=== PATIENT | female | born 1975 | race Caucasian/White ===

== ENCOUNTER 2016-08-28 10:18 | Inpatient (IN) | payer OTHER ==
[~2016-08-28] VITALS: Ht 160 cm; Wt 118.5 kg
[2016-08-28] MEDS ORDERED: PANTOPRAZOLE IV PUSH 40 MG VIAL. IVP ONE (10:45)
[2016-08-28] MEDS ORDERED: ONDANSETRON PF 4 MG/2 ML VIAL. IV ONE (10:45)
[2016-08-28] MEDS ORDERED: IV NORMAL SALINE 1000ML BAG 1,000 ML IV SCH (10:45)
--- NOTE | 2016-08-28 10:47 | PHYS DOC ---
Adult General Chief Complaint Chief Complaint: NAUSEA/VOMITING/DIARRHA HPI HPI Patient is a 41 year old female who presents with complaint of vomiting. Patient said worsening symptoms over the past 2-3 days. Patient states that she started having episodes of coffee-ground emesis within the last day. Patient states her last episode was at 0300 this morning. Patient states she has history of hepatitis C. Patient has not had history of GI bleeding. Patient denies any associated pain and has not had any bloody stools but has had a few episodes of loose stools. Patient denies any fevers. The patient originally went to urgent care and was instructed to come to the emergency department the concern for GI bleeding. Review of Systems Review of Systems Constitutional: Generalized weakness, denies fever or chills [] Eyes: Denies change in visual acuity, redness, or eye pain [] HENT: Denies nasal congestion or sore throat [] Respiratory: Denies cough or shortness of breath [] Cardiovascular: Denies chest pain or edema [] GI: Nausea, coffee-ground emesis, denies abdominal pain [] : Denies dysuria or hematuria [] Musculoskeletal: Denies back pain or joint pain [] Integument: Denies rash or skin lesions [] Neurologic: Denies headache, focal weakness or sensory changes [] Current Medications Current Medications Current Medications Medications (Trade) Dose Ordered Sig/Terrell Start Time Stop Time Status Last Admin Dose Admin Ondansetron HCl (Zofran) 4 mg 1X ONCE 08/28/16 10:45 08/28/16 10:49 DC 08/28/16 11:21 4 MG Pantoprazole Sodium (Protonix Vial) 40 mg 1X ONCE 08/28/16 10:45 08/28/16 10:49 DC 08/28/16 11:23 40 MG Sodium Chloride 1,000 ml @ 1,000 mls/hr Q1H 08/28/16 10:45 08/28/16 11:44 DC 08/28/16 11:21 1,000 MLS/HR Allergies Allergies Allergies Coded Allergies Type Severity Reaction Last Updated Verified No Known Drug Allergies 08/28/16 No Physical Exam Physical Exam Constitutional: Alert, afebrile, appears ill. [] HENT: Normocephalic, atraumatic, bilateral external ears normal, oropharynx dry , no oral exudates, nose normal. [] Eyes: PERRLA, EOMI, conjunctiva normal, no discharge. [] Neck: Normal range of motion, no tenderness, supple, no stridor. [] Cardiovascular: Bradycardia, regular rhythm, no murmur [] Lungs & Thorax: Bilateral breath sounds clear to auscultation [] Abdomen: Bowel sounds normal, soft, no tenderness, no masses, no pulsatile masses. [] Skin: Warm, dry, no erythema, no rash. [] Back: No tenderness, no CVA tenderness. [] Extremities: No tenderness, no cyanosis, no clubbing, ROM intact, no edema. [] Neurologic: Alert and oriented X 3, normal motor function, normal sensory function, no focal deficits noted. [] Current Patient Data Vital Signs Vital Signs Date Time Temp Pulse Resp B/P (MAP) Pulse Ox O2 Delivery O2 Flow Rate FiO2 08/28/16 12:00 48 147/70 (95) 95 Room Air 08/28/16 10:30 98.3 21 98.3 Lab Values Laboratory Tests Test 08/28/16 10:48 08/28/16 11:25 08/28/16 11:55 Glucose (Fingerstick) 80 mg/dL (70-99) White Blood Count 9.9 x10^3/uL (4.0-11.0) Red Blood Count 4.65 x10^6/uL (3.50-5.40) Hemoglobin 16.0 g/dL (12.0-15.5) H Hematocrit 48.0 % (36.0-47.0) H Mean Corpuscular Volume 103 fL (79-100) H Mean Corpuscular Hemoglobin 35 pg (25-35) Mean Corpuscular Hemoglobin Concent 33 g/dL (31-37) Red Cell Distribution Width 14.4 % (11.5-14.5) Platelet Count 172 x10^3/uL (140-400) Neutrophils (%) (Auto) 55 % (31-73) Lymphocytes (%) (Auto) 31 % (24-48) Monocytes (%) (Auto) 13 % (0-9) H Eosinophils (%) (Auto) 1 % (0-3) Basophils (%) (Auto) 1 % (0-3) Neutrophils # (Auto) 5.4 x10^3uL (1.8-7.7) Lymphocytes # (Auto) 3.1 x10^3/uL (1.0-4.8) Monocytes # (Auto) 1.2 x10^3/uL (0.0-1.1) H Eosinophils # (Auto) 0.1 x10^3/uL (0.0-0.7) Basophils # (Auto) 0.1 x10^3/uL (0.0-0.2) Prothrombin Time 14.7 SEC (11.7-14.0) H Prothrombin Time INR 1.2 (0.8-1.1) H PTT 28 SEC (24-38) Sodium Level 135 mmol/L (136-145) L Potassium Level 4.2 mmol/L (3.5-5.1) Chloride Level 97 mmol/L (98-107) L Carbon Dioxide Level 29 mmol/L (21-32) Anion Gap 9 (6-14) Blood Urea Nitrogen 13 mg/dL (7-20) Creatinine 0.9 mg/dL (0.6-1.0) Estimated GFR (Cockcroft-Gault) 69.0 Glucose Level 89 mg/dL (70-99) Calcium Level 9.0 mg/dL (8.5-10.1) Total Bilirubin 1.0 mg/dL (0.2-1.0) Direct Bilirubin 0.4 mg/dL (0.0-0.2) H Aspartate Amino Transferase (AST) 51 U/L (15-37) H Alanine Aminotransferase (ALT) 82 U/L (14-59) H Alkaline Phosphatase 65 U/L (46-116) Total Protein 8.3 g/dL (6.4-8.2) H Albumin 3.6 g/dL (3.4-5.0) Lipase 93 U/L (73-393) Stool Occult Blood Negative (NEG) Laboratory Tests 08/28/16 11:25 Laboratory Tests 08/28/16 11:25 EKG EKG Interpreted by me: Heart rate 42, sinus bradycardia, normal axis, normal intervals, no acute ST/T-wave abnormalities present [] Radiology/Procedures Radiology/Procedures [facility] [address] [place] [address] IMAGING REPORT Signed PATIENT: PACO TREJO ACCOUNT: [id number] : 1975 LOCATION: ER AGE: 41 SEX: F EXAM STATUS: REG ER ORD. PHYSICIAN: MIRIAN HA MD REASON: vomiting with coffee-ground emesis PROCEDURE: ACUTE ABDOMEN SERIES Acute abdomen series with chest, 3 views, 08/28/2012: History: Vomiting Gas is present in large and small bowel without significant bowel distention. There are a few small scattered air-fluid levels in the colon. No free air is seen in the abdomen. There is no evidence of organomegaly. A rim-like radiopacity in the pelvis on the right may be postsurgical or a small partially calcified mass. Several pelvic phleboliths are noted. Scattered degenerative changes are present in the spine. The heart size is normal. The lungs are clear. There is no evidence of pleural fluid. IMPRESSION: 1. Fluid in the colon. 2. Otherwise no acute abdominal abnormality is detected. DICTATED and SIGNED BY: BRIDGET ARMENDARIZ MD DATE: 08/28/16 1115 CC: BETHANY CHEN; MIRIAN HA MD ~ [] Course & Med Decision Making Course & Med Decision Making Pertinent Labs and Imaging studies reviewed. (See chart for details) Patient started on IV fluids, Protonix, and Zofran. Patient is displaying evidence of hemoconcentration on her lab work suggesting dehydration. Patient is currently not tolerating oral intake. Due to coffee-ground emesis, patient may have GI bleeding though fecal occult suggests against severe bleeding at this time. Due to dehydration and continued lack of oral intake, the patient will be admitted for further symptomatic control, rule out GI bleeding, and continue on IV fluids for hydration. I spoke with Dr. Odonnell who accepted care patient in hospital. Dragon Disclaimer Dragon Disclaimer This electronic medical record was generated, in whole or in part, using a voice recognition dictation system. Departure Departure Impression: Primary Impression: Vomiting Additional Impressions: Dehydration Hepatitis C Disposition: ADMITTED INPATIENT Admitting Physician: Roderick Odonnell Condition: STABLE Referrals: BETHANY CHEN (PCP) Problem Qualifiers Primary Impression: Vomiting Vomiting type: hematemesis Nausea presence: with nausea Qualified Codes: K92.0 - Hematemesis; R11.0 - Nausea Additional Impressions: Hepatitis C Viral hepatitis chronicity: chronic Hepatic coma status: without hepatic coma Qualified Codes: B18.2 - Chronic viral hepatitis C MIRIAN HA MD August 28, 2016 10:47
--- NOTE | 2016-08-28 11:16 | EKG ---
[facility] [address] [place] [address] Test Date: 2016-08-28 Test Time: 10:48:48 Pat Name: PACO TREJO Department: Room: Gender: F [employer]: : 1975 Requested By: MIRIAN HA Order Number: [id number] Reading MD: Brooke Monet Measurements Intervals [place] Rate: 42 P: 48 PA: 158 QRS: 59 QRSD: 86 T: 47 QT: 454 QTc: 382 Interpretive Statements SINUS BRADYCARDIA OTHERWISE NORMAL EKG RI6.01 Unconfirmed report No previous ECG available for comparison Electronically Signed On 08-31-2016 20:37:06 CDT by Brooke Monet
--- NOTE | 2016-08-28 11:24 | RAD ---
Acute abdomen series with chest, 3 views, 08/28/2012: History: Vomiting Gas is present in large and small bowel without significant bowel distention. There are a few small scattered air-fluid levels in the colon. No free air is seen in the abdomen. There is no evidence of organomegaly. A rim-like radiopacity in the pelvis on the right may be postsurgical or a small partially calcified mass. Several pelvic phleboliths are noted. Scattered degenerative changes are present in the spine. The heart size is normal. The lungs are clear. There is no evidence of pleural fluid. IMPRESSION: 1. Fluid in the colon. 2. Otherwise no acute abdominal abnormality is detected.
[2016-08-28 11:39] LABS: BASO # 0.1 x10^3/uL (0.0-0.2); BASO % 1 % (0-3); EOS % 1 % (0-3); LYMPH # 3.1 x10^3/uL (1.0-4.8); LYMPH % 31 % (24-48); MEAN CORPUSCULAR HEMOGLOBIN 35 pg (25-35); MEAN CORPUSCULAR HGB CONC 33 g/dL (31-37); MEAN CORPUSCULAR VOLUME 103 fL (79-100); MONO % 13 % (0-9); NEUT % 55 % (31-73); PLATELET COUNT 172 x10^3/uL (140-400); RED BLOOD COUNT 4.65 x10^6/uL (3.50-5.40); RED CELL DISTRIBUTION WIDTH 14.4 % (11.5-14.5); WHITE BLOOD COUNT 9.9 x10^3/uL (4.0-11.0)
[2016-08-28 11:49] LABS: INR 1.2 (0.8-1.1); PROTHROMBIN TIME PATIENT 14.7 SEC (11.7-14.0)
[2016-08-28 11:55] LABS: CREATININE 0.9 mg/dL (0.6-1.0); POTASSIUM 4.2 mmol/L (3.5-5.1)
[2016-08-28 12:02] LABS: ALBUMIN 3.6 g/dL (3.4-5.0); DIRECT BILIRUBIN 0.4 mg/dL (0.0-0.2); TOTAL PROTEIN 8.3 g/dL (6.4-8.2)
[2016-08-28 12:10] LABS: NEG OBC FOB NEG; POS OBC FOB POS
--- NOTE | 2016-08-28 12:59 | ACF ---
Admit Criteria Forms Admit Criteria Forms Admit Criteria Forms VOMITING Clinical Indications for Admission to Inpatient Care ( Place 'X' for any and all applicable criteria): Admission is indicated for 1 or more of the following(1)(2)(3): [ ]I. Complete or partial gastrointestinal obstruction [ ]II. Vomiting due to significant metabolic derangement (eg, severe hypercalcemia, diabetic ketoacidosis) [ ]III. Other cause of vomiting requiring hospitalization (eg, poisoning, increased intracranial pressure) [X]IV. Inpatient admission required rather than observation care because of 1 or more of the following [ ]i) Hemodynamic instability [X]ii) Vomiting that is severe or persistent indicated by 1 or more of the following 1) Numerous episodes of vomiting in past 24hours (eg, every 1 to 2 hours) 2) Suggests severe underlying cause or complication (eg , projectile, feculent, bilious, coffee ground, bloody) 3) Appropriate antiemetic treatment (eg, repeated oral or parenteral dosing) does not sufficiently reduce vomiting within 12 to 24 hours of treatment 4) Treatment regimen necessary to adequately control vomiting requires inpatient level of care (eg, not immediately available in outpatient setting) [X]iii) Severe electrolyte abnormalities requiring inpatient care [ ]iv) Severe pain requiring acute inpatient management( Continuous or frequent (eg, every 2 to 4 hours) parental analgesics or analgesic regimen that can only be performed or initiated in inpatient setting) [ ]v) High fever or infection requiring inpatient admission as indicated by 1 or more of the following(7)(8): [ ]1) Appropriate outpatient or observation care antimicrobial treatment unavailable, not effective, or not feasible [ ]2) Documented bacteremia [ ]3) Temp >104.9 degrees F (40.5 degrees C) (oral) [ ]4) Temp >103.1 degrees F (39.5 C) (oral) or <96.8 degrees F (36 C) (rectal) that does not respond to all emergency treatment measures [ ]vi) Acute renal failure [ ]vii) IV fluid required rather than oral rehydration to replace significant on going losses (greater than 3 L/m2 per day) [ ]viii) Parenteral nutrition regimen that must be implemented on inpatient basis [ ]ix) Other condition, treatment or monitoring requiring inpatient admission Extended stay beyond goal length of stay may be needed for(1)(4): [ ]a) Severe vomiting [ ]b) Persistent vomiting, vital sign changes, severe electrolyte imbalance , or diagnosed cause of vomiting that requires continued hospitalization (eg, gastrointestinal obstruction , increased intracranial pressure) [ ]c) Surgery to treat identified causes of vomiting (eg, bowel obstruction , intracranial process) [ ]d) Comorbid illness that requires inpatient care (eg, acute heart failure , renal failure) [ ]e) Need for inpatient endoscopy The original [employer] content created by [employer] has been revised. The portions of the content which have been revised are identified through the use of italic text or in bold, and [employer] has neither reviewed nor approved the modified material. All other unmodified content is copyright [employer]. Please see references footnoted in the original [employer] edition 2016 KEVIN HASSAN August 28, 2016 12:59
[2016-08-28] MEDS ORDERED: ONDANSETRON PF 4 MG/2 ML VIAL. IV PRN ×2 (13:00→13:45)
[2016-08-28 13:04] LABS: BILIRUBIN,URINE SMALL (NEG); GLUCOSE,URINE NEGATIVE (NEG); NITRITE,URINE POSITIVE (NEG); PROTEIN,URINE NEGATIVE (NEG-TRACE)
[2016-08-28 13:21] LABS: BACTERIA,URINE MANY /HPF (0-FEW); SQUAMOUS EPITHELIAL CELL,UR FEW /LPF; WBC,URINE OCC /HPF (0-4)
--- NOTE | 2016-08-28 13:42 | PDOC1 ---
History and Physical Current Problem List Problem List Problems Medical Problems: (1) Dehydration Status: Acute (2) Hepatitis C Status: Acute Current Medications Current Medications Current Medications Medications (Trade) Dose Ordered Sig/Terrell Start Time Stop Time Status Last Admin Dose Admin Ondansetron HCl (Zofran) 4 mg PRN Q8HRS PRN 08/28/16 13:00 08/29/16 12:59 Pantoprazole Sodium (Protonix Vial) 40 mg DAILYAC 08/29/16 07:30 Sodium Chloride 1,000 ml @ 150 mls/hr Q6H40M 08/28/16 12:59 08/29/16 12:58 Allergies Allergies Allergies Coded Allergies Type Severity Reaction Last Updated Verified No Known Drug Allergies 08/28/16 No ROS Review of System CONSTITUTIONAL: No fever or chills EYES: No recent changes SKIN: No rash or itching CARDIOVASCULAR: No chest pain, syncope, palpitations, or edema RESPIRATORY: No SOB or cough GASTROINTESTINAL: No nausea, coffee ground emesis, NEUROLOGICAL: No headaches or weakness ENDOCRINE: No cold or heat intolerance GENITOURINARY: No urgency or frequency of urination MUSCULOSKELETAL: No back pain or joint pain LYMPHATICS: No enlarged lymph nodes PSYCHIATRIC: No anxiety or depression Physical Exam Physical Exam GEN.: No apparent distress. Alert and oriented. HEENT: Head is normocephalic, atraumatic NECK: Supple. LUNGS: Clear to auscultation. HEART: RRR, S1, S2 present. Peripheral pulses intact ABDOMEN: Soft, nontender. Positive bowel sounds. rash interregional area EXTREMITIES: Without any cyanosis. NEUROLOGIC: Normal speech, normal tone PSYCHIATRIC: Normal affect, normal mood. SKIN: dry Vitals Vitals Vital Signs Date Time Temp Pulse Resp B/P (MAP) Pulse Ox O2 Delivery O2 Flow Rate FiO2 08/28/16 12:00 48 147/70 (95) 95 Room Air 08/28/16 10:30 98.3 21 98.3 Labs Labs Laboratory Tests Test 08/28/16 10:48 08/28/16 11:25 08/28/16 11:55 08/28/16 12:26 Glucose (Fingerstick) 80 mg/dL (70-99) White Blood Count 9.9 x10^3/uL (4.0-11.0) Red Blood Count 4.65 x10^6/uL (3.50-5.40) Hemoglobin 16.0 g/dL (12.0-15.5) Hematocrit 48.0 % (36.0-47.0) Mean Corpuscular Volume 103 fL (79-100) Mean Corpuscular Hemoglobin 35 pg (25-35) Mean Corpuscular Hemoglobin Concent 33 g/dL (31-37) Red Cell Distribution Width 14.4 % (11.5-14.5) Platelet Count 172 x10^3/uL (140-400) Neutrophils (%) (Auto) 55 % (31-73) Lymphocytes (%) (Auto) 31 % (24-48) Monocytes (%) (Auto) 13 % (0-9) Eosinophils (%) (Auto) 1 % (0-3) Basophils (%) (Auto) 1 % (0-3) Neutrophils # (Auto) 5.4 x10^3uL (1.8-7.7) Lymphocytes # (Auto) 3.1 x10^3/uL (1.0-4.8) Monocytes # (Auto) 1.2 x10^3/uL (0.0-1.1) Eosinophils # (Auto) 0.1 x10^3/uL (0.0-0.7) Basophils # (Auto) 0.1 x10^3/uL (0.0-0.2) Prothrombin Time 14.7 SEC (11.7-14.0) Prothromb Time International Ratio 1.2 (0.8-1.1) Activated Partial Thromboplast Time 28 SEC (24-38) Sodium Level 135 mmol/L (136-145) Potassium Level 4.2 mmol/L (3.5-5.1) Chloride Level 97 mmol/L (98-107) Carbon Dioxide Level 29 mmol/L (21-32) Anion Gap 9 (6-14) Blood Urea Nitrogen 13 mg/dL (7-20) Creatinine 0.9 mg/dL (0.6-1.0) Estimated GFR (Cockcroft-Gault) 69.0 Glucose Level 89 mg/dL (70-99) Calcium Level 9.0 mg/dL (8.5-10.1) Total Bilirubin 1.0 mg/dL (0.2-1.0) Direct Bilirubin 0.4 mg/dL (0.0-0.2) Aspartate Amino Transf (AST/SGOT) 51 U/L (15-37) Alanine Aminotransferase (ALT/SGPT) 82 U/L (14-59) Alkaline Phosphatase 65 U/L (46-116) Total Protein 8.3 g/dL (6.4-8.2) Albumin 3.6 g/dL (3.4-5.0) Lipase 93 U/L (73-393) Stool Occult Blood Negative (NEG) Urine Collection Type Unknown Urine Color Sally Urine Clarity Clear Urine pH 6.0 Urine Specific [place] 1.015 Urine Protein Negative mg/dL (NEG-TRACE) Urine Glucose (UA) Negative mg/dL (NEG) Urine Ketones (Stick) Negative mg/dL (NEG) Urine Blood Negative (NEG) Urine Nitrite Positive (NEG) Urine Bilirubin Small (NEG) Urine Urobilinogen Dipstick 1.0 mg/dL (0.2 mg/dL) Urine Leukocyte Esterase Trace (NEG) Urine RBC 1-2 /HPF (0-2) Urine WBC Occ /HPF (0-4) Urine Squamous Epithelial Cells Few /LPF Urine Bacteria Many /HPF (0-FEW) Urine Mucus Marked /LPF Laboratory Tests Test 08/28/16 10:48 08/28/16 11:25 08/28/16 11:55 08/28/16 12:26 Glucose (Fingerstick) 80 mg/dL (70-99) White Blood Count 9.9 x10^3/uL (4.0-11.0) Red Blood Count 4.65 x10^6/uL (3.50-5.40) Hemoglobin 16.0 g/dL (12.0-15.5) Hematocrit 48.0 % (36.0-47.0) Mean Corpuscular Volume 103 fL (79-100) Mean Corpuscular Hemoglobin 35 pg (25-35) Mean Corpuscular Hemoglobin Concent 33 g/dL (31-37) Red Cell Distribution Width 14.4 % (11.5-14.5) Platelet Count 172 x10^3/uL (140-400) Neutrophils (%) (Auto) 55 % (31-73) Lymphocytes (%) (Auto) 31 % (24-48) Monocytes (%) (Auto) 13 % (0-9) Eosinophils (%) (Auto) 1 % (0-3) Basophils (%) (Auto) 1 % (0-3) Neutrophils # (Auto) 5.4 x10^3uL (1.8-7.7) Lymphocytes # (Auto) 3.1 x10^3/uL (1.0-4.8) Monocytes # (Auto) 1.2 x10^3/uL (0.0-1.1) Eosinophils # (Auto) 0.1 x10^3/uL (0.0-0.7) Basophils # (Auto) 0.1 x10^3/uL (0.0-0.2) Prothrombin Time 14.7 SEC (11.7-14.0) Prothromb Time International Ratio 1.2 (0.8-1.1) Activated Partial Thromboplast Time 28 SEC (24-38) Sodium Level 135 mmol/L (136-145) Potassium Level 4.2 mmol/L (3.5-5.1) Chloride Level 97 mmol/L (98-107) Carbon Dioxide Level 29 mmol/L (21-32) Anion Gap 9 (6-14) Blood Urea Nitrogen 13 mg/dL (7-20) Creatinine 0.9 mg/dL (0.6-1.0) Estimated GFR (Cockcroft-Gault) 69.0 Glucose Level 89 mg/dL (70-99) Calcium Level 9.0 mg/dL (8.5-10.1) Total Bilirubin 1.0 mg/dL (0.2-1.0) Direct Bilirubin 0.4 mg/dL (0.0-0.2) Aspartate Amino Transf (AST/SGOT) 51 U/L (15-37) Alanine Aminotransferase (ALT/SGPT) 82 U/L (14-59) Alkaline Phosphatase 65 U/L (46-116) Total Protein 8.3 g/dL (6.4-8.2) Albumin 3.6 g/dL (3.4-5.0) Lipase 93 U/L (73-393) Stool Occult Blood Negative (NEG) Urine Collection Type Unknown Urine Color Sally Urine Clarity Clear Urine pH 6.0 Urine Specific [place] 1.015 Urine Protein Negative mg/dL (NEG-TRACE) Urine Glucose (UA) Negative mg/dL (NEG) Urine Ketones (Stick) Negative mg/dL (NEG) Urine Blood Negative (NEG) Urine Nitrite Positive (NEG) Urine Bilirubin Small (NEG) Urine Urobilinogen Dipstick 1.0 mg/dL (0.2 mg/dL) Urine Leukocyte Esterase Trace (NEG) Urine RBC 1-2 /HPF (0-2) Urine WBC Occ /HPF (0-4) Urine Squamous Epithelial Cells Few /LPF Urine Bacteria Many /HPF (0-FEW) Urine Mucus Marked /LPF VTE Prophylaxis Ordered VTE Prophylaxis Devices: No VTE Pharmacological Prophylaxi: No WILFRED RODARTE MD August 28, 2016 13:42
[2016-08-28] MEDS ORDERED: ALBUTEROL SULFATE 2.5 MG/3 ML NEBU. NEB PRN (13:45)
[2016-08-28] MEDS ORDERED: HYDROcodone/APAP 5/325MG 1 TAB TABLET PO PRN (13:45)
[2016-08-28] MEDS ORDERED: ACETAMINOPHEN 325 MG TABLET. PO PRN (13:45)
[2016-08-28] MEDS ORDERED: hydrALAZINE 20 MG/ML VIAL. IVP PRN (13:45)
[2016-08-28 14:10] VITALS: BP 119/71
[2016-08-28 14:50] VITALS: BP 119/71
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
[2016-08-28] MEDS: IV NORMAL SALINE 1000ML BAG 1,000 ML IV SCH ×3 (15:23→21:57)
[2016-08-28] MEDS: NICOTINE 21MG PATCH. TD PRN (17:12)
[2016-08-28 18:17] LABS: HEMATOCRIT 41.8 % (36.0-47.0); HEMOGLOBIN 14.3 g/dL (12.0-15.5); RED BLOOD COUNT 4.08 x10^6/uL (3.50-5.40); RED CELL DISTRIBUTION WIDTH 14.1 % (11.5-14.5)
[2016-08-28 19:00] VITALS: BP 112/54
[2016-08-28] MEDS: NYSTATIN TOPICAL POWDER 15GM BOTTLE. TP SCH (20:13)
[2016-08-28 23:47] VITALS: BP 113/56
--- NOTE | 2016-08-29 00:03 | HP ---
ADMIT DATE: 08/28/2016 CHIEF COMPLAINT: Coffee-ground emesis. HISTORY OF PRESENT ILLNESS: A 41-year-old female patient presented to the ER with complaints of coffee-ground emesis. She had nearly 11 episodes from Sunday. She denies any hematochezia or abdominal pain or prior history of gastric ulcers. The only history positive in the past was hepatitis C. However, the patient says she went for a meeting and ate some out side food and denies any diarrhea or travel history. She had a history of schizophrenia and not taking any medications and her hepatitis C was never treated. It was diagnosed for nearly 10 years. PAST MEDICAL HISTORY: Hepatitis C, schizophrenia, FAMILY HISTORY: Unknown to the patient. SOCIAL HISTORY: Smokes 1 pack a day. Alcohol occasionally. SUBSTANCE ABUSE: ____ positive. REVIEW OF SYSTEMS: Please see my electronic H and P. PHYSICAL EXAMINATION: Please see my electronic H and P. LABORATORY FINDINGS: Sodium is 135, potassium 4.2, chloride is 97. Bilirubin 0.4, AST 51, ALT 82. Hematology: Hemoglobin is 16.0, MCV is 103, hematocrit 43. INR is 1.2. Urine, nitrites positive, leukocyte esterase trace and fecal occult negative. IMAGING STUDIES: Small bowel series negative. ASSESSMENT: 1. Coffee-ground emesis, unclear etiology. 2. Urinary tract infection, present on admission. 3. History of hepatitis C. 4. Chronic diarrhea. PLAN: 1. She has been admitted to the med-surg floor and currently on IV hydration and n.p.o. The patient denies any vomiting in the hospital. 2. We will check hemoglobin q.6 hours, hematocrit. 3. Gastroenterology has been consulted. 4. Start on ciprofloxacin IV for urinary tract infections. 5. Nystatin powder for possible fungal infection in the intertriginous area. 6. N.p.o. 7. Monitor. If the patient develops any acute bleeding, we will transfuse 2 units of PRBC. WILFRED RODARTE MD DR: ZHAO/mary alice JOB#: [id number] / [id number] CESAR
[2016-08-29 00:10] LABS: HEP A IGM ABDY Negative (Negative)
[2016-08-29] MEDS: IV NORMAL SALINE 1000ML BAG 1,000 ML IV SCH ×2 (02:19→03:05)
[2016-08-29 03:00] VITALS: BP 123/61
[2016-08-29 03:51] LABS: BASO # 0.1 x10^3/uL (0.0-0.2); BASO % 1 % (0-3); EOS % 1 % (0-3); HEMATOCRIT 41.8 % (36.0-47.0); HEMOGLOBIN 14.2 g/dL (12.0-15.5); LYMPH # 2.7 x10^3/uL (1.0-4.8); LYMPH % 37 % (24-48); MEAN CORPUSCULAR HEMOGLOBIN 35 pg (25-35); MEAN CORPUSCULAR HGB CONC 34 g/dL (31-37); MEAN CORPUSCULAR VOLUME 102 fL (79-100); MONO % 13 % (0-9); NEUT % 49 % (31-73); PLATELET COUNT 119 x10^3/uL (140-400); RED BLOOD COUNT 4.08 x10^6/uL (3.50-5.40); RED CELL DISTRIBUTION WIDTH 14.4 % (11.5-14.5); WHITE BLOOD COUNT 7.5 x10^3/uL (4.0-11.0)
[2016-08-29 04:18] LABS: CALCIUM 8.3 mg/dL (8.5-10.1); CREATININE 0.8 mg/dL (0.6-1.0)
[2016-08-29 07:03] VITALS: BP 131/65
[2016-08-29] MEDS ORDERED: PANTOPRAZOLE IV PUSH 40 MG VIAL. IVP SCH (07:30)
[2016-08-29] MEDS: NYSTATIN TOPICAL POWDER 15GM BOTTLE. TP SCH ×2 (08:12→21:00)
[2016-08-29 10:45] VITALS: BP 139/75
--- NOTE | 2016-08-29 11:01 | PDOC ---
Subjective: Subjective: Feeling better. No n/v, abd pain, diarrhea. No bleeding. Tolerating clears, would like to try eating more. Objective: Objective: Per RN - no vomiting or bleeding. Vital Signs: Vital Signs Date Time Temp Pulse Resp B/P (MAP) Pulse Ox O2 Delivery O2 Flow Rate FiO2 08/29/16 10:45 98.4 79 16 139/75 (96) 92 Room Air 98.4 08/28/16 23:47 2.0 Labs: Laboratory Tests Test 08/28/16 11:25 08/28/16 11:55 08/28/16 12:26 08/28/16 18:08 White Blood Count 9.9 x10^3/uL 8.0 x10^3/uL Red Blood Count 4.65 x10^6/uL 4.08 x10^6/uL Hemoglobin 16.0 g/dL 14.3 g/dL Hematocrit 48.0 % 41.8 % Mean Corpuscular Volume 103 fL 102 fL Mean Corpuscular Hemoglobin 35 pg 35 pg Mean Corpuscular Hemoglobin Concent 33 g/dL 34 g/dL Red Cell Distribution Width 14.4 % 14.1 % Platelet Count 172 x10^3/uL 129 x10^3/uL Neutrophils (%) (Auto) 55 % Lymphocytes (%) (Auto) 31 % Monocytes (%) (Auto) 13 % Eosinophils (%) (Auto) 1 % Basophils (%) (Auto) 1 % Neutrophils # (Auto) 5.4 x10^3uL Lymphocytes # (Auto) 3.1 x10^3/uL Monocytes # (Auto) 1.2 x10^3/uL Eosinophils # (Auto) 0.1 x10^3/uL Basophils # (Auto) 0.1 x10^3/uL Prothrombin Time 14.7 SEC Prothromb Time International Ratio 1.2 Activated Partial Thromboplast Time 28 SEC Sodium Level 135 mmol/L Potassium Level 4.2 mmol/L Chloride Level 97 mmol/L Carbon Dioxide Level 29 mmol/L Anion Gap 9 Blood Urea Nitrogen 13 mg/dL Creatinine 0.9 mg/dL Estimated GFR (Cockcroft-Gault) 69.0 Glucose Level 89 mg/dL Calcium Level 9.0 mg/dL Total Bilirubin 1.0 mg/dL Direct Bilirubin 0.4 mg/dL Aspartate Amino Transf (AST/SGOT) 51 U/L Alanine Aminotransferase (ALT/SGPT) 82 U/L Alkaline Phosphatase 65 U/L Total Protein 8.3 g/dL Albumin 3.6 g/dL Lipase 93 U/L Hepatitis A IgM Antibody Negative Hepatitis B Surface Antigen Negative Hepatitis B Core IgM Antibody Negative Hepatitis C Antibody >11.0 s/co ratio Stool Occult Blood Negative Urine Collection Type Unknown Urine Color Sally Urine Clarity Clear Urine pH 6.0 Urine Specific [place] 1.015 Urine Protein Negative mg/dL Urine Glucose (UA) Negative mg/dL Urine Ketones (Stick) Negative mg/dL Urine Blood Negative Urine Nitrite Positive Urine Bilirubin Small Urine Urobilinogen Dipstick 1.0 mg/dL Urine Leukocyte Esterase Trace Urine RBC 1-2 /HPF Urine WBC Occ /HPF Urine Squamous Epithelial Cells Few /LPF Urine Bacteria Many /HPF Urine Mucus Marked /LPF Test 08/29/16 03:30 White Blood Count 7.5 x10^3/uL Red Blood Count 4.08 x10^6/uL Hemoglobin 14.2 g/dL Hematocrit 41.8 % Mean Corpuscular Volume 102 fL Mean Corpuscular Hemoglobin 35 pg Mean Corpuscular Hemoglobin Concent 34 g/dL Red Cell Distribution Width 14.4 % Platelet Count 119 x10^3/uL Neutrophils (%) (Auto) 49 % Lymphocytes (%) (Auto) 37 % Monocytes (%) (Auto) 13 % Eosinophils (%) (Auto) 1 % Basophils (%) (Auto) 1 % Neutrophils # (Auto) 3.6 x10^3uL Lymphocytes # (Auto) 2.7 x10^3/uL Monocytes # (Auto) 1.0 x10^3/uL Eosinophils # (Auto) 0.1 x10^3/uL Basophils # (Auto) 0.1 x10^3/uL Sodium Level 141 mmol/L Potassium Level 4.0 mmol/L Chloride Level 105 mmol/L Carbon Dioxide Level 28 mmol/L Anion Gap 8 Blood Urea Nitrogen 8 mg/dL Creatinine 0.8 mg/dL Estimated GFR (Cockcroft-Gault) 79.0 Glucose Level 85 mg/dL Calcium Level 8.3 mg/dL PE: GEN: NAD LUNGS: CTAB HEART: RRR ABD: NABS, S/ND/NT NEURO/PSYCH: A & O 3 A/P: ?coffee-ground emesis, abd pain, diarrhea - no recurrence -normal Hgb, hemoccult neg stool -no previous EGD or colonoscopy -h/o dyspepsia, post-prandial bloating - started PPI yesterday Hep C -diagnosed 10 years ago in [place], confirmed w/ + antibody here -has seen hepatology @ [facility], apparently no treatment since continues w/ alcohol and marijuana -note low plt 119 -- Improved. Recommended follow-up w/ [facility] for Hep C treatment. Advance diet. Continue PPI. SAMEERA GRACIA August 29, 2016 11:01
[2016-08-29 12:18] LABS: HEMATOCRIT 44.3 % (36.0-47.0); RED BLOOD COUNT 4.31 x10^6/uL (3.50-5.40); RED CELL DISTRIBUTION WIDTH 14.2 % (11.5-14.5); WHITE BLOOD COUNT 10.9 x10^3/uL (4.0-11.0)
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
[2016-08-29 14:50] VITALS: BP 131/71
[2016-08-29] MEDS ORDERED: ABILIFY MAINTENA IM ONE (16:00)
[2016-08-29] MEDS: NICOTINE 21MG PATCH. TD PRN (18:02)
[2016-08-29 19:00] VITALS: BP 146/86
[2016-08-29 22:37] VITALS: BP 136/88
[2016-08-30] MEDS: IV NORMAL SALINE 1000ML BAG 1,000 ML IV SCH (00:41)
[2016-08-30 06:48] LABS: BASO # 0.1 x10^3/uL (0.0-0.2); BASO % 1 % (0-3); EOS % 1 % (0-3); HEMATOCRIT 41.6 % (36.0-47.0); HEMOGLOBIN 14.1 g/dL (12.0-15.5); LYMPH # 2.9 x10^3/uL (1.0-4.8); LYMPH % 32 % (24-48); MEAN CORPUSCULAR HEMOGLOBIN 35 pg (25-35); MEAN CORPUSCULAR HGB CONC 34 g/dL (31-37); MEAN CORPUSCULAR VOLUME 102 fL (79-100); MONO % 14 % (0-9); NEUT % 53 % (31-73); PLATELET COUNT 124 x10^3/uL (140-400); RED BLOOD COUNT 4.07 x10^6/uL (3.50-5.40); RED CELL DISTRIBUTION WIDTH 14.1 % (11.5-14.5); WHITE BLOOD COUNT 9.2 x10^3/uL (4.0-11.0)
[2016-08-30 07:00] VITALS: BP 163/92
[2016-08-30 07:09] LABS: CALCIUM 8.7 mg/dL (8.5-10.1); CREATININE 0.7 mg/dL (0.6-1.0); GFR 92.2; POTASSIUM 3.6 mmol/L (3.5-5.1)
[2016-08-30] MEDS ORDERED: PANTOPRAZOLE 40 MG TABLET.DR. PO SCH (07:30)
[2016-08-30] MEDS: NYSTATIN TOPICAL POWDER 15GM BOTTLE. TP SCH (08:03)
[2016-08-30] MEDS ORDERED: PANT40TA5 PO (09:40)
--- NOTE | 2016-08-30 09:42 | PDOC ---
G I PROGRESS NOTE Subjective No GI complaints. Stools firming up. No N, V; eating ravenously. Physical Exam Lungs clear. RRR Abdomen soft, not tender nor distended. Review of Relevant I have reviewed the following items karl (where applicable) has been applied. Labs Laboratory Tests Test 08/28/16 10:48 08/28/16 11:25 08/28/16 11:55 08/28/16 12:26 Glucose (Fingerstick) 80 mg/dL (70-99) White Blood Count 9.9 x10^3/uL (4.0-11.0) Red Blood Count 4.65 x10^6/uL (3.50-5.40) Hemoglobin 16.0 g/dL (12.0-15.5) Hematocrit 48.0 % (36.0-47.0) Mean Corpuscular Volume 103 fL (79-100) Mean Corpuscular Hemoglobin 35 pg (25-35) Mean Corpuscular Hemoglobin Concent 33 g/dL (31-37) Red Cell Distribution Width 14.4 % (11.5-14.5) Platelet Count 172 x10^3/uL (140-400) Neutrophils (%) (Auto) 55 % (31-73) Lymphocytes (%) (Auto) 31 % (24-48) Monocytes (%) (Auto) 13 % (0-9) Eosinophils (%) (Auto) 1 % (0-3) Basophils (%) (Auto) 1 % (0-3) Neutrophils # (Auto) 5.4 x10^3uL (1.8-7.7) Lymphocytes # (Auto) 3.1 x10^3/uL (1.0-4.8) Monocytes # (Auto) 1.2 x10^3/uL (0.0-1.1) Eosinophils # (Auto) 0.1 x10^3/uL (0.0-0.7) Basophils # (Auto) 0.1 x10^3/uL (0.0-0.2) Prothrombin Time 14.7 SEC (11.7-14.0) Prothromb Time International Ratio 1.2 (0.8-1.1) Activated Partial Thromboplast Time 28 SEC (24-38) Sodium Level 135 mmol/L (136-145) Potassium Level 4.2 mmol/L (3.5-5.1) Chloride Level 97 mmol/L (98-107) Carbon Dioxide Level 29 mmol/L (21-32) Anion Gap 9 (6-14) Blood Urea Nitrogen 13 mg/dL (7-20) Creatinine 0.9 mg/dL (0.6-1.0) Estimated GFR (Cockcroft-Gault) 69.0 Glucose Level 89 mg/dL (70-99) Calcium Level 9.0 mg/dL (8.5-10.1) Total Bilirubin 1.0 mg/dL (0.2-1.0) Direct Bilirubin 0.4 mg/dL (0.0-0.2) Aspartate Amino Transf (AST/SGOT) 51 U/L (15-37) Alanine Aminotransferase (ALT/SGPT) 82 U/L (14-59) Alkaline Phosphatase 65 U/L (46-116) Total Protein 8.3 g/dL (6.4-8.2) Albumin 3.6 g/dL (3.4-5.0) Lipase 93 U/L (73-393) Hepatitis A IgM Antibody Negative (Negative) Hepatitis B Surface Antigen Negative (Negative) Hepatitis B Core IgM Antibody Negative (Negative) Hepatitis C Antibody >11.0 s/co ratio Stool Occult Blood Negative (NEG) Urine Collection Type Unknown Urine Color Sally Urine Clarity Clear Urine pH 6.0 Urine Specific [place] 1.015 Urine Protein Negative mg/dL (NEG-TRACE) Urine Glucose (UA) Negative mg/dL (NEG) Urine Ketones (Stick) Negative mg/dL (NEG) Urine Blood Negative (NEG) Urine Nitrite Positive (NEG) Urine Bilirubin Small (NEG) Urine Urobilinogen Dipstick 1.0 mg/dL (0.2 mg/dL) Urine Leukocyte Esterase Trace (NEG) Urine RBC 1-2 /HPF (0-2) Urine WBC Occ /HPF (0-4) Urine Squamous Epithelial Cells Few /LPF Urine Bacteria Many /HPF (0-FEW) Urine Mucus Marked /LPF Test 08/28/16 18:08 08/29/16 03:30 08/29/16 11:25 08/30/16 06:45 White Blood Count 8.0 x10^3/uL (4.0-11.0) 7.5 x10^3/uL (4.0-11.0) 10.9 x10^3/uL (4.0-11.0) 9.2 x10^3/uL (4.0-11.0) Red Blood Count 4.08 x10^6/uL (3.50-5.40) 4.08 x10^6/uL (3.50-5.40) 4.31 x10^6/uL (3.50-5.40) 4.07 x10^6/uL (3.50-5.40) Hemoglobin 14.3 g/dL (12.0-15.5) 14.2 g/dL (12.0-15.5) 15.0 g/dL (12.0-15.5) 14.1 g/dL (12.0-15.5) Hematocrit 41.8 % (36.0-47.0) 41.8 % (36.0-47.0) 44.3 % (36.0-47.0) 41.6 % (36.0-47.0) Mean Corpuscular Volume 102 fL (79-100) 102 fL (79-100) 103 fL (79-100) 102 fL (79-100) Mean Corpuscular Hemoglobin 35 pg (25-35) 35 pg (25-35) 35 pg (25-35) 35 pg ( 25-35) Mean Corpuscular Hemoglobin Concent 34 g/dL (31-37) 34 g/dL (31-37) 34 g/dL (31-37) 34 g/dL (31-37) Red Cell Distribution Width 14.1 % (11.5-14.5) 14.4 % (11.5-14.5) 14.2 % (11.5-14.5) 14.1 % (11.5-14.5) Platelet Count 129 x10^3/uL (140-400) 119 x10^3/uL (140-400) 148 x10^3/uL (140-400) 124 x10^3/uL (140-400) Neutrophils (%) (Auto) 49 % (31-73) 53 % (31-73) Lymphocytes (%) (Auto) 37 % (24-48) 32 % (24-48) Monocytes (%) (Auto) 13 % (0-9) 14 % (0-9) Eosinophils (%) (Auto) 1 % (0-3) 1 % (0-3) Basophils (%) (Auto) 1 % (0-3) 1 % (0-3) Neutrophils # (Auto) 3.6 x10^3uL (1.8-7.7) 4.8 x10^3uL (1.8-7.7) Lymphocytes # (Auto) 2.7 x10^3/uL (1.0-4.8) 2.9 x10^3/uL (1.0-4.8) Monocytes # (Auto) 1.0 x10^3/uL (0.0-1.1) 1.2 x10^3/uL (0.0-1.1) Eosinophils # (Auto) 0.1 x10^3/uL (0.0-0.7) 0.1 x10^3/uL (0.0-0.7) Basophils # (Auto) 0.1 x10^3/uL (0.0-0.2) 0.1 x10^3/uL (0.0-0.2) Sodium Level 141 mmol/L (136-145) 138 mmol/L (136-145) Potassium Level 4.0 mmol/L (3.5-5.1) 3.6 mmol/L (3.5-5.1) Chloride Level 105 mmol/L (98-107) 103 mmol/L (98-107) Carbon Dioxide Level 28 mmol/L (21-32) 23 mmol/L (21-32) Anion Gap 8 (6-14) 12 (6-14) Blood Urea Nitrogen 8 mg/dL (7-20) 6 mg/dL (7-20) Creatinine 0.8 mg/dL (0.6-1.0) 0.7 mg/dL (0.6-1.0) Estimated GFR (Cockcroft-Gault) 79.0 92.2 Glucose Level 85 mg/dL (70-99) 94 mg/dL (70-99) Calcium Level 8.3 mg/dL (8.5-10.1) 8.7 mg/dL (8.5-10.1) Laboratory Tests Test 08/29/16 11:25 08/30/16 06:45 White Blood Count 10.9 x10^3/uL (4.0-11.0) 9.2 x10^3/uL (4.0-11.0) Red Blood Count 4.31 x10^6/uL (3.50-5.40) 4.07 x10^6/uL (3.50-5.40) Hemoglobin 15.0 g/dL (12.0-15.5) 14.1 g/dL (12.0-15.5) Hematocrit 44.3 % (36.0-47.0) 41.6 % (36.0-47.0) Mean Corpuscular Volume 103 fL (79-100) 102 fL (79-100) Mean Corpuscular Hemoglobin 35 pg (25-35) 35 pg (25-35) Mean Corpuscular Hemoglobin Concent 34 g/dL (31-37) 34 g/dL (31-37) Red Cell Distribution Width 14.2 % (11.5-14.5) 14.1 % (11.5-14.5) Platelet Count 148 x10^3/uL (140-400) 124 x10^3/uL (140-400) Neutrophils (%) (Auto) 53 % (31-73) Lymphocytes (%) (Auto) 32 % (24-48) Monocytes (%) (Auto) 14 % (0-9) Eosinophils (%) (Auto) 1 % (0-3) Basophils (%) (Auto) 1 % (0-3) Neutrophils # (Auto) 4.8 x10^3uL (1.8-7.7) Lymphocytes # (Auto) 2.9 x10^3/uL (1.0-4.8) Monocytes # (Auto) 1.2 x10^3/uL (0.0-1.1) Eosinophils # (Auto) 0.1 x10^3/uL (0.0-0.7) Basophils # (Auto) 0.1 x10^3/uL (0.0-0.2) Sodium Level 138 mmol/L (136-145) Potassium Level 3.6 mmol/L (3.5-5.1) Chloride Level 103 mmol/L (98-107) Carbon Dioxide Level 23 mmol/L (21-32) Anion Gap 12 (6-14) Blood Urea Nitrogen 6 mg/dL (7-20) Creatinine 0.7 mg/dL (0.6-1.0) Estimated GFR (Cockcroft-Gault) 92.2 Glucose Level 94 mg/dL (70-99) Calcium Level 8.7 mg/dL (8.5-10.1) Microbiology 08/28/16 Urine Culture - Preliminary, Resulted 08/28/16 Urine Culture Result 1 ([facility]) - Preliminary, Resulted Medications Current Medications Sodium Chloride 1,000 ml @ 1,000 mls/hr Q1H IV Last administered on 08/28/16 11:21; Start 08/28/16 at 10:45; Stop 08/28/16 at 11:44; Status DC Ondansetron HCl (Zofran) 4 mg 1X ONCE IV Last administered on 08/28/16 11:21 ; Start 08/28/16 at 10:45; Stop 08/28/16 at 10:49; Status DC Pantoprazole Sodium (Protonix Vial) 40 mg 1X ONCE IVP Last administered on 11:23; Start 08/28/16 at 10:45; Stop 08/28/16 at 10:49; Status DC Ondansetron HCl (Zofran) 4 mg PRN Q8HRS PRN IV NAUSEA/VOMITING; Start 08/28/16 at 13:00; Stop 08/29/16 at 12:59; Status DC Sodium Chloride 1,000 ml @ 150 mls/hr Q6H40M IV Last administered on 15:23; Start 08/28/16 at 12:59; Stop 08/29/16 at 12:58; Status DC Pantoprazole Sodium (Protonix Vial) 40 mg DAILYAC IVP Last administered on 08/29 08:12; Start 08/29/16 at 07:30; Stop 08/29/16 at 11:01; Status DC Acetaminophen (Tylenol) 325 mg PRN Q6HRS PRN PO MILD PAIN / TEMP; Start at 13:45 Acetaminophen/ Hydrocodone Bitart (Lortab 5/325) 1 tab PRN Q6HRS PRN PO MODERATE TO SEVERE PAIN; Start 08/28/16 at 13:45 Hydralazine HCl (Apresoline) 10 mg PRN Q4HRS PRN IVP ELEVATED BP, SEE COMMENTS ; Start 08/28/16 at 13:45 Ondansetron HCl (Zofran) 4 mg PRN Q8HRS PRN IV NAUSEA/VOMITING; Start 08/28/16 at 13:45 Albuterol Sulfate (Ventolin Neb Soln) 2.5 mg PRN Q4HRS PRN NEB SHORTNESS OF BREATH Last administered on 08/28/16 16:20; Start 08/28/16 at 13:45 Sodium Chloride 1,000 ml @ 75 mls/hr [id number] IV Last administered on 00:41; Start 08/28/16 at 13:45; Stop 08/30/16 at 09:39; Status DC Nicotine (Nicoderm Cq 21mg) 1 patch PRN DAILY PRN TD SMOKING CESSATION Last administered on 08/29/16 18:02; Start 08/28/16 at 17:00 Nystatin (Nystop) 1 lian BID TP Last administered on 08/30/16 08:03; Start at 19:00 Pantoprazole Sodium (Protonix) 40 mg DAILYAC PO Last administered on 08/30/16 08:03; Start 08/30/16 at 07:30 Non-Formulary Medication 1 ea ONCE ONCE IM Last administered on 08/29/16 15: 35; Start 08/29/16 at 16:00; Stop 08/29/16 at 16:01; Status DC Vitals/I & O Vital Sign - Last 24 Hours 08/29/16 08/29/16 08/29/16 08/29/16 10:45 14:50 19:00 20:00 Temp 98.4 97.6 98.4 98.4 97.6 98.4 Pulse 79 86 57 Resp 16 18 18 B/P (MAP) 139/75 (96) 131/71 (91) 146/86 (106) Pulse Ox 92 93 93 O2 Delivery Room Air Room Air Room Air Room Air 08/29/16 08/30/16 22:37 07:00 Temp 98.6 98.5 98.6 98.5 Pulse 72 45 Resp 18 16 B/P (MAP) 136/88 (104) 163/92 (115) Pulse Ox 93 97 O2 Delivery Room Air Room Air Intake and Output 08/29/16 08/29/16 08/30/16 14:59 22:59 06:59 Intake Total 360 ml 360 ml 800 ml Output Total 800 ml Balance 360 ml -440 ml 800 ml Problem List Problems Medical Problems: (1) Dehydration Status: Acute (2) Hepatitis C Status: Acute Assessment Gastroenteritis, improving. Chronic HCV; established at ; needs to return there. Plan of Care: Continue current Tx, Mgmt Plan of Care Note Home? Have no objections. MAURICE ALCOCER MD August 30, 2016 09:42
[2016-08-30 11:04] VITALS: BP 134/75
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
== END 2016-08-30 15:15 | disposition home or self-care (01) | DRG 918 ==
LOC: ER 10:18 → 5 SOUTH 12:22
PROVIDERS: ADMIT Internal Medicine; ATTEND Internal Medicine
DX: T62.91XA Toxic effect of unspecified noxious substance eaten as food, accidental (unintentional), initial encounter (principal); N39.0 Urinary tract infection, site not specified; K52.9 Noninfective gastroenteritis and colitis, unspecified; F17.210 Nicotine dependence, cigarettes, uncomplicated; M19.90 Unspecified osteoarthritis, unspecified site; B19.20 Unspecified viral hepatitis C without hepatic coma; F20.9 Schizophrenia, unspecified; K29.70 Gastritis, unspecified, without bleeding; F12.90 Cannabis use, unspecified, uncomplicated; R32 Unspecified urinary incontinence; K30 Functional dyspepsia; R00.1 Bradycardia, unspecified; F31.9 Bipolar disorder, unspecified; E86.0 Dehydration; Z79.899 Other long term (current) drug therapy; Z79.1 Long term (current) use of non-steroidal anti-inflammatories (NSAID); Z79.82 Long term (current) use of aspirin; Z79.2 Long term (current) use of antibiotics
CPT/HCPCS: 36415; 74022; 80048; 80074; 80076; 81001; 82274; 82947; 83690; 85027; 85610; 85730; 86850; 86900; 86901; 87086; 93005; 94250; 94640; 94760; 96361; 96374; 96375; C9113; J2405; J7030; 99285-25

== ENCOUNTER → 2016-11-09 | Outpatient (CLI) | payer OTHER ==
[~2016-11-09] MED LIST: PANT40TA5 PO
--- NOTE | 2016-11-09 16:31 | CARD ---
APPROVED REPORT EXAM: Two-dimensional and M-mode echocardiogram with Doppler and color Doppler. Other Information Quality : GoodHR: 49bpm Rhythm : NSR INDICATION Bradycardia RISK FACTORS Obesity Smoking 2D DIMENSIONS RVDd3.2 (2.9-3.5cm)Left Atrium(2D)4.2 (1.6-4.0cm) IVSd1.2 (0.7-1.1cm)Aortic Root(2D)2.5 (2.0-3.7cm) LVDd4.1 (3.9-5.9cm)LVOT Diameter2.3 (1.8-2.4cm) PWd1.2 (0.7-1.1cm)LVDs2.6 (2.5-4.0cm) FS (%) 36.6 %SV49.4 ml LVEF(%)67.0 (>50%) Aortic Valve AoV Peak Norbert.131.2cm/sAoV VTI37.5cm AO Peak GR.6.9mmHgLVOT Peak Norbert.114.8cm/s AO Mean GR.4mmHgAVA (VMAX)3.65cm2 Mitral Valve MV E Krvudsoc799.8cm/sMV E Peak Gr.6mmHg MV DECEL [id number] A Vqlvxmim35.6cm/s MV E Mean Gr.1mmHgE/A Ratio1.7 MV A [id number] Pulmonary Valve PV Peak Gnkitlzs494.6cm/s Tricuspid Valve TR P. Dporsdsu981md/sTR Peak Gr.16mmHg Pulmonary Vein S1 Zldtgide09.8cm/sD2 Abuxflkt23.0cm/s PVa [id number] LEFT VENTRICLE The left ventricle is normal size. There is mild concentric left ventricular hypertrophy. The left ve ntricular systolic function is normal and the ejection fraction is within normal range. The Ejection Fraction is 67 %. There is normal LV segmental wall motion. The left ventricular diastolic function a nd filling is normal for age. RIGHT VENTRICLE The right ventricle is normal size. There is normal right ventricular wall thickness. The right ventr icular systolic function is normal. ATRIA The left atrium size is normal. The right atrium size is normal. The interatrial septum is intact wit h no evidence for an atrial septal defect or patent foramen ovale as noted on 2-D or Doppler imaging. AORTIC VALVE The aortic valve is not well visualized but appears to opens well. Doppler and Color Flow revealed no significant aortic regurgitation. There is no significant aortic valvular stenosis. MITRAL VALVE The mitral valve leaflets are thickened. There is no evidence of mitral valve prolapse. There is no m itral valve stenosis. Doppler and Color Flow revealed trace mitral regurgitation. TRICUSPID VALVE Doppler and Color Flow revealed trace tricuspid regurgitation. The pulmonary artery systolic pressure is estimated at 19 mmHg. There is no pulmonary hypertension. PULMONIC VALVE The pulmonary valve is not well visualized but appears to opens well. Doppler and Color Flow revealed no pulmonic valvular regurgitation. There is no pulmonic valvular stenosis by spectral Doppler. GREAT VESSELS The aortic root is normal in size. The ascending aorta is normal in size. The pulmonary artery is nor mal. The IVC is normal in size and collapses >50% with inspiration. PERICARDIAL EFFUSION There is no evidence of significant pericardial effusion. Critical Notification Critical Value: No <Conclusion> The left ventricular systolic function is normal and the ejection fraction is within normal range. The Ejection Fraction is 67 %. There is mild concentric left ventricular hypertrophy. The left atrium size is normal. The right atrium size is normal. The aortic valve is not well visualized but appears to opens well. Doppler and Color Flow revealed trace mitral regurgitation. The mitral valve leaflets are thickened. Doppler and Color Flow revealed trace tricuspid regurgitation. The pulmonary artery systolic pressure is estimated at 19 mmHg. There is no pulmonary hypertension. The pulmonary valve is not well visualized but appears to opens well. Doppler and Color Flow revealed no pulmonic valvular regurgitation. There is no pulmonic valvular stenosis by spectral Doppler. There is no evidence of significant pericardial effusion.
== END | disposition home or self-care (01) ==
LOC: ECHO 10:56
PROVIDERS: ATTEND Internal Medicine Cardiovascular Disease
DX: I34.0 Nonrheumatic mitral (valve) insufficiency (principal); I51.7 Cardiomegaly; E66.01 Morbid (severe) obesity due to excess calories; F20.9 Schizophrenia, unspecified; J45.909 Unspecified asthma, uncomplicated; F12.10 Cannabis abuse, uncomplicated; F17.200 Nicotine dependence, unspecified, uncomplicated; Z82.49 Family history of ischemic heart disease and other diseases of the circulatory system
CPT/HCPCS: 93225; 93306

== ENCOUNTER 2016-11-16 13:59 | Emergency (ER) | payer OTHER ==
[~2016-11-16] VITALS: Ht 160 cm; Wt 119.3 kg
[2016-11-16 14:45] VITALS: BP 110/60
[2016-11-16 15:28] LABS: BASO # 0.1 x10^3/uL (0.0-0.2); BASO % 1 % (0-3); EOS % 2 % (0-3); HEMATOCRIT 43.4 % (36.0-47.0); HEMOGLOBIN 14.8 g/dL (12.0-15.5); LYMPH # 3.3 x10^3/uL (1.0-4.8); LYMPH % 37 % (24-48); MEAN CORPUSCULAR HEMOGLOBIN 35 pg (25-35); MEAN CORPUSCULAR HGB CONC 34 g/dL (31-37); MEAN CORPUSCULAR VOLUME 103 fL (79-100); MONO % 13 % (0-9); NEUT % 47 % (31-73); PLATELET COUNT 159 x10^3/uL (140-400); RED BLOOD COUNT 4.21 x10^6/uL (3.50-5.40); RED CELL DISTRIBUTION WIDTH 13.8 % (11.5-14.5); WHITE BLOOD COUNT 8.9 x10^3/uL (4.0-11.0)
[2016-11-16 15:39] LABS: CALCIUM 8.3 mg/dL (8.5-10.1); CREATININE 0.8 mg/dL (0.6-1.0); POTASSIUM 4.1 mmol/L (3.5-5.1)
[2016-11-16 15:45] LABS: ALBUMIN 3.2 g/dL (3.4-5.0); ALBUMIN/GLOBULIN RATIO 0.7 (1.0-1.7); TOTAL BILIRUBIN 0.4 mg/dL (0.2-1.0); TOTAL PROTEIN 7.7 g/dL (6.4-8.2)
[2016-11-16] MEDS ORDERED: traMADol 50 MG TABLET PO ONE (17:00)
[2016-11-16] MEDS ORDERED: TRAM50TA PO (17:24)
--- NOTE | 2016-11-16 23:44 | ED.ADGEN ---
Past Medical History Past Medical History: Arthritis, Asthma, Schizophrenia, Other Additional Past Medical Histor: hep c Past Surgical History: , Other Additional Past Surgical Histo: left surgery Alcohol Use: Occasionally Drug Use: Marijuana Adult General Chief Complaint Chief Complaint: LOWER EXTREMITY SWELLING HPI HPI Patient is a 41 year old woman, history of hepatitis C, not currently receiving treatment, asthma, schizophrenia, who presents to the emergency department with a complaint of swelling of the bilateral lower extremities. Patient states this is occurred previously, states that it begins in her ankles, will move up her legs, and will improve with elevation. She denies any shortness of breath, any chest pain, nausea or vomiting, any injuries, history of DVT or PE. She follows with Dr. Stringer, states she has been evaluated by hepatology previously. She states she has been compliant all medications, but is a rather limited historian. Denies any other complaints or issues currently. States the swelling has been more persistent over the past several days. Review of Systems Review of Systems Constitutional: Denies fever or chills. [] Eyes: Denies change in visual acuity. [] HENT: Denies nasal congestion or sore throat. [] Respiratory: Denies cough or shortness of breath. [] Cardiovascular: Denies chest pain or edema. [] GI: Denies abdominal pain, nausea, vomiting, bloody stools or diarrhea. [] : Denies dysuria. [] Musculoskeletal: Denies back pain, bilateral extremity swelling. Integument: Denies rash. [] Neurologic: Denies headache, focal weakness or sensory changes. [] Endocrine: Denies polyuria or polydipsia. [] Lymphatic: Denies swollen glands. [] Psychiatric: Denies depression or anxiety. [] Current Medications Current Medications Current Medications Medications (Trade) Dose Ordered Sig/Terrell Start Time Stop Time Status Last Admin Dose Admin Tramadol HCl (Ultram) 50 mg 1X ONCE 11/16/16 17:00 11/16/16 17:01 DC 11/16/16 16:59 50 MG Allergies Allergies Allergies Coded Allergies Type Severity Reaction Last Updated Verified No Known Drug Allergies 08/28/16 No Physical Exam Physical Exam Constitutional: Well developed, well nourished, no acute distress, non-toxic appearance. [] HENT: Normocephalic, atraumatic, bilateral external ears normal, oropharynx moist, no oral exudates, nose normal. [] Eyes: PERRLA, EOMI, conjunctiva normal, no discharge. [] Neck: Normal range of motion, no tenderness, supple, no stridor. [] Cardiovascular:Heart rate regular rhythm, no murmur, S1, S2, rubs or gallops. [] Lungs & Thorax: Bilateral breath sounds clear to auscultation, no no rhonchi or rales, no chest wall crepitus or tenderness. Mild scattered wheezing noted. Abdomen: Bowel sounds normal, soft, no tenderness, no masses, no pulsatile masses. No rebound, rigidity, no guarding. [] Skin: Warm, dry, no erythema, no rash. [] Back: No tenderness, no CVA tenderness. [] Extremities: No tenderness, no cyanosis, no clubbing, ROM intact, patient with 1 + pitting edema in the lower shortness bilaterally, negative Homans sign, pulses are equal bilaterally. Neurologic: Alert and oriented X 3, normal motor function, normal sensory function, no focal deficits noted. [] Psychologic: Affect normal, judgement normal, mood normal. [] Current Patient Data Vital Signs Vital Signs Date Time Temp Pulse Resp B/P (MAP) Pulse Ox O2 Delivery O2 Flow Rate FiO2 11/16/16 16:59 16 11/16/16 14:45 98.4 60 110/60 (77) 96 Room Air 98.4 Lab Values Laboratory Tests Test 11/16/16 15:19 White Blood Count 8.9 x10^3/uL (4.0-11.0) Red Blood Count 4.21 x10^6/uL (3.50-5.40) Hemoglobin 14.8 g/dL (12.0-15.5) Hematocrit 43.4 % (36.0-47.0) Mean Corpuscular Volume 103 fL (79-100) H Mean Corpuscular Hemoglobin 35 pg (25-35) Mean Corpuscular Hemoglobin Concent 34 g/dL (31-37) Red Cell Distribution Width 13.8 % (11.5-14.5) Platelet Count 159 x10^3/uL (140-400) Neutrophils (%) (Auto) 47 % (31-73) Lymphocytes (%) (Auto) 37 % (24-48) Monocytes (%) (Auto) 13 % (0-9) H Eosinophils (%) (Auto) 2 % (0-3) Basophils (%) (Auto) 1 % (0-3) Neutrophils # (Auto) 4.1 x10^3uL (1.8-7.7) Lymphocytes # (Auto) 3.3 x10^3/uL (1.0-4.8) Monocytes # (Auto) 1.2 x10^3/uL (0.0-1.1) H Eosinophils # (Auto) 0.2 x10^3/uL (0.0-0.7) Basophils # (Auto) 0.1 x10^3/uL (0.0-0.2) Sodium Level 139 mmol/L (136-145) Potassium Level 4.1 mmol/L (3.5-5.1) Chloride Level 104 mmol/L (98-107) Carbon Dioxide Level 30 mmol/L (21-32) Anion Gap 5 (6-14) L Blood Urea Nitrogen 12 mg/dL (7-20) Creatinine 0.8 mg/dL (0.6-1.0) Estimated GFR (Cockcroft-Gault) 79.0 BUN/Creatinine Ratio 15 (6-20) Glucose Level 92 mg/dL (70-99) Calcium Level 8.3 mg/dL (8.5-10.1) L Total Bilirubin 0.4 mg/dL (0.2-1.0) Aspartate Amino Transferase (AST) 316 U/L (15-37) H Alanine Aminotransferase (ALT) 382 U/L (14-59) H Alkaline Phosphatase 128 U/L (46-116) H Troponin I Quantitative < 0.017 ng/mL (0.000-0.055) XB-Uss-W-Type Natriuretic Peptide 271 pg/mL (0-124) H Total Protein 7.7 g/dL (6.4-8.2) Albumin 3.2 g/dL (3.4-5.0) L Albumin/Globulin Ratio 0.7 (1.0-1.7) L Laboratory Tests 11/16/16 15:19 Laboratory Tests 11/16/16 15:19 EKG EKG Not indicated. Radiology/Procedures Radiology/Procedures Not indicated. [] Course & Med Decision Making Course & Med Decision Making Pertinent Labs and Imaging studies reviewed. (See chart for details) Patient's history and examination consistent with dependent edema, noted to have only mild swelling bilaterally, no evidence of infection or other concerning findings identified. Laboratory studies reviewed, patient noted to have an albumin of 3.2, with LFTs that are elevated. When compared to prior, abnormalities noted to be in the 300s at this time, previously worked in the 50s and 60s. I did speak to Dr. Stringer the patient's primary care provider, who states the patient has been evaluated by hepatology as stated, we discussed the fact the patient is a limited historian, but it does appear the patient is taking Lasix, and potassium which are recently initiated by the greens picker. During the patient's previous visit, the LFTs were mildly elevated, she states that she will pass on the increase in LFTs to the hepatology clinic for additional evaluation and follow-up. As stated, no evidence of an acute fulminant hepatic issue at this time, patient is well-appearing, no indications for additional imaging, patient's lower extremity edema is consistent with her underlying illness. I did discuss this with patient, she is agreeable this plan , will try tramadol for pain as recommended by Dr. mireya fuentes, first dose given in the ED, prescription for 50 mg of tramadol to be used up to once every 6 hours as needed prescribed. Patient given clear and detailed return instructions with which she voiced understanding and agreement, to follow-up with her primary care provider hepatology clinic for additional evaluation, to continue Lasix and potassium, and to return to the ED for concerning symptoms as discussed. Dragon Disclaimer Dragon Disclaimer This electronic medical record was generated, in whole or in part, using a voice recognition dictation system. Departure Impression: Primary Impression: Swelling of lower extremity Disposition: HOME, SELF-CARE Condition: IMPROVED Scripts Tramadol Hcl (TRAMADOL HCL) 50 Mg Tablet 1 TAB PO PRN Q6HRS Y for PAIN, #20 TAB Prov: SHARRI EARL DO 11/16/16 SHARRI EARL DO Nov 16, 2016 23:43
== END 2016-11-16 18:00 | disposition home or self-care (01) ==
LOC: ER 13:59
DX: R22.43 Localized swelling, mass and lump, lower limb, bilateral (principal); R79.89 Other specified abnormal findings of blood chemistry; M19.90 Unspecified osteoarthritis, unspecified site; J45.909 Unspecified asthma, uncomplicated; F20.9 Schizophrenia, unspecified; F12.10 Cannabis abuse, uncomplicated; Z86.19 Personal history of other infectious and parasitic diseases
CPT/HCPCS: 36415; 80053; 83880; 84484; 85027; 99284

== ENCOUNTER 2016-11-21 12:57 | Emergency (ER) | payer OTHER ==
[~2016-11-21] VITALS: Ht 160 cm; Wt 119.3 kg
[~2016-11-21 12:57] MED LIST changes: +TRAM50TA PO
--- NOTE | 2016-11-21 13:35 | PHYS DOC ---
Past Medical History Past Medical History: Arthritis, Asthma, Schizophrenia, Other Additional Past Medical Histor: hep c Past Surgical History: , Other Additional Past Surgical Histo: left surgery Alcohol Use: Occasionally Drug Use: Marijuana Adult General Chief Complaint Chief Complaint: LOWER EXTREMITY SWELLING HPI HPI Patient is a 41 year old female presenting to the emergency department for evaluation of bilateral lower extremity redness and swelling. Swelling started 2 weeks ago and that she shaved her legs yesterday and other both bright red. Patient says that she has a history of hepatitis C she denies any chest pain shortness of breath diaphoresis fevers chills nausea vomiting. She has tried putting hydrocortisone on her skin with no relief in symptoms. Review of Systems Review of Systems Constitutional: Denies fever or chills [] Respiratory: Denies cough or shortness of breath [] Cardiovascular: No additional information not addressed in HPI [] GI: Denies abdominal pain, nausea, vomiting, bloody stools or diarrhea [] : Denies dysuria or hematuria [] Musculoskeletal: Denies back pain or joint pain [] Integument: + rash, skin lesions [] Neurologic: Denies headache, focal weakness or sensory changes [] Allergies Allergies Allergies Coded Allergies Type Severity Reaction Last Updated Verified No Known Drug Allergies 08/28/16 No Physical Exam Physical Exam Constitutional: Well developed, well nourished, no acute distress, non-toxic appearance. [] Neck: Normal range of motion, no tenderness, supple, no stridor. [] Cardiovascular:Heart rate regular rhythm, no murmur [] Lungs & Thorax: Bilateral breath sounds clear to auscultation [] Abdomen: Bowel sounds normal, soft, no tenderness, no masses, no pulsatile masses. [] Skin: Warm, dry, redness with folliculitis to lower extremity however no particular warmth Extremities: No tenderness, no cyanosis, no clubbing, ROM intact. 2-3+ edema bilaterally with 2+ dorsalis pedis pulse bilaterally. Neurologic: Alert and oriented X 3, normal motor function, normal sensory function, no focal deficits noted. [] Current Patient Data Vital Signs Vital Signs Date Time Temp Pulse Resp B/P (MAP) Pulse Ox O2 Delivery O2 Flow Rate FiO2 11/21/16 13:23 97.6 75 20 116/66 (83) 95 Room Air 97.6 Lab Values Laboratory Tests Test 11/21/16 14:10 White Blood Count 8.2 x10^3/uL (4.0-11.0) Red Blood Count 4.04 x10^6/uL (3.50-5.40) Hemoglobin 14.2 g/dL (12.0-15.5) Hematocrit 41.3 % (36.0-47.0) Mean Corpuscular Volume 102 fL (79-100) H Mean Corpuscular Hemoglobin 35 pg (25-35) Mean Corpuscular Hemoglobin Concent 34 g/dL (31-37) Red Cell Distribution Width 13.8 % (11.5-14.5) Platelet Count 163 x10^3/uL (140-400) Neutrophils (%) (Auto) 44 % (31-73) Lymphocytes (%) (Auto) 38 % (24-48) Monocytes (%) (Auto) 15 % (0-9) H Eosinophils (%) (Auto) 2 % (0-3) Basophils (%) (Auto) 1 % (0-3) Neutrophils # (Auto) 3.6 x10^3uL (1.8-7.7) Lymphocytes # (Auto) 3.1 x10^3/uL (1.0-4.8) Monocytes # (Auto) 1.2 x10^3/uL (0.0-1.1) H Eosinophils # (Auto) 0.2 x10^3/uL (0.0-0.7) Basophils # (Auto) 0.1 x10^3/uL (0.0-0.2) D-Dimer (Asya) 0.45 ug/mlFEU (0.00-0.50) Sodium Level 139 mmol/L (136-145) Potassium Level 4.3 mmol/L (3.5-5.1) Chloride Level 103 mmol/L (98-107) Carbon Dioxide Level 28 mmol/L (21-32) Anion Gap 8 (6-14) Blood Urea Nitrogen 14 mg/dL (7-20) Creatinine 1.2 mg/dL (0.6-1.0) H Estimated GFR (Cockcroft-Gault) 49.5 BUN/Creatinine Ratio 12 (6-20) Glucose Level 103 mg/dL (70-99) H Calcium Level 8.3 mg/dL (8.5-10.1) L Total Bilirubin 0.5 mg/dL (0.2-1.0) Aspartate Amino Transferase (AST) 316 U/L (15-37) H Alanine Aminotransferase (ALT) 391 U/L (14-59) H Alkaline Phosphatase 112 U/L (46-116) YM-Ohk-T-Type Natriuretic Peptide 27 pg/mL (0-124) Total Protein 7.8 g/dL (6.4-8.2) Albumin 3.3 g/dL (3.4-5.0) L Albumin/Globulin Ratio 0.7 (1.0-1.7) L Laboratory Tests 11/21/16 14:10 Laboratory Tests 11/21/16 14:10 EKG EKG [] Radiology/Procedures Radiology/Procedures [] Course & Med Decision Making Course & Med Decision Making Patient's workup rather unremarkable and I do not see any signs of arterial insufficiency infection or other immediate concern. As have transaminitis likely from her hepatitis C. She says that she is taking 20 mg of Lasix daily so recommended doubling this to 40 and her in compression stocking elevating her legs and following with her GI and PCP later this week to ensure improvement get further recommendations. And aware and agreeable with plan for discharge and verbalized understanding of the need for short-term follow-up and strict ER return precautions discussed and clear worsening pain fevers charts of breath or other general concerns. Dragon Disclaimer Dragon Disclaimer This electronic medical record was generated, in whole or in part, using a voice recognition dictation system. Departure Departure Impression: Primary Impression: Swelling of lower extremity Additional Impression: Transaminitis Disposition: 01 HOME, SELF-CARE Condition: GOOD Referrals: BETHANY CHEN (PCP) SUN JOSE MD Patient Instructions: Peripheral Edema Additional Instructions: ELEVATE YOUR LEGS, PUT COMPRESSION STOCKINGS ON. FOLLOW WITH YOUR GI DOCTOR AND PCP LATER THIS WEEK. COME BACK TO THE ED WITH WORSENING PAIN, SOA, OR OTHER GENERAL CONCERNS. THANK YOU! Scripts Furosemide (LASIX) 40 Mg Tablet 1 TAB PO DAILY, #30 TAB 0 Refills Prov: MARION MCDONALD DO 11/21/16 Problem Qualifiers MARION MCDONALD DO Nov 21, 2016 13:35
[2016-11-21 14:22] LABS: BASO # 0.1 x10^3/uL (0.0-0.2); BASO % 1 % (0-3); EOS % 2 % (0-3); HEMATOCRIT 41.3 % (36.0-47.0); HEMOGLOBIN 14.2 g/dL (12.0-15.5); LYMPH # 3.1 x10^3/uL (1.0-4.8); LYMPH % 38 % (24-48); MEAN CORPUSCULAR HEMOGLOBIN 35 pg (25-35); MEAN CORPUSCULAR HGB CONC 34 g/dL (31-37); MEAN CORPUSCULAR VOLUME 102 fL (79-100); MONO % 15 % (0-9); NEUT % 44 % (31-73); PLATELET COUNT 163 x10^3/uL (140-400); RED BLOOD COUNT 4.04 x10^6/uL (3.50-5.40); RED CELL DISTRIBUTION WIDTH 13.8 % (11.5-14.5); WHITE BLOOD COUNT 8.2 x10^3/uL (4.0-11.0)
[2016-11-21 14:53] LABS: CALCIUM 8.3 mg/dL (8.5-10.1); CREATININE 1.2 mg/dL (0.6-1.0); GFR 49.5; POTASSIUM 4.3 mmol/L (3.5-5.1)
[2016-11-21 15:01] LABS: ALBUMIN 3.3 g/dL (3.4-5.0); ALBUMIN/GLOBULIN RATIO 0.7 (1.0-1.7); TOTAL BILIRUBIN 0.5 mg/dL (0.2-1.0); TOTAL PROTEIN 7.8 g/dL (6.4-8.2)
[2016-11-21 15:15] VITALS: BP 118/88
[2016-11-21] MEDS ORDERED: FURO-68 PO (15:18)
== END 2016-11-21 15:35 | disposition home or self-care (01) ==
LOC: ER 12:57
DX: R22.43 Localized swelling, mass and lump, lower limb, bilateral (principal); R74.0 Nonspecific elevation of levels of transaminase and lactic acid dehydrogenase [LDH]; R21 Rash and other nonspecific skin eruption; F20.9 Schizophrenia, unspecified; J45.909 Unspecified asthma, uncomplicated; M19.90 Unspecified osteoarthritis, unspecified site; Z86.19 Personal history of other infectious and parasitic diseases
CPT/HCPCS: 36415; 80053; 83880; 85025; 85379; 99284

== ENCOUNTER 2017-03-03 14:02 | Emergency (ER) | payer OTHER ==
[~2017-03-03] VITALS: Ht 167.6 cm; Wt 121.6 kg
[~2017-03-03 14:02] MED LIST changes: +FURO-68 PO
[2017-03-03 14:34] VITALS: BP 124/65
[2017-03-03] MEDS ORDERED: POTASSIUM CHLO10 MEQ PO (14:58)
[2017-03-03] MEDS ORDERED: muscle relaxer (14:58)
[2017-03-03] MEDS ORDERED: ARIP2TAB3 PO (14:58)
[2017-03-03] MEDS ORDERED: LOPE2CAP PO (14:58)
[2017-03-03] MEDS ORDERED: CLOT15CR3 TP (15:16)
[2017-03-03] MEDS ORDERED: FLUC100T7 PO (15:16)
[2017-03-03] MEDS ORDERED: AZIT250T6 PO (15:16)
--- NOTE | 2017-03-03 15:17 | PHYS DOC ---
Past Medical History Past Medical History: Arthritis, Asthma, GERD, Liver Disease, Schizophrenia, Other Additional Past Medical Histor: hep c Past Surgical History: , Other Additional Past Surgical Histo: left surgery Alcohol Use: Occasionally Drug Use: Marijuana Adult General Chief Complaint Chief Complaint: Congestion HPI HPI Patient is a 41 year old female who presents ambulatory to the ED with 2 complaints. #1, she has had sinus and chest congestion for about a week. She's had a cough which is not getting better and is productive of green, brown, or yellow sputum. She does not really have shortness of air or wheezing. She has felt a little feverish. She has pressure in her sinuses and also drainage in the back of her throat and when she blows her nose. She has felt hoarse and almost lost her voice. Patient is a smoker and continues to smoke. She said they told her she has asthma and gave her an inhaler that she does not use very often. #2, complains of a rash in the fold of her pannus. It is weepy at times. Her doctor gave her Lotrimin powder which is not helping. Patient denies diabetes. PCP Dr. Hoyt Patient denies diabetes. She states that she was told she has a slow heartbeat after wearing a 24-hour Holter monitor, but it was nothing to worry about. No allergies to antibiotics. Review of Systems Review of Systems Constitutional: She has felt feverish but denies chills Eyes: Denies change in visual acuity, redness, or eye pain [] HENT: As in history of present illness Respiratory: As in history of present illness Cardiovascular: Denies chest pain GI: Denies abdominal pain, nausea, vomiting, bloody stools or diarrhea [] : Denies dysuria or hematuria [] Musculoskeletal: Denies back pain or joint pain [] Integument: As in history of present illness Neurologic: Denies headache, focal weakness or sensory changes [] Endocrine: Denies diabetes All other systems were reviewed and found to be within normal limits, except as documented in this note. Allergies Allergies Allergies Coded Allergies Type Severity Reaction Last Updated Verified No Known Drug Allergies 08/28/16 No Physical Exam Physical Exam Constitutional: Obese, ambulatory, no acute distress, pulse ox on room air 95-96 % HENT: Normocephalic, atraumatic, bilateral external ears normal, nose normal. [ ] Eyes: conjunctiva normal, no discharge. [] Neck: Normal range of motion, no stridor. [] Cardiovascular:Heart rate regular rhythm, no murmur [] Lungs & Thorax: Bilateral breath sounds clear to auscultation good air movement throughout, no wheezes, rales, or rhonchi Skin: Warm, dry, no erythema. The skin fold beneath the patient's pannus, there is a erythemic rash that is somewhat weepy and locations, appears consistent with candidiasis, covered with Lotrimin powder Extremities: No tenderness, no cyanosis, no clubbing, ROM intact, no edema. [] Neurologic: Alert and oriented X 3, normal motor function, normal sensory function, no focal deficits noted. [] Current Patient Data Vital Signs Vital Signs Date Time Temp Pulse Resp B/P (MAP) Pulse Ox O2 Delivery O2 Flow Rate FiO2 03/03/17 14:34 97.6 81 18 96 Room Air 97.6 EKG EKG [] Radiology/Procedures Radiology/Procedures [] Course & Med Decision Making Course & Med Decision Making Pertinent Labs and Imaging studies reviewed. (See chart for details) 41-year-old female presents with sinus congestion, chest congestion, cough, for one week, worsening instead of improving. We will treat her with a Z-Ezekiel. I urged her to quit smoking. Also has a yeast infection of the skin, we'll treat her with Diflucan and topical cream as well as the powder already prescribed by her doctor. See instructions for plan. [] Dragon Disclaimer Dragon Disclaimer This electronic medical record was generated, in whole or in part, using a voice recognition dictation system. Departure Departure Impression: Primary Impression: Sinusitis Additional Impressions: Acute bronchitis Skin candidiasis Disposition: HOME, SELF-CARE Condition: STABLE Referrals: BETHANY CHEN (PCP) Patient Instructions: Acute Bronchitis, [id number] Additional Instructions: As we discussed, it will help prevent bronchitis and sinus infections if you quit smoking. It will also help prevent yeast infection in the folds of your skin if you could lose weight. For yeast infection, take Diflucan 1 today, the second one in 1 week. Wash the area well with soap and water in the bath or shower. Dry it very well, you may need to use a blow dryer. Apply antifungal cream and rubbed in well to the entire area. Then apply powder that your doctor gave you to help absorb moisture. Do this once or twice a day until better. Scripts Clotrimazole/Betamethasone Dip (LOTRISONE CREAM) 15 Gm Cream..g. 15 GM TP BID for Yeast infection skin for 14 Days, #28 EA Prov: ABBY JORGE MD 03/03/17 Fluconazole (DIFLUCAN) 100 Mg Tablet 100 MG PO DAILY for yeast infection, #2 TAB Take 1 now, take the second one in 1 week. Prov: ABBY JORGE MD 03/03/17 Azithromycin (AZITHROMYCIN TABLET) 250 Mg Tablet 1 PKG PO UD for bronchitis, #6 TAB Prov: ABBY JORGE MD 03/03/17 Problem Qualifiers ABBY JORGE MD Mar 03, 2017 15:17
== END 2017-03-03 15:32 | disposition home or self-care (01) ==
LOC: ER 14:02
DX: J32.9 Chronic sinusitis, unspecified (principal); J20.9 Acute bronchitis, unspecified; B37.2 Candidiasis of skin and nail; F20.9 Schizophrenia, unspecified; K21.9 Gastro-esophageal reflux disease without esophagitis; J45.909 Unspecified asthma, uncomplicated; M19.90 Unspecified osteoarthritis, unspecified site; F12.10 Cannabis abuse, uncomplicated
CPT/HCPCS: 99283

== ENCOUNTER 2017-07-24 12:22 | Emergency (ER) | payer OTHER ==
[2017-07-24 13:57] LABS: URINE HCG POC HCG NEGATIVE (Negative)
[2017-07-24 14:14] LABS: BILIRUBIN,URINE NEGATIVE (NEG); CLARITY,URINE CLEAR; COLOR,URINE YELLOW; GLUCOSE,URINE NEGATIVE (NEG); NITRITE,URINE NEGATIVE (NEG); PROTEIN,URINE NEGATIVE (NEG-TRACE); UROBILINOGEN,URINE 0.2 mg/dL (0.2 mg/dL)
[2017-07-24] MEDS ORDERED: MORPHINE SULFATE 4 MG/ML DISP.SYRIN. IV/SQ (14:15)
[2017-07-24] MEDS: IOHEXOL 300 MG/ML 100ML VIAL. IV (14:15)
[2017-07-24 14:20] LABS: BACTERIA,URINE FEW /HPF (0-FEW); RBC,URINE 0 /HPF (0-2); SQUAMOUS EPITHELIAL CELL,UR MOD /LPF; WBC,URINE OCC /HPF (0-4)
[2017-07-24 14:25] LABS: AMPHETAMINE/METHAMPHETAMINE NEG (NEG); BARBITURATES NEG (NEG); BENZODIAZEPINES NEG (NEG); CANNABINOIDS POS (NEG); COCAINE NEG (NEG); ETHANOL, URINE NEG (NEG); METHADONE NEG (NEG); OPIATES NEG (NEG); PHENCYCLIDINE NEG (NEG)
[2017-07-24] MEDS ORDERED: CONTRAST GIVEN MC (14:30)
[2017-07-24] MEDS: ALBUTEROL SULFATE 2.5 MG/3 ML NEBU. CONT NEB (14:34)
[2017-07-24] MEDS: IPRATRPIUM/ALBUTEROL 0.5/2.5MG 3 ML NEBU. NEB (14:35)
[2017-07-24] MEDS: methylPREDNISolone SOD SUCC PF 125 MG/2 ML VIAL. IV (14:35)
[2017-07-24] MEDS: MORPHINE SULFATE 4 MG/ML DISP.SYRIN. IV/SQ (14:35)
[2017-07-24] MEDS: ONDANSETRON PF 4 MG/2 ML VIAL. IV (14:35)
[2017-07-24] MEDS: FAMOTIDINE 20 MG/2 ML VIAL IVP (14:35)
[2017-07-24] MEDS: IV NORMAL SALINE 1000ML BAG 1,000 ML IV (14:36)
[2017-07-24 14:39] LABS: ADD MAN DIFF? NO
[2017-07-24 14:41] LABS: BASO % 1 % (0-3); EOS % 0 % (0-3); HEMATOCRIT 44.6 % (36.0-47.0); HEMOGLOBIN 15.3 g/dL (12.0-15.5); LYMPH # 1.6 x10^3/uL (1.0-4.8); LYMPH % 21 % (24-48); MEAN CORPUSCULAR HEMOGLOBIN 35 pg (25-35); MEAN CORPUSCULAR HGB CONC 34 g/dL (31-37); MEAN CORPUSCULAR VOLUME 103 fL (79-100); MONO # 0.6 x10^3/uL (0.0-1.1); MONO % 8 % (0-9); NEUT # 5.2 x10^3uL (1.8-7.7); NEUT % 70 % (31-73); PLATELET COUNT 157 x10^3/uL (140-400); RED BLOOD COUNT 4.33 x10^6/uL (3.50-5.40); RED CELL DISTRIBUTION WIDTH 14.5 % (11.5-14.5); WHITE BLOOD COUNT 7.5 x10^3/uL (4.0-11.0)
[2017-07-24] MEDS: 0.9 % SODIUM CHLORIDE 10 ML DISP.SYRIN. IV (14:52)
[2017-07-24 14:58] LABS: TROPONINI < 0.017 ng/mL (0.000-0.055)
[2017-07-24 15:10] LABS: ALBUMIN 3.5 g/dL (3.4-5.0); ALK PHOS 98 U/L (46-116); ALT (SGPT) 235 U/L (14-59); ANION GAP 9 (6-14); AST (SGOT) 203 U/L (15-37); BLOOD UREA NITROGEN 11 mg/dL (7-20); CALCIUM 8.8 mg/dL (8.5-10.1); CARBON DIOXIDE 28 mmol/L (21-32); CHLORIDE 103 mmol/L (98-107); CREATININE 0.7 mg/dL (0.6-1.0); DIRECT BILIRUBIN 0.2 mg/dL (0.0-0.2); GFR 91.8; GLUCOSE 101 mg/dL (70-99); LIPASE 168 U/L (73-393); POTASSIUM 4.6 mmol/L (3.5-5.1); SODIUM 140 mmol/L (136-145); TOTAL BILIRUBIN 0.6 mg/dL (0.2-1.0); TOTAL PROTEIN 8.1 g/dL (6.4-8.2)
[2017-07-24 15:20] LABS: CKMB INDEX 3.2 % (0-4); CREATINE KINASE 126 U/L (26-192); INFLUENZA A PATIENT NEGATIVE (NEGATIVE); INFLUENZA B PATIENT NEGATIVE (NEGATIVE); OBC FLU VALID
[2017-07-24 15:20] LABS: NT-PRO BNP 157 pg/mL (0-124)
== END 2017-07-24 17:32 | disposition home or self-care (01) ==
LOC: ER 12:22
DX: J20.9 Acute bronchitis, unspecified (principal); N28.1 Cyst of kidney, acquired; K21.9 Gastro-esophageal reflux disease without esophagitis; F17.210 Nicotine dependence, cigarettes, uncomplicated; F20.9 Schizophrenia, unspecified; J45.909 Unspecified asthma, uncomplicated; F12.10 Cannabis abuse, uncomplicated; I10 Essential (primary) hypertension; E66.9 Obesity, unspecified; M19.90 Unspecified osteoarthritis, unspecified site; Z68.42 Body mass index [BMI] 45.0-49.9, adult
CPT/HCPCS: 36415; 71046; 74177; 80048; 80076; 80307; 81001; 81025; 82553; 83690; 83880; 84484; 85025; 87804; 87804-59; 93005; 94640; 94644; 96361; 96374; 96375; 99285-25; J2270; J2405; J2930; J7030; J7613; J7620; Q9967; S0028

== ENCOUNTER 2017-11-26 18:30 | Inpatient (IN) | payer OTHER ==
[~2017-11-26] VITALS: Ht 160 cm; Wt 118.9 kg
[~2017-11-26 18:30] MED LIST changes: +ARIP2TAB3 PO; +ARIP400S IM; +AZIT250T6 PO; +CLOT15CR3 TP; +CYCL10TA2 PO; +FLUC100T7 PO; +LOPE2CAP PO; +NYST100054 PO; +POTA10TA12 PO; +PRED-220 PO; +VENTOLIN HFA18 GM INH; +muscle relaxer
[2017-11-26] MEDS ORDERED: ONDANSETRON PF 4 MG/2 ML VIAL. IV ONE (19:30)
[2017-11-26] MEDS ORDERED: fentaNYL PF VIAL 100 MCG/2 ML VIAL IV ONE (19:30)
[2017-11-26] MEDS ORDERED: PIPERACILLIN/TAZOBACTAM 3.375 GM in IV NORMAL SALINE 50ML 50 ML IV ONE ×2 (19:45→20:45)
[2017-11-26] MEDS ORDERED: PIP/TAZO PER PHARMACY MC PRN (19:45)
[2017-11-26] MEDS ORDERED: VANCOMYCIN PER PHARMACY MC PRN (19:45)
[2017-11-26] MEDS ORDERED: VANCOMYCIN 2 GM in IV NORMAL SALINE 500ML BAG 500 ML IV ONE (20:00)
[2017-11-26] MEDS ORDERED: ONDANSETRON PF 4 MG/2 ML VIAL. IV PRN (20:45)
[2017-11-26] MEDS ORDERED: MORPHINE SULFATE 4 MG/ML VIAL. IV PRN (20:45)
[2017-11-26] MEDS ORDERED: FLUCONAZOLE 200MG/100ML PREMIX 100 ML IV SCH (21:00)
--- NOTE | 2017-11-26 21:02 | PHYS DOC ---
Past Medical History Past Medical History: Arthritis, Asthma, GERD, Liver Disease, Schizophrenia, Other Additional Past Medical Histor: hep c, BRADYCARDIA Past Surgical History: , Tonsillectomy, Other Additional Past Surgical Histo: left toe Alcohol Use: Rarely Drug Use: Marijuana Adult General Chief Complaint Chief Complaint: SKIN RASH/ABSCESS HPI HPI Patient is a 42 year old F who presents with redness, warmth and pain to her right lower abdomen and groin. Patient reports she was here recently for cellulitis of her abdominal wall. She denies being diabetic. She reports she noticed this about 3 days ago. Review of Systems Review of Systems Constitutional: Denies fever or chills [] Respiratory: Denies cough or shortness of breath [] Cardiovascular: No additional information not addressed in HPI [] GI: Reports lower abdominal pain, nausea. Denies vomiting or diarrhea [] : Denies dysuria or hematuria [] Integument: Redness, warmth, drainage to right lower abdominal wall, extending to left and bilateral groin areas Neurologic: Denies headache, focal weakness or sensory changes [] All other systems were reviewed and found to be within normal limits, except as documented in this note. Current Medications Current Medications Current Medications Medications (Trade) Dose Ordered Sig/Terrell Start Time Stop Time Status Last Admin Dose Admin Fentanyl Citrate (Fentanyl 2ml Vial) 50 mcg 1X ONCE 11/26/17 19:30 11/26/17 19:31 DC Fluconazole/ Sodium Chloride 100 ml @ 100 mls/hr Q24H 11/26/17 21:00 Linezolid/Dextrose 300 ml @ 300 mls/hr Q12HR 11/26/17 20:30 Morphine Sulfate (Morphine Sulfate) 4 mg PRN Q2HR PRN 11/26/17 20:45 11/27/17 20:44 Ondansetron HCl (Zofran) 4 mg PRN Q8HRS PRN 11/26/17 20:45 11/27/17 20:44 Piperacillin Sod/ Tazobactam Sod (Zosyn Per Pharmacy) 1 each PRN DAILY PRN 11/26/17 19:45 UNV Piperacillin Sod/ Tazobactam Sod 3.375 gm/Sodium Chloride 50 ml @ 100 mls/hr 1X ONCE 11/26/17 20:45 11/26/17 21:14 Vancomycin HCl (Vanco Per Pharmacy) 1 each PRN DAILY PRN 11/26/17 19:45 UNV Vancomycin HCl 2 gm/Sodium Chloride 500 ml @ 250 mls/hr 1X ONCE 11/26/17 20:00 11/26/17 21:59 Cancel Allergies Allergies Allergies Coded Allergies Type Severity Reaction Last Updated Verified No Known Drug Allergies 08/28/16 No Physical Exam Physical Exam Constitutional: Well developed, well nourished, no acute distress, non-toxic appearance. [] HENT: Normocephalic, atraumatic Eyes: PERRLA, EOMI, conjunctiva normal, no discharge. [] Neck: Normal range of motion, no tenderness, supple, no stridor. [] Cardiovascular:Heart rate regular rhythm, no murmur [] Lungs & Thorax: Bilateral breath sounds clear to auscultation [] Abdomen: soft, tenderness to palpation Skin: Warm, dry, large area of erythema and warmth to the lower abdomen and bilateral groin with white discharge present Neurologic: Alert and oriented X 3, normal motor function, normal sensory function, no focal deficits noted. [] Psychologic: Affect normal, judgement normal, mood normal. [] Current Patient Data Vital Signs Vital Signs Date Time Temp Pulse Resp B/P (MAP) Pulse Ox O2 Delivery O2 Flow Rate FiO2 11/26/17 19:39 98.4 78 18 103/52 (69) 95 Room Air 98.4 EKG EKG [] Radiology/Procedures Radiology/Procedures [] Course & Med Decision Making Course & Med Decision Making Pertinent Labs and Imaging studies reviewed. (See chart for details) Discussed with Dr. Sanchez, accepts admission Plan: Admit Dragon Disclaimer Dragon Disclaimer This electronic medical record was generated, in whole or in part, using a voice recognition dictation system. Departure Departure Referrals: BETHANY CHEN (PCP) ALANA HOLM WEIGHT TRAINER Nov 26, 2017 21:02
[2017-11-26 21:18] LABS: BILIRUBIN,URINE NEGATIVE (NEG); CLARITY,URINE CLEAR; COLOR,URINE YELLOW; NITRITE,URINE NEGATIVE (NEG); PROTEIN,URINE NEGATIVE (NEG-TRACE)
[2017-11-26 21:23] LABS: BASO # 0.1 x10^3/uL (0.0-0.2); BASO % 1 % (0-3); EOS # 0.1 x10^3/uL (0.0-0.7); EOS % 1 % (0-3); HEMATOCRIT 40.2 % (36.0-47.0); HEMOGLOBIN 14.2 g/dL (12.0-15.5); LYMPH # 2.9 x10^3/uL (1.0-4.8); LYMPH % 30 % (24-48); MEAN CORPUSCULAR HEMOGLOBIN 36 pg (25-35); MEAN CORPUSCULAR HGB CONC 35 g/dL (31-37); MEAN CORPUSCULAR VOLUME 103 fL (79-100); MONO # 1.2 x10^3/uL (0.0-1.1); MONO % 12 % (0-9); NEUT # 5.3 x10^3uL (1.8-7.7); NEUT % 56 % (31-73); PLATELET COUNT 132 x10^3/uL (140-400); RED BLOOD COUNT 3.89 x10^6/uL (3.50-5.40); RED CELL DISTRIBUTION WIDTH 14.2 % (11.5-14.5); WHITE BLOOD COUNT 9.6 x10^3/uL (4.0-11.0)
[2017-11-26 21:24] LABS: BACTERIA,URINE MODERATE /HPF (0-FEW); RBC,URINE OCC /HPF (0-2); SQUAMOUS EPITHELIAL CELL,UR MOD /LPF
--- NOTE | 2017-11-26 21:26 | PDOC1 ---
History and Physical Date of Admission Date of Admission DATE: 11/26/17 TIME: 21:21 Source Source: Chart review, Patient History of Present Illness History of Present Illness Марина is a 42 year old F who presents with marked redness, pain to her right lower abdomen and groin with weeping and serous fluid production She was admitted a month ago for similar on other side of abdomen. Her pannus is large and area likely stays wet. She reports when she went home, she was given fluconazole for #10 daily, and she took it QID for 2.5 days. pain to abd wall, worse over 3 days Past Medical History Cardiovascular: HTN Psych: Anxiety, Bipolar, Depression, Other Musculoskeletal: low back pain Rheumatologic: No pertinent hx Infectious disease: No pertinent hx Family History Family History: No Significant Social History Smoke: 2 packs per day ALCOHOL: occassional Drugs: Marijuana Current Medications Current Medications Current Medications Fentanyl Citrate (Fentanyl 2ml Vial) 50 mcg 1X ONCE IV Last administered on at 19:30; Start 11/26/17 at 19:30; Stop 11/26/17 at 19:31; Status DC Ondansetron HCl (Zofran) 4 mg 1X ONCE IV Last administered on 11/26/17at 19:30 ; Start 11/26/17 at 19:30; Stop 11/26/17 at 19:31; Status DC Vancomycin HCl (Vanco Per Pharmacy) 1 each PRN DAILY PRN [facility] SEE COMMENTS; Start 11/26/17 at 19:45; Status UNV Piperacillin Sod/ Tazobactam Sod (Zosyn Per Pharmacy) 1 each PRN DAILY PRN [facility] SEE COMMENTS; Start 11/26/17 at 19:45; Status UNV Piperacillin Sod/ Tazobactam Sod 3.375 gm/Sodium Chloride 50 ml @ 100 mls/hr 1X ONCE IV ; Start 11/26/17 at 19:45; Stop 11/26/17 at 20:14; Status Cancel Vancomycin HCl 2 gm/Sodium Chloride 500 ml @ 250 mls/hr 1X ONCE IV ; Start at 20:00; Stop 11/26/17 at 21:59; Status Cancel Linezolid/Dextrose 300 ml @ 300 mls/hr Q12HR IV ; Start 11/26/17 at 20:30 Fluconazole/ Sodium Chloride 100 ml @ 100 mls/hr Q24H IV ; Start 11/26/17 at 21 :00 Piperacillin Sod/ Tazobactam Sod 3.375 gm/Sodium Chloride 50 ml @ 100 mls/hr 1X ONCE IV Last administered on 11/26/17at 20:45; Start 11/26/17 at 20:45; Stop 11/26/17 at 21:14; Status DC Ondansetron HCl (Zofran) 4 mg PRN Q8HRS PRN IV NAUSEA/VOMITING; Start 11/26/17 at 20:45; Stop 11/27/17 at 20:44 Morphine Sulfate (Morphine Sulfate) 4 mg PRN Q2HR PRN IV PAIN; Start 11/26/17 at 20:45; Stop 11/27/17 at 20:44 Active Scripts Active Lotrisone Cream (Clotrimazole/Betamethasone Dip) 15 Gm Cream..g. 15 Gm TP BID 14 Days Lasix (Furosemide) 40 Mg Tablet 1 Tab PO DAILY Reported Cyclobenzaprine Hcl 10 Mg Tablet 1 Tab PO TID Nystatin 100,000 Unit/1 Ml Oral.susp 100,000 Unit PO BID Abilify Maintena (Aripiprazole) 400 Mg Suser.vial 400 Mg IM MONTHLY Loperamide (Loperamide Hcl) 2 Mg Capsule Unknown Dose PO Potassium Chloride 10 Meq Capsule.er Unknown Dose PO DAILY Allergies Allergies: Coded Allergies: No Known Drug Allergies (Unverified , 08/28/16) ROS General: YES: Fatigue, Malaise; No: Chills, Night Sweats, Appetite, Other PSYCHOLOGICAL ROS: YES: Anxiety, Sleep disturbances; No: Behavioral Disorder, Concentration difficultie, Decreased libido, Depression, Disorientation, Hallucinations, Hostility, Irritablity, Memory difficulties, Mood Swings, Obsessive thoughts, Other Eyes: No Blurry vision, No Decreased vision, No Double vision, No Dry eyes, No Excessive tearing, No Eye Pain, No Itchy Eyes, No Loss of vision, No Photophobia , No Scotomata, No Uses contacts, No Uses glasses, No Other HEENT: No: Heacaches, Hearing change, Nasal congestion, Nasal discharge, Oral lesions, Sinus pain, Sore Throat, Epistaxis, Sneezing, Snoring, Tinnitus, Vertigo, Vocal changes, Other Respiratory: No: Cough, Hemoptysis, Orthopnea, Pleuritic Pain, Shortness of breath, SOB with excertion, Sputum Changes, Stridor, Tachypnea, Wheezing, Other Cardiovascular: No Chest Pain, No Palpitations, No Orthopnea, No Paroxysmal Noc. Dyspnea, No Edema, No Lt Headedness, No Other Gastrointestinal: Yes Nausea Genitourinary: No Dysuria, No Frequency, No Incontinence, No Hematuria, No Retention, No Discharge, No Urgency, No Pain, No Flank Pain, No Other, No , No , No , No , No , No , No Musculoskeletal: No Gait Disturbance, No Joint Pain, No Joint Stiffness, No Joint Swelling, No Muscle Pain, No Muscular Weakness, No Pain In:, No Swelling In:, No Other Neurological: No Behavorial Changes, No Bowel/Bladder ControlChng, No Confusion , No Dizziness, No Gait Disturbance, No Headaches, No Impaired Coord/balance, No Memory Loss, No Numbness/Tingling, No Seizures, No Speech Problems, No Tremors, No Visual Changes, No Weakness, No Other Skin: Yes Dry Skin, Yes Rash, Yes Skin Lesion Changes, Yes Other Physical Exam General: Alert, Cooperative, mild distress HEENT: EOMI Lungs: Clear to auscultation Heart: S1S2, no gallops, no murmurs Extremities: No edema, Normal pulses Skin: No rashes Neuro: Normal speech, Normal tone, Cranial nerves 3-12 NL Psych/Mental Status: Mental status NL, Mood NL Vitals Vitals Vital Signs Date Time Temp Pulse Resp B/P (MAP) Pulse Ox O2 Delivery O2 Flow Rate FiO2 11/26/17 19:39 98.4 78 18 103/52 (69) 95 Room Air 98.4 VTE Prophylaxis Ordered VTE Prophylaxis Devices: Yes VTE Pharmacological Prophylaxi: Yes Assessment/Plan Assessment/Plan cellulitis, pannus hx of fungus, sepsis morbid obesity tobacco use disorder, anxiety d/o admit, ANITHA LIMON MD Nov 26, 2017 21:26
[2017-11-26 21:33] LABS: CALCIUM 8.8 mg/dL (8.5-10.1); CREATININE 0.7 mg/dL (0.6-1.0); GFR 91.8; POTASSIUM 3.7 mmol/L (3.5-5.1)
[2017-11-26 21:39] LABS: ALBUMIN/GLOBULIN RATIO 0.6 (1.0-1.7); TOTAL BILIRUBIN 0.5 mg/dL (0.2-1.0); TOTAL PROTEIN 7.7 g/dL (6.4-8.2)
[2017-11-26 23:00] VITALS: BP 140/84
[2017-11-26] MEDS: NICOTINE 21MG PATCH. TD PRN (23:39)
[2017-11-27] MEDS: PIPERACILLIN/TAZOBACTAM 3.375 GM in IV NORMAL SALINE 50ML 50 ML IV SCH ×5 (02:30→23:22)
[2017-11-27 03:00] VITALS: BP 98/68
[2017-11-27 07:00] VITALS: BP 74/45
--- NOTE | 2017-11-27 08:33 | PDOC ---
Infectious Disease Note Vital Sign Vital Signs Vital Signs Date Time Temp Pulse Resp B/P (MAP) Pulse Ox O2 Delivery O2 Flow Rate FiO2 11/27/17 03:00 98.6 66 16 98/68 (78) 91 Room Air 98.6 Labs Lab Laboratory Tests Test 11/26/17 20:45 11/26/17 21:10 Urine Collection Type Unknown Urine Color Yellow Urine Clarity Clear Urine pH 6.0 Urine Specific [place] <=1.005 Urine Protein Negative mg/dL (NEG-TRACE) Urine Glucose (UA) Negative mg/dL (NEG) Urine Ketones (Stick) Negative mg/dL (NEG) Urine Blood Negative (NEG) Urine Nitrite Negative (NEG) Urine Bilirubin Negative (NEG) Urine Urobilinogen Dipstick 2.0 mg/dL (0.2 mg/dL) Urine Leukocyte Esterase Trace (NEG) Urine RBC Occ /HPF (0-2) Urine WBC 11-20 /HPF (0-4) Urine Squamous Epithelial Cells Mod /LPF Urine Bacteria Moderate /HPF (0-FEW) White Blood Count 9.6 x10^3/uL (4.0-11.0) Red Blood Count 3.89 x10^6/uL (3.50-5.40) Hemoglobin 14.2 g/dL (12.0-15.5) Hematocrit 40.2 % (36.0-47.0) Mean Corpuscular Volume 103 fL (79-100) Mean Corpuscular Hemoglobin 36 pg (25-35) Mean Corpuscular Hemoglobin Concent 35 g/dL (31-37) Red Cell Distribution Width 14.2 % (11.5-14.5) Platelet Count 132 x10^3/uL (140-400) Neutrophils (%) (Auto) 56 % (31-73) Lymphocytes (%) (Auto) 30 % (24-48) Monocytes (%) (Auto) 12 % (0-9) Eosinophils (%) (Auto) 1 % (0-3) Basophils (%) (Auto) 1 % (0-3) Neutrophils # (Auto) 5.3 x10^3uL (1.8-7.7) Lymphocytes # (Auto) 2.9 x10^3/uL (1.0-4.8) Monocytes # (Auto) 1.2 x10^3/uL (0.0-1.1) Eosinophils # (Auto) 0.1 x10^3/uL (0.0-0.7) Basophils # (Auto) 0.1 x10^3/uL (0.0-0.2) Sodium Level 143 mmol/L (136-145) Potassium Level 3.7 mmol/L (3.5-5.1) Chloride Level 105 mmol/L (98-107) Carbon Dioxide Level 29 mmol/L (21-32) Anion Gap 9 (6-14) Blood Urea Nitrogen 4 mg/dL (7-20) Creatinine 0.7 mg/dL (0.6-1.0) Estimated GFR (Cockcroft-Gault) 91.8 BUN/Creatinine Ratio 6 (6-20) Glucose Level 100 mg/dL (70-99) Lactic Acid Level 1.6 mmol/L (0.4-2.0) Calcium Level 8.8 mg/dL (8.5-10.1) Total Bilirubin 0.5 mg/dL (0.2-1.0) Aspartate Amino Transf (AST/SGOT) 184 U/L (15-37) Alanine Aminotransferase (ALT/SGPT) 221 U/L (14-59) Alkaline Phosphatase 94 U/L (46-116) Total Protein 7.7 g/dL (6.4-8.2) Albumin 3.0 g/dL (3.4-5.0) Albumin/Globulin Ratio 0.6 (1.0-1.7) Objective Assessment Panniculitis HTN Bipolar Obesity Plan Plan of Care agree with zyvox, zosyn and diflucan supportive care wt loss JEANCARLOS MERA MD Nov 27, 2017 08:33
--- NOTE | 2017-11-27 09:29 | CONS ---
DATE OF CONSULTATION: 11/27/2017 REQUESTING PHYSICIAN: Dr. Sanchez. REASON FOR CONSULTATION: Panniculitis. HISTORY OF PRESENT ILLNESS: This is a 42-year-old female with history of bipolar disorder, obesity and hypertension, who has had panniculitis earlier this year on the left side. She says now that it started having on the right side in last 4 days. Hence, she decided to come in. The patient says she has really redness, painful, foul smell to it, and some bloody discharge. The patient denies any fever. Denies any nausea, vomiting, diarrhea, chest pain, shortness of breath, abdominal pain, urinary symptoms or bowel symptoms. PAST MEDICAL HISTORY: Positive for gastroesophageal reflux disease, schizophrenia, bipolar disorder, history of bradycardia, hepatitis C, hypertension. SOCIAL HISTORY: Positive for smoking. Occasional alcohol use and occasional use of marijuana. ALLERGIES: No known drug allergies. CURRENT MEDICATIONS: The patient is started on Zyvox, Zosyn and fluconazole. REVIEW OF SYSTEMS: As per HPI. All other systems reviewed are negative. PHYSICAL EXAMINATION: GENERAL: Alert, oriented female, not in any distress. VITAL SIGNS: Stable, afebrile. HEENT: NAD. NECK: Supple, no JVP, no lymphadenopathy. LUNGS: Clear. HEART: S1, S2 regular. ABDOMEN: Benign. SKIN: The patient does have extensive erythema at the pannus into the groin with foul smelling yeasty smell. There is even ulceration with bleeding. The patient's rest of the skin examination is unremarkable. NEUROLOGIC: The patient is neurologically intact. LABORATORY DATA: White count is normal. BUN and creatinine is normal. Lactic acid is normal. Liver function tests showed AST of 184, ALT of 221. IMPRESSION: 1. Panniculitis. 2. Obesity. 3. Hepatitis C. 4. Hypertension. 5. Bipolar disorder. PLAN: Agree with broad coverage of Zyvox, Zosyn, and Diflucan. We will discontinue Diflucan because of liver problem and changed to micafungin. Supportive care and we will continue to follow. Thank you very much Dr. Sanchez for giving me the opportunity to participate in this patient's care. JEANCARLOS MERA MD DR: APURVA/mary alice JOB#: [id number] / [id number]
[2017-11-27] MEDS ORDERED: NYSTATIN TOPICAL POWDER 15GM BOTTLE. TP PRN (10:00)
[2017-11-27] MEDS: NICOTINE POLACRILEX 2MG GUM PACKAGE of 12. BC PRN ×3 (10:00→18:16)
[2017-11-27] MEDS: MICAFUNGIN 100 MG in IV DEXTROSE 5% 100ML 100 ML IV SCH (10:38)
[2017-11-27] MEDS ORDERED: LOPE2TAB56 PO (10:50)
[2017-11-27] MEDS ORDERED: LOPE2CAP PO (10:51)
[2017-11-27 11:00] VITALS: BP 130/82
--- NOTE | 2017-11-27 13:36 | PDOC ---
PROGRESS NOTES Chief Complaint Chief Complaint cellulitis, pannus hx of fungus, sepsis, cellulitis morbid obesity tobacco use disorder, anxiety d/o History of Present Illness History of Present Illness more calm, still complains of pain will do nystatin powder Vitals Vitals Vital Signs Date Time Temp Pulse Resp B/P (MAP) Pulse Ox O2 Delivery O2 Flow Rate FiO2 11/27/17 11:00 98.2 61 18 130/82 (98) 91 Room Air 98.2 Physical Exam General: Alert, Cooperative, mild distress Lungs: Clear Extremities: No edema, Normal pulses Skin: No rashes Labs LABS Laboratory Tests Test 11/26/17 20:45 11/26/17 21:10 Urine Collection Type Unknown Urine Color Yellow Urine Clarity Clear Urine pH 6.0 Urine Specific [place] <=1.005 Urine Protein Negative mg/dL (NEG-TRACE) Urine Glucose (UA) Negative mg/dL (NEG) Urine Ketones (Stick) Negative mg/dL (NEG) Urine Blood Negative (NEG) Urine Nitrite Negative (NEG) Urine Bilirubin Negative (NEG) Urine Urobilinogen Dipstick 2.0 mg/dL (0.2 mg/dL) Urine Leukocyte Esterase Trace (NEG) Urine RBC Occ /HPF (0-2) Urine WBC 11-20 /HPF (0-4) Urine Squamous Epithelial Cells Mod /LPF Urine Bacteria Moderate /HPF (0-FEW) White Blood Count 9.6 x10^3/uL (4.0-11.0) Red Blood Count 3.89 x10^6/uL (3.50-5.40) Hemoglobin 14.2 g/dL (12.0-15.5) Hematocrit 40.2 % (36.0-47.0) Mean Corpuscular Volume 103 fL (79-100) Mean Corpuscular Hemoglobin 36 pg (25-35) Mean Corpuscular Hemoglobin Concent 35 g/dL (31-37) Red Cell Distribution Width 14.2 % (11.5-14.5) Platelet Count 132 x10^3/uL (140-400) Neutrophils (%) (Auto) 56 % (31-73) Lymphocytes (%) (Auto) 30 % (24-48) Monocytes (%) (Auto) 12 % (0-9) Eosinophils (%) (Auto) 1 % (0-3) Basophils (%) (Auto) 1 % (0-3) Neutrophils # (Auto) 5.3 x10^3uL (1.8-7.7) Lymphocytes # (Auto) 2.9 x10^3/uL (1.0-4.8) Monocytes # (Auto) 1.2 x10^3/uL (0.0-1.1) Eosinophils # (Auto) 0.1 x10^3/uL (0.0-0.7) Basophils # (Auto) 0.1 x10^3/uL (0.0-0.2) Sodium Level 143 mmol/L (136-145) Potassium Level 3.7 mmol/L (3.5-5.1) Chloride Level 105 mmol/L (98-107) Carbon Dioxide Level 29 mmol/L (21-32) Anion Gap 9 (6-14) Blood Urea Nitrogen 4 mg/dL (7-20) Creatinine 0.7 mg/dL (0.6-1.0) Estimated GFR (Cockcroft-Gault) 91.8 BUN/Creatinine Ratio 6 (6-20) Glucose Level 100 mg/dL (70-99) Lactic Acid Level 1.6 mmol/L (0.4-2.0) Calcium Level 8.8 mg/dL (8.5-10.1) Total Bilirubin 0.5 mg/dL (0.2-1.0) Aspartate Amino Transf (AST/SGOT) 184 U/L (15-37) Alanine Aminotransferase (ALT/SGPT) 221 U/L (14-59) Alkaline Phosphatase 94 U/L (46-116) Total Protein 7.7 g/dL (6.4-8.2) Albumin 3.0 g/dL (3.4-5.0) Albumin/Globulin Ratio 0.6 (1.0-1.7) Comment Review of Relevant I have reviewed the following items karl (where applicable) has been applied. Labs Laboratory Tests Test 11/26/17 20:45 11/26/17 21:10 Urine Collection Type Unknown Urine Color Yellow Urine Clarity Clear Urine pH 6.0 Urine Specific [place] <=1.005 Urine Protein Negative mg/dL (NEG-TRACE) Urine Glucose (UA) Negative mg/dL (NEG) Urine Ketones (Stick) Negative mg/dL (NEG) Urine Blood Negative (NEG) Urine Nitrite Negative (NEG) Urine Bilirubin Negative (NEG) Urine Urobilinogen Dipstick 2.0 mg/dL (0.2 mg/dL) Urine Leukocyte Esterase Trace (NEG) Urine RBC Occ /HPF (0-2) Urine WBC 11-20 /HPF (0-4) Urine Squamous Epithelial Cells Mod /LPF Urine Bacteria Moderate /HPF (0-FEW) White Blood Count 9.6 x10^3/uL (4.0-11.0) Red Blood Count 3.89 x10^6/uL (3.50-5.40) Hemoglobin 14.2 g/dL (12.0-15.5) Hematocrit 40.2 % (36.0-47.0) Mean Corpuscular Volume 103 fL (79-100) Mean Corpuscular Hemoglobin 36 pg (25-35) Mean Corpuscular Hemoglobin Concent 35 g/dL (31-37) Red Cell Distribution Width 14.2 % (11.5-14.5) Platelet Count 132 x10^3/uL (140-400) Neutrophils (%) (Auto) 56 % (31-73) Lymphocytes (%) (Auto) 30 % (24-48) Monocytes (%) (Auto) 12 % (0-9) Eosinophils (%) (Auto) 1 % (0-3) Basophils (%) (Auto) 1 % (0-3) Neutrophils # (Auto) 5.3 x10^3uL (1.8-7.7) Lymphocytes # (Auto) 2.9 x10^3/uL (1.0-4.8) Monocytes # (Auto) 1.2 x10^3/uL (0.0-1.1) Eosinophils # (Auto) 0.1 x10^3/uL (0.0-0.7) Basophils # (Auto) 0.1 x10^3/uL (0.0-0.2) Sodium Level 143 mmol/L (136-145) Potassium Level 3.7 mmol/L (3.5-5.1) Chloride Level 105 mmol/L (98-107) Carbon Dioxide Level 29 mmol/L (21-32) Anion Gap 9 (6-14) Blood Urea Nitrogen 4 mg/dL (7-20) Creatinine 0.7 mg/dL (0.6-1.0) Estimated GFR (Cockcroft-Gault) 91.8 BUN/Creatinine Ratio 6 (6-20) Glucose Level 100 mg/dL (70-99) Lactic Acid Level 1.6 mmol/L (0.4-2.0) Calcium Level 8.8 mg/dL (8.5-10.1) Total Bilirubin 0.5 mg/dL (0.2-1.0) Aspartate Amino Transf (AST/SGOT) 184 U/L (15-37) Alanine Aminotransferase (ALT/SGPT) 221 U/L (14-59) Alkaline Phosphatase 94 U/L (46-116) Total Protein 7.7 g/dL (6.4-8.2) Albumin 3.0 g/dL (3.4-5.0) Albumin/Globulin Ratio 0.6 (1.0-1.7) Laboratory Tests Test 11/26/17 20:45 11/26/17 21:10 Urine Collection Type Unknown Urine Color Yellow Urine Clarity Clear Urine pH 6.0 Urine Specific [place] <=1.005 Urine Protein Negative mg/dL (NEG-TRACE) Urine Glucose (UA) Negative mg/dL (NEG) Urine Ketones (Stick) Negative mg/dL (NEG) Urine Blood Negative (NEG) Urine Nitrite Negative (NEG) Urine Bilirubin Negative (NEG) Urine Urobilinogen Dipstick 2.0 mg/dL (0.2 mg/dL) Urine Leukocyte Esterase Trace (NEG) Urine RBC Occ /HPF (0-2) Urine WBC 11-20 /HPF (0-4) Urine Squamous Epithelial Cells Mod /LPF Urine Bacteria Moderate /HPF (0-FEW) White Blood Count 9.6 x10^3/uL (4.0-11.0) Red Blood Count 3.89 x10^6/uL (3.50-5.40) Hemoglobin 14.2 g/dL (12.0-15.5) Hematocrit 40.2 % (36.0-47.0) Mean Corpuscular Volume 103 fL (79-100) Mean Corpuscular Hemoglobin 36 pg (25-35) Mean Corpuscular Hemoglobin Concent 35 g/dL (31-37) Red Cell Distribution Width 14.2 % (11.5-14.5) Platelet Count 132 x10^3/uL (140-400) Neutrophils (%) (Auto) 56 % (31-73) Lymphocytes (%) (Auto) 30 % (24-48) Monocytes (%) (Auto) 12 % (0-9) Eosinophils (%) (Auto) 1 % (0-3) Basophils (%) (Auto) 1 % (0-3) Neutrophils # (Auto) 5.3 x10^3uL (1.8-7.7) Lymphocytes # (Auto) 2.9 x10^3/uL (1.0-4.8) Monocytes # (Auto) 1.2 x10^3/uL (0.0-1.1) Eosinophils # (Auto) 0.1 x10^3/uL (0.0-0.7) Basophils # (Auto) 0.1 x10^3/uL (0.0-0.2) Sodium Level 143 mmol/L (136-145) Potassium Level 3.7 mmol/L (3.5-5.1) Chloride Level 105 mmol/L (98-107) Carbon Dioxide Level 29 mmol/L (21-32) Anion Gap 9 (6-14) Blood Urea Nitrogen 4 mg/dL (7-20) Creatinine 0.7 mg/dL (0.6-1.0) Estimated GFR (Cockcroft-Gault) 91.8 BUN/Creatinine Ratio 6 (6-20) Glucose Level 100 mg/dL (70-99) Lactic Acid Level 1.6 mmol/L (0.4-2.0) Calcium Level 8.8 mg/dL (8.5-10.1) Total Bilirubin 0.5 mg/dL (0.2-1.0) Aspartate Amino Transf (AST/SGOT) 184 U/L (15-37) Alanine Aminotransferase (ALT/SGPT) 221 U/L (14-59) Alkaline Phosphatase 94 U/L (46-116) Total Protein 7.7 g/dL (6.4-8.2) Albumin 3.0 g/dL (3.4-5.0) Albumin/Globulin Ratio 0.6 (1.0-1.7) Medications Current Medications Fentanyl Citrate (Fentanyl 2ml Vial) 50 mcg 1X ONCE IV Last administered on at 19:30; Start 11/26/17 at 19:30; Stop 11/26/17 at 19:31; Status DC Ondansetron HCl (Zofran) 4 mg 1X ONCE IV Last administered on 11/26/17at 19:30 ; Start 11/26/17 at 19:30; Stop 11/26/17 at 19:31; Status DC Vancomycin HCl (Vanco Per Pharmacy) 1 each PRN DAILY PRN MC SEE COMMENTS; Start 11/26/17 at 19:45; Status UNV Piperacillin Sod/ Tazobactam Sod (Zosyn Per Pharmacy) 1 each PRN DAILY PRN [facility] SEE COMMENTS; Start 11/26/17 at 19:45 Piperacillin Sod/ Tazobactam Sod 3.375 gm/Sodium Chloride 50 ml @ 100 mls/hr 1X ONCE IV ; Start 11/26/17 at 19:45; Stop 11/26/17 at 20:14; Status Cancel Vancomycin HCl 2 gm/Sodium Chloride 500 ml @ 250 mls/hr 1X ONCE IV ; Start at 20:00; Stop 11/26/17 at 21:59; Status Cancel Linezolid/Dextrose 300 ml @ 300 mls/hr Q12HR IV Last administered on at 09:25; Start 11/26/17 at 20:30 Fluconazole/ Sodium Chloride 100 ml @ 100 mls/hr Q24H IV Last administered on 11/26/17at 21:52; Start 11/26/17 at 21:00; Stop 11/27/17 at 08:40; Status DC Piperacillin Sod/ Tazobactam Sod 3.375 gm/Sodium Chloride 50 ml @ 100 mls/hr 1X ONCE IV Last administered on 11/26/17at 20:45; Start 11/26/17 at 20:45; Stop 11/26/17 at 21:14; Status DC Ondansetron HCl (Zofran) 4 mg PRN Q8HRS PRN IV NAUSEA/VOMITING; Start 11/26/17 at 20:45; Stop 11/27/17 at 20:44 Morphine Sulfate (Morphine Sulfate) 4 mg PRN Q2HR PRN IV PAIN; Start 11/26/17 at 20:45; Stop 11/27/17 at 20:44 Nicotine (Nicoderm Cq 21mg) 1 patch PRN DAILY PRN TD SMOKING CESSATION Last administered on 11/26/17at 23:39; Start 11/26/17 at 21:30 Nicotine Polacrilex (Nicorette Gum) 1 each PRN Q1HR PRN BC SMOKING CESSATION Last administered on 11/27/17at 10:00; Start 11/26/17 at 21:30 Piperacillin Sod/ Tazobactam Sod 3.375 gm/Sodium Chloride 50 ml @ 100 mls/hr Q6HRS IV Last administered on 11/27/17at 12:10; Start 11/27/17 at 01:00 Micafungin Sodium 100 mg/Dextrose 100 ml @ 100 mls/hr Q24H IV Last administered on 11/27/17at 10:38; Start 11/27/17 at 10:00 Nystatin (Nystop) 1 lian PRN TID PRN TP YEAST Last administered on 11/27/17at 10: 00; Start 11/27/17 at 10:00 Active Scripts Active Reported Loperamide (Loperamide Hcl) 2 Mg Capsule 2 Mg PO BID Anti-Diarrhea (Loperamide Hcl) 2 Mg Tablet 2 Mg PO Vitals/I & O Vital Sign - Last 24 Hours 11/26/17 11/26/17 11/26/17 11/26/17 19:30 19:39 20:20 21:30 Temp 98.4 98.4 Pulse 78 78 72 Resp 18 18 16 B/P (MAP) 103/52 (69) 118/66 (83) 122/68 (86) Pulse Ox 99 95 95 92 O2 Delivery Room Air Room Air 11/26/17 11/26/17 11/26/17 11/27/17 22:40 23:00 23:19 03:00 Temp 98.4 98.1 98.6 98.4 98.1 98.6 Pulse 63 64 66 Resp 18 16 16 B/P (MAP) 127/63 (84) 140/84 (102) 98/68 (78) Pulse Ox 94 94 91 O2 Delivery Room Air Room Air Room Air 11/27/17 11/27/17 07:00 11:00 Temp 98.4 98.2 98.4 98.2 Pulse 55 61 Resp 18 18 B/P (MAP) 74/45 (55) 130/82 (98) Pulse Ox 90 91 O2 Delivery Room Air Room Air Intake and Output 11/26/17 11/26/17 11/27/17 15:00 23:00 07:00 Output Total 0 ml Balance 0 ml ANITHA LIMON MD Nov 27, 2017 13:36
[2017-11-27] MEDS ORDERED: SALIVA STIMULANT AGENT 44ML SPRAY BOTTLE. PO PRN (13:45)
[2017-11-27 15:00] VITALS: BP 132/86
[2017-11-27] MEDS: NICOTINE 21MG PATCH. TD PRN (16:38)
[2017-11-27 19:00] VITALS: BP 135/78
--- NOTE | 2017-11-27 19:30 | CARD ---
MR#: [id number] Date of Study: 11/27/2017 Ordering Physician: ANITHA LIMON, Referring Physician: ANITHA LIMON Tech: Dee Forde RDCS APPROVED REPORT EXAM: Two-dimensional and M-mode echocardiogram with Doppler and color Doppler. Other Information Quality : Good INDICATION Peripheral Edema 2D DIMENSIONS RVDd1.7 (2.9-3.5cm)Left Atrium(2D)3.6 (1.6-4.0cm) IVSd1.0 (0.7-1.1cm)Aortic Root(2D)2.6 (2.0-3.7cm) LVDd5.2 (3.9-5.9cm)LVOT Diameter2.0 (1.8-2.4cm) PWd1.0 (0.7-1.1cm)LVDs3.6 (2.5-4.0cm) FS (%) 30.4 %SV74.0 ml LVEF(%)55.0 (>50%) Aortic Valve AoV Peak Norbert.149.9cm/sAoV VTI34.9cm AO Peak GR.9.0mmHgLVOT Peak Norbert.121.7cm/s LVOT VTI 26.92cmAO Mean GR.5mmHg SONI (VMAX)2.61wx4LUR (VTI)2.50cm2 Mitral Valve MV E Wvjkdrob418.1cm/sMV DECEL [id number] MV A Yonibzul38.5cm/sMV BYW03il E/A Ratio1.8MVA (PHT)5.15cm2 TDI E/Lateral E'12.5E/Medial E'13.8 Tricuspid Valve TR P. Qzasjtuq876yz/sRAP SMCJADIE0avUo TR Peak Gr.74hvMqUGHK00zjMo Pulmonary Vein S1 Jcxdyqol06.8cm/sD2 Bvzkcylc97.2cm/s LEFT VENTRICLE The left ventricle is normal size. There is normal left ventricular wall thickness. The left ventricu lar systolic function is normal and the ejection fraction is 55%. There is normal LV segmental wall m otion. Transmitral Doppler flow pattern is Grade II-pseudonormal filling dynamics. ATRIA The left atrium size is normal. The right atrium size is normal. The interatrial septum is intact wit h no evidence for an atrial septal defect or patent foramen ovale as noted on 2-D or Doppler imaging. AORTIC VALVE The aortic valve is calcified but opens well. Doppler and Color Flow revealed no significant aortic r egurgitation. There is no significant aortic valvular stenosis. MITRAL VALVE The mitral valve is calcified but opens well. There is no evidence of mitral valve prolapse. There is no mitral valve stenosis. Doppler and Color-flow revealed trace mitral regurgitation. TRICUSPID VALVE The tricuspid valve is normal in structure and function. Doppler and Color Flow revealed trace tricus pid regurgitation. The PA pressure was estimated at 29 mmHg. There is no tricuspid valve stenosis. PULMONIC VALVE The pulmonic valve is not well visualized. Doppler and Color Flow revealed no pulmonic valvular regur gitation. There is no pulmonic valvular stenosis. GREAT VESSELS The aortic root is normal in size. The ascending aorta is normal in size. The IVC is normal in size a nd collapses <50% with inspiration. PERICARDIAL EFFUSION There is no evidence of significant pericardial effusion. Critical Notification Critical Value: No <Conclusion> The left ventricular systolic function is normal and the ejection fraction is 55%. Transmitral Doppler flow pattern is Grade II-pseudonormal filling dynamics. The left atrium size is normal. The right atrium size is normal. The aortic valve is calcified but opens well. Doppler and Color-flow revealed trace mitral regurgitation. Doppler and Color Flow revealed trace tricuspid regurgitation. The PA pressure was estimated at 29 mmHg. The pulmonic valve is not well visualized. There is no evidence of significant pericardial effusion. Signed by : Ford Scott MD Electronically Approved : 11/27/2017 19:30:11
[2017-11-27] MEDS: LACTOBACILLUS RHAMNOSUS GG 1 CAPSULE. PO SCH (20:49)
[2017-11-27] MEDS: NYSTATIN TOPICAL POWDER 15GM BOTTLE. TP SCH (20:50)
[2017-11-27 23:00] VITALS: BP 133/61
[2017-11-28] MEDS: NICOTINE POLACRILEX 2MG GUM PACKAGE of 12. BC PRN ×3 (00:25→20:39)
[2017-11-28] MEDS: LOPERAMIDE 2 MG CAPSULE PO PRN ×3 (01:20→20:38)
[2017-11-28 03:00] VITALS: BP 119/61
[2017-11-28] MEDS: PIPERACILLIN/TAZOBACTAM 3.375 GM in IV NORMAL SALINE 50ML 50 ML IV SCH ×3 (05:54→17:13)
[2017-11-28 07:00] VITALS: BP 121/70
--- NOTE | 2017-11-28 08:46 | PDOC ---
Infectious Disease Note Subjective Subjective says feeling better ROS ROS no n/v/d/sob Vital Sign Vital Signs Vital Signs Date Time Temp Pulse Resp B/P (MAP) Pulse Ox O2 Delivery O2 Flow Rate FiO2 11/28/17 03:00 97.9 52 18 119/61 (80) 92 Room Air 97.9 Physical Exam PHYSICAL EXAM GENERAL: Alert, oriented female, not in any distress. VITAL SIGNS: Stable, afebrile. HEENT: NAD. NECK: Supple, no JVP, no lymphadenopathy. LUNGS: Clear. HEART: S1, S2 regular. ABDOMEN: Benign. SKIN: The patient does have extensive erythema at the pannus into the groin with foul smelling yeasty smell. There is even ulceration with bleeding. Redness has gone in to rt upper thigh The patient's rest of the skin examination is unremarkable. NEUROLOGIC: The patient is neurologically intact. Labs Micro Microbiology 11/26/17 Blood Culture - Preliminary, Resulted NO GROWTH AFTER 1 DAY Objective Assessment Panniculitis Cellulitis HTN Bipolar Obesity Hep C Plan Plan of Care agree with zyvox, zosyn and micafungin supportive care wt loss JEANCARLOS MERA MD Nov 28, 2017 08:46
[2017-11-28] MEDS ORDERED: LOPERAMIDE 2 MG CAPSULE PO SCH (09:00)
[2017-11-28] MEDS: LACTOBACILLUS RHAMNOSUS GG 1 CAPSULE. PO SCH ×2 (09:14→20:38)
[2017-11-28] MEDS: NYSTATIN TOPICAL POWDER 15GM BOTTLE. TP SCH ×2 (09:15→20:38)
[2017-11-28] MEDS: MICAFUNGIN 100 MG in IV DEXTROSE 5% 100ML 100 ML IV SCH (10:42)
[2017-11-28 11:00] VITALS: BP 135/89
--- NOTE | 2017-11-28 13:11 | PDOC ---
PROGRESS NOTES Chief Complaint Chief Complaint cellulitis, pannus hx of fungus, sepsis, cellulitis morbid obesity tobacco use disorder, anxiety d/o History of Present Illness History of Present Illness more calm, still complains of pain will do nystatin powder Vitals Vitals Vital Signs Date Time Temp Pulse Resp B/P (MAP) Pulse Ox O2 Delivery O2 Flow Rate FiO2 11/28/17 11:00 98.1 58 18 135/89 (104) 95 Room Air 98.1 Physical Exam Physical Exam GENERAL: Alert, oriented female, not in any distress. VITAL SIGNS: Stable, afebrile. HEENT: NAD. NECK: Supple, no JVP, no lymphadenopathy. LUNGS: Clear. HEART: S1, S2 regular. ABDOMEN: Benign. SKIN: The patient does have extensive erythema at the pannus into the groin with foul smelling yeasty smell. There is even ulceration with bleeding. Redness has gone in to rt upper thigh The patient's rest of the skin examination is unremarkable. NEUROLOGIC: The patient is neurologically intact. General: Alert, Cooperative, mild distress Lungs: Clear Extremities: No edema, Normal pulses Skin: No rashes Review of Systems Review of Systems pain better no n.v.d Comment Review of Relevant I have reviewed the following items karl (where applicable) has been applied. Labs Laboratory Tests Test 11/26/17 20:45 11/26/17 21:10 Urine Collection Type Unknown Urine Color Yellow Urine Clarity Clear Urine pH 6.0 Urine Specific [place] <=1.005 Urine Protein Negative mg/dL (NEG-TRACE) Urine Glucose (UA) Negative mg/dL (NEG) Urine Ketones (Stick) Negative mg/dL (NEG) Urine Blood Negative (NEG) Urine Nitrite Negative (NEG) Urine Bilirubin Negative (NEG) Urine Urobilinogen Dipstick 2.0 mg/dL (0.2 mg/dL) Urine Leukocyte Esterase Trace (NEG) Urine RBC Occ /HPF (0-2) Urine WBC 11-20 /HPF (0-4) Urine Squamous Epithelial Cells Mod /LPF Urine Bacteria Moderate /HPF (0-FEW) White Blood Count 9.6 x10^3/uL (4.0-11.0) Red Blood Count 3.89 x10^6/uL (3.50-5.40) Hemoglobin 14.2 g/dL (12.0-15.5) Hematocrit 40.2 % (36.0-47.0) Mean Corpuscular Volume 103 fL (79-100) Mean Corpuscular Hemoglobin 36 pg (25-35) Mean Corpuscular Hemoglobin Concent 35 g/dL (31-37) Red Cell Distribution Width 14.2 % (11.5-14.5) Platelet Count 132 x10^3/uL (140-400) Neutrophils (%) (Auto) 56 % (31-73) Lymphocytes (%) (Auto) 30 % (24-48) Monocytes (%) (Auto) 12 % (0-9) Eosinophils (%) (Auto) 1 % (0-3) Basophils (%) (Auto) 1 % (0-3) Neutrophils # (Auto) 5.3 x10^3uL (1.8-7.7) Lymphocytes # (Auto) 2.9 x10^3/uL (1.0-4.8) Monocytes # (Auto) 1.2 x10^3/uL (0.0-1.1) Eosinophils # (Auto) 0.1 x10^3/uL (0.0-0.7) Basophils # (Auto) 0.1 x10^3/uL (0.0-0.2) Sodium Level 143 mmol/L (136-145) Potassium Level 3.7 mmol/L (3.5-5.1) Chloride Level 105 mmol/L (98-107) Carbon Dioxide Level 29 mmol/L (21-32) Anion Gap 9 (6-14) Blood Urea Nitrogen 4 mg/dL (7-20) Creatinine 0.7 mg/dL (0.6-1.0) Estimated GFR (Cockcroft-Gault) 91.8 BUN/Creatinine Ratio 6 (6-20) Glucose Level 100 mg/dL (70-99) Lactic Acid Level 1.6 mmol/L (0.4-2.0) Calcium Level 8.8 mg/dL (8.5-10.1) Total Bilirubin 0.5 mg/dL (0.2-1.0) Aspartate Amino Transf (AST/SGOT) 184 U/L (15-37) Alanine Aminotransferase (ALT/SGPT) 221 U/L (14-59) Alkaline Phosphatase 94 U/L (46-116) Total Protein 7.7 g/dL (6.4-8.2) Albumin 3.0 g/dL (3.4-5.0) Albumin/Globulin Ratio 0.6 (1.0-1.7) Microbiology 11/26/17 Blood Culture - Preliminary, Resulted NO GROWTH AFTER 1 DAY Medications Current Medications Fentanyl Citrate (Fentanyl 2ml Vial) 50 mcg 1X ONCE IV Last administered on at 19:30; Start 11/26/17 at 19:30; Stop 11/26/17 at 19:31; Status DC Ondansetron HCl (Zofran) 4 mg 1X ONCE IV Last administered on 11/26/17at 19:30 ; Start 11/26/17 at 19:30; Stop 11/26/17 at 19:31; Status DC Vancomycin HCl (Vanco Per Pharmacy) 1 each PRN DAILY PRN [facility] SEE COMMENTS; Start 11/26/17 at 19:45; Status UNV Piperacillin Sod/ Tazobactam Sod (Zosyn Per Pharmacy) 1 each PRN DAILY PRN [facility] SEE COMMENTS; Start 11/26/17 at 19:45 Piperacillin Sod/ Tazobactam Sod 3.375 gm/Sodium Chloride 50 ml @ 100 mls/hr 1X ONCE IV ; Start 11/26/17 at 19:45; Stop 11/26/17 at 20:14; Status Cancel Vancomycin HCl 2 gm/Sodium Chloride 500 ml @ 250 mls/hr 1X ONCE IV ; Start at 20:00; Stop 11/26/17 at 21:59; Status Cancel Linezolid/Dextrose 300 ml @ 300 mls/hr Q12HR IV Last administered on at 09:14; Start 11/26/17 at 20:30 Fluconazole/ Sodium Chloride 100 ml @ 100 mls/hr Q24H IV Last administered on 11/26/17at 21:52; Start 11/26/17 at 21:00; Stop 11/27/17 at 08:40; Status DC Piperacillin Sod/ Tazobactam Sod 3.375 gm/Sodium Chloride 50 ml @ 100 mls/hr 1X ONCE IV Last administered on 11/26/17at 20:45; Start 11/26/17 at 20:45; Stop 11/26/17 at 21:14; Status DC Ondansetron HCl (Zofran) 4 mg PRN Q8HRS PRN IV NAUSEA/VOMITING; Start 11/26/17 at 20:45; Stop 11/27/17 at 20:44; Status DC Morphine Sulfate (Morphine Sulfate) 4 mg PRN Q2HR PRN IV PAIN; Start 11/26/17 at 20:45; Stop 11/27/17 at 20:44; Status DC Nicotine (Nicoderm Cq 21mg) 1 patch PRN DAILY PRN TD SMOKING CESSATION Last administered on 11/27/17at 16:38; Start 11/26/17 at 21:30 Nicotine Polacrilex (Nicorette Gum) 1 each PRN Q1HR PRN BC SMOKING CESSATION Last administered on 11/28/17at 11:26; Start 11/26/17 at 21:30 Piperacillin Sod/ Tazobactam Sod 3.375 gm/Sodium Chloride 50 ml @ 100 mls/hr Q6HRS IV Last administered on 11/28/17at 12:19; Start 11/27/17 at 01:00 Micafungin Sodium 100 mg/Dextrose 100 ml @ 100 mls/hr Q24H IV Last administered on 11/28/17at 10:42; Start 11/27/17 at 10:00 Nystatin (Nystop) 1 lian PRN TID PRN TP YEAST Last administered on 11/27/17at 10: 00; Start 11/27/17 at 10:00 Saliva Substitute (Biotene Moisturizing Mouth) 2 spray PRN Q15MIN PRN PO DRY MOUTH; Start 11/27/17 at 13:45 Nystatin (Nystop) 1 lian BID TP Last administered on 11/28/17at 09:15; Start at 21:00 Lactobacillus Rhamnosus (Culturelle) 1 cap BID PO Last administered on at 09:14; Start 11/27/17 at 21:00 Loperamide HCl (Imodium) 2 mg BID PO ; Start 11/28/17 at 09:00; Stop 11/28/17 at 09:00; Status DC Loperamide HCl (Imodium) 2 mg PRN Q6HRS PRN PO DIARRHEA Last administered on at 09:14; Start 11/28/17 at 01:30 Active Scripts Active Reported Loperamide (Loperamide Hcl) 2 Mg Capsule 2 Mg PO BID Anti-Diarrhea (Loperamide Hcl) 2 Mg Tablet 2 Mg PO Vitals/I & O Vital Sign - Last 24 Hours 11/27/17 11/27/17 11/27/17 11/27/17 15:00 19:00 20:00 23:00 Temp 98.3 98.6 97.7 98.3 98.6 97.7 Pulse 49 50 47 Resp 18 18 B/P (MAP) 132/86 (101) 135/78 (97) 133/61 (85) Pulse Ox 90 94 93 O2 Delivery Room Air Room Air Room Air Room Air 11/28/17 11/28/17 11/28/17 11/28/17 03:00 07:00 08:00 11:00 Temp 97.9 99.9 98.1 97.9 99.9 98.1 Pulse 52 67 58 Resp 18 B/P (MAP) 119/61 (80) 121/70 (87) 135/89 (104) Pulse Ox 92 91 95 O2 Delivery Room Air Room Air Room Air Room Air ANITHA LIMON MD Nov 28, 2017 13:11
[2017-11-28 15:00] VITALS: BP 149/75
[2017-11-28] MEDS ORDERED: PHENYLEPH/MINERAL OIL/PETROLAT RECTAL OINTMENT 28GM TUBE. RC PRN (16:00)
[2017-11-28] MEDS: NICOTINE 21MG PATCH. TD PRN (18:29)
[2017-11-28 19:00] VITALS: BP 138/96
[2017-11-28 23:00] VITALS: BP 151/89
[2017-11-29] MEDS: PIPERACILLIN/TAZOBACTAM 3.375 GM in IV NORMAL SALINE 50ML 50 ML IV SCH ×4 (00:10→18:20)
[2017-11-29 03:00] VITALS: BP 137/88
[2017-11-29 07:00] VITALS: BP 139/83
[2017-11-29] MEDS: LACTOBACILLUS RHAMNOSUS GG 1 CAPSULE. PO SCH ×2 (08:41→21:26)
[2017-11-29] MEDS: LOPERAMIDE 2 MG CAPSULE PO PRN (08:41)
[2017-11-29] MEDS: NYSTATIN TOPICAL POWDER 15GM BOTTLE. TP SCH ×2 (08:42→21:40)
[2017-11-29] MEDS: MICAFUNGIN 100 MG in IV DEXTROSE 5% 100ML 100 ML IV SCH (10:05)
[2017-11-29 11:00] VITALS: BP 124/80
--- NOTE | 2017-11-29 13:20 | PDOC ---
PROGRESS NOTES Chief Complaint Chief Complaint cellulitis, pannus hx of fungus, sepsis, cellulitis morbid obesity tobacco use disorder, anxiety d/o History of Present Illness History of Present Illness more calm, still complains of pain will do nystatin powder Vitals Vitals Vital Signs Date Time Temp Pulse Resp B/P (MAP) Pulse Ox O2 Delivery O2 Flow Rate FiO2 11/29/17 11:00 97.9 60 18 124/80 (95) 95 Room Air 97.9 Physical Exam Physical Exam GENERAL: Alert, oriented female, not in any distress. VITAL SIGNS: Stable, afebrile. HEENT: NAD. NECK: Supple, no JVP, no lymphadenopathy. LUNGS: Clear. HEART: S1, S2 regular. ABDOMEN: Benign. SKIN: The patient does have extensive erythema at the pannus into the groin with foul smelling yeasty smell. There is even ulceration with bleeding. Redness has gone in to rt upper thigh The patient's rest of the skin examination is unremarkable. NEUROLOGIC: The patient is neurologically intact. General: Alert, Cooperative, mild distress Lungs: Clear Extremities: No edema, Normal pulses Skin: No rashes Comment Review of Relevant I have reviewed the following items karl (where applicable) has been applied. Labs Microbiology 11/26/17 Blood Culture - Preliminary, Resulted NO GROWTH AFTER 2 DAYS 11/26/17 Urine Culture - Preliminary, Resulted 11/26/17 Urine Culture Result 1 (CAMILLE) - Preliminary, Resulted Medications Current Medications Fentanyl Citrate (Fentanyl 2ml Vial) 50 mcg 1X ONCE IV Last administered on at 19:30; Start 11/26/17 at 19:30; Stop 11/26/17 at 19:31; Status DC Ondansetron HCl (Zofran) 4 mg 1X ONCE IV Last administered on 11/26/17at 19:30 ; Start 11/26/17 at 19:30; Stop 11/26/17 at 19:31; Status DC Vancomycin HCl (Vanco Per Pharmacy) 1 each PRN DAILY PRN MC SEE COMMENTS; Start 11/26/17 at 19:45; Status UNV Piperacillin Sod/ Tazobactam Sod (Zosyn Per Pharmacy) 1 each PRN DAILY PRN MC SEE COMMENTS; Start 11/26/17 at 19:45 Piperacillin Sod/ Tazobactam Sod 3.375 gm/Sodium Chloride 50 ml @ 100 mls/hr 1X ONCE IV ; Start 11/26/17 at 19:45; Stop 11/26/17 at 20:14; Status Cancel Vancomycin HCl 2 gm/Sodium Chloride 500 ml @ 250 mls/hr 1X ONCE IV ; Start at 20:00; Stop 11/26/17 at 21:59; Status Cancel Linezolid/Dextrose 300 ml @ 300 mls/hr Q12HR IV Last administered on at 08:41; Start 11/26/17 at 20:30 Fluconazole/ Sodium Chloride 100 ml @ 100 mls/hr Q24H IV Last administered on 11/26/17at 21:52; Start 11/26/17 at 21:00; Stop 11/27/17 at 08:40; Status DC Piperacillin Sod/ Tazobactam Sod 3.375 gm/Sodium Chloride 50 ml @ 100 mls/hr 1X ONCE IV Last administered on 11/26/17at 20:45; Start 11/26/17 at 20:45; Stop 11/26/17 at 21:14; Status DC Ondansetron HCl (Zofran) 4 mg PRN Q8HRS PRN IV NAUSEA/VOMITING; Start 11/26/17 at 20:45; Stop 11/27/17 at 20:44; Status DC Morphine Sulfate (Morphine Sulfate) 4 mg PRN Q2HR PRN IV PAIN; Start 11/26/17 at 20:45; Stop 11/27/17 at 20:44; Status DC Nicotine (Nicoderm Cq 21mg) 1 patch PRN DAILY PRN TD SMOKING CESSATION 1ST CHOICE Last administered on 11/28/17at 18:29; Start 11/26/17 at 21:30 Nicotine Polacrilex (Nicorette Gum) 1 each PRN Q1HR PRN BC SMOKING CESSATION 2ND CHOICE Last administered on 11/28/17at 20:39; Start 11/26/17 at 21:30 Piperacillin Sod/ Tazobactam Sod 3.375 gm/Sodium Chloride 50 ml @ 100 mls/hr Q6HRS IV Last administered on 11/29/17at 11:26; Start 11/27/17 at 01:00 Micafungin Sodium 100 mg/Dextrose 100 ml @ 100 mls/hr Q24H IV Last administered on 11/29/17at 10:05; Start 11/27/17 at 10:00 Nystatin (Nystop) 1 lian PRN TID PRN TP YEAST Last administered on 11/27/17at 10: 00; Start 11/27/17 at 10:00 Saliva Substitute (Biotene Moisturizing Mouth) 2 spray PRN Q15MIN PRN PO DRY MOUTH; Start 11/27/17 at 13:45 Nystatin (Nystop) 1 lian BID TP Last administered on 11/29/17at 08:42; Start at 21:00 Lactobacillus Rhamnosus (Culturelle) 1 cap BID PO Last administered on at 08:41; Start 11/27/17 at 21:00 Loperamide HCl (Imodium) 2 mg BID PO ; Start 11/28/17 at 09:00; Stop 11/28/17 at 09:00; Status DC Loperamide HCl (Imodium) 2 mg PRN Q6HRS PRN PO DIARRHEA Last administered on at 09:14; Start 11/28/17 at 01:30; Stop 11/28/17 at 15:56; Status DC Loperamide HCl (Imodium) 4 mg PRN Q6HRS PRN PO DIARRHEA Last administered on at 08:41; Start 11/28/17 at 16:00 Phenyleph/Shark Oil/Min Oil/Petrol (Preparation H) 1 lian PRN Q6HRS PRN RC RECTAL PAIN; Start 11/28/17 at 16:00 Active Scripts Active Reported Loperamide (Loperamide Hcl) 2 Mg Capsule 2 Mg PO BID Anti-Diarrhea (Loperamide Hcl) 2 Mg Tablet 2 Mg PO Vitals/I & O Vital Sign - Last 24 Hours 11/28/17 11/28/17 11/28/17 11/28/17 15:00 19:00 20:00 23:00 Temp 98.5 98.5 98.5 98.5 Pulse 54 50 52 Resp 20 18 18 B/P (MAP) 149/75 (99) 138/96 (110) 151/89 (109) Pulse Ox 97 92 91 O2 Delivery Room Air Room Air Room Air Room Air 11/29/17 11/29/17 11/29/17 11/29/17 03:00 07:00 07:25 11:00 Temp 98.2 97.7 97.9 98.2 97.7 97.9 Pulse 49 53 60 Resp 18 18 18 B/P (MAP) 137/88 (104) 139/83 (101) 124/80 (95) Pulse Ox 97 97 95 O2 Delivery Room Air Room Air Room Air Room Air Intake and Output 11/28/17 11/28/17 11/29/17 15:00 23:00 07:00 Intake Total 480 ml Output Total 2 ml Balance 480 ml -2 ml ANITHA LIMON MD Nov 29, 2017 13:20
--- NOTE | 2017-11-29 14:36 | PDOC ---
Infectious Disease Note Subjective Subjective says feeling better ROS ROS no n/v/d/sob Vital Sign Vital Signs Vital Signs Date Time Temp Pulse Resp B/P (MAP) Pulse Ox O2 Delivery O2 Flow Rate FiO2 11/29/17 11:00 97.9 60 18 124/80 (95) 95 Room Air 97.9 Physical Exam PHYSICAL EXAM GENERAL: Alert, oriented female, not in any distress. VITAL SIGNS: Stable, afebrile. HEENT: NAD. NECK: Supple, no JVP, no lymphadenopathy. LUNGS: Clear. HEART: S1, S2 regular. ABDOMEN: Benign. SKIN: The patient does have extensive erythema at the pannus into the groin with foul smelling yeasty smell. There is even ulceration with bleeding. Redness has gone in to rt upper thigh The patient's rest of the skin examination is unremarkable. NEUROLOGIC: The patient is neurologically intact. Labs Micro URINE CULTURE Preliminary Preliminary report URINE CULTURE RES 1 Preliminary Gram negative rods Greater than 100,000 colony forming units per mL Performed at: DA - [facility] [address], [place], [place] [id number] Director Of Oncology: LUIS Mariscal MD, Phone: [phone] Objective Assessment Panniculitis Cellulitis HTN Bipolar Obesity Hep C Plan Plan of Care agree with zyvox, zosyn and micafungin supportive care wt loss JEANCARLOS MERA MD Nov 29, 2017 14:36
[2017-11-29 15:00] VITALS: BP 126/85
[2017-11-29 19:00] VITALS: BP 128/79
[2017-11-29] MEDS: NICOTINE 21MG PATCH. TD PRN (21:54)
[2017-11-29 23:00] VITALS: BP 137/74
[2017-11-29] MEDS ORDERED: CALCIUM CARBONATE 500 MG TAB.CHEW PO PRN (23:30)
[2017-11-29] MEDS ORDERED: SIMETHICONE 80 MG TAB.CHEW PO PRN (23:30)
[2017-11-30] MEDS: PIPERACILLIN/TAZOBACTAM 3.375 GM in IV NORMAL SALINE 50ML 50 ML IV SCH ×2 (00:53→06:00)
[2017-11-30] MEDS: LOPERAMIDE 2 MG CAPSULE PO PRN (02:03)
[2017-11-30 03:00] VITALS: BP 121/75
[2017-11-30 07:00] VITALS: BP 121/81
--- NOTE | 2017-11-30 09:07 | PDOC ---
PROGRESS NOTES Chief Complaint Chief Complaint pain abdomen, dont want to go home too soon Vitals Vitals Vital Signs Date Time Temp Pulse Resp B/P (MAP) Pulse Ox O2 Delivery O2 Flow Rate FiO2 11/30/17 07:00 98.2 49 18 121/81 (94) 93 Room Air 98.2 Physical Exam Physical Exam GENERAL: Alert, oriented female, not in any distress. HEENT: NAD. NECK: Supple, no JVP, no lymphadenopathy. LUNGS: Clear. HEART: S1, S2 regular. ABDOMEN: soft, bs active ext edema trace SKIN: cellulitis abdominal crease NEUROLOGIC: alert and conversational General: Alert, Cooperative, mild distress Lungs: Clear Extremities: No edema, Normal pulses Skin: No rashes Assessment and Plan Assessmemt and Plan 1.cellulitis, pannus 2.sepsis, cellulitis 3.morbid obesity 4.tobacco use disorder, anxiety d/o 5.htn 6.bipolar plan: continue antibiotics per ID follow cultures topical fungal see orders, patient educated Comment Review of Relevant I have reviewed the following items karl (where applicable) has been applied. Labs Microbiology 11/26/17 Blood Culture - Preliminary, Resulted NO GROWTH AFTER 3 DAYS 11/26/17 Urine Culture - Final, Complete 11/26/17 Urine Culture Result 1 (CAMILLE) - Final, Complete 11/26/17 Antimicrobic Susceptibility - Final, Complete Medications Current Medications Fentanyl Citrate (Fentanyl 2ml Vial) 50 mcg 1X ONCE IV Last administered on at 19:30; Start 11/26/17 at 19:30; Stop 11/26/17 at 19:31; Status DC Ondansetron HCl (Zofran) 4 mg 1X ONCE IV Last administered on 11/26/17at 19:30 ; Start 11/26/17 at 19:30; Stop 11/26/17 at 19:31; Status DC Vancomycin HCl (Vanco Per Pharmacy) 1 each PRN DAILY PRN MC SEE COMMENTS; Start 11/26/17 at 19:45; Status UNV Piperacillin Sod/ Tazobactam Sod (Zosyn Per Pharmacy) 1 each PRN DAILY PRN MC SEE COMMENTS; Start 11/26/17 at 19:45 Piperacillin Sod/ Tazobactam Sod 3.375 gm/Sodium Chloride 50 ml @ 100 mls/hr 1X ONCE IV ; Start 11/26/17 at 19:45; Stop 11/26/17 at 20:14; Status Cancel Vancomycin HCl 2 gm/Sodium Chloride 500 ml @ 250 mls/hr 1X ONCE IV ; Start at 20:00; Stop 11/26/17 at 21:59; Status Cancel Linezolid/Dextrose 300 ml @ 300 mls/hr Q12HR IV Last administered on at 21:26; Start 11/26/17 at 20:30 Fluconazole/ Sodium Chloride 100 ml @ 100 mls/hr Q24H IV Last administered on 11/26/17at 21:52; Start 11/26/17 at 21:00; Stop 11/27/17 at 08:40; Status DC Piperacillin Sod/ Tazobactam Sod 3.375 gm/Sodium Chloride 50 ml @ 100 mls/hr 1X ONCE IV Last administered on 11/26/17at 20:45; Start 11/26/17 at 20:45; Stop 11/26/17 at 21:14; Status DC Ondansetron HCl (Zofran) 4 mg PRN Q8HRS PRN IV NAUSEA/VOMITING; Start 11/26/17 at 20:45; Stop 11/27/17 at 20:44; Status DC Morphine Sulfate (Morphine Sulfate) 4 mg PRN Q2HR PRN IV PAIN; Start 11/26/17 at 20:45; Stop 11/27/17 at 20:44; Status DC Nicotine (Nicoderm Cq 21mg) 1 patch PRN DAILY PRN TD SMOKING CESSATION 1ST CHOICE Last administered on 11/29/17at 21:54; Start 11/26/17 at 21:30 Nicotine Polacrilex (Nicorette Gum) 1 each PRN Q1HR PRN BC SMOKING CESSATION 2ND CHOICE Last administered on 11/28/17at 20:39; Start 11/26/17 at 21:30 Piperacillin Sod/ Tazobactam Sod 3.375 gm/Sodium Chloride 50 ml @ 100 mls/hr Q6HRS IV Last administered on 11/30/17at 06:00; Start 11/27/17 at 01:00 Micafungin Sodium 100 mg/Dextrose 100 ml @ 100 mls/hr Q24H IV Last administered on 11/29/17at 10:05; Start 11/27/17 at 10:00 Nystatin (Nystop) 1 lian PRN TID PRN TP YEAST Last administered on 11/27/17at 10: 00; Start 11/27/17 at 10:00 Saliva Substitute (Biotene Moisturizing Mouth) 2 spray PRN Q15MIN PRN PO DRY MOUTH; Start 11/27/17 at 13:45 Nystatin (Nystop) 1 lian BID TP Last administered on 11/29/17at 21:40; Start at 21:00 Lactobacillus Rhamnosus (Culturelle) 1 cap BID PO Last administered on at 21:26; Start 11/27/17 at 21:00 Loperamide HCl (Imodium) 2 mg BID PO ; Start 11/28/17 at 09:00; Stop 11/28/17 at 09:00; Status DC Loperamide HCl (Imodium) 2 mg PRN Q6HRS PRN PO DIARRHEA Last administered on at 09:14; Start 11/28/17 at 01:30; Stop 11/28/17 at 15:56; Status DC Loperamide HCl (Imodium) 4 mg PRN Q6HRS PRN PO DIARRHEA Last administered on at 02:03; Start 11/28/17 at 16:00 Phenyleph/Shark Oil/Min Oil/Petrol (Preparation H) 1 lian PRN Q6HRS PRN RC RECTAL PAIN; Start 11/28/17 at 16:00 Calcium Carbonate/ Glycine (Tums) 500 mg PRN AFTMEALHC PRN PO INDIGESTION; Start 11/29/17 at 23:30 Simethicone (Gas-X) 80 mg PRN Q6HRS PRN PO GAS / BLOATING Last administered on 11/29/17at 23:51; Start 11/29/17 at 23:30 Active Scripts Active Reported Loperamide (Loperamide Hcl) 2 Mg Capsule 2 Mg PO BID Anti-Diarrhea (Loperamide Hcl) 2 Mg Tablet 2 Mg PO Vitals/I & O Vital Sign - Last 24 Hours 11/29/17 11/29/17 11/29/17 11/29/17 11:00 15:00 19:00 20:00 Temp 97.9 98.0 98.2 97.9 98.0 98.2 Pulse 60 50 58 Resp 18 18 18 B/P (MAP) 124/80 (95) 126/85 (99) 128/79 (95) Pulse Ox 95 94 95 O2 Delivery Room Air Room Air Room Air Room Air 11/29/17 11/30/17 11/30/17 23:00 03:00 07:00 Temp 98.2 98.1 98.2 98.2 98.1 98.2 Pulse 49 56 49 Resp 18 B/P (MAP) 137/74 (95) 121/75 (90) 121/81 (94) Pulse Ox 95 95 93 O2 Delivery Room Air Room Air Room Air Intake and Output 11/29/17 11/29/17 11/30/17 15:00 23:00 07:00 Intake Total 380 ml 120 ml Output Total 1 ml Balance 380 ml -1 ml 120 ml RIMA ADEN MD Nov 30, 2017 09:07
[2017-11-30] MEDS: LACTOBACILLUS RHAMNOSUS GG 1 CAPSULE. PO SCH ×2 (09:33→21:34)
[2017-11-30] MEDS: NYSTATIN TOPICAL POWDER 15GM BOTTLE. TP SCH ×2 (09:48→21:34)
--- NOTE | 2017-11-30 09:59 | PDOC ---
Infectious Disease Note Subjective Subjective says feeling better ROS ROS no n/v/d/sob Vital Sign Vital Signs Vital Signs Date Time Temp Pulse Resp B/P (MAP) Pulse Ox O2 Delivery O2 Flow Rate FiO2 11/30/17 07:00 98.2 49 18 121/81 (94) 93 Room Air 98.2 Physical Exam PHYSICAL EXAM GENERAL: Alert, oriented female, not in any distress. HEENT: NAD. NECK: Supple, no JVP, no lymphadenopathy. LUNGS: Clear. HEART: S1, S2 regular. ABDOMEN: soft, bs active ext edema trace SKIN: cellulitis abdominal crease,,, much better NEUROLOGIC: alert and conversational Labs Micro URINE CULTURE Final Final report URINE CULTURE RES 1 Final Klebsiella pneumoniae Greater than 100,000 colony forming units per mL Cefazolin <=4 ug/mL Cefazolin with an CAMILLE <=16 predicts susceptibility to the oral agents cefaclor, cefdinir, cefpodoxime, cefprozil, cefuroxime, cephalexin, and loracarbef when used for therapy of uncomplicated urinary tract infections due to E. coli, Klebsiella pneumoniae, and Proteus mirabilis. ANTIMICROBIAL SUSCEPTIBILITY Final Comment S = Susceptible; I = Intermediate; R = Resistant P = Positive; N = Negative MICS are expressed in micrograms per mL Antibiotic RSLT#1 RSLT#2 RSLT#3 RSLT#4 Amoxicillin/Clavulanic Acid S =8 Ampicillin R>=32 Cefepime S<=0.12 Ceftriaxone S<=0.25 Cefuroxime S =2 Ciprofloxacin S<=0.25 Ertapenem S<=0.12 Gentamicin S<=1 Imipenem S<=0.25 Levofloxacin S<=0.12 Meropenem S<=0.25 Nitrofurantoin I =64 Piperacillin/Tazobactam S =8 Tetracycline R>=16 Tobramycin S<=1 Trimethoprim/Sulfa S<=20 Performed at: DA - [facility] Objective Assessment Panniculitis Cellulitis HTN Bipolar Obesity Hep C Plan Plan of Care d/c zyvox, zosyn ,, change to po vantin, and cont micafungin supportive care wt loss JEANCARLOS MERA MD Nov 30, 2017 09:59
[2017-11-30 10:36] LABS: ALBUMIN 2.9 g/dL (3.4-5.0); ALBUMIN/GLOBULIN RATIO 0.6 (1.0-1.7); CALCIUM 8.6 mg/dL (8.5-10.1); CREATININE 0.9 mg/dL (0.6-1.0); GFR 68.7; POTASSIUM 3.5 mmol/L (3.5-5.1); TOTAL BILIRUBIN 0.4 mg/dL (0.2-1.0); TOTAL PROTEIN 7.6 g/dL (6.4-8.2)
[2017-11-30] MEDS: MICAFUNGIN 100 MG in IV DEXTROSE 5% 100ML 100 ML IV SCH (10:37)
[2017-11-30] MEDS: ENOXAPARIN 40 MG/0.4 ML SYRINGE. SQ SCH ×2 (10:38→21:34)
[2017-11-30 10:45] LABS: BASO % 1 % (0-3); EOS # 0.1 x10^3/uL (0.0-0.7); EOS % 2 % (0-3); HEMATOCRIT 40.2 % (36.0-47.0); HEMOGLOBIN 14.1 g/dL (12.0-15.5); LYMPH # 2.3 x10^3/uL (1.0-4.8); LYMPH % 36 % (24-48); MEAN CORPUSCULAR HEMOGLOBIN 36 pg (25-35); MEAN CORPUSCULAR HGB CONC 35 g/dL (31-37); MEAN CORPUSCULAR VOLUME 104 fL (79-100); MONO # 0.8 x10^3/uL (0.0-1.1); MONO % 12 % (0-9); NEUT # 3.2 x10^3uL (1.8-7.7); NEUT % 50 % (31-73); PLATELET COUNT 155 x10^3/uL (140-400); RED BLOOD COUNT 3.88 x10^6/uL (3.50-5.40); RED CELL DISTRIBUTION WIDTH 14.5 % (11.5-14.5); WHITE BLOOD COUNT 6.5 x10^3/uL (4.0-11.0)
[2017-11-30 11:00] VITALS: BP 136/87
[2017-11-30] MEDS: CEFPODOXIME PROXETIL 100 MG TABLET. PO SCH ×2 (11:29→21:34)
[2017-11-30 15:00] VITALS: BP 100/69
[2017-11-30 19:00] VITALS: BP 129/69
[2017-11-30] MEDS: NICOTINE 21MG PATCH. TD PRN (21:34)
[2017-11-30 23:00] VITALS: BP 93/60
[2017-12-01] MEDS: LOPERAMIDE 2 MG CAPSULE PO PRN ×2 (02:26→08:11)
[2017-12-01 03:00] VITALS: BP 143/85
[2017-12-01 07:00] VITALS: BP 126/79
[2017-12-01] MEDS: ENOXAPARIN 40 MG/0.4 ML SYRINGE. SQ SCH (08:10)
[2017-12-01] MEDS: NYSTATIN TOPICAL POWDER 15GM BOTTLE. TP SCH (08:10)
[2017-12-01] MEDS: CEFPODOXIME PROXETIL 100 MG TABLET. PO SCH (08:10)
[2017-12-01] MEDS: LACTOBACILLUS RHAMNOSUS GG 1 CAPSULE. PO SCH (08:11)
[2017-12-01] MEDS: NICOTINE 21MG PATCH. TD PRN (08:15)
--- NOTE | 2017-12-01 09:26 | PDOC ---
Infectious Disease Note Subjective Subjective Feeling alright Appetite is good + chronic diarrhea, about 5 stools a day Denies N/V/cramps/bloating No fevers ROS ROS per HPI otherwise negative Vital Sign Vital Signs Vital Signs Date Time Temp Pulse Resp B/P (MAP) Pulse Ox O2 Delivery O2 Flow Rate FiO2 12/01/17 07:00 97.8 64 18 126/79 (95) 94 Room Air 97.8 Physical Exam PHYSICAL EXAM GENERAL: Alert, walking back to bed, steady gait HEENT: Oral cavity clear NECK: Supple LUNGS: Clear. HEART: S1, S2 regular. ABDOMEN: Obese, soft, NT Ext: edema trace. No cyanosis SKIN: cellulitis abdominal crease, ,,, much better NEUROLOGIC: Alert and conversational PIV ok Labs Lab Laboratory Tests Test 11/30/17 09:45 White Blood Count 6.5 x10^3/uL (4.0-11.0) Red Blood Count 3.88 x10^6/uL (3.50-5.40) Hemoglobin 14.1 g/dL (12.0-15.5) Hematocrit 40.2 % (36.0-47.0) Mean Corpuscular Volume 104 fL (79-100) Mean Corpuscular Hemoglobin 36 pg (25-35) Mean Corpuscular Hemoglobin Concent 35 g/dL (31-37) Red Cell Distribution Width 14.5 % (11.5-14.5) Platelet Count 155 x10^3/uL (140-400) Neutrophils (%) (Auto) 50 % (31-73) Lymphocytes (%) (Auto) 36 % (24-48) Monocytes (%) (Auto) 12 % (0-9) Eosinophils (%) (Auto) 2 % (0-3) Basophils (%) (Auto) 1 % (0-3) Neutrophils # (Auto) 3.2 x10^3uL (1.8-7.7) Lymphocytes # (Auto) 2.3 x10^3/uL (1.0-4.8) Monocytes # (Auto) 0.8 x10^3/uL (0.0-1.1) Eosinophils # (Auto) 0.1 x10^3/uL (0.0-0.7) Basophils # (Auto) 0.0 x10^3/uL (0.0-0.2) Sodium Level 138 mmol/L (136-145) Potassium Level 3.5 mmol/L (3.5-5.1) Chloride Level 103 mmol/L (98-107) Carbon Dioxide Level 24 mmol/L (21-32) Anion Gap 11 (6-14) Blood Urea Nitrogen 8 mg/dL (7-20) Creatinine 0.9 mg/dL (0.6-1.0) Estimated GFR (Cockcroft-Gault) 68.7 BUN/Creatinine Ratio 9 (6-20) Glucose Level 134 mg/dL (70-99) Calcium Level 8.6 mg/dL (8.5-10.1) Total Bilirubin 0.4 mg/dL (0.2-1.0) Aspartate Amino Transf (AST/SGOT) 182 U/L (15-37) Alanine Aminotransferase (ALT/SGPT) 202 U/L (14-59) Alkaline Phosphatase 97 U/L (46-116) Total Protein 7.6 g/dL (6.4-8.2) Albumin 2.9 g/dL (3.4-5.0) Albumin/Globulin Ratio 0.6 (1.0-1.7) Micro Microbiology 11/26/17 Blood Culture - Preliminary, Resulted NO GROWTH AFTER 4 DAYS Objective Assessment Panniculitis - improving UTI - klebsiella from 11/26. HTN Bipolar Obesity Hep C Plan Plan of Care po vantin, and cont micafungin -Previously on Zyvox and Zosyn supportive care wt loss Attending Co-Sign The patient was seen and interviewed as well as examined at the bedside. The chart was reviewed. The case was discussed. Agree with the plan of care. RONAL HICKS APRN Dec 01, 2017 09:26 JEANCARLOS MERA MD Dec 01, 2017 15:57
[2017-12-01] MEDS: MICAFUNGIN 100 MG in IV DEXTROSE 5% 100ML 100 ML IV SCH (10:44)
[2017-12-01 11:00] VITALS: BP 126/74
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
[2017-12-01 16:00] VITALS: BP 137/89
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
== END 2017-12-01 18:16 | disposition home or self-care (01) | DRG 872 ==
LOC: ER 18:30 → 4 NORTH 19:30
PROVIDERS: ADMIT Internal Medicine; ATTEND Internal Medicine
DX: A41.9 Sepsis, unspecified organism (principal); L03.90 Cellulitis, unspecified; Z68.42 Body mass index [BMI] 45.0-49.9, adult; E44.1 Mild protein-calorie malnutrition; N39.0 Urinary tract infection, site not specified; M19.90 Unspecified osteoarthritis, unspecified site; J45.909 Unspecified asthma, uncomplicated; F20.9 Schizophrenia, unspecified; F12.90 Cannabis use, unspecified, uncomplicated; K21.9 Gastro-esophageal reflux disease without esophagitis; I10 Essential (primary) hypertension; F41.9 Anxiety disorder, unspecified; F31.9 Bipolar disorder, unspecified; F17.210 Nicotine dependence, cigarettes, uncomplicated; E66.01 Morbid (severe) obesity due to excess calories; M79.3 Panniculitis, unspecified; B19.20 Unspecified viral hepatitis C without hepatic coma; K52.9 Noninfective gastroenteritis and colitis, unspecified; B96.1 Klebsiella pneumoniae [K. pneumoniae] as the cause of diseases classified elsewhere; Z98.891 History of uterine scar from previous surgery; Z82.49 Family history of ischemic heart disease and other diseases of the circulatory system; Z80.0 Family history of malignant neoplasm of digestive organs; Z82.5 Family history of asthma and other chronic lower respiratory diseases
CPT/HCPCS: 36415; 80053; 81001; 83605; 85025; 87040; 87086; 87186; 93306; 96365; 96375; J1450; J1650; J2020; J2248; J2405; J2543; J3010; 99285-25

== ENCOUNTER → 2018-07-11 | Outpatient (CLI) | payer OTHER ==
[~2018-07-11] MED LIST changes: +ALBUTEROL PO; +ARIP400S3 PO; +CEPH500C PO; +CETI10TA16 PO; +FURO20TA3 PO; +IBUP-985 PO; +LOPE2TAB56 PO; +MULT1TAB52 PO; +NYST15PO9 TP
--- NOTE | 2018-07-12 09:47 | RAD ---
DATE: 07/11/2018 EXAM: DIGITAL SCREEN BILAT W/CAD HISTORY: Routine screening COMPARISON: 07/25/2016 This study was interpreted with the benefit of Computerized Aided Detection (CAD). Breast Density: SCATTERED The breast parenchyma shows scattered fibroglandular densities. Breast parenchyma level B. FINDINGS: No new or enlarging breast densities are seen. Minimal benign type calcification is present. No suspicious microcalcifications are evident. IMPRESSION: There is no mammographic evidence of malignancy in either breast. BI-RADS CATEGORY: 2 BENIGN FINDING(S) RECOMMENDED FOLLOW-UP: 12M 12 MONTH FOLLOW-UP PQRS compliance statement: Patient information was entered into a reminder system with a target due date for the next mammogram. Mammography is a sensitive method for finding small breast cancers, but it does not detect them all and is not a substitute for careful clinical examination. A negative mammogram does not negate a clinically suspicious finding and should not result in delay in biopsying a clinically suspicious abnormality. "Our facility is accredited by the [employer] Mammography Program."
== END | disposition home or self-care (01) ==
LOC: MAMMO 15:38
PROVIDERS: ATTEND Family Medicine
DX: Z12.31 Encounter for screening mammogram for malignant neoplasm of breast (principal); R92.8 Other abnormal and inconclusive findings on diagnostic imaging of breast
CPT/HCPCS: 77067

== ENCOUNTER 2018-08-03 17:09 | Inpatient (IN) | payer MEDICAID, OTHER ==
[~2018-08-03] VITALS: Ht 160 cm; Wt 141.6 kg
[~2018-08-03 17:09] MED LIST changes: -ALBUTEROL PO; -ARIP400S3 PO; -CEPH500C PO; -CETI10TA16 PO; -FURO20TA3 PO; -IBUP-985 PO; -MULT1TAB52 PO; -NYST15PO9 TP
[2018-08-03] MEDS ORDERED: VANCOMYCIN PER PHARMACY MC ONE (18:00)
[2018-08-03] MEDS ORDERED: MORPHINE SULFATE 4 MG/ML VIAL. IV/SQ PRN (18:00)
--- NOTE | 2018-08-03 18:18 | PHYS DOC ---
Past Medical History Past Medical History: Arthritis, Asthma, GERD, Liver Disease, Schizophrenia, Other Additional Past Medical Histor: hep c, BRADYCARDIA Past Surgical History: , Tonsillectomy, Other Additional Past Surgical Histo: left toe Alcohol Use: Rarely Drug Use: Marijuana Adult General Chief Complaint Chief Complaint: LOWER EXTREMITY SWELLING HPI HPI Patient is a 43 year old female with history of schizophrenia, hepatitis C, who presents to the ED today with bilateral lower extremity cellulitis that began 5 days ago. Patient states she was seen by the PCP a couple days ago, was started on cephalexin, she states she was informed if symptoms don't improve to come to the Ed. Patient states symptoms are worse. The redness has increased to BLE and swelling has also worsened. Denies any fever, nausea or vomiting. Review of Systems Review of Systems Constitutional: Denies fever or chills [] Eyes: Denies change in visual acuity, redness, or eye pain [] HENT: Denies nasal congestion or sore throat [] Respiratory: Denies cough or shortness of breath [] Cardiovascular: No additional information not addressed in HPI [] GI: Denies abdominal pain, nausea, vomiting, bloody stools or diarrhea [] : Denies dysuria or hematuria [] Musculoskeletal: Denies back pain or joint pain [] Integument: Denies rash or skin lesions [] Neurologic: Denies headache, focal weakness or sensory changes [] Endocrine: Denies polyuria or polydipsia [] All other systems were reviewed and found to be within normal limits, except as documented in this note. Current Medications Current Medications Current Medications Medications (Trade) Dose Ordered Sig/Terrell Start Time Stop Time Status Last Admin Dose Admin Morphine Sulfate (Morphine Sulfate) 4 mg PRN Q15MIN PRN 08/03/18 18:00 08/03/18 21:00 Piperacillin Sod/ Tazobactam Sod 4.5 gm/Sodium Chloride 100 ml @ 200 mls/hr 1X ONCE 08/03/18 18:30 08/03/18 18:59 DC 08/03/18 18:43 200 MLS/HR Sodium Chloride 1,000 ml @ 3,960 mls/hr Q16M 08/03/18 18:00 08/03/18 19:00 DC 08/03/18 18:43 3,960 MLS/HR Vancomycin HCl (Vanco Per Pharmacy) 1 each 1X ONCE 4/27/19 18:00 08/03/18 18:03 DC Vancomycin HCl 2 gm/Sodium Chloride 500 ml @ 250 mls/hr 1X ONCE 08/03/18 18:30 08/03/18 20:29 Allergies Allergies Allergies Coded Allergies Type Severity Reaction Last Updated Verified No Known Drug Allergies 08/28/16 No Physical Exam Physical Exam Constitutional: Well developed, well nourished, no acute distress, non-toxic appearance. [] HENT: Normocephalic, atraumatic, bilateral external ears normal, oropharynx moist, no oral exudates, nose normal. [] Eyes: PERRLA, EOMI, conjunctiva normal, no discharge. [] Neck: Normal range of motion, no tenderness, supple, no stridor. [] Cardiovascular:Heart rate regular rhythm, no murmur [] Lungs & Thorax: Bilateral breath sounds clear to auscultation [] Abdomen: Bowel sounds normal, soft, no tenderness, no masses, no pulsatile masses. [] Skin: Warm, dry, Back: No tenderness, no CVA tenderness. [] Extremities: Bilateral lower extremities with mild edema and cellulitis. Full range of motion to bilateral lower extremities. +2 bilateral pedal pulses. Negative Homans sign bilaterally. Neurologic: Alert and oriented X 3, normal motor function, normal sensory function, no focal deficits noted. [] Psychologic: Affect normal, judgement normal, mood normal. [] Current Patient Data Vital Signs Vital Signs Date Time Temp Pulse Resp B/P (MAP) Pulse Ox O2 Delivery O2 Flow Rate FiO2 08/03/18 17:35 97.7 90 20 128/72 (90) 98 Room Air 97.7 Lab Values Laboratory Tests Test 08/03/18 18:10 White Blood Count 6.5 x10^3/uL (4.0-11.0) Red Blood Count 3.68 x10^6/uL (3.50-5.40) Hemoglobin 12.9 g/dL (12.0-15.5) Hematocrit 38.6 % (36.0-47.0) Mean Corpuscular Volume 105 fL (79-100) H Mean Corpuscular Hemoglobin 35 pg (25-35) Mean Corpuscular Hemoglobin Concent 34 g/dL (31-37) Red Cell Distribution Width 14.2 % (11.5-14.5) Platelet Count 160 x10^3/uL (140-400) Neutrophils (%) (Auto) 42 % (31-73) Lymphocytes (%) (Auto) 38 % (24-48) Monocytes (%) (Auto) 16 % (0-9) H Eosinophils (%) (Auto) 3 % (0-3) Basophils (%) (Auto) 1 % (0-3) Neutrophils # (Auto) 2.8 x10^3uL (1.8-7.7) Lymphocytes # (Auto) 2.5 x10^3/uL (1.0-4.8) Monocytes # (Auto) 1.1 x10^3/uL (0.0-1.1) Eosinophils # (Auto) 0.2 x10^3/uL (0.0-0.7) Basophils # (Auto) 0.1 x10^3/uL (0.0-0.2) Sodium Level 138 mmol/L (136-145) Potassium Level 4.0 mmol/L (3.5-5.1) Chloride Level 101 mmol/L (98-107) Carbon Dioxide Level 28 mmol/L (21-32) Anion Gap 9 (6-14) Blood Urea Nitrogen 14 mg/dL (7-20) Creatinine 0.8 mg/dL (0.6-1.0) Estimated GFR (Cockcroft-Gault) 78.3 BUN/Creatinine Ratio 18 (6-20) Glucose Level 89 mg/dL (70-99) Lactic Acid Level 1.4 mmol/L (0.4-2.0) Calcium Level 9.0 mg/dL (8.5-10.1) Total Bilirubin 0.4 mg/dL (0.2-1.0) Aspartate Amino Transferase (AST) 147 U/L (15-37) H Alanine Aminotransferase (ALT) 186 U/L (14-59) H Alkaline Phosphatase 113 U/L (46-116) Total Protein 7.4 g/dL (6.4-8.2) Albumin 3.0 g/dL (3.4-5.0) L Albumin/Globulin Ratio 0.7 (1.0-1.7) L Procalcitonin < 0.10 ng/mL (0.00-0.10) Laboratory Tests 08/03/18 18:10 Laboratory Tests 08/03/18 18:10 EKG EKG [] Radiology/Procedures Radiology/Procedures [] Course & Med Decision Making Course & Med Decision Making Pertinent Labs and Imaging studies reviewed. (See chart for details) This is a 43-year-old female patient presenting to the ED with cellulitis to bilateral lower extremity for 5 days. Patient was already seen by the PCP, started on cephalexin, no improvement. On arrival to the ED patient is afebrile. CBC with normal WBC, lactic is normal. CMP with AST of 147 ALT 186. Venous Doppler of bilateral lower extremities is negative. Patient was started on Zosyn and vancomycin on arrival to the ED. Tetanus is up-to-date Consulted Dr. Carbajal who accepted patient for admission Dragon Disclaimer Dragon Disclaimer This electronic medical record was generated, in whole or in part, using a voice recognition dictation system. Departure Departure Impression: Primary Impression: Cellulitis of lower extremity Disposition: ADMITTED INPATIENT Condition: STABLE Referrals: BETHANY CHEN (PCP) Problem Qualifiers Primary Impression: Cellulitis of lower extremity Laterality: left Qualified Codes: L03.116 - Cellulitis of left lower limb RON CENTENO [employer]CH[employer]ICAL [employer]UFACTURING TECHNICIAN Aug 03, 2018 18:18
[2018-08-03 18:26] LABS: BASO # 0.1 x10^3/uL (0.0-0.2); BASO % 1 % (0-3); EOS # 0.2 x10^3/uL (0.0-0.7); EOS % 3 % (0-3); HEMATOCRIT 38.6 % (36.0-47.0); HEMOGLOBIN 12.9 g/dL (12.0-15.5); LYMPH # 2.5 x10^3/uL (1.0-4.8); LYMPH % 38 % (24-48); MEAN CORPUSCULAR HEMOGLOBIN 35 pg (25-35); MEAN CORPUSCULAR HGB CONC 34 g/dL (31-37); MEAN CORPUSCULAR VOLUME 105 fL (79-100); MONO # 1.1 x10^3/uL (0.0-1.1); MONO % 16 % (0-9); NEUT # 2.8 x10^3uL (1.8-7.7); NEUT % 42 % (31-73); PLATELET COUNT 160 x10^3/uL (140-400); RED BLOOD COUNT 3.68 x10^6/uL (3.50-5.40); RED CELL DISTRIBUTION WIDTH 14.2 % (11.5-14.5); WHITE BLOOD COUNT 6.5 x10^3/uL (4.0-11.0)
[2018-08-03] MEDS ORDERED: PIPERACILLIN/TAZOBACTAM 4.5 GM in IV NORMAL SALINE 100ML 100 ML IV ONE (18:30)
[2018-08-03] MEDS ORDERED: VANCOMYCIN 2 GM in IV NORMAL SALINE 500ML BAG 500 ML IV ONE (18:30)
[2018-08-03 18:33] LABS: CREATININE 0.8 mg/dL (0.6-1.0); GFR 78.3
[2018-08-03 18:38] LABS: ALBUMIN/GLOBULIN RATIO 0.7 (1.0-1.7); TOTAL BILIRUBIN 0.4 mg/dL (0.2-1.0); TOTAL PROTEIN 7.4 g/dL (6.4-8.2)
[2018-08-03] MEDS: IV NORMAL SALINE 1000ML BAG 1,000 ML IV SCH ×2 (18:43→20:00)
[2018-08-03 19:02] LABS: BILIRUBIN,URINE NEGATIVE (NEG); CLARITY,URINE CLEAR; COLOR,URINE YELLOW; NITRITE,URINE NEGATIVE (NEG); PH,URINE 5.5; PROTEIN,URINE NEGATIVE (NEG-TRACE); UROBILINOGEN,URINE 0.2 mg/dL (0.2 mg/dL)
--- NOTE | 2018-08-03 19:07 | RAD ---
Bilateral lower extremity venous doppler ultrasound History: Cellulitis Comparison: None Findings: Multiple grayscale, color, and duplex spectral analysis sonographic images were acquired of the bilateral lower extremity veins to evaluate for the presence of DVT. There is normal phasicity. Normal compression, color-flow, and augmentation is demonstrated from the bilateral common femoral to the popliteal veins. There is normal color flow of the proximal greater saphenous and profunda femoris veins. There is normal color flow of segments of the calf veins. Impression: 1. There is no evidence of deep venous thrombosis from the bilateral common femoral to the popliteal veins. Electronically signed by: Gurvinder Quinn MD (08/03/2018 7:04 PM) [facility]
[2018-08-03 19:14] LABS: BACTERIA,URINE 0 /HPF (0-FEW); RBC,URINE 0 /HPF (0-2); SQUAMOUS EPITHELIAL CELL,UR FEW /LPF; WBC,URINE 0 /HPF (0-4)
[2018-08-03] MEDS ORDERED: ONDANSETRON PF 4 MG/2 ML VIAL. IV PRN (19:15)
[2018-08-03] MEDS ORDERED: MORPHINE SULFATE 4 MG/ML VIAL. IV PRN (19:15)
--- NOTE | 2018-08-03 20:00 | NUR ---
The patient, PACO TREJO, 43 y/o, F admitted by CARLOS VELARDE III, DO, was given written information regarding hospital policies, unit procedures and contact persons. Valuables were checked and medications were sent to pharmacy. Pt oriented to room, call light, and bathroom.
--- NOTE | 2018-08-03 20:54 | PDOC1 ---
History and Physical Date of Admission: Date of Admission DATE: 08/03/18 TIME: 20:50 Chief Complaint: Problems: (1) Vomiting (2) Swelling of lower extremity (3) Cellulitis of lower extremity Chief Complain: Lower extremity pain and swelling and erythema History of Present Illness: HPI: Patient is a pleasant middle-aged white female who presented with lower extremity swelling pain and erythema she rates her symptoms at 10 out 10 C has associated nausea spell occurring for several days she tried take some home meds with us not working describes as agonizing I discussed the case with the ER physician recommended patient give her IV antibiotics and do some wound care Past Medical/Surgical History: PMH/PSH: Arthritis, Asthma, GERD, Liver Disease, Schizophrenia, Other Additional Past Medical Histor: hep c, BRADYCARDIA Past Surgical History: , Tonsillectomy, Other Additional Past Surgical Histo: left toe Alcohol Use: Rarely Drug Use: Marijuana Allergies: Allergies: Coded Allergies: No Known Drug Allergies (Unverified , 08/28/16) Family History: Family History: CAD Social History: Social Hisoty: She does not drink smoke or take drugs Current Medications: Current Medications Current Medications Piperacillin Sod/ Tazobactam Sod 4.5 gm/Sodium Chloride 100 ml @ 200 mls/hr 1X ONCE IV Last administered on 08/03/18at 18:43; Start 08/03/18 at 18:30; Stop 08/03/18 at 18:59; Status DC Vancomycin HCl (Vanco Per Pharmacy) 1 each 1X ONCE MC ; Start 08/03/18 at 1 8:00; Stop 08/03/18 at 18:03; Status DC Sodium Chloride 1,000 ml @ 3,960 mls/hr Q16M IV Last administered on 08/03/18at 18:43; Start 08/03/18 at 18:00; Stop 08/03/18 at 19:00; Status DC Morphine Sulfate (Morphine Sulfate) 4 mg PRN Q15MIN PRN IV/SQ PAIN GREATER THAN 3/10; Start 08/03/18 at 18:00; Stop 08/03/18 at 21:00 Vancomycin HCl 2 gm/Sodium Chloride 500 ml @ 250 mls/hr 1X ONCE IV Last administered on 08/03/18at 19:26; Start 08/03/18 at 18:30; Stop 08/03/18 at 20:29; Status DC Ondansetron HCl (Zofran) 4 mg PRN Q8HRS PRN IV NAUSEA/VOMITING; Start 08/03/18 at 19:15; Stop 08/04/18 at 19:14 Morphine Sulfate (Morphine Sulfate) 4 mg PRN Q2HR PRN IV PAIN; Start 08/03/18 at 19:15; Stop 08/04/18 at 19:14 Acetaminophen (Tylenol) 650 mg PRN Q4HRS PRN PO FEVER; Start 08/03/18 at 19:15; Stop 08/04/18 at 19:14 Nicotine (Nicoderm Cq 21mg) 1 patch DAILY TD ; Start 08/03/18 at 20:00 Piperacillin Sod/ Tazobactam Sod (Zosyn Per Pharmacy) 1 each Q6HRS MC ; Start 08/04/18 at 00:00 Piperacillin Sod/ Tazobactam Sod 3.375 gm/Sodium Chloride 50 ml @ 100 mls/hr Q6HRS IV ; Start 08/04/18 at 00:00 Active Scripts Active Reported Loperamide (Loperamide Hcl) 2 Mg Capsule 2 Mg PO BID ROS: Review of Systems Review of System REVIEW OF SYSTEMS: GENERAL: Denies weakness SKIN: No bruising, hair changes or rashes. EYES: No blurred, double or loss of vision. NOSE AND THROAT: No history of nosebleeds, hoarseness or sore throat. HEART: No history of palpitations, chest pain or shortness of breath on exertion. LUNGS: Denies cough, hemoptysis, wheezing or shortness of breath. GASTROINTESTINAL: Denies changes in appetite, nausea, vomiting, diarrhea or constipation. GENITOURINARY: No history of frequency, urgency, hesitancy or nocturia. NEUROLOGIC: Denies history of numbness, tingling, tremor or weakness. PSYCHIATRIC: No history of panic, anxiety or depression. ENDOCRINE: No history of heat or cold intolerance, polyuria or polydipsia. EXTREMITIES: She complains of Both lower extremities have diffuse cellulitis with erythema and swelling and they're painful to touch Physical Exam: Vital Signs: Vital Signs Date Time Temp Pulse Resp B/P (MAP) Pulse Ox O2 Delivery O2 Flow Rate FiO2 08/03/18 19:19 86 20 127/71 (89) 97 Room Air 08/03/18 17:35 97.7 97.7 Physcial Exam: GEN.: No apparent distress. Alert and oriented. HEENT: Head is normocephalic, atraumatic NECK: Supple, no JVD LUNGS: Clear to auscultation without rhonchi or wheezing HEART: RRR, S1, S2 present. Peripheral pulses intact ABDOMEN: Soft, nontender. Positive bowel sounds no organomegaly EXTREMITIES: Without any cyanosis, clubbing, or edema. Pedal pulses intact NEUROLOGIC: Normal speech, normal tone. A&O x 3 PSYCHIATRIC: Normal affect, normal mood. Stable SKIN: Both lower extremities are quite painful to touch they are erythematous swollen Homans sign is negative Labs: Labs: Laboratory Tests Test 08/03/18 18:10 08/03/18 18:50 White Blood Count 6.5 x10^3/uL (4.0-11.0) Red Blood Count 3.68 x10^6/uL (3.50-5.40) Hemoglobin 12.9 g/dL (12.0-15.5) Hematocrit 38.6 % (36.0-47.0) Mean Corpuscular Volume 105 fL (79-100) Mean Corpuscular Hemoglobin 35 pg (25-35) Mean Corpuscular Hemoglobin Concent 34 g/dL (31-37) Red Cell Distribution Width 14.2 % (11.5-14.5) Platelet Count 160 x10^3/uL (140-400) Neutrophils (%) (Auto) 42 % (31-73) Lymphocytes (%) (Auto) 38 % (24-48) Monocytes (%) (Auto) 16 % (0-9) Eosinophils (%) (Auto) 3 % (0-3) Basophils (%) (Auto) 1 % (0-3) Neutrophils # (Auto) 2.8 x10^3uL (1.8-7.7) Lymphocytes # (Auto) 2.5 x10^3/uL (1.0-4.8) Monocytes # (Auto) 1.1 x10^3/uL (0.0-1.1) Eosinophils # (Auto) 0.2 x10^3/uL (0.0-0.7) Basophils # (Auto) 0.1 x10^3/uL (0.0-0.2) Sodium Level 138 mmol/L (136-145) Potassium Level 4.0 mmol/L (3.5-5.1) Chloride Level 101 mmol/L (98-107) Carbon Dioxide Level 28 mmol/L (21-32) Anion Gap 9 (6-14) Blood Urea Nitrogen 14 mg/dL (7-20) Creatinine 0.8 mg/dL (0.6-1.0) Estimated GFR (Cockcroft-Gault) 78.3 BUN/Creatinine Ratio 18 (6-20) Glucose Level 89 mg/dL (70-99) Lactic Acid Level 1.4 mmol/L (0.4-2.0) Calcium Level 9.0 mg/dL (8.5-10.1) Total Bilirubin 0.4 mg/dL (0.2-1.0) Aspartate Amino Transf (AST/SGOT) 147 U/L (15-37) Alanine Aminotransferase (ALT/SGPT) 186 U/L (14-59) Alkaline Phosphatase 113 U/L (46-116) Total Protein 7.4 g/dL (6.4-8.2) Albumin 3.0 g/dL (3.4-5.0) Albumin/Globulin Ratio 0.7 (1.0-1.7) Procalcitonin < 0.10 ng/mL (0.00-0.10) Urine Collection Type Unknown Urine Color Yellow Urine Clarity Clear Urine pH 5.5 Urine Specific Naselle <=1.005 Urine Protein Negative mg/dL (NEG-TRACE) Urine Glucose (UA) Negative mg/dL (NEG) Urine Ketones (Stick) Negative mg/dL (NEG) Urine Blood Negative (NEG) Urine Nitrite Negative (NEG) Urine Bilirubin Negative (NEG) Urine Urobilinogen Dipstick 0.2 mg/dL (0.2 mg/dL) Urine Leukocyte Esterase Negative (NEG) Urine RBC 0 /HPF (0-2) Urine WBC 0 /HPF (0-4) Urine Squamous Epithelial Cells Few /LPF Urine Bacteria 0 /HPF (0-FEW) Laboratory Tests Test 08/03/18 18:10 08/03/18 18:50 White Blood Count 6.5 x10^3/uL (4.0-11.0) Red Blood Count 3.68 x10^6/uL (3.50-5.40) Hemoglobin 12.9 g/dL (12.0-15.5) Hematocrit 38.6 % (36.0-47.0) Mean Corpuscular Volume 105 fL (79-100) Mean Corpuscular Hemoglobin 35 pg (25-35) Mean Corpuscular Hemoglobin Concent 34 g/dL (31-37) Red Cell Distribution Width 14.2 % (11.5-14.5) Platelet Count 160 x10^3/uL (140-400) Neutrophils (%) (Auto) 42 % (31-73) Lymphocytes (%) (Auto) 38 % (24-48) Monocytes (%) (Auto) 16 % (0-9) Eosinophils (%) (Auto) 3 % (0-3) Basophils (%) (Auto) 1 % (0-3) Neutrophils # (Auto) 2.8 x10^3uL (1.8-7.7) Lymphocytes # (Auto) 2.5 x10^3/uL (1.0-4.8) Monocytes # (Auto) 1.1 x10^3/uL (0.0-1.1) Eosinophils # (Auto) 0.2 x10^3/uL (0.0-0.7) Basophils # (Auto) 0.1 x10^3/uL (0.0-0.2) Sodium Level 138 mmol/L (136-145) Potassium Level 4.0 mmol/L (3.5-5.1) Chloride Level 101 mmol/L (98-107) Carbon Dioxide Level 28 mmol/L (21-32) Anion Gap 9 (6-14) Blood Urea Nitrogen 14 mg/dL (7-20) Creatinine 0.8 mg/dL (0.6-1.0) Estimated GFR (Cockcroft-Gault) 78.3 BUN/Creatinine Ratio 18 (6-20) Glucose Level 89 mg/dL (70-99) Lactic Acid Level 1.4 mmol/L (0.4-2.0) Calcium Level 9.0 mg/dL (8.5-10.1) Total Bilirubin 0.4 mg/dL (0.2-1.0) Aspartate Amino Transf (AST/SGOT) 147 U/L (15-37) Alanine Aminotransferase (ALT/SGPT) 186 U/L (14-59) Alkaline Phosphatase 113 U/L (46-116) Total Protein 7.4 g/dL (6.4-8.2) Albumin 3.0 g/dL (3.4-5.0) Albumin/Globulin Ratio 0.7 (1.0-1.7) Procalcitonin < 0.10 ng/mL (0.00-0.10) Urine Collection Type Unknown Urine Color Yellow Urine Clarity Clear Urine pH 5.5 Urine Specific Naselle <=1.005 Urine Protein Negative mg/dL (NEG-TRACE) Urine Glucose (UA) Negative mg/dL (NEG) Urine Ketones (Stick) Negative mg/dL (NEG) Urine Blood Negative (NEG) Urine Nitrite Negative (NEG) Urine Bilirubin Negative (NEG) Urine Urobilinogen Dipstick 0.2 mg/dL (0.2 mg/dL) Urine Leukocyte Esterase Negative (NEG) Urine RBC 0 /HPF (0-2) Urine WBC 0 /HPF (0-4) Urine Squamous Epithelial Cells Few /LPF Urine Bacteria 0 /HPF (0-FEW) Images: Images Lower extremity Dopplers are negative for DVTs Assessment/Plan Assessment/Plan Bilateral lower extremity cellulitis Plan IV antibiotics and we have started Zosyn per pharmacy Home meds DVT prophylaxis IV fluids Full code Wound care nurse to evaluate and treat PT OT CARLOS VELARDE III DO Aug 03, 2018 20:54
[2018-08-03] MEDS: VANCOMYCIN PER PHARMACY MC PRN (21:06)
--- NOTE | 2018-08-03 21:08 | NUR ---
Pharmacy Vancomycin Dosing Note S: Consulted to monitor and dose vancomycin started 08/03/18. O: PACO TREJO is a 43 year old F with Cellulitis, . Other Antibiotics: ZOSYN LABS: Last BUN: 14 Last Creatinine: 0.8 Creatinine Clearance: 120 mL/min Last WBC: 6.5 Tmax (past 24 hours): AFEBRILE Vancomycin Dosing: Dosing Weight: Adjusted Target Trough: 10-20 A: Based on: VANCO dosing guidelines and previous admit regimen P: 1. Begin Vancomycin 1500 mg IV q8h 2. Follow up Trough level on 08/04/18 at 1930 3. Pharmacy will continue to monitor, follow and adjust therapy as needed. EARLENE RUIZ, [facility], 08/03/18 [id number]
[2018-08-03] MEDS: NICOTINE 21MG PATCH. TD SCH (21:13)
[2018-08-03] MEDS ORDERED: ARIP400S3 PO (22:02)
[2018-08-03] MEDS ORDERED: NYST15PO9 TP (22:02)
[2018-08-03] MEDS ORDERED: ALBUTEROL PO (22:02)
[2018-08-03] MEDS ORDERED: CETI10TA16 PO (22:02)
[2018-08-03] MEDS ORDERED: POTA10TA12 PO (22:02)
[2018-08-03] MEDS ORDERED: IBUP-985 PO (22:02)
[2018-08-03] MEDS ORDERED: MULT1TAB52 PO (22:02)
[2018-08-03] MEDS ORDERED: CEPH500C PO (22:02)
[2018-08-03] MEDS ORDERED: FURO20TA3 PO (22:02)
[2018-08-03 23:00] VITALS: BP 116/65
[2018-08-03] MEDS: PIPERACILLIN/TAZOBACTAM 3.375 GM in IV NORMAL SALINE 50ML 50 ML IV SCH (23:53)
[2018-08-04] MEDS: diphenhydrAMINE HCL 25 MG CAPSULE PO PRN ×4 (01:21→21:01)
[2018-08-04] MEDS: ACETAMINOPHEN 325 MG TABLET. PO PRN ×2 (01:22→18:11)
[2018-08-04 03:00] VITALS: BP 121/80
[2018-08-04] MEDS: ALBUTEROL SULFATE 2.5 MG/3 ML NEBU. NEB PRN (03:25)
[2018-08-04 03:37] LABS: BASO # 0.1 x10^3/uL (0.0-0.2); BASO % 1 % (0-3); EOS # 0.2 x10^3/uL (0.0-0.7); EOS % 3 % (0-3); HEMATOCRIT 39.1 % (36.0-47.0); LYMPH # 2.2 x10^3/uL (1.0-4.8); LYMPH % 42 % (24-48); MEAN CORPUSCULAR HEMOGLOBIN 35 pg (25-35); MEAN CORPUSCULAR HGB CONC 33 g/dL (31-37); MEAN CORPUSCULAR VOLUME 106 fL (79-100); MONO # 0.9 x10^3/uL (0.0-1.1); MONO % 18 % (0-9); NEUT # 1.9 x10^3uL (1.8-7.7); NEUT % 37 % (31-73); PLATELET COUNT 155 x10^3/uL (140-400); RED BLOOD COUNT 3.71 x10^6/uL (3.50-5.40); RED CELL DISTRIBUTION WIDTH 15.1 % (11.5-14.5); WHITE BLOOD COUNT 5.3 x10^3/uL (4.0-11.0)
[2018-08-04] MEDS: VANCOMYCIN 1.5 GM in IV NORMAL SALINE 500ML BAG 500 ML IV SCH ×3 (03:55→21:01)
[2018-08-04 04:00] LABS: ALBUMIN 2.9 g/dL (3.4-5.0); ALBUMIN/GLOBULIN RATIO 0.7 (1.0-1.7); CALCIUM 8.4 mg/dL (8.5-10.1); CREATININE 0.7 mg/dL (0.6-1.0); GFR 91.3; POTASSIUM 4.6 mmol/L (3.5-5.1); TOTAL BILIRUBIN 0.4 mg/dL (0.2-1.0); TOTAL PROTEIN 7.2 g/dL (6.4-8.2)
[2018-08-04] MEDS: PIPERACILLIN/TAZOBACTAM 3.375 GM in IV NORMAL SALINE 50ML 50 ML IV SCH ×4 (05:49→22:51)
[2018-08-04] MEDS: PIP/TAZO PER PHARMACY MC SCH ×5 (05:53→22:53)
[2018-08-04 07:00] VITALS: BP 126/81
[2018-08-04] MEDS: MULTIVITAMIN with MINERAL TABLET. PO SCH (08:11)
[2018-08-04] MEDS: CETIRIZINE HCL 10 MG TABLET. PO SCH (08:12)
[2018-08-04] MEDS: LOPERAMIDE 2 MG CAPSULE PO PRN (08:12)
[2018-08-04] MEDS: NICOTINE 21MG PATCH. TD SCH (08:12)
[2018-08-04] MEDS ORDERED: NON FORMULARY ITEM (Aripiprazole (Abilify Maintena) 400 MG) PO SCH (09:00)
[2018-08-04] MEDS: NYSTATIN TOPICAL POWDER 15GM BOTTLE. TP SCH ×2 (10:46→19:09)
[2018-08-04 11:00] VITALS: BP 125/76
--- NOTE | 2018-08-04 13:54 | PDOC ---
PROGRESS NOTES Chief Complaint Chief Complaint Bilateral lower extremity cellulitis morbid obesity, BMI 52, wi mod malnutriton schizophrenia hepatitis c , History of Present Illness History of Present Illness IV antibiotics and we have started Zosyn per pharmacy, redness is a littl ebetter Home meds DVT prophylaxis IV fluids Full code Wound care nurse to evaluate and treat PT OT Vitals Vitals Vital Signs Date Time Temp Pulse Resp B/P (MAP) Pulse Ox O2 Delivery O2 Flow Rate FiO2 08/04/18 11:00 98.0 80 18 125/76 (92) 97 Room Air 98.0 Physical Exam Lungs: Clear Labs LABS Laboratory Tests Test 08/03/18 18:10 08/03/18 18:50 08/04/18 03:25 White Blood Count 6.5 x10^3/uL (4.0-11.0) 5.3 x10^3/uL (4.0-11.0) Red Blood Count 3.68 x10^6/uL (3.50-5.40) 3.71 x10^6/uL (3.50-5.40) Hemoglobin 12.9 g/dL (12.0-15.5) 13.0 g/dL (12.0-15.5) Hematocrit 38.6 % (36.0-47.0) 39.1 % (36.0-47.0) Mean Corpuscular Volume 105 fL (79-100) 106 fL (79-100) Mean Corpuscular Hemoglobin 35 pg (25-35) 35 pg (25-35) Mean Corpuscular Hemoglobin Concent 34 g/dL (31-37) 33 g/dL (31-37) Red Cell Distribution Width 14.2 % (11.5-14.5) 15.1 % (11.5-14.5) Platelet Count 160 x10^3/uL (140-400) 155 x10^3/uL (140-400) Neutrophils (%) (Auto) 42 % (31-73) 37 % (31-73) Lymphocytes (%) (Auto) 38 % (24-48) 42 % (24-48) Monocytes (%) (Auto) 16 % (0-9) 18 % (0-9) Eosinophils (%) (Auto) 3 % (0-3) 3 % (0-3) Basophils (%) (Auto) 1 % (0-3) 1 % (0-3) Neutrophils # (Auto) 2.8 x10^3uL (1.8-7.7) 1.9 x10^3uL (1.8-7.7) Lymphocytes # (Auto) 2.5 x10^3/uL (1.0-4.8) 2.2 x10^3/uL (1.0-4.8) Monocytes # (Auto) 1.1 x10^3/uL (0.0-1.1) 0.9 x10^3/uL (0.0-1.1) Eosinophils # (Auto) 0.2 x10^3/uL (0.0-0.7) 0.2 x10^3/uL (0.0-0.7) Basophils # (Auto) 0.1 x10^3/uL (0.0-0.2) 0.1 x10^3/uL (0.0-0.2) Sodium Level 138 mmol/L (136-145) 139 mmol/L (136-145) Potassium Level 4.0 mmol/L (3.5-5.1) 4.6 mmol/L (3.5-5.1) Chloride Level 101 mmol/L (98-107) 106 mmol/L (98-107) Carbon Dioxide Level 28 mmol/L (21-32) 28 mmol/L (21-32) Anion Gap 9 (6-14) 5 (6-14) Blood Urea Nitrogen 14 mg/dL (7-20) 10 mg/dL (7-20) Creatinine 0.8 mg/dL (0.6-1.0) 0.7 mg/dL (0.6-1.0) Estimated GFR (Cockcroft-Gault) 78.3 91.3 BUN/Creatinine Ratio 18 (6-20) 14 (6-20) Glucose Level 89 mg/dL (70-99) 90 mg/dL (70-99) Lactic Acid Level 1.4 mmol/L (0.4-2.0) 0.4 mmol/L (0.4-2.0) Calcium Level 9.0 mg/dL (8.5-10.1) 8.4 mg/dL (8.5-10.1) Total Bilirubin 0.4 mg/dL (0.2-1.0) 0.4 mg/dL (0.2-1.0) Aspartate Amino Transf (AST/SGOT) 147 U/L (15-37) 148 U/L (15-37) Alanine Aminotransferase (ALT/SGPT) 186 U/L (14-59) 175 U/L (14-59) Alkaline Phosphatase 113 U/L (46-116) 130 U/L (46-116) Total Protein 7.4 g/dL (6.4-8.2) 7.2 g/dL (6.4-8.2) Albumin 3.0 g/dL (3.4-5.0) 2.9 g/dL (3.4-5.0) Albumin/Globulin Ratio 0.7 (1.0-1.7) 0.7 (1.0-1.7) Procalcitonin < 0.10 ng/mL (0.00-0.10) Urine Collection Type Unknown Urine Color Yellow Urine Clarity Clear Urine pH 5.5 Urine Specific [place] <=1.005 Urine Protein Negative mg/dL (NEG-TRACE) Urine Glucose (UA) Negative mg/dL (NEG) Urine Ketones (Stick) Negative mg/dL (NEG) Urine Blood Negative (NEG) Urine Nitrite Negative (NEG) Urine Bilirubin Negative (NEG) Urine Urobilinogen Dipstick 0.2 mg/dL (0.2 mg/dL) Urine Leukocyte Esterase Negative (NEG) Urine RBC 0 /HPF (0-2) Urine WBC 0 /HPF (0-4) Urine Squamous Epithelial Cells Few /LPF Urine Bacteria 0 /HPF (0-FEW) Assessment and Plan Assessmemt and Plan Problems Medical Problems: (1) Cellulitis of lower extremity Status: Acute Comment Review of Relevant I have reviewed the following items karl (where applicable) has been applied. Labs Laboratory Tests Test 08/03/18 18:10 08/03/18 18:50 08/04/18 03:25 White Blood Count 6.5 x10^3/uL (4.0-11.0) 5.3 x10^3/uL (4.0-11.0) Red Blood Count 3.68 x10^6/uL (3.50-5.40) 3.71 x10^6/uL (3.50-5.40) Hemoglobin 12.9 g/dL (12.0-15.5) 13.0 g/dL (12.0-15.5) Hematocrit 38.6 % (36.0-47.0) 39.1 % (36.0-47.0) Mean Corpuscular Volume 105 fL (79-100) 106 fL (79-100) Mean Corpuscular Hemoglobin 35 pg (25-35) 35 pg (25-35) Mean Corpuscular Hemoglobin Concent 34 g/dL (31-37) 33 g/dL (31-37) Red Cell Distribution Width 14.2 % (11.5-14.5) 15.1 % (11.5-14.5) Platelet Count 160 x10^3/uL (140-400) 155 x10^3/uL (140-400) Neutrophils (%) (Auto) 42 % (31-73) 37 % (31-73) Lymphocytes (%) (Auto) 38 % (24-48) 42 % (24-48) Monocytes (%) (Auto) 16 % (0-9) 18 % (0-9) Eosinophils (%) (Auto) 3 % (0-3) 3 % (0-3) Basophils (%) (Auto) 1 % (0-3) 1 % (0-3) Neutrophils # (Auto) 2.8 x10^3uL (1.8-7.7) 1.9 x10^3uL (1.8-7.7) Lymphocytes # (Auto) 2.5 x10^3/uL (1.0-4.8) 2.2 x10^3/uL (1.0-4.8) Monocytes # (Auto) 1.1 x10^3/uL (0.0-1.1) 0.9 x10^3/uL (0.0-1.1) Eosinophils # (Auto) 0.2 x10^3/uL (0.0-0.7) 0.2 x10^3/uL (0.0-0.7) Basophils # (Auto) 0.1 x10^3/uL (0.0-0.2) 0.1 x10^3/uL (0.0-0.2) Sodium Level 138 mmol/L (136-145) 139 mmol/L (136-145) Potassium Level 4.0 mmol/L (3.5-5.1) 4.6 mmol/L (3.5-5.1) Chloride Level 101 mmol/L (98-107) 106 mmol/L (98-107) Carbon Dioxide Level 28 mmol/L (21-32) 28 mmol/L (21-32) Anion Gap 9 (6-14) 5 (6-14) Blood Urea Nitrogen 14 mg/dL (7-20) 10 mg/dL (7-20) Creatinine 0.8 mg/dL (0.6-1.0) 0.7 mg/dL (0.6-1.0) Estimated GFR (Cockcroft-Gault) 78.3 91.3 BUN/Creatinine Ratio 18 (6-20) 14 (6-20) Glucose Level 89 mg/dL (70-99) 90 mg/dL (70-99) Lactic Acid Level 1.4 mmol/L (0.4-2.0) 0.4 mmol/L (0.4-2.0) Calcium Level 9.0 mg/dL (8.5-10.1) 8.4 mg/dL (8.5-10.1) Total Bilirubin 0.4 mg/dL (0.2-1.0) 0.4 mg/dL (0.2-1.0) Aspartate Amino Transf (AST/SGOT) 147 U/L (15-37) 148 U/L (15-37) Alanine Aminotransferase (ALT/SGPT) 186 U/L (14-59) 175 U/L (14-59) Alkaline Phosphatase 113 U/L (46-116) 130 U/L (46-116) Total Protein 7.4 g/dL (6.4-8.2) 7.2 g/dL (6.4-8.2) Albumin 3.0 g/dL (3.4-5.0) 2.9 g/dL (3.4-5.0) Albumin/Globulin Ratio 0.7 (1.0-1.7) 0.7 (1.0-1.7) Procalcitonin < 0.10 ng/mL (0.00-0.10) Urine Collection Type Unknown Urine Color Yellow Urine Clarity Clear Urine pH 5.5 Urine Specific [place] <=1.005 Urine Protein Negative mg/dL (NEG-TRACE) Urine Glucose (UA) Negative mg/dL (NEG) Urine Ketones (Stick) Negative mg/dL (NEG) Urine Blood Negative (NEG) Urine Nitrite Negative (NEG) Urine Bilirubin Negative (NEG) Urine Urobilinogen Dipstick 0.2 mg/dL (0.2 mg/dL) Urine Leukocyte Esterase Negative (NEG) Urine RBC 0 /HPF (0-2) Urine WBC 0 /HPF (0-4) Urine Squamous Epithelial Cells Few /LPF Urine Bacteria 0 /HPF (0-FEW) Laboratory Tests Test 08/03/18 18:10 08/03/18 18:50 08/04/18 03:25 White Blood Count 6.5 x10^3/uL (4.0-11.0) 5.3 x10^3/uL (4.0-11.0) Red Blood Count 3.68 x10^6/uL (3.50-5.40) 3.71 x10^6/uL (3.50-5.40) Hemoglobin 12.9 g/dL (12.0-15.5) 13.0 g/dL (12.0-15.5) Hematocrit 38.6 % (36.0-47.0) 39.1 % (36.0-47.0) Mean Corpuscular Volume 105 fL (79-100) 106 fL (79-100) Mean Corpuscular Hemoglobin 35 pg (25-35) 35 pg (25-35) Mean Corpuscular Hemoglobin Concent 34 g/dL (31-37) 33 g/dL (31-37) Red Cell Distribution Width 14.2 % (11.5-14.5) 15.1 % (11.5-14.5) Platelet Count 160 x10^3/uL (140-400) 155 x10^3/uL (140-400) Neutrophils (%) (Auto) 42 % (31-73) 37 % (31-73) Lymphocytes (%) (Auto) 38 % (24-48) 42 % (24-48) Monocytes (%) (Auto) 16 % (0-9) 18 % (0-9) Eosinophils (%) (Auto) 3 % (0-3) 3 % (0-3) Basophils (%) (Auto) 1 % (0-3) 1 % (0-3) Neutrophils # (Auto) 2.8 x10^3uL (1.8-7.7) 1.9 x10^3uL (1.8-7.7) Lymphocytes # (Auto) 2.5 x10^3/uL (1.0-4.8) 2.2 x10^3/uL (1.0-4.8) Monocytes # (Auto) 1.1 x10^3/uL (0.0-1.1) 0.9 x10^3/uL (0.0-1.1) Eosinophils # (Auto) 0.2 x10^3/uL (0.0-0.7) 0.2 x10^3/uL (0.0-0.7) Basophils # (Auto) 0.1 x10^3/uL (0.0-0.2) 0.1 x10^3/uL (0.0-0.2) Sodium Level 138 mmol/L (136-145) 139 mmol/L (136-145) Potassium Level 4.0 mmol/L (3.5-5.1) 4.6 mmol/L (3.5-5.1) Chloride Level 101 mmol/L (98-107) 106 mmol/L (98-107) Carbon Dioxide Level 28 mmol/L (21-32) 28 mmol/L (21-32) Anion Gap 9 (6-14) 5 (6-14) Blood Urea Nitrogen 14 mg/dL (7-20) 10 mg/dL (7-20) Creatinine 0.8 mg/dL (0.6-1.0) 0.7 mg/dL (0.6-1.0) Estimated GFR (Cockcroft-Gault) 78.3 91.3 BUN/Creatinine Ratio 18 (6-20) 14 (6-20) Glucose Level 89 mg/dL (70-99) 90 mg/dL (70-99) Lactic Acid Level 1.4 mmol/L (0.4-2.0) 0.4 mmol/L (0.4-2.0) Calcium Level 9.0 mg/dL (8.5-10.1) 8.4 mg/dL (8.5-10.1) Total Bilirubin 0.4 mg/dL (0.2-1.0) 0.4 mg/dL (0.2-1.0) Aspartate Amino Transf (AST/SGOT) 147 U/L (15-37) 148 U/L (15-37) Alanine Aminotransferase (ALT/SGPT) 186 U/L (14-59) 175 U/L (14-59) Alkaline Phosphatase 113 U/L (46-116) 130 U/L (46-116) Total Protein 7.4 g/dL (6.4-8.2) 7.2 g/dL (6.4-8.2) Albumin 3.0 g/dL (3.4-5.0) 2.9 g/dL (3.4-5.0) Albumin/Globulin Ratio 0.7 (1.0-1.7) 0.7 (1.0-1.7) Procalcitonin < 0.10 ng/mL (0.00-0.10) Urine Collection Type Unknown Urine Color Yellow Urine Clarity Clear Urine pH 5.5 Urine Specific [place] <=1.005 Urine Protein Negative mg/dL (NEG-TRACE) Urine Glucose (UA) Negative mg/dL (NEG) Urine Ketones (Stick) Negative mg/dL (NEG) Urine Blood Negative (NEG) Urine Nitrite Negative (NEG) Urine Bilirubin Negative (NEG) Urine Urobilinogen Dipstick 0.2 mg/dL (0.2 mg/dL) Urine Leukocyte Esterase Negative (NEG) Urine RBC 0 /HPF (0-2) Urine WBC 0 /HPF (0-4) Urine Squamous Epithelial Cells Few /LPF Urine Bacteria 0 /HPF (0-FEW) Medications Current Medications Piperacillin Sod/ Tazobactam Sod 4.5 gm/Sodium Chloride 100 ml @ 200 mls/hr 1X ONCE IV Last administered on 08/03/18at 18:43; Start 08/03/18 at 18:30; Stop 08/03/18 at 18:59; Status DC Vancomycin HCl (Vanco Per Pharmacy) 1 each 1X ONCE MC Last administered on 08/03/18at 18:00; Start 08/03/18 at 18:00; Stop 08/03/18 at 18:03; Status DC Sodium Chloride 1,000 ml @ 3,960 mls/hr Q16M IV Last administered on 08/03/18at 20:00; Start 08/03/18 at 18:00; Stop 08/03/18 at 19:00; Status DC Morphine Sulfate (Morphine Sulfate) 4 mg PRN Q15MIN PRN IV/SQ PAIN GREATER THAN 3/10; Start 08/03/18 at 18:00; Stop 08/03/18 at 21:00; Status DC Vancomycin HCl 2 gm/Sodium Chloride 500 ml @ 250 mls/hr 1X ONCE IV Last administered on 08/03/18at 19:26; Start 08/03/18 at 18:30; Stop 08/03/18 at 20:29; Status DC Ondansetron HCl (Zofran) 4 mg PRN Q8HRS PRN IV NAUSEA/VOMITING; Start 08/03/18 at 19:15; Stop 08/04/18 at 19:14 Morphine Sulfate (Morphine Sulfate) 4 mg PRN Q2HR PRN IV PAIN Last administered on 08/04/18at 03:55; Start 08/03/18 at 19:15; Stop 08/04/18 at 19:14 Acetaminophen (Tylenol) 650 mg PRN Q4HRS PRN PO FEVER Last administered on 08/04/18at 01:22; Start 08/03/18 at 19:15; Stop 08/04/18 at 19:14 Nicotine (Nicoderm Cq 21mg) 1 patch DAILY TD Last administered on 08/04/18at 08:12; Start 08/03/18 at 20:00 Piperacillin Sod/ Tazobactam Sod (Zosyn Per Pharmacy) 1 each Q6HRS MC Last administered on 08/04/18at 05:53; Start 08/04/18 at 00:00 Piperacillin Sod/ Tazobactam Sod 3.375 gm/Sodium Chloride 50 ml @ 100 mls/hr Q6HRS IV Last administered on 08/04/18at 11:29; Start 08/04/18 at 00:00 Vancomycin HCl (Vanco Per Pharmacy) 1 each PRN DAILY PRN MC SEE COMMENTS Last administered on 08/03/18at 21:06; Start 08/03/18 at 21:00 Vancomycin HCl 1.5 gm/Sodium Chloride 500 ml @ 250 mls/hr Q8H IV Last administered on 08/04/18at 12:21; Start 08/04/18 at 04:00 Vancomycin HCl (Vancomycin Trough Level) 1 each 1X ONCE MC ; Start 08/04/18 at 19:30; Stop 08/04/18 at 19:31 Diphenhydramine HCl (Benadryl) 25 mg PRN Q6HRS PRN PO ITCHING Last administered on 08/04/18at 08:12; Start 08/04/18 at 01:15 Albuterol Sulfate (Ventolin Neb Soln) 2.5 mg PRN Q6HRS PRN NEB SHORTNESS OF BREATH Last administered on 08/04/18at 03:25; Start 08/04/18 at 01:15 Multivitamins (Thera M Plus) 1 tab DAILY PO Last administered on 08/04/18at 08:11; Start 08/04/18 at 09:00 Cetirizine HCl (ZyrTEC) 10 mg DAILY PO Last administered on 08/04/18at 08:12; Start 08/04/18 at 09:00 Non-Formulary Medication (Aripiprazole (Abilify Maintena)) 400 mg DAILY PO ; Start 08/04/18 at 09:00; Status UNV Loperamide HCl (Imodium) 2 mg PRN Q6HRS PRN PO DIARRHEA Last administered on 08/04/18at 08:12; Start 08/04/18 at 07:30 Nystatin (Nystop) 1 lian BID TP Last administered on 08/04/18at 10:46; Start 08/04/18 at 11:00 Active Scripts Active Reported Abilify Maintena (Aripiprazole) 400 Mg Suser.syr 400 Mg PO DAILY Multivitamins (Multivitamin) 1 Each Tablet 1 Each PO DAILY Klor-Con M10 (Potassium Chloride) 10 Meq Tab.er.prt 10 Meq PO DAILY Nystatin 15 Gm Powder 100,000 Units TP BID [Albuterol] 90 mcg Aer 2 Puff PO Q6HRS Cetirizine Hcl 10 Mg Tablet 10 Mg PO DAILY 30 Days Ibuprofen 600 Mg Tablet 600 Mg PO PRN Q8HRS PRN Cephalexin 500 Mg Capsule 500 Mg PO [id number] 10 Days Furosemide 20 Mg Tablet 5 Mg PO DAILY 3 Days Loperamide (Loperamide Hcl) 2 Mg Capsule 2 Mg PO BID Vitals/I & O Vital Sign - Last 24 Hours 4/08/03/18 08/03/18 08/03/18 17:35 17:49 18:19 18:53 Temp 97.7 97.7 Pulse 90 90 90 84 Resp 20 18 20 20 B/P (MAP) 128/72 (90) 127/77 (94) 129/82 (98) 126/61 (82) Pulse Ox 98 98 97 97 O2 Delivery Room Air Room Air 08/03/18 08/03/18 08/03/18 08/04/18 19:19 20:00 23:00 03:00 Temp 97.7 97.9 97.7 97.9 Pulse 86 85 76 Resp 20 18 18 B/P (MAP) 127/71 (89) 116/65 (82) 121/80 (94) Pulse Ox 97 95 96 O2 Delivery Room Air Room Air Room Air Room Air 08/04/18 08/04/18 08/04/18 08/04/18 03:25 03:55 04:20 07:00 Temp 97.8 97.8 Pulse 75 Resp 18 B/P (MAP) 126/81 (96) Pulse Ox 96 97 O2 Delivery Room Air Room Air Room Air Room Air 08/04/18 08/04/18 08:00 11:00 Temp 98.0 98.0 Pulse 80 Resp 18 B/P (MAP) 125/76 (92) Pulse Ox 97 O2 Delivery Room Air Room Air Intake and Output 08/03/18 08/03/18 08/04/18 15:00 23:00 07:00 Intake Total 2200 ml 2950 ml Balance 2200 ml 2950 ml ANITHA LIMON MD Aug 04, 2018 13:54
[2018-08-04 15:00] VITALS: BP 120/84
[2018-08-04] MEDS: VANCOMYCIN PER PHARMACY MC PRN ×3 (15:24→20:45)
[2018-08-04 19:00] VITALS: BP 136/82
[2018-08-04] MEDS: IBUPROFEN 200 MG TABLET. PO PRN (19:09)
[2018-08-04 19:23] LABS: VANC TR 12.9 mcg/mL (10.0-20.0)
--- NOTE | 2018-08-04 20:45 | NUR ---
Pharmacy Vancomycin Dosing Note S: Consulted to monitor and dose vancomycin started 08/03/18. O: PACO TREJO is a 43 year old F with Cellulitis, . Other Antibiotics: ZOSYN LABS: Last BUN: 5 Last Creatinine: 0.7 Creatinine Clearance: 120 mL/min Last WBC: 5.3 Last Trough level: 12.9 on 08/04/18 at 1907 Last dose given 08/03/18 at 1930 Target Trough: 10-20 A: Based on: TROUGH level P: 1. Continue Vancomycin 1500 mg IV q8h 2. Follow up Trough level NEEDED 3. Pharmacy will continue to monitor, follow and adjust therapy as needed. EARLENE RUIZ [facility], 08/04/184
[2018-08-04] MEDS: LACTOBACILLUS RHAMNOSUS GG 1 CAPSULE. PO SCH (21:01)
[2018-08-04] MEDS: HYDROcodone/APAP 5/325MG 1 TAB TABLET PO PRN (22:51)
[2018-08-04 23:00] VITALS: BP 139/55
[2018-08-04] MEDS ORDERED: ONDANSETRON PF 4 MG/2 ML VIAL. IV PRN (23:15)
[2018-08-04] MEDS: CALCIUM CARBONATE 500 MG TAB.CHEW PO PRN (23:21)
[2018-08-05 03:00] VITALS: BP 130/69
[2018-08-05] MEDS: VANCOMYCIN 1.5 GM in IV NORMAL SALINE 500ML BAG 500 ML IV SCH ×3 (03:50→20:31)
[2018-08-05] MEDS: IBUPROFEN 200 MG TABLET. PO PRN ×2 (03:54→13:46)
[2018-08-05] MEDS: diphenhydrAMINE HCL 25 MG CAPSULE PO PRN ×2 (03:54→15:27)
[2018-08-05] MEDS: PIPERACILLIN/TAZOBACTAM 3.375 GM in IV NORMAL SALINE 50ML 50 ML IV SCH ×3 (05:58→11:23)
[2018-08-05] MEDS: PIP/TAZO PER PHARMACY MC SCH ×2 (05:58→11:25)
[2018-08-05 07:00] VITALS: BP 127/89
[2018-08-05] MEDS: NICOTINE 21MG PATCH. TD SCH (08:20)
[2018-08-05] MEDS: NYSTATIN TOPICAL POWDER 15GM BOTTLE. TP SCH ×2 (08:21→20:31)
[2018-08-05] MEDS: LACTOBACILLUS RHAMNOSUS GG 1 CAPSULE. PO SCH ×2 (08:22→20:30)
[2018-08-05] MEDS: CETIRIZINE HCL 10 MG TABLET. PO SCH (08:22)
[2018-08-05] MEDS: MULTIVITAMIN with MINERAL TABLET. PO SCH (08:22)
[2018-08-05] MEDS: HYDROcodone/APAP 5/325MG 1 TAB TABLET PO PRN ×2 (08:24→15:25)
--- NOTE | 2018-08-05 10:00 | NUR ---
Wound Care Wound care consult for BLE cellulitis. Spoke with Ignacia SORTO and she is going to cancel consult as pt has no open wounds or drainage at this time.
[2018-08-05 11:00] VITALS: BP 110/68
--- NOTE | 2018-08-05 11:26 | NUR ---
No administration with pharmacy dosing on Zosyn.
--- NOTE | 2018-08-05 12:46 | PDOC ---
PROGRESS NOTES Chief Complaint Chief Complaint Bilateral lower extremity cellulitis morbid obesity, BMI 52, wi mod malnutriton schizophrenia hepatitis c , History of Present Illness History of Present Illness IV antibiotics and we have started Zosyn per pharmacy, naida is a littl ebetter Home meds DVT prophylaxis IV fluids Full code Wound care nurse to evaluate and treat PT OT Vitals Vitals Vital Signs Date Time Temp Pulse Resp B/P (MAP) Pulse Ox O2 Delivery O2 Flow Rate FiO2 08/05/18 11:00 98.6 78 14 110/68 (82) 97 Room Air 98.6 Physical Exam Lungs: Clear Labs LABS Laboratory Tests Test 08/04/18 19:07 Vancomycin Level Trough 12.9 mcg/mL (10.0-20.0) Vancomycin Last Dose Date 08/04/18 Vancomycin Last Dose Time 1200 Assessment and Plan Assessmemt and Plan Problems Medical Problems: (1) Cellulitis of lower extremity Status: Acute Comment Review of Relevant I have reviewed the following items karl (where applicable) has been applied. Labs Laboratory Tests Test 08/03/18 18:10 08/03/18 18:50 08/04/18 03:25 08/04/18 19:07 White Blood Count 6.5 x10^3/uL (4.0-11.0) 5.3 x10^3/uL (4.0-11.0) Red Blood Count 3.68 x10^6/uL (3.50-5.40) 3.71 x10^6/uL (3.50-5.40) Hemoglobin 12.9 g/dL (12.0-15.5) 13.0 g/dL (12.0-15.5) Hematocrit 38.6 % (36.0-47.0) 39.1 % (36.0-47.0) Mean Corpuscular Volume 105 fL (79-100) 106 fL (79-100) Mean Corpuscular Hemoglobin 35 pg (25-35) 35 pg (25-35) Mean Corpuscular Hemoglobin Concent 34 g/dL (31-37) 33 g/dL (31-37) Red Cell Distribution Width 14.2 % (11.5-14.5) 15.1 % (11.5-14.5) Platelet Count 160 x10^3/uL (140-400) 155 x10^3/uL (140-400) Neutrophils (%) (Auto) 42 % (31-73) 37 % (31-73) Lymphocytes (%) (Auto) 38 % (24-48) 42 % (24-48) Monocytes (%) (Auto) 16 % (0-9) 18 % (0-9) Eosinophils (%) (Auto) 3 % (0-3) 3 % (0-3) Basophils (%) (Auto) 1 % (0-3) 1 % (0-3) Neutrophils # (Auto) 2.8 x10^3uL (1.8-7.7) 1.9 x10^3uL (1.8-7.7) Lymphocytes # (Auto) 2.5 x10^3/uL (1.0-4.8) 2.2 x10^3/uL (1.0-4.8) Monocytes # (Auto) 1.1 x10^3/uL (0.0-1.1) 0.9 x10^3/uL (0.0-1.1) Eosinophils # (Auto) 0.2 x10^3/uL (0.0-0.7) 0.2 x10^3/uL (0.0-0.7) Basophils # (Auto) 0.1 x10^3/uL (0.0-0.2) 0.1 x10^3/uL (0.0-0.2) Sodium Level 138 mmol/L (136-145) 139 mmol/L (136-145) Potassium Level 4.0 mmol/L (3.5-5.1) 4.6 mmol/L (3.5-5.1) Chloride Level 101 mmol/L (98-107) 106 mmol/L (98-107) Carbon Dioxide Level 28 mmol/L (21-32) 28 mmol/L (21-32) Anion Gap 9 (6-14) 5 (6-14) Blood Urea Nitrogen 14 mg/dL (7-20) 10 mg/dL (7-20) Creatinine 0.8 mg/dL (0.6-1.0) 0.7 mg/dL (0.6-1.0) Estimated GFR (Cockcroft-Gault) 78.3 91.3 BUN/Creatinine Ratio 18 (6-20) 14 (6-20) Glucose Level 89 mg/dL (70-99) 90 mg/dL (70-99) Lactic Acid Level 1.4 mmol/L (0.4-2.0) 0.4 mmol/L (0.4-2.0) Calcium Level 9.0 mg/dL (8.5-10.1) 8.4 mg/dL (8.5-10.1) Total Bilirubin 0.4 mg/dL (0.2-1.0) 0.4 mg/dL (0.2-1.0) Aspartate Amino Transf (AST/SGOT) 147 U/L (15-37) 148 U/L (15-37) Alanine Aminotransferase (ALT/SGPT) 186 U/L (14-59) 175 U/L (14-59) Alkaline Phosphatase 113 U/L (46-116) 130 U/L (46-116) Total Protein 7.4 g/dL (6.4-8.2) 7.2 g/dL (6.4-8.2) Albumin 3.0 g/dL (3.4-5.0) 2.9 g/dL (3.4-5.0) Albumin/Globulin Ratio 0.7 (1.0-1.7) 0.7 (1.0-1.7) Procalcitonin < 0.10 ng/mL (0.00-0.10) Urine Collection Type Unknown Urine Color Yellow Urine Clarity Clear Urine pH 5.5 Urine Specific [place] <=1.005 Urine Protein Negative mg/dL (NEG-TRACE) Urine Glucose (UA) Negative mg/dL (NEG) Urine Ketones (Stick) Negative mg/dL (NEG) Urine Blood Negative (NEG) Urine Nitrite Negative (NEG) Urine Bilirubin Negative (NEG) Urine Urobilinogen Dipstick 0.2 mg/dL (0.2 mg/dL) Urine Leukocyte Esterase Negative (NEG) Urine RBC 0 /HPF (0-2) Urine WBC 0 /HPF (0-4) Urine Squamous Epithelial Cells Few /LPF Urine Bacteria 0 /HPF (0-FEW) Vancomycin Level Trough 12.9 mcg/mL (10.0-20.0) Vancomycin Last Dose Date 08/04/18 Vancomycin Last Dose Time 1200 Laboratory Tests Test 08/04/18 19:07 Vancomycin Level Trough 12.9 mcg/mL (10.0-20.0) Vancomycin Last Dose Date 08/04/18 Vancomycin Last Dose Time 1200 Microbiology 08/03/18 Blood Culture - Preliminary, Resulted NO GROWTH AFTER 1 DAY Medications Current Medications Piperacillin Sod/ Tazobactam Sod 4.5 gm/Sodium Chloride 100 ml @ 200 mls/hr 1X ONCE IV Last administered on 08/03/18at 18:43; Start 08/03/18 at 18:30; Stop 08/03/18 at 18:59; Status DC Vancomycin HCl (Vanco Per Pharmacy) 1 each 1X ONCE MC Last administered on 08/03/18at 18:00; Start 08/03/18 at 18:00; Stop 08/03/18 at 18:03; Status DC Sodium Chloride 1,000 ml @ 3,960 mls/hr Q16M IV Last administered on 08/03/18at 20:00; Start 08/03/18 at 18:00; Stop 08/03/18 at 19:00; Status DC Morphine Sulfate (Morphine Sulfate) 4 mg PRN Q15MIN PRN IV/SQ PAIN GREATER THAN 3/10; Start 08/03/18 at 18:00; Stop 08/03/18 at 21:00; Status DC Vancomycin HCl 2 gm/Sodium Chloride 500 ml @ 250 mls/hr 1X ONCE IV Last administered on 08/03/18at 19:26; Start 08/03/18 at 18:30; Stop 08/03/18 at 20:29; Status DC Ondansetron HCl (Zofran) 4 mg PRN Q8HRS PRN IV NAUSEA/VOMITING; Start 08/03/18 at 19:15; Stop 08/04/18 at 19:14; Status DC Morphine Sulfate (Morphine Sulfate) 4 mg PRN Q2HR PRN IV PAIN Last administered on 08/04/18at 03:55; Start 08/03/18 at 19:15; Stop 08/04/18 at 19:14; Status DC Acetaminophen (Tylenol) 650 mg PRN Q4HRS PRN PO FEVER Last administered on 08/04/18at 18:11; Start 08/03/18 at 19:15; Stop 08/04/18 at 19:14; Status DC Nicotine (Nicoderm Cq 21mg) 1 patch DAILY TD Last administered on 08/05/18at 08:20; Start 08/03/18 at 20:00 Piperacillin Sod/ Tazobactam Sod (Zosyn Per Pharmacy) 1 each Q6HRS MC Last administered on 08/05/18 05:58; Start 08/04/18 at 00:00 Piperacillin Sod/ Tazobactam Sod 3.375 gm/Sodium Chloride 50 ml @ 100 mls/hr Q6HRS IV Last administered on 08/05/18 11:23; Start 08/04/18 at 00:00 Vancomycin HCl (Vanco Per Pharmacy) 1 each PRN DAILY PRN MC SEE COMMENTS Last administered on 08/04/18 20:45; Start 08/03/18 at 21:00 Vancomycin HCl 1.5 gm/Sodium Chloride 500 ml @ 250 mls/hr Q8H IV Last administered on 08/05/18 11:48; Start 08/04/18 at 04:00 Vancomycin HCl (Vancomycin Trough Level) 1 each 1X ONCE MC Last administered on 08/04/18 19:29; Start 08/04/18 at 19:30; Stop 08/04/18 at 19:31; Status DC Diphenhydramine HCl (Benadryl) 25 mg PRN Q6HRS PRN PO ITCHING Last administered on 08/05/18 03:54; Start 08/04/18 at 01:15 Albuterol Sulfate (Ventolin Neb Soln) 2.5 mg PRN Q6HRS PRN NEB SHORTNESS OF BREATH Last administered on 08/04/18 03:25; Start 08/04/18 at 01:15 Multivitamins (Thera M Plus) 1 tab DAILY PO Last administered on 08/05/18 08:22; Start 08/04/18 at 09:00 Cetirizine HCl (ZyrTEC) 10 mg DAILY PO Last administered on 08/05/18 08:22; Start 08/04/18 at 09:00 Non-Formulary Medication (Aripiprazole (Abilify Maintena)) 400 mg DAILY PO ; Start 08/04/18 at 09:00; Status UNV Loperamide HCl (Imodium) 2 mg PRN Q6HRS PRN PO DIARRHEA Last administered on 08/04/18 08:12; Start 08/04/18 at 07:30 Nystatin (Nystop) 1 lian BID TP Last administered on 08/05/18 08:21; Start 08/04/18 at 11:00 Lactobacillus Rhamnosus (Culturelle) 1 cap BID PO Last administered on 08/05/18 08:22; Start 08/04/18 at 21:00 Ibuprofen (Motrin) 600 mg PRN Q6HRS PRN PO INFLAMMATION Last administered on 08/05/18 03:54; Start 08/04/18 at 18:45 Acetaminophen/ Hydrocodone Bitart (Lortab 5/325) 1 tab PRN Q6HRS PRN PO PAIN Last administered on 08/05/18 08:24; Start 08/04/18 at 18:45 Calcium Carbonate/ Glycine (Tums) 500 mg PRN Q3HRS PRN PO INDIGESTION Last administered on 08/04/18at 23:21; Start 08/04/18 at 23:15 Ondansetron HCl (Zofran) 4 mg PRN Q6HRS PRN IV NAUSEA/VOMITING 1ST CHOICE; Start 08/04/18 at 23:15 Active Scripts Active Reported Abilify Maintena (Aripiprazole) 400 Mg Suser.syr 400 Mg PO DAILY Multivitamins (Multivitamin) 1 Each Tablet 1 Each PO DAILY Klor-Con M10 (Potassium Chloride) 10 Meq Tab.er.prt 10 Meq PO DAILY Nystatin 15 Gm Powder 100,000 Units TP BID [Albuterol] 90 mcg Aer 2 Puff PO Q6HRS Cetirizine Hcl 10 Mg Tablet 10 Mg PO DAILY 30 Days Ibuprofen 600 Mg Tablet 600 Mg PO PRN Q8HRS PRN Cephalexin 500 Mg Capsule 500 Mg PO [id number] 10 Days Furosemide 20 Mg Tablet 5 Mg PO DAILY 3 Days Loperamide (Loperamide Hcl) 2 Mg Capsule 2 Mg PO BID Vitals/I & O Vital Sign - Last 24 Hours 08/04/18 08/04/18 08/04/18 08/04/18 15:00 19:00 19:05 22:51 Temp 98.2 98.5 98.2 98.5 Pulse 79 82 Resp 20 20 16 B/P (MAP) 120/84 (96) 136/82 (100) Pulse Ox 98 97 97 O2 Delivery Room Air Room Air Room Air Room Air 4/28/08/04/18 08/05/18 08/05/18 23:00 23:50 03:00 07:00 Temp 97.3 98.0 98.1 97.3 98.0 98.1 Pulse 111 77 73 Resp 16 18 14 B/P (MAP) 139/55 (83) 130/69 (89) 127/89 (102) Pulse Ox 98 98 98 97 O2 Delivery Room Air Room Air Room Air Room Air 08/05/18 08/05/18 08/05/18 08/05/18 08:00 08:24 09:24 11:00 Temp 98.6 98.6 Pulse 78 Resp 18 18 14 B/P (MAP) 110/68 (82) Pulse Ox 97 O2 Delivery Room Air Room Air Intake and Output 08/04/18 08/04/18 08/05/18 15:00 23:00 07:00 Intake Total 550 ml 1260 ml Output Total 1 ml Balance -1 ml 550 ml 1260 ml ANITHA LIMON MD Aug 05, 2018 12:46
[2018-08-05] MEDS: VANCOMYCIN PER PHARMACY MC PRN (14:00)
[2018-08-05] MEDS ORDERED: PIP/TAZO PER PHARMACY MC PRN (14:00)
[2018-08-05 15:00] VITALS: BP 126/72
--- NOTE | 2018-08-05 15:19 | NUR ---
Accidently scanned Zosyn 6pm dose at 1123, unable to undo. This dose was not given at this time, one time dose entered for 1800. See emar.
[2018-08-05] MEDS: ALBUTEROL SULFATE 2.5 MG/3 ML NEBU. NEB PRN (16:25)
[2018-08-05] MEDS ORDERED: PIPERACILLIN/TAZOBACTAM 3.375 GM in IV NORMAL SALINE 50ML 50 ML IV ONE (18:00)
[2018-08-05 19:00] VITALS: BP 138/79
[2018-08-05] MEDS: CALCIUM CARBONATE 500 MG TAB.CHEW PO PRN (21:52)
[2018-08-05 22:53] VITALS: BP 142/80
[2018-08-06] MEDS: PIPERACILLIN/TAZOBACTAM 3.375 GM in IV NORMAL SALINE 50ML 50 ML IV SCH ×5 (00:09→23:18)
[2018-08-06] MEDS: HYDROcodone/APAP 5/325MG 1 TAB TABLET PO PRN ×2 (00:09→07:32)
[2018-08-06 03:00] VITALS: BP 108/68
[2018-08-06] MEDS: CALCIUM CARBONATE 500 MG TAB.CHEW PO PRN (03:09)
[2018-08-06] MEDS: VANCOMYCIN 1.5 GM in IV NORMAL SALINE 500ML BAG 500 ML IV SCH ×3 (03:10→20:54)
[2018-08-06] MEDS: diphenhydrAMINE HCL 25 MG CAPSULE PO PRN ×2 (03:15→09:07)
[2018-08-06 05:09] LABS: CREATININE 0.7 mg/dL (0.6-1.0); GFR 91.3
[2018-08-06 07:00] VITALS: BP 146/80
[2018-08-06] MEDS: LACTOBACILLUS RHAMNOSUS GG 1 CAPSULE. PO SCH ×2 (09:04→20:54)
[2018-08-06] MEDS: MULTIVITAMIN with MINERAL TABLET. PO SCH (09:04)
[2018-08-06] MEDS: CETIRIZINE HCL 10 MG TABLET. PO SCH (09:05)
[2018-08-06] MEDS: NICOTINE 21MG PATCH. TD SCH (09:06)
[2018-08-06] MEDS: NYSTATIN TOPICAL POWDER 15GM BOTTLE. TP SCH ×3 (09:07→20:54)
[2018-08-06 11:00] VITALS: BP 119/63
[2018-08-06] MEDS: VANCOMYCIN PER PHARMACY MC PRN (13:49)
--- NOTE | 2018-08-06 14:24 | PDOC ---
Infectious Disease Note Vital Sign Vital Signs Vital Signs Date Time Temp Pulse Resp B/P (MAP) Pulse Ox O2 Delivery O2 Flow Rate FiO2 08/06/18 11:00 97.8 72 16 119/63 (81) 99 Room Air 97.8 Labs Lab Laboratory Tests Test 08/06/18 03:20 Creatinine 0.7 mg/dL (0.6-1.0) Estimated GFR (Cockcroft-Gault) 91.3 Micro Microbiology 08/03/18 Blood Culture - Preliminary, Resulted NO GROWTH AFTER 2 DAYS Objective Assessment Wayne lower ext cellulitis Obesity Asthma COPD GERD Hep C Plan Plan of Care cont antibiotics leg elevation adv to quit smoking and etoh JEANCARLOS MERA MD Aug 06, 2018 14:24
[2018-08-06 19:00] VITALS: BP 104/61
--- NOTE | 2018-08-06 19:24 | PDOC ---
PROGRESS NOTES Chief Complaint Chief Complaint Bilateral lower extremity cellulitis morbid obesity, BMI 52, wi mod malnutriton schizophrenia hepatitis c , History of Present Illness History of Present Illness leg redness not improved today, will consult ID OT lymph consulted IV antibiotics IV fluids Full code PT OT Vitals Vitals Vital Signs Date Time Temp Pulse Resp B/P (MAP) Pulse Ox O2 Delivery O2 Flow Rate FiO2 08/06/18 11:00 97.8 72 16 119/63 (81) 99 Room Air 97.8 Physical Exam Lungs: Clear Labs LABS Laboratory Tests Test 08/06/18 03:20 Creatinine 0.7 mg/dL (0.6-1.0) Estimated GFR (Cockcroft-Gault) 91.3 Assessment and Plan Assessmemt and Plan Problems Medical Problems: (1) Cellulitis of lower extremity Status: Acute Comment Review of Relevant I have reviewed the following items karl (where applicable) has been applied. Labs Laboratory Tests Test 08/06/18 03:20 Creatinine 0.7 mg/dL (0.6-1.0) Estimated GFR (Cockcroft-Gault) 91.3 Laboratory Tests Test 08/06/18 03:20 Creatinine 0.7 mg/dL (0.6-1.0) Estimated GFR (Cockcroft-Gault) 91.3 Microbiology 08/03/18 Blood Culture - Preliminary, Resulted NO GROWTH AFTER 3 DAYS Medications Current Medications Piperacillin Sod/ Tazobactam Sod 4.5 gm/Sodium Chloride 100 ml @ 200 mls/hr 1X ONCE IV Last administered on 08/03/18at 18:43; Start 08/03/18 at 18:30; Stop 08/03/18 at 18:59; Status DC Vancomycin HCl (Vanco Per Pharmacy) 1 each 1X ONCE MC Last administered on 08/03/18at 18:00; Start 08/03/18 at 18:00; Stop 08/03/18 at 18:03; Status DC Sodium Chloride 1,000 ml @ 3,960 mls/hr Q16M IV Last administered on 08/03/18at 20:00; Start 08/03/18 at 18:00; Stop 08/03/18 at 19:00; Status DC Morphine Sulfate (Morphine Sulfate) 4 mg PRN Q15MIN PRN IV/SQ PAIN GREATER THAN 3/10; Start 08/03/18 at 18:00; Stop 08/03/18 at 21:00; Status DC Vancomycin HCl 2 gm/Sodium Chloride 500 ml @ 250 mls/hr 1X ONCE IV Last administered on 08/03/18at 19:26; Start 08/03/18 at 18:30; Stop 08/03/18 at 20:29; Status DC Ondansetron HCl (Zofran) 4 mg PRN Q8HRS PRN IV NAUSEA/VOMITING; Start 08/03/18 at 19:15; Stop 08/04/18 at 19:14; Status DC Morphine Sulfate (Morphine Sulfate) 4 mg PRN Q2HR PRN IV PAIN Last administered on 08/04/18at 03:55; Start 08/03/18 at 19:15; Stop 08/04/18 at 19:14; Status DC Acetaminophen (Tylenol) 650 mg PRN Q4HRS PRN PO FEVER Last administered on 08/04/18 18:11; Start 08/03/18 at 19:15; Stop 08/04/18 at 19:14; Status DC Nicotine (Nicoderm Cq 21mg) 1 patch DAILY TD Last administered on 08/06/18at 09:06; Start 08/03/18 at 20:00 Piperacillin Sod/ Tazobactam Sod (Zosyn Per Pharmacy) 1 each Q6HRS MC Last administered on 08/05/18at 05:58; Start 08/04/18 at 00:00; Stop 08/05/18 at 13:58; Status DC Piperacillin Sod/ Tazobactam Sod 3.375 gm/Sodium Chloride 50 ml @ 100 mls/hr Q6HRS IV Last administered on 08/06/18at 11:45; Start 08/04/18 at 00:00 Vancomycin HCl (Vanco Per Pharmacy) 1 each PRN DAILY PRN MC SEE COMMENTS Last administered on 08/06/18 13:49; Start 08/03/18 at 21:00 Vancomycin HCl 1.5 gm/Sodium Chloride 500 ml @ 250 mls/hr Q8H IV Last administered on 08/06/18at 14:06; Start 08/04/18 at 04:00 Vancomycin HCl (Vancomycin Trough Level) 1 each 1X ONCE MC Last administered on 08/04/18at 19:29; Start 08/04/18 at 19:30; Stop 08/04/18 at 19:31; Status DC Diphenhydramine HCl (Benadryl) 25 mg PRN Q6HRS PRN PO ITCHING Last administered on 08/06/18 09:07; Start 08/04/18 at 01:15 Albuterol Sulfate (Ventolin Neb Soln) 2.5 mg PRN Q6HRS PRN NEB SHORTNESS OF BREATH Last administered on 08/05/18 16:25; Start 08/04/18 at 01:15 Multivitamins (Thera M Plus) 1 tab DAILY PO Last administered on 08/06/18 09:04; Start 08/04/18 at 09:00 Cetirizine HCl (ZyrTEC) 10 mg DAILY PO Last administered on 08/06/18 09:05; Start 08/04/18 at 09:00 Non-Formulary Medication (Aripiprazole (Abilify Maintena)) 400 mg DAILY PO ; Start 08/04/18 at 09:00; Status UNV Loperamide HCl (Imodium) 2 mg PRN Q6HRS PRN PO DIARRHEA Last administered on 08/04/18 08:12; Start 08/04/18 at 07:30 Nystatin (Nystop) 1 lian BID TP Last administered on 08/06/18 09:07; Start 08/04/18 at 11:00; Stop 08/06/18 at 10:40; Status DC Lactobacillus Rhamnosus (Culturelle) 1 cap BID PO Last administered on 08/06/18 09:04; Start 08/04/18 at 21:00 Ibuprofen (Motrin) 600 mg PRN Q6HRS PRN PO INFLAMMATION Last administered on 08/05/18 13:46; Start 08/04/18 at 18:45 Acetaminophen/ Hydrocodone Bitart (Lortab 5/325) 1 tab PRN Q6HRS PRN PO PAIN Last administered on 08/06/18 07:32; Start 08/04/18 at 18:45 Calcium Carbonate/ Glycine (Tums) 500 mg PRN Q3HRS PRN PO INDIGESTION Last administered on 08/06/18 03:09; Start 08/04/18 at 23:15 Ondansetron HCl (Zofran) 4 mg PRN Q6HRS PRN IV NAUSEA/VOMITING 1ST CHOICE; Start 08/04/18 at 23:15 Piperacillin Sod/ Tazobactam Sod (Zosyn Per Pharmacy) 1 each PRN DAILY PRN MC SEE COMMENTS; Start 08/05/18 at 14:00 Piperacillin Sod/ Tazobactam Sod 3.375 gm/Sodium Chloride 50 ml @ 100 mls/hr 1X ONCE IV Last administered on 08/05/18at 17:17; Start 08/05/18 at 18:00; Stop 08/05/18 at 18:29; Status DC Nystatin (Nystop) 1 lian BID TP Last administered on 08/06/18at 11:44; Start 08/06/18 at 10:45 Active Scripts Active Reported Abilify Maintena (Aripiprazole) 400 Mg Suser.syr 400 Mg PO DAILY Multivitamins (Multivitamin) 1 Each Tablet 1 Each PO DAILY Klor-Con M10 (Potassium Chloride) 10 Meq Tab.er.prt 10 Meq PO DAILY Nystatin 15 Gm Powder 100,000 Units TP BID [Albuterol] 90 mcg Aer 2 Puff PO Q6HRS Cetirizine Hcl 10 Mg Tablet 10 Mg PO DAILY 30 Days Ibuprofen 600 Mg Tablet 600 Mg PO PRN Q8HRS PRN Cephalexin 500 Mg Capsule 500 Mg PO [id number] 10 Days Furosemide 20 Mg Tablet 5 Mg PO DAILY 3 Days Loperamide (Loperamide Hcl) 2 Mg Capsule 2 Mg PO BID Vitals/I & O Vital Sign - Last 24 Hours 08/05/18 08/05/18 08/06/18 08/06/18 20:00 22:53 00:09 03:00 Temp 97.6 97.9 97.6 97.9 Pulse 70 77 Resp 18 16 18 B/P (MAP) 142/80 (100) 108/68 (81) Pulse Ox 100 100 96 O2 Delivery Room Air Room Air Room Air Room Air 08/06/18 08/06/18 08/06/18 08/06/18 07:00 07:32 08:00 09:01 Temp 97.5 97.5 Pulse 69 Resp 16 20 16 B/P (MAP) 146/80 (102) Pulse Ox 99 99 99 O2 Delivery Room Air Room Air Room Air Room Air 08/06/18 11:00 Temp 97.8 97.8 Pulse 72 Resp 16 B/P (MAP) 119/63 (81) Pulse Ox 99 O2 Delivery Room Air Intake and Output 08/05/18 08/05/18 08/06/18 15:00 23:00 07:00 Intake Total 550 ml 290 ml Output Total 1 ml Balance 549 ml 290 ml ANITHA LIMON MD Aug 06, 2018 19:24
[2018-08-06] MEDS: IBUPROFEN 200 MG TABLET. PO PRN (20:54)
[2018-08-06 23:00] VITALS: BP 144/85
[2018-08-07 03:00] VITALS: BP 141/85
[2018-08-07] MEDS: VANCOMYCIN 1.5 GM in IV NORMAL SALINE 500ML BAG 500 ML IV SCH ×3 (04:01→20:30)
--- NOTE | 2018-08-07 05:31 | CONS ---
DATE OF CONSULTATION: 08/06/2018 REQUESTING PHYSICIAN: Dr. Sanchez. REASON FOR CONSULTATION: Bilateral lower extremity cellulitis. HISTORY OF PRESENT ILLNESS: This is a 43-year-old female with history of cirrhosis of liver, COPD, who came in with bilateral lower extremity swelling and redness. The patient denied any fever, denied any nausea, vomiting, diarrhea, chest pain, shortness of breath, abdominal pain, urinary symptoms or bowel symptoms. PAST MEDICAL HISTORY: Positive for asthma, gastroesophageal reflux disease, cirrhosis of liver, schizophrenia. SOCIAL HISTORY: Positive for smoking, positive for alcohol use, no drug use. ALLERGIES: No known drug allergies. CURRENT MEDICATIONS: Reviewed. The patient is on vancomycin and Zosyn. REVIEW OF SYSTEMS: As per HPI, all other systems reviewed are negative. PHYSICAL EXAMINATION: GENERAL: Alert and oriented female, not in any distress. VITAL SIGNS: Stable, afebrile. HEENT: NAD. NECK: Supple, no JVP, no lymphadenopathy. LUNGS: Clear. HEART: S1, S2 regular. ABDOMEN: Benign. EXTREMITIES: No edema, cyanosis. SKIN: Bilateral lower extremity skin examination, she does have erythema, induration, edema and warmth to it. There is no fungal infection between the toes or cracks. There is no open wound. NEUROLOGIC: The patient is neurologically intact. LABORATORY DATA: White count is normal. BUN and creatinine is normal. Her AST is 148, ALT is 175. Urinalysis unremarkable. Blood culture is negative. Ultrasound of the lower extremities is negative for DVT. IMPRESSION: 1. Bilateral lower extremity cellulitis. 2. Cirrhosis of liver. 3. Chronic obstructive pulmonary disease. 4. Asthma. 5. Gastroesophageal reflux disease. RECOMMENDATION: Continue antibiotics, soon to be able to scale down. Leg elevation. Supportive care. The patient was advised to quit smoking as well as to quit alcohol use. Thank you very much, Dr. Sanchez, for giving me the opportunity to participate in this patient's care. JEANCARLOS MERA MD DR: APURVA/mary alice JOB#: [id number] / [id number]
[2018-08-07] MEDS: PIPERACILLIN/TAZOBACTAM 3.375 GM in IV NORMAL SALINE 50ML 50 ML IV SCH ×3 (06:16→17:52)
[2018-08-07 07:00] VITALS: BP 123/85
[2018-08-07] MEDS: MULTIVITAMIN with MINERAL TABLET. PO SCH (07:49)
[2018-08-07] MEDS: NICOTINE 21MG PATCH. TD SCH (07:50)
[2018-08-07] MEDS: CETIRIZINE HCL 10 MG TABLET. PO SCH (07:50)
[2018-08-07] MEDS: LACTOBACILLUS RHAMNOSUS GG 1 CAPSULE. PO SCH ×2 (07:50→21:25)
[2018-08-07] MEDS: NYSTATIN TOPICAL POWDER 15GM BOTTLE. TP SCH ×2 (09:29→21:26)
[2018-08-07 11:00] VITALS: BP 143/87
--- NOTE | 2018-08-07 11:50 | PDOC ---
PROGRESS NOTES Chief Complaint Chief Complaint Bilateral lower extremity cellulitis morbid obesity, BMI 52, wi mod malnutriton schizophrenia hepatitis c , History of Present Illness History of Present Illness Patient seen and examined Her lower extremities are surprisingly not clearing Vital signs are stable Discussed with RN Vitals Vitals Vital Signs Date Time Temp Pulse Resp B/P (MAP) Pulse Ox O2 Delivery O2 Flow Rate FiO2 08/07/18 11:00 98.4 56 18 143/87 (105) 97 Room Air 98.4 Physical Exam General: Alert, Oriented X3 Heart: Regular rate, Normal S1 Lungs: Clear Abdomen: Normal bowel sounds, Soft Extremities: Other (she has bilateral lower extremity cellulitis) Review of Systems Review of Systems She complains of pain She complains of lower extremity swelling Assessment and Plan Assessmemt and Plan Problems Medical Problems: (1) Cellulitis of lower extremity Status: Acute Bilateral lower extremity cellulitis morbid obesity, BMI 52, wi mod malnutriton schizophrenia hepatitis c , Plan IV antibiotics and IV fluids DVT prophylaxis Home meds PT OT Weight loss Discharge disposition pending Comment Review of Relevant I have reviewed the following items karl (where applicable) has been applied. Labs Laboratory Tests Test 08/06/18 03:20 Creatinine 0.7 mg/dL (0.6-1.0) Estimated GFR (Cockcroft-Gault) 91.3 Microbiology 08/03/18 Blood Culture - Preliminary, Resulted NO GROWTH AFTER 3 DAYS Medications Current Medications Piperacillin Sod/ Tazobactam Sod 4.5 gm/Sodium Chloride 100 ml @ 200 mls/hr 1X ONCE IV Last administered on 08/03/18at 18:43; Start 08/03/18 at 18:30; Stop 08/03/18 at 18:59; Status DC Vancomycin HCl (Vanco Per Pharmacy) 1 each 1X ONCE MC Last administered on 08/03/18at 18:00; Start 08/03/18 at 18:00; Stop 08/03/18 at 18:03; Status DC Sodium Chloride 1,000 ml @ 3,960 mls/hr Q16M IV Last administered on 08/03/18at 20:00; Start 08/03/18 at 18:00; Stop 08/03/18 at 19:00; Status DC Morphine Sulfate (Morphine Sulfate) 4 mg PRN Q15MIN PRN IV/SQ PAIN GREATER THAN 3/10; Start 08/03/18 at 18:00; Stop 08/03/18 at 21:00; Status DC Vancomycin HCl 2 gm/Sodium Chloride 500 ml @ 250 mls/hr 1X ONCE IV Last administered on 08/03/18at 19:26; Start 08/03/18 at 18:30; Stop 08/03/18 at 20:29; Status DC Ondansetron HCl (Zofran) 4 mg PRN Q8HRS PRN IV NAUSEA/VOMITING; Start 08/03/18 at 19:15; Stop 08/04/18 at 19:14; Status DC Morphine Sulfate (Morphine Sulfate) 4 mg PRN Q2HR PRN IV PAIN Last administered on 08/04/18at 03:55; Start 08/03/18 at 19:15; Stop 08/04/18 at 19:14; Status DC Acetaminophen (Tylenol) 650 mg PRN Q4HRS PRN PO FEVER Last administered on 08/04/18at 18:11; Start 08/03/18 at 19:15; Stop 08/04/18 at 19:14; Status DC Nicotine (Nicoderm Cq 21mg) 1 patch DAILY TD Last administered on 08/07/18at 07:50; Start 08/03/18 at 20:00 Piperacillin Sod/ Tazobactam Sod (Zosyn Per Pharmacy) 1 each Q6HRS MC Last administered on 08/05/18at 05:58; Start 08/04/18 at 00:00; Stop 08/05/18 at 13:58; Status DC Piperacillin Sod/ Tazobactam Sod 3.375 gm/Sodium Chloride 50 ml @ 100 mls/hr Q6HRS IV Last administered on 08/07/18at 06:16; Start 08/04/18 at 00:00 Vancomycin HCl (Vanco Per Pharmacy) 1 each PRN DAILY PRN MC SEE COMMENTS Last a dministered on 08/06/18at 13:49; Start 08/03/18 at 21:00 Vancomycin HCl 1.5 gm/Sodium Chloride 500 ml @ 250 mls/hr Q8H IV Last administered on 08/07/18 04:01; Start 08/04/18 at 04:00 Vancomycin HCl (Vancomycin Trough Level) 1 each 1X ONCE MC Last administered on 08/04/18at 19:29; Start 08/04/18 at 19:30; Stop 08/04/18 at 19:31; Status DC Diphenhydramine HCl (Benadryl) 25 mg PRN Q6HRS PRN PO ITCHING Last administered on 08/06/18 09:07; Start 08/04/18 at 01:15 Albuterol Sulfate (Ventolin Neb Soln) 2.5 mg PRN Q6HRS PRN NEB SHORTNESS OF BREATH Last administered on 08/05/18 16:25; Start 08/04/18 at 01:15 Multivitamins (Thera M Plus) 1 tab DAILY PO Last administered on 08/07/18 07:49; Start 08/04/18 at 09:00 Cetirizine HCl (ZyrTEC) 10 mg DAILY PO Last administered on 08/07/18 07:50; Start 08/04/18 at 09:00 Non-Formulary Medication (Aripiprazole (Abilify Maintena)) 400 mg DAILY PO ; Start 08/04/18 at 09:00; Status UNV Loperamide HCl (Imodium) 2 mg PRN Q6HRS PRN PO DIARRHEA Last administered on 08/04/18 08:12; Start 08/04/18 at 07:30 Nystatin (Nystop) 1 lian BID TP Last administered on 08/06/18 09:07; Start 08/04/18 at 11:00; Stop 08/06/18 at 10:40; Status DC Lactobacillus Rhamnosus (Culturelle) 1 cap BID PO Last administered on 08/07/18 07:50; Start 08/04/18 at 21:00 Ibuprofen (Motrin) 600 mg PRN Q6HRS PRN PO INFLAMMATION Last administered on 08/06/18 20:54; Start 08/04/18 at 18:45 Acetaminophen/ Hydrocodone Bitart (Lortab 5/325) 1 tab PRN Q6HRS PRN PO PAIN Last administered on 08/06/18 07:32; Start 08/04/18 at 18:45 Calcium Carbonate/ Glycine (Tums) 500 mg PRN Q3HRS PRN PO INDIGESTION Last administered on 08/06/18 03:09; Start 08/04/18 at 23:15 Ondansetron HCl (Zofran) 4 mg PRN Q6HRS PRN IV NAUSEA/VOMITING 1ST CHOICE; Start 08/04/18 at 23:15 Piperacillin Sod/ Tazobactam Sod (Zosyn Per Pharmacy) 1 each PRN DAILY PRN MC SEE COMMENTS; Start 08/05/18 at 14:00 Piperacillin Sod/ Tazobactam Sod 3.375 gm/Sodium Chloride 50 ml @ 100 mls/hr 1X ONCE IV Last administered on 08/05/18at 17:17; Start 08/05/18 at 18:00; Stop 08/05/18 at 18:29; Status DC Nystatin (Nystop) 1 lian BID TP Last administered on 08/07/18at 09:29; Start 08/06/18 at 10:45 Active Scripts Active Reported Abilify Maintena (Aripiprazole) 400 Mg Suser.syr 400 Mg PO DAILY Multivitamins (Multivitamin) 1 Each Tablet 1 Each PO DAILY Klor-Con M10 (Potassium Chloride) 10 Meq Tab.er.prt 10 Meq PO DAILY Nystatin 15 Gm Powder 100,000 Units TP BID [Albuterol] 90 mcg Aer 2 Puff PO Q6HRS Cetirizine Hcl 10 Mg Tablet 10 Mg PO DAILY 30 Days Ibuprofen 600 Mg Tablet 600 Mg PO PRN Q8HRS PRN Cephalexin 500 Mg Capsule 500 Mg PO [id number] 10 Days Furosemide 20 Mg Tablet 5 Mg PO DAILY 3 Days Loperamide (Loperamide Hcl) 2 Mg Capsule 2 Mg PO BID Vitals/I & O Vital Sign - Last 24 Hours 08/06/18 08/06/18 08/06/18 08/07/18 19:00 20:00 23:00 03:00 Temp 97.7 97.9 97.9 97.7 97.9 97.9 Pulse 80 80 79 Resp 18 18 18 B/P (MAP) 104/61 (75) 144/85 (104) 141/85 (103) Pulse Ox 96 92 98 O2 Delivery Room Air Room Air Room Air Room Air 08/07/18 08/07/18 08/07/18 07:00 08:00 11:00 Temp 97.7 98.4 97.7 98.4 Pulse 75 56 Resp 18 18 B/P (MAP) 123/85 (98) 143/87 (105) Pulse Ox 100 97 O2 Delivery Room Air Room Air Room Air Intake and Output 08/06/18 08/06/18 08/07/18 15:00 23:00 07:00 Intake Total 550 ml 650 ml Balance 550 ml 650 ml CARLOS VELARDE III DO August 07, 2018 11:50
--- NOTE | 2018-08-07 12:25 | PDOC ---
Infectious Disease Note Subjective Subjective pt is feeling good, legs still the same or little better ROS ROS no n/v/d/sob Vital Sign Vital Signs Vital Signs Date Time Temp Pulse Resp B/P (MAP) Pulse Ox O2 Delivery O2 Flow Rate FiO2 08/07/18 11:00 98.4 56 18 143/87 (105) 97 Room Air 98.4 Physical Exam PHYSICAL EXAM GENERAL: Alert and oriented female, not in any distress. VITAL SIGNS: Stable, afebrile. HEENT: NAD. NECK: Supple, no JVP, no lymphadenopathy. LUNGS: Clear. HEART: S1, S2 regular. ABDOMEN: Benign. EXTREMITIES: No edema, cyanosis. SKIN: Bilateral lower extremity skin examination, she does have erythema, induration, edema and warmth to it. There is no fungal infection between the toes or cracks. There is no open wound. NEUROLOGIC: The patient is neurologically intact. Labs Micro Microbiology 08/03/18 Blood Culture - Preliminary, Resulted NO GROWTH AFTER 2 DAYS Objective Assessment Wayne lower ext cellulitis Obesity Asthma COPD GERD Hep C Plan Plan of Care cont antibiotics leg elevation adv to quit smoking and etoh JEANCARLOS MERA MD August 07, 2018 12:25
[2018-08-07] MEDS: IBUPROFEN 200 MG TABLET. PO PRN ×2 (13:55→21:25)
[2018-08-07 15:00] VITALS: BP 129/79
--- NOTE | 2018-08-07 15:02 | NUR ---
SW following pt for anticipated dc needs. Chart reviewed. Pt lives in [place] hotel with significant other. ID following pt. Pt does not have skilled needs and no dc recommendation for abx.
[2018-08-07 19:00] VITALS: BP 120/69
[2018-08-07] MEDS: diphenhydrAMINE HCL 25 MG CAPSULE PO PRN (21:25)
[2018-08-07] MEDS: HYDROcodone/APAP 5/325MG 1 TAB TABLET PO PRN (21:26)
[2018-08-07 22:46] VITALS: BP 135/83
[2018-08-08] MEDS: PIPERACILLIN/TAZOBACTAM 3.375 GM in IV NORMAL SALINE 50ML 50 ML IV SCH ×3 (00:19→13:17)
[2018-08-08 03:08] VITALS: BP 118/81
[2018-08-08] MEDS: VANCOMYCIN 1.5 GM in IV NORMAL SALINE 500ML BAG 500 ML IV SCH (04:34)
[2018-08-08 07:00] VITALS: BP 136/79
[2018-08-08] MEDS: CETIRIZINE HCL 10 MG TABLET. PO SCH (08:25)
[2018-08-08] MEDS: MULTIVITAMIN with MINERAL TABLET. PO SCH (08:25)
[2018-08-08] MEDS: LACTOBACILLUS RHAMNOSUS GG 1 CAPSULE. PO SCH (08:25)
[2018-08-08] MEDS: NYSTATIN TOPICAL POWDER 15GM BOTTLE. TP SCH (08:26)
[2018-08-08] MEDS: NICOTINE 21MG PATCH. TD SCH (08:27)
--- NOTE | 2018-08-08 10:13 | PDOC ---
Infectious Disease Note Subjective Subjective pt is feeling good, legs still the same or little better ROS ROS no n/v/d/ Vital Sign Vital Signs Vital Signs Date Time Temp Pulse Resp B/P (MAP) Pulse Ox O2 Delivery O2 Flow Rate FiO2 08/08/18 07:00 98.1 78 18 136/79 (98) 95 Room Air 98.1 Physical Exam PHYSICAL EXAM GENERAL: Alert and oriented female, not in any distress. VITAL SIGNS: Stable, afebrile. HEENT: NAD. NECK: Supple, no JVP, no lymphadenopathy. LUNGS: Clear. HEART: S1, S2 regular. ABDOMEN: Benign. EXTREMITIES: No edema, cyanosis. SKIN: Bilateral lower extremity skin examination, she does have erythema, induration, edema and warmth to it. There is no fungal infection between the toes or cracks. There is no open wound. NEUROLOGIC: The patient is neurologically intact. Labs Micro Microbiology 08/03/18 Blood Culture - Preliminary, Resulted NO GROWTH AFTER 2 DAYS Objective Assessment Wayne lower ext cellulitis Obesity Asthma COPD GERD Hep C Plan Plan of Care cont antibiotics leg elevation adv to quit smoking and etoh JEANCARLOS MERA MD August 08, 2018 10:12
[2018-08-08] MEDS: LOPERAMIDE 2 MG CAPSULE PO PRN (10:35)
[2018-08-08 11:09] VITALS: BP 136/85
[2018-08-08] MEDS: VANCOMYCIN PER PHARMACY MC PRN (14:34)
[2018-08-08 15:06] VITALS: BP 146/99
--- NOTE | 2018-08-08 16:20 | NUR ---
patient discharged home with significant other. meds from pharmacy and cigarettes returned to patient upon dc. pt stable upon dc
--- NOTE | 2018-08-08 20:01 | DS ---
DATE OF DISCHARGE: 08/08/2018 ADMISSION DIAGNOSIS: Bilateral lower extremity cellulitis. DISCHARGE DIAGNOSIS: Resolving cellulitis. HOSPITAL COURSE: The patient is a pleasant 43-year-old morbidly obese lady, who presented with lower extremities cellulitis. She was admitted. We gave her IV vancomycin and did some wound care. PHYSICAL EXAMINATION: I saw her and examined her this morning. CARDIOVASCULAR: Her heart tones were normal. LUNGS: Clear. EXTREMITIES: Much better. SKIN: Her rash is resolving. We plan to discharge on p.o. Keflex. DISPOSITION: Home. ACTIVITY: As tolerated. DIET: Low sodium. MEDICATIONS: I resumed her home meds and gave her a prescription for p.o. Keflex and some Diflucan. TOTAL TIME: 33 minutes. CARLOS VELARDE DO DR: ANNIE/mary alice JOB#: [id number] / [id number]
== END 2018-08-08 16:00 | disposition home or self-care (01) | DRG 603 ==
LOC: ER 17:09 → 5 NORTH 18:36
PROVIDERS: ADMIT Internal Medicine; ATTEND Internal Medicine
DX: L03.115 Cellulitis of right lower limb (principal); Z68.43 Body mass index [BMI] 50.0-59.9, adult; E44.0 Moderate protein-calorie malnutrition; L03.116 Cellulitis of left lower limb; E66.01 Morbid (severe) obesity due to excess calories; F12.90 Cannabis use, unspecified, uncomplicated; B19.20 Unspecified viral hepatitis C without hepatic coma; F20.9 Schizophrenia, unspecified; J44.9 Chronic obstructive pulmonary disease, unspecified; K21.9 Gastro-esophageal reflux disease without esophagitis; K74.60 Unspecified cirrhosis of liver; M19.90 Unspecified osteoarthritis, unspecified site; Z82.49 Family history of ischemic heart disease and other diseases of the circulatory system; Z90.49 Acquired absence of other specified parts of digestive tract
CPT/HCPCS: 36415; 80053; 80202; 81001; 82565; 83605; 84145; 85025; 87040; 93970; 94640; 94760; 96365; 96367; J2270; J2543; J3370; J7030; J7040; J7613; Q0163; 97535; 99285-25

== ENCOUNTER → 2018-08-19 | Outpatient (CLI) | payer OTHER ==
[2018-08-08 15:06] VITALS: BP 146/99
[~2018-08-19] MED LIST changes: +ALBUTEROL PO; +ARIP400S3 PO; +CEPH500C PO; +CETI10TA16 PO; +FURO20TA3 PO; +GADOTERATE 7.5 MMOL/15ML VIAL. IVP ONE; +IBUP-985 PO; +MULT1TAB52 PO; +NYST15PO9 TP
--- NOTE | 2018-08-19 16:54 | RAD ---
Examination: PELVIS WO/W CONTRAST History: Ovarian cyst. Comparison/Correlation: 10/30/2017 CT abdomen and pelvis with contrast Findings: Multisequence axial and coronal images of the pelvis were obtained. There is a complex right adnexal cyst. It measures 6.3 cm anteroposteriorly by 2.7 cm transverse by 5 cm longitudinal. Thin septations are present. At its superior aspect, there is a slightly complex component with lower internal signal on T2 fat saturation imaging. This may represent hemorrhagic component or lipid component. Left adnexal septated cyst is present measuring 4.3 cm x 3.5 cm x 3.470 longitudinal. It is of intermediate to high signal which may represent hemorrhagic or proteinaceous components. No suspicious solid component is identified associated with the complex cyst on this noncontrast exam. Nabothian cyst is present. Myometrium is grossly unremarkable. There is no pelvic free fluid. No enlarged pelvic lymph nodes. Hematopoietic marrow noted. Visualized vasculature is unremarkable. Impression: Bilateral complex adnexal cysts. No solid component deathly evident. Consider interval follow-up ultrasound in 4-6 months to assess stability. Electronically signed by: Fran Birch MD (08/19/2018 4:51 PM) [facility]
== END | disposition home or self-care (01) ==
LOC: MRI 14:26
PROVIDERS: ATTEND Family Medicine
DX: N88.8 Other specified noninflammatory disorders of cervix uteri (principal); E27.8 Other specified disorders of adrenal gland; N83.209 Unspecified ovarian cyst, unspecified side
CPT/HCPCS: 72197; A9575

== ENCOUNTER 2018-09-24 08:33 | Emergency (ER) | payer OTHER ==
[~2018-09-24] VITALS: Ht 160 cm; Wt 139.3 kg
[~2018-09-24 08:33] MED LIST changes: -GADOTERATE 7.5 MMOL/15ML VIAL. IVP ONE
[2018-09-24] MEDS ORDERED: NITROGLYCERIN SUBLINGUAL 0.4 MG BOTTLE OF 25. SL PRN (09:00)
--- NOTE | 2018-09-24 09:12 | EKG ---
[facility] [address] [place] [address] Test Date: 2018-09-24 Test Time: 08:49:20 Pat Name: PACO MAYA Department: Room: Gender: F [employer] Operator: : [id number] Requested By: MERY ALVARENGA Order Number: [id number] Reading MD: Measurements Intervals [place] Rate: 64 P: 45 GA: 172 QRS: 32 QRSD: 80 T: 40 QT: 376 QTc: 392 Interpretive Statements SINUS RHYTHM QRS(T) CONTOUR ABNORMALITY CONSIDER ANTEROSEPTAL MYOCARDIAL DAMAGE POSSIBLY ABNORMAL ECG RI6.01 Unconfirmed report No previous ECG available for comparison
[2018-09-24] MEDS ORDERED: IPRATRPIUM/ALBUTEROL 0.5/2.5MG 3 ML NEBU. NEB ONE (09:15)
[2018-09-24] MEDS ORDERED: ASPIRIN CHEWABLE 81 MG TABLET. PO ONE (09:15)
[2018-09-24] MEDS ORDERED: methylPREDNISolone SOD SUCC PF 125 MG/2 ML VIAL. IV ONE (09:15)
--- NOTE | 2018-09-24 09:20 | RAD ---
PORTABLE CHEST 1V History: Chest pain, cough, shortness of air Comparison: July 24, 2017 Findings: Single view of the chest is submitted. There is no infiltrate, pneumothorax, or effusion. The pericardial cardiac silhouette is within normal limits in size. Impression: 1. There is no radiographic evidence of acute cardiopulmonary disease. Electronically signed by: Gurvinder Quinn MD (09/24/2018 9:17 AM) [id number]
[2018-09-24 10:15] LABS: BASO # 0.1 x10^3/uL (0.0-0.2); BASO % 1 % (0-3); EOS # 0.1 x10^3/uL (0.0-0.7); EOS % 2 % (0-3); HEMATOCRIT 39.8 % (36.0-47.0); HEMOGLOBIN 13.6 g/dL (12.0-15.5); LYMPH # 2.5 x10^3/uL (1.0-4.8); LYMPH % 34 % (24-48); MEAN CORPUSCULAR HEMOGLOBIN 36 pg (25-35); MEAN CORPUSCULAR HGB CONC 34 g/dL (31-37); MEAN CORPUSCULAR VOLUME 104 fL (79-100); MONO # 1.4 x10^3/uL (0.0-1.1); MONO % 19 % (0-9); NEUT # 3.3 x10^3uL (1.8-7.7); NEUT % 44 % (31-73); PLATELET COUNT 223 x10^3/uL (140-400); RED BLOOD COUNT 3.82 x10^6/uL (3.50-5.40); RED CELL DISTRIBUTION WIDTH 15.1 % (11.5-14.5); WHITE BLOOD COUNT 7.4 x10^3/uL (4.0-11.0)
[2018-09-24 10:29] LABS: CALCIUM 8.7 mg/dL (8.5-10.1); CREATININE 0.7 mg/dL (0.6-1.0); GFR 91.3; POTASSIUM 4.4 mmol/L (3.5-5.1)
[2018-09-24 10:36] LABS: ALBUMIN/GLOBULIN RATIO 0.5 (1.0-1.7); MAGNESIUM 1.8 mg/dL (1.8-2.4); PROTHROMBIN TIME PATIENT 13.6 SEC (11.7-14.0); TOTAL BILIRUBIN 0.5 mg/dL (0.2-1.0); TOTAL PROTEIN 8.8 g/dL (6.4-8.2)
[2018-09-24 11:57] LABS: BARBITURATES NEG (NEG); BENZODIAZEPINES NEG (NEG); CANNABINOIDS POS (NEG); COCAINE NEG (NEG); METHADONE NEG (NEG); OPIATES NEG (NEG); PHENCYCLIDINE NEG (NEG)
[2018-09-24 12:00] LABS: AMPHETAMINE/METHAMPHETAMINE NEG (NEG)
--- NOTE | 2018-09-24 12:37 | RAD ---
Limited abdomen ultrasound HISTORY: Elevated liver enzymes. FINDINGS: Pancreas unremarkable. Inferior vena cava is visualized. Liver is enlarged. Coarse echogenicity of the liver likely fatty infiltration. No evidence of gallbladder wall thickening or gallstone. No evidence of biliary ductal dilatation. Right kidney measures 12.7 seen longitudinal without hydronephrosis. IMPRESSION: Hepatomegaly with steatosis. Electronically signed by: Mark Zarco MD (09/24/2018 12:33 PM) [id number]
[2018-09-24] MEDS ORDERED: BENZ100C PO (12:58)
[2018-09-24] MEDS ORDERED: DOXY100C2 PO (12:59)
[2018-09-24] MEDS ORDERED: ALBU2.5V8 INH (12:59)
--- NOTE | 2018-09-24 12:59 | PHYS DOC ---
Past Medical History Past Medical History: Arthritis, Asthma, GERD, Liver Disease, Schizophrenia, Other Additional Past Medical Histor: hep c, BRADYCARDIA Past Surgical History: , Tonsillectomy, Other Additional Past Surgical Histo: left toe Alcohol Use: Rarely Drug Use: Marijuana Adult General Chief Complaint Chief Complaint: CHEST PAIN HPI HPI Patient is a 43 year old female who presents with complaining of chest pain. Patient complaining of intermittent episodes of substernal sharp chest pain while she is coughing or sneezing for the last 3 days and rated her pain 10 over 10. Patient states the pain radiated to under breasts and associated with shortness of breath and dizziness without fever and chills, nausea and vomiting, change of pain with eating. Patient complaining of productive cough with yellow and green sputum and currently is a smoker. Review of Systems Review of Systems Constitutional: Denies fever or chills [] Eyes: Denies change in visual acuity, redness, or eye pain [] HENT: Denies nasal congestion or sore throat [] Respiratory: Denies cough or shortness of breath [] Cardiovascular: No additional information not addressed in HPI [] GI: Denies abdominal pain, nausea, vomiting, bloody stools or diarrhea [] : Denies dysuria or hematuria [] Musculoskeletal: Denies back pain or joint pain [] Integument: Denies rash or skin lesions [] Neurologic: Denies headache, focal weakness or sensory changes [] Endocrine: Denies polyuria or polydipsia [] All other systems were reviewed and found to be within normal limits, except as documented in this note. Current Medications Current Medications Current Medications Medications (Trade) Dose Ordered Sig/[facility] Start Time Stop Time Status Last Admin Dose Admin Albuterol/ Ipratropium (Duoneb) 3 ml 1X ONCE 09/24/18 09:15 09/24/18 09:16 DC 09/24/18 09:15 3 ML Aspirin (Children'S Aspirin) 324 mg 1X ONCE 09/24/18 09:15 09/24/18 09:16 DC 09/24/18 09:29 324 MG Methylprednisolone Sodium Succinate (SOLU-Medrol 125MG VIAL) 125 mg 1X ONCE 09/24/18 09:15 09/24/18 09:16 DC 09/24/18 09:30 125 MG Nitroglycerin (Nitrostat) 0.4 mg PRN Q5MIN PRN 09/24/18 09:00 09/24/18 13:44 DC Allergies Allergies Allergies Coded Allergies Type Severity Reaction Last Updated Verified No Known Drug Allergies 08/28/16 No Physical Exam Physical Exam Constitutional: Well developed, well nourished, no acute distress, non-toxic appearance. [] HENT: Normocephalic, atraumatic, bilateral external ears normal, oropharynx moist, no oral exudates, nose normal. [] Eyes: PERRLA, EOMI, conjunctiva normal, no discharge. [] Neck: Normal range of motion, no tenderness, supple, no stridor. [] Cardiovascular:Heart rate regular rhythm, no murmur [] Lungs & Thorax: Bilateral breath sounds clear to auscultation [] Abdomen: Bowel sounds normal, soft, no tenderness, no masses, no pulsatile masses. [] Skin: Warm, dry, no erythema, no rash. [] Back: No tenderness, no CVA tenderness. [] Extremities: No tenderness, no cyanosis, no clubbing, ROM intact, no edema. [] Neurologic: Alert and oriented X 3, normal motor function, normal sensory function, no focal deficits noted. [] Psychologic: Affect normal, judgement normal, mood normal. [] Current Patient Data Vital Signs Vital Signs Date Time Temp Pulse Resp B/P (MAP) Pulse Ox O2 Delivery O2 Flow Rate FiO2 09/24/18 13:25 72 25 149/86 (107) 92 Room Air 09/24/18 09:03 98.7 98.7 Lab Values Laboratory Tests Test 09/24/18 09:55 09/24/18 11:10 White Blood Count 7.4 x10^3/uL (4.0-11.0) Red Blood Count 3.82 x10^6/uL (3.50-5.40) Hemoglobin 13.6 g/dL (12.0-15.5) Hematocrit 39.8 % (36.0-47.0) Mean Corpuscular Volume 104 fL (79-100) H Mean Corpuscular Hemoglobin 36 pg (25-35) H Mean Corpuscular Hemoglobin Concent 34 g/dL (31-37) Red Cell Distribution Width 15.1 % (11.5-14.5) H Platelet Count 223 x10^3/uL (140-400) Neutrophils (%) (Auto) 44 % (31-73) Lymphocytes (%) (Auto) 34 % (24-48) Monocytes (%) (Auto) 19 % (0-9) H Eosinophils (%) (Auto) 2 % (0-3) Basophils (%) (Auto) 1 % (0-3) Neutrophils # (Auto) 3.3 x10^3uL (1.8-7.7) Lymphocytes # (Auto) 2.5 x10^3/uL (1.0-4.8) Monocytes # (Auto) 1.4 x10^3/uL (0.0-1.1) H Eosinophils # (Auto) 0.1 x10^3/uL (0.0-0.7) Basophils # (Auto) 0.1 x10^3/uL (0.0-0.2) Segmented Neutrophils % 49 % (35-66) Lymphocytes % 27 % (24-48) Monocytes % 21 % (0-10) H Eosinophils % 2 % (0-5) Basophils % 1 % (0-3) Platelet Estimate Adequate (ADEQUATE) Prothrombin Time 13.6 SEC (11.7-14.0) Prothrombin Time INR 1.1 (0.8-1.1) Sodium Level 135 mmol/L (136-145) L Potassium Level 4.4 mmol/L (3.5-5.1) Chloride Level 99 mmol/L (98-107) Carbon Dioxide Level 29 mmol/L (21-32) Anion Gap 7 (6-14) Blood Urea Nitrogen 11 mg/dL (7-20) Creatinine 0.7 mg/dL (0.6-1.0) Estimated GFR (Cockcroft-Gault) 91.3 BUN/Creatinine Ratio 16 (6-20) Glucose Level 94 mg/dL (70-99) Lactic Acid Level 0.8 mmol/L (0.4-2.0) Calcium Level 8.7 mg/dL (8.5-10.1) Magnesium Level 1.8 mg/dL (1.8-2.4) Total Bilirubin 0.5 mg/dL (0.2-1.0) Aspartate Amino Transferase (AST) 294 U/L (15-37) H Alanine Aminotransferase (ALT) 265 U/L (14-59) H Alkaline Phosphatase 133 U/L (46-116) H Creatine Kinase 99 U/L (26-192) Troponin I Quantitative < 0.017 ng/mL (0.000-0.055) JF-Zye-C-Type Natriuretic Peptide 178 pg/mL (0-124) H Total Protein 8.8 g/dL (6.4-8.2) H Albumin 3.0 g/dL (3.4-5.0) L Albumin/Globulin Ratio 0.5 (1.0-1.7) L Lipase 127 U/L (73-393) Ethyl Alcohol Level < 10 mg/dL (0-10) Urine Opiates Screen Neg (NEG) Urine Methadone Screen Neg (NEG) Urine Barbiturates Neg (NEG) Urine Phencyclidine Screen Neg (NEG) Urine Amphetamine/Methamphetamine Neg (NEG) Urine Benzodiazepines Screen Neg (NEG) Urine Cocaine Screen Neg (NEG) Urine Cannabinoids Screen Pos (NEG) Urine Ethyl Alcohol Neg (NEG) Laboratory Tests 09/24/18 09:55 Laboratory Tests 09/24/18 09:55 EKG EKG EKG interpreted by me. EKG at 0 849 showed normal sinus rhythm at rate of 64, poor R-wave progress in anteroseptal leads, no acute ST and T-wave abnormalities. Radiology/Procedures Radiology/Procedures [][facility] [address] [place], [place] [id number] IMAGING REPORT Signed PATIENT: PACO TREJO ACCOUNT: [id number] : 1975 LOCATION: ER AGE: 43 SEX: F EXAM STATUS: REG ER ORD. PHYSICIAN: MERY ALVARENGA MD REASON: chest pain, elevated liver enzymes PROCEDURE: ABDOMEN LTD Limited abdomen ultrasound HISTORY: Elevated liver enzymes. FINDINGS: Pancreas unremarkable. Inferior vena cava is visualized. Liver is enlarged. Coarse echogenicity of the liver likely fatty infiltration. No evidence of gallbladder wall thickening or gallstone. No evidence of biliary ductal dilatation. Right kidney measures 12.7 seen longitudinal without hydronephrosis. IMPRESSION: Hepatomegaly with steatosis. Electronically signed by: Mark Zarco MD (09/24/2018 12:33 PM) [facility] DICTATED and SIGNED BY: MARK ZARCO MD DATE: 09/24/18 1233 [facility] [address] [place], [place] [id number] IMAGING REPORT Signed PATIENT: PACO TREJO ACCOUNT: [id number] : 1975 LOCATION: ER AGE: 43 SEX: F EXAM STATUS: REG ER ORD. PHYSICIAN: MERY ALVARENGA MD REASON: chest pain, COUGH, SOA PROCEDURE: PORTABLE CHEST 1V PORTABLE CHEST 1V History: Chest pain, cough, shortness of air Comparison: July 24, 2017 Findings: Single view of the chest is submitted. There is no infiltrate, pneumothorax, or effusion. The pericardial cardiac silhouette is within normal limits in size. Impression: 1. There is no radiographic evidence of acute cardiopulmonary disease. Electronically signed by: Elida Quinn MD (09/24/2018 9:17 AM) [facility] DICTATED and SIGNED BY: ELIDA QUINN MD DATE: 09/24/18 0917 Course & Med Decision Making Course & Med Decision Making Pertinent Labs and Imaging studies reviewed. (See chart for details) discharge: I've spoken with the patient and/or caregivers. I've explained the patient's condition, diagnosis and treatment plan based on information available to me at this time. I've answered the patient's and/or caregivers questions and addressed any concerns. The patient and/or caregivers have a good understanding the patient's diagnosis, condition and treatment plan as can be expected at this point. Vital signs have been stabilized. The patient's condition is stable for discharge from the emergency department. The patient will pursue further outpatient evaluation with her primary care provider or other designated consulting physician as outlined in the discharge instructions. Patient and/or caregivers are agreeable to this plan of care and follow-up instructions have been explained in detail. The patient and/or caregivers have received these instructions in written format and expressed understanding of these discharge instructions. The patient and her caregivers are aware that if any significant change in condition or worsening of symptoms should prompt him to immediately return to this of the closest emergency department. If an emergent department is not readily available I would encourage him to call 911. Ben Disclaimer [employer] Disclaimer This electronic medical record was generated, in whole or in part, using a voice recognition dictation system. Departure Departure Impression: Primary Impression: Acute bronchitis Additional Impressions: Chest wall pain Elevated liver function tests Tobacco abuse Tobacco abuse counseling Disposition: HOME, SELF-CARE (at 1313) Condition: IMPROVED Referrals: BETHANY CHEN (PCP) Patient Instructions: Acute Bronchitis, Chest Wall Pain, Smoking Cessation, Tips For Success Additional Instructions: Drink plenty of liquids Follow-up with your primary care physician in 3-5 days Return to ER if not getting better Scripts Albuterol Sulfate (PROAIR HFA INHALER) 8.5 Gm Hfa.aer.ad 2 PUFF INH PRN Q6HRS PRN for SHORTNESS OF BREATH, #1 INHALER 0 Refills Prov: MERY ALVARENGA MD 09/24/18 Doxycycline Hyclate (DOXYCYCLINE HYCLATE) 100 Mg Capsule 1 CAP PO BID, #14 CAP Prov: MERY ALVARENGA MD 09/24/18 Benzonatate (TESSALON PERLE) 100 Mg Capsule 1 CAP PO TID for cough, #21 CAP Prov: MERY ALVARENGA MD 09/24/18 Problem Qualifiers Primary Impression: Acute bronchitis Bronchitis organism: unspecified organism Qualified Codes: J20.9 - Acute bronchitis, unspecified MERY ALVARENGA MD Sep 24, 2018 12:59
[2018-09-24 13:03] LABS: % BASOS 1 % (0-3); % EOS 2 % (0-5); % LYMPHS 27 % (24-48); % MONOS 21 % (0-10); % SEGS 49 % (35-66); PLT ESTIMATE ADEQUATE (ADEQUATE)
[2018-09-24 13:25] VITALS: BP 149/86
== END 2018-09-24 13:40 | disposition home or self-care (01) ==
LOC: ER 08:33
DX: J20.9 Acute bronchitis, unspecified (principal); R07.2 Precordial pain; R79.89 Other specified abnormal findings of blood chemistry; Z72.0 Tobacco use; Z71.6 Tobacco abuse counseling; K21.9 Gastro-esophageal reflux disease without esophagitis; J45.909 Unspecified asthma, uncomplicated; F20.9 Schizophrenia, unspecified; F17.200 Nicotine dependence, unspecified, uncomplicated
CPT/HCPCS: 36415; 71045; 76705; 80053; 80307; 82550; 83605; 83690; 83735; 83880; 84484; 85007; 85025; 85610; 87040; 93005; 94640; 96374; 99285; G0480; J2930; J7620

== ENCOUNTER 2018-10-01 09:48 | Emergency (ER) | payer OTHER ==
[~2018-10-01] VITALS: Ht 160 cm; Wt 143.8 kg
[~2018-10-01 09:48] MED LIST changes: +ALBU2.5V8 INH; +BENZ100C PO; +DOXY100C2 PO
[2018-10-01 09:57] VITALS: BP 159/99
[2018-10-01] MEDS ORDERED: CEPH-264 PO (10:05)
[2018-10-01] MEDS ORDERED: NYST15PO9 TP (10:05)
--- NOTE | 2018-10-01 10:05 | PHYS DOC ---
Past Medical History Past Medical History: Arthritis, Asthma, GERD, Liver Disease, Schizophrenia, Other Additional Past Medical Histor: hep c, BRADYCARDIA Past Surgical History: , Tonsillectomy, Other Additional Past Surgical Histo: left toe Alcohol Use: Rarely Drug Use: Marijuana Adult General Chief Complaint Chief Complaint: SKIN RASH/ABSCESS HPI HPI 43-year-old morbidly obese female with multiple medical problems presents with intertriginous redness. She states she gets this underneath her abdominal pannus from time to time. She states the redness has increased recently. In the past she has taken nystatin powder and this is helped. She denies any fever chills or sweats.[] Review of Systems Review of Systems Constitutional: Denies fever or chills [] Eyes: Denies change in visual acuity, redness, or eye pain [] HENT: Denies nasal congestion or sore throat [] Respiratory: Denies cough or shortness of breath [] Cardiovascular: No additional information not addressed in HPI [] GI: Denies abdominal pain, nausea, vomiting, bloody stools or diarrhea [] : Denies dysuria or hematuria [] Musculoskeletal: Denies back pain or joint pain [] Integument: Per history of present illness[] Neurologic: Denies headache, focal weakness or sensory changes [] Endocrine: Denies polyuria or polydipsia [] All other systems were reviewed and found to be within normal limits, except as documented in this note. Current Medications Current Medications Current Medications Medications (Trade) Dose Ordered Sig/[facility] Start Time Stop Time Status Last Admin Dose Admin Nystatin (Nystop) 1 lian 1X ONCE 10/01/18 10:00 10/01/18 10:01 UNV Allergies Allergies Allergies Coded Allergies Type Severity Reaction Last Updated Verified No Known Drug Allergies 08/28/16 No Physical Exam Physical Exam Constitutional: Well developed, well nourished, no acute distress, non-toxic a ppearance. [] HENT: Normocephalic, atraumatic, bilateral external ears normal, oropharynx moist, no oral exudates, nose normal. [] Eyes: PERRLA, EOMI, conjunctiva normal, no discharge. [] Neck: Normal range of motion, no tenderness, supple, no stridor. [] Cardiovascular:Heart rate regular rhythm, no murmur [] Lungs & Thorax: Bilateral breath sounds clear to auscultation [] Abdomen: Bowel sounds normal, soft, no tenderness, no masses, no pulsatile masses. [] Skin: She has some intertriginous excoriation and redness with satellite lesions underneath her abdominal pannus with some surrounding erythema this appears candidal in nature[] Back: No tenderness, no CVA tenderness. [] Extremities: No tenderness, no cyanosis, no clubbing, ROM intact, no edema. [] Neurologic: Alert and oriented X 3, normal motor function, normal sensory function, no focal deficits noted. [] Psychologic: Affect normal, judgement normal, mood normal. [] EKG EKG [] Radiology/Procedures Radiology/Procedures [] Course & Med Decision Making Course & Med Decision Making Pertinent Labs and Imaging studies reviewed. (See chart for details) [] Dragon Disclaimer Dragon Disclaimer This electronic medical record was generated, in whole or in part, using a voice recognition dictation system. Departure Departure Impression: Primary Impression: Intertriginous candidiasis Additional Impression: Intertriginous dermatitis associated with moisture Disposition: HOME, SELF-CARE Condition: STABLE Referrals: BETHANY CHEN (PCP) Patient Instructions: Cellulitis, Cutaneous Candidiasis Additional Instructions: It is extremely important that you take the medication exactly as directed. Follow with her primary care physician in 24-48 hours for recheck. Return to the emergency department with any new or concerning symptoms Scripts Cephalexin (KEFLEX) 500 Mg Capsule 1 CAP PO TID, #30 CAP Prov: ROSANNE PARKER DO 10/01/18 Nystatin (NYSTATIN) 15 Gm Powder 30 GM TP BID for cutaneous candidiasis for 14 Days, MISC 6 Refills Prov: ROSANNE PARKER DO 10/01/18 Problem Qualifiers ROSANNE PARKER DO Oct 01, 2018 10:05
[2018-10-01] MEDS: CEPHALEXIN 250 MG CAPSULE. PO ONE (10:20)
[2018-10-01] MEDS: NYSTATIN TOPICAL POWDER 15GM BOTTLE. TP ONE (10:20)
== END 2018-10-01 10:33 | disposition home or self-care (01) ==
LOC: ER 09:48
DX: B37.2 Candidiasis of skin and nail (principal); L30.4 Erythema intertrigo; J45.909 Unspecified asthma, uncomplicated; K21.9 Gastro-esophageal reflux disease without esophagitis; F20.9 Schizophrenia, unspecified
CPT/HCPCS: 99283

== ENCOUNTER → 2019-05-13 | Outpatient (CLI) | payer OTHER ==
[2018-12-12 11:24] VITALS: BP 142/79
[~2019-05-13] MED LIST changes: +CEPH-264 PO; +FLUC150T PO; +HYDR25TA PO; +NYST15CR2 TP; -PANT40TA5 PO; +PANT40TA77 PO
--- NOTE | 2019-05-13 12:41 | RAD ---
Arterial Brachial Index: Indication: Bilateral leg nonhealing. Comparison: None. Procedure: Arterial pressures are measured in the arms and ankles. Findings: . Right ankle: 193 mm Hg. Right arm: 140 mm Hg. Left ankle: 186 mm Hg. Left arm: 146 mm Hg. Right leg BARRINGTON: 1.3. Left leg B[place]: 1.27. Impression: Normal BARR[place]. Lower extremity duplex artery ultrasound - Bilateral. Indication: Bilateral leg nonhealing ulcers. Comparison: None. PQRS Compliance Statement - Stenosis calculations for CT, MR and conventional angiography are based upon measurement of the distal ICA diameter in accordance with the NASCET methodology. Stenosis calculations for carotid ultrasound studies are derived from validated velocity criteria which are known to correlate with the NASCET methodology. Procedure: Realtime grayscale B-mode 2D sonographic images of the lower extremity arteries were performed with color flow, and spectral waveform analysis Doppler imaging.. Findings: Right leg: Triphasic/biphasic flow is seen in the right common femoral artery propagates into the crural arteries. Left leg: . Triphasic/biphasic flow propagates into the crural arteries. Right cm/sec Left cm/sec Common Femoral Artery PSV 181 211 Deep Femoral Artery PSV 85 93 Superficial Femoral Artery PSV 127, 131, 174 153, 128, 121 Popliteal Artery PSV 102 118 Crural Trunk Artery PSV - - P Tibial Artery PSV 114 95 A Tibial Artery PSV 61 54 Peroneal Artery PSV 89 88 Dorsalis Pedis Artery PSV 90 102 Impression: Mild plaque formation with no hemodynamically significant stenosis. Electronically signed by: Bryce Angeles MD (05/13/2019 12:38 PM) [id number]
--- NOTE | 2019-05-13 18:11 | RAD ---
Bilateral lower extremity superficial venous duplex study 05/13/2019 CLINICAL HISTORY: Nonhealing wounds involving both legs. TECHNIQUE: Using a combination of real-time ultrasound imaging and color-flow and pulse doppler imaging techniques, duplex evaluation of the major superficial venous structures of both lower extremities was performed. Multiple images were obtained. FINDINGS: The study is limited to some degree due to the patient's marked leg swelling with significant edema seen throughout the soft tissues of both lower extremities. There is no sonographic evidence of superficial venous thrombosis. Reflux of blood flow throughout the greater saphenous veins is seen extending from the inguinal regions to the ankles bilaterally. The reflux within the right greater saphenous vein measures 1.8 seconds at the saphenofemoral junction and measures 1.6 seconds at the level of the mid calf. The diameter of the right greater saphenous vein measures 6.9 mm proximally and 3.8 mm at the level of the right ankle. The reflux within the left greater saphenous vein measures 2.7 seconds at the saphenofemoral junction and 2.9 seconds at the level of the proximal left calf. The diameter of the left greater saphenous vein measures 8.6 mm proximally and 2 mm at the level of the left ankle. No perforating veins are seen. IMPRESSION: Bilateral venous reflux is seen involving the greater saphenous veins, left greater than right. Electronically signed by: Peyman Fine MD (05/13/2019 6:08 PM) [id number]
== END | disposition home or self-care (01) ==
LOC: US 08:35
PROVIDERS: ATTEND Preventive Medicine Undersea and Hyperbaric Medicine
DX: I70.249 Atherosclerosis of native arteries of left leg with ulceration of unspecified site (principal); L97.929 Non-pressure chronic ulcer of unspecified part of left lower leg with unspecified severity; I70.239 Atherosclerosis of native arteries of right leg with ulceration of unspecified site; L97.919 Non-pressure chronic ulcer of unspecified part of right lower leg with unspecified severity
CPT/HCPCS: 93922; 93925; 93970

== ENCOUNTER → 2019-07-04 | Outpatient (CLI) | payer OTHER ==
[2018-12-12 11:24] VITALS: BP 142/79
--- NOTE | 2019-07-04 15:01 | RAD ---
Abdominal ultrasound HISTORY: Abdominal pain. FINDINGS: Poor visualization of all structures due to large body habitus. The pancreas is poorly seen. Liver is mildly enlarged 18.8 cm. Coarse echogenicity suggests fatty infiltration. No obvious focal mass of the liver. No significant biliary ductal dilatation. Gallbladder may be mildly distended. No gallbladder wall thickening, however. No evidence of echogenic calculus in the gallbladder. Right kidney is poorly seen, measuring about 12.7 cm longitudinal without obvious hydronephrosis. The visualized aspect of the aorta appears ectatic. Inferior vena cava only partially seen. Spleen is mildly enlarged at 14.1 cm. Left kidney measures 13.9 cm longitudinal without hydronephrosis or obvious mass. IMPRESSION: 1. Limited exam due to body habitus. 2. Mild hepatomegaly with steatosis. 3. Mild splenomegaly. 4. Borderline gallbladder distention. No evidence of gallbladder wall thickening or echogenic gallstone. Pelvic ultrasound Exam is limited due to large body habitus which results in suboptimal visualization. Transabdominal scan: Poor visualization of uterus and adnexa. Endovaginal scan: Uterus measures 10.0 x 4.3 x 4.0 cm. There are some echogenic reflectors identified within the uterus, likely calcifications. Endometrium measures about 9 mm in thickness. Small nabothian cysts are noted. Right ovary is difficult to visualize due to shadowing in the area. There are echogenic reflectors within or around the right ovary with posterior shadowing. Right ovary measures approximately 3.6 cm longitudinal. There is a small right ovarian follicle or cyst measuring about 1 cm. Intact blood supply to the right ovary. Left ovary measures about 2.8 cm diameter. Hypoechoic lesion with posterior acoustic enhancement within the left ovary measuring 21 mm, may represent a cyst. Intact blood supply to the left ovary. No significant free fluid is identified. IMPRESSION: 1. Limited exam due to body habitus. 2. The right ovary is poorly evaluated, due to shadowing which may be due to ovarian calcifications. Cannot exclude right ovarian mass. Further evaluation could be obtained with pelvic MRI, or pelvic CT if MRI is not clinically feasible. 3. Left ovarian lesion measuring 21 mm, may represent a cyst. Electronically signed by: Mark Zarco MD (07/04/2019 2:58 PM) [id number]
== END ==
LOC: US 12:04
PROVIDERS: ATTEND Nurse Practitioner Family
DX: K76.0 Fatty (change of) liver, not elsewhere classified (principal); R16.2 Hepatomegaly with splenomegaly, not elsewhere classified; N88.8 Other specified noninflammatory disorders of cervix uteri; N83.8 Other noninflammatory disorders of ovary, fallopian tube and broad ligament
CPT/HCPCS: 76700; 76830; 76856

== ENCOUNTER 2020-04-23 10:49 | Inpatient (IN) | payer OTHER ==
[~2020-04-23] VITALS: Ht 160 cm; Wt 145.1 kg
[~2020-04-23 10:49] MED LIST changes: +AMOX1TAB61 PO; +IBUP-577 PO; +MULT-445 PO; -MULT1TAB52 PO; +TORS20TA2 PO
[2020-04-23] MEDS ORDERED: VANCOMYCIN PER PHARMACY MC ONE (12:00)
[2020-04-23] MEDS ORDERED: fentaNYL PF VIAL 100 MCG/2 ML VIAL IVP ONE (12:00)
--- NOTE | 2020-04-23 12:23 | PHYS DOC ---
Past Medical History Past Medical History: Arthritis, Asthma, Bronchitis, GERD, Hepatitis, Liver Disease, Schizophrenia, Other Additional Past Medical Histor: hep c, BRADYCARDIA,YEAST INFECTION (BRENDA VILLELA CONTROL INSPECTOR) Past Surgical History: , Tonsillectomy, Other Additional Past Surgical Histo: left toe (BRENDA VILLELA M CONTROL INSPECTOR) Smoking Status: Current Every Day Smoker Alcohol Use: Rarely Drug Use: Marijuana (BRENDA VILLELA CONTROL INSPECTOR) General Adult EDM: Chief Complaint: LOWER EXT PAIN HPI: HPI: Patient is a 44 year old female who presents with patient states on Sunday her left foot began increasing in redness and swelling and since Sunday the redness and swelling is gone up intermediate of her thigh. The leg is 3+ swollen, red, hot and nailbeds are pale. Patient states very painful and she rates her burning, aching pain an 8 out of 10. She states she has not taken any medications today. States that she is on Bactrim and Diflucan at home antibiotic guillen. Patient is currently being treated for a venous ulcer and cellulitis on the right foot of which she saw Dr. Brenner for a wound follow-up on the . Patient has a history of asthma, arthritis, hepatitis C, bradycardia, smoker, schizophrenia, venous ulcer syndrome, cellulitis, yeast infections, morbid obesity, liver disease, GERD. (BRENDA VILLELA CONTROL INSPECTOR) Review of Systems: Review of Systems: Constitutional: Denies fever or chills. [] Eyes: Denies change in visual acuity. [] HENT: Denies nasal congestion or sore throat. [] Respiratory: Denies cough or shortness of breath. [] Cardiovascular: Denies chest pain. Left leg edema. [] GI: Denies abdominal pain, nausea, vomiting, bloody stools or diarrhea. [] : Denies dysuria. [] Musculoskeletal: Denies back pain or joint pain. + Left leg pain[] Integument: Denies rash. +Left leg redness. [] Neurologic: Denies headache, focal weakness or sensory changes. [] Endocrine: Denies polyuria or polydipsia. [] Lymphatic: Denies swollen glands. [] Psychiatric: Denies depression or anxiety. [] (BRENDA VILLELA CONTROL INSPECTOR) Heart Score: Risk Factors: Risk Factors: DM, Current or recent (<one month) smoker, HTN, HLP, family history of CAD, obesity. Risk Scores: Score 0 - 3: 2.5% MACE over next 6 weeks - Discharge Home Score 4 - 6: 20.3% MACE over next 6 weeks - Admit for Clinical Observation Score 7 - 10: 72.7% MACE over next 6 weeks - Early Invasive Strategies (BRENDA VILLELA APRN) Current Medications: Current Medications Medications (Trade) Dose Ordered Sig/Terrell Start Time Stop Time Status Last Admin Dose Admin Fentanyl Citrate (Fentanyl 2ml Vial) 50 mcg 1X ONCE 04/23/20 12:00 04/23/20 12:01 UNV Vancomycin HCl (Vanco Per Pharmacy) 1 each 1X ONCE 04/23/20 12:00 04/23/20 12:01 UNV (BRENDA VILLELA APRN) Allergies: Allergies: Allergies Coded Allergies Type Severity Reaction Last Updated Verified Latex, Natural Rubber Allergy Intermediate UNK 08/13/19 Yes (BRENDA VILLELA APRN) Physical Exam: PE: Constitutional: Well developed, well nourished, no acute distress, non-toxic appearance. [] HENT: Normocephalic, atraumatic, bilateral external ears normal, oropharynx moist, no oral exudates, nose normal. [] Eyes: PERRLA, EOMI, conjunctiva normal, no discharge. [] Neck: Normal range of motion, no tenderness, supple, no stridor. [] Cardiovascular:Heart rate regular rhythm, no murmur [] Lungs & Thorax: Bilateral breath sounds clear to auscultation [] Abdomen: Bowel sounds normal, soft, no tenderness, no masses, no pulsatile masses. [] Skin: Warm, dry, Left leg erythema, no rash. [] Back: No tenderness, no CVA tenderness. [] Extremities: Left leg from foot up to mid thigh tenderness, no cyanosis, no clubbing, ROM intact, Left leg edema. [] Neurologic: Alert and oriented X 3, normal motor function, normal sensory function, no focal deficits noted. [] Psychologic: Affect normal, judgement normal, mood normal. [] (BRENDA VILLELA APRN) Current Patient Data: Vital Signs: Vital Signs Date Time Temp Pulse Resp B/P (MAP) Pulse Ox O2 Delivery O2 Flow Rate FiO2 04/23/20 11:45 97.7 98 22 140/89 (106) 96 Room Air 97.7 (BRENDA VILLELA APRN) EKG: EK and read by Dr Patel as Sinus Rhythm and no STEMI (BRENDA VILLELA APRN) Radiology/Procedures: Radiology/Procedures: [] Impression: [facility] [address] [place] [address] IMAGING REPORT Signed PATIENT: PACO TREJO ACCOUNT: [id number] : 1975 LOCATION: ER AGE: 44 SEX: F EXAM STATUS: REG ER ORD. PHYSICIAN: BRENDA VILLELA APRN REASON: swelling PROCEDURE: VENOUS LOWER EXTREMITY LEFT Examination: Left Lower Extremity Venous Doppler Ultrasound History: Left leg swelling, cellulitis Comparison: None Procedure: Golden scale, color flow 2D and spectal waveform analysis images are obtained with and without compression in the area of the common femoral vein, superficial femoral vein - femoral vein junction, main femoral vein (superficial femoral vein) and popliteal vein. Veins of the proximal calf are also imaged. Findings: There is normal duplex flow, color flow and compressibility of all visualized vein segments. No evidence of deep venous thrombus is present. Mild soft tissue edema identified in the lower leg likely edema. Enlarged inguinal lymph nodes identified in the left inguinal region with the largest measuring 3 cm. Impression: 1.No evidence of DVT in the left lower extremity venous system. 2. Enlarged left inguinal lymph nodes. 3. Left lower extremity soft tissue edema. Electronically signed by: Vincent Bonilla MD (04/23/2020 1:13 PM) [id number] DICTATED and SIGNED BY: VINCENT BONILLA MD DATE: 04/23/20 [id number] (BRENDA VILLELA APRN) Course & Med Decision Making: Course & Med Decision Making Pertinent Labs and Imaging studies reviewed. (See chart for details) See HPI. Alert and oriented x4. Speaks in full clear sentences. Bilateral lower legs are swollen with redness. The right lower leg is 2+ edema but the left lower leg has 3-4+. Pulses cannot be felt due to the swelling. Pulse was found with ultrasound. Nail bed is pale. Patient denies any shortness of breath or chest pain, headache, dizziness, injury, fall, fever, chills, body aches, numbness. Patient was able to get off the EMS cot and get onto a wheelchair with help. Pain patient is given fentanyl, vancomycin. ultrasound shows no DVT. Patient is not septic. Patient will be admitted for cellulitis by Dr. Carbajal. [] (BRENDA VILLELA APRN) Dragon Disclaimer: Dragon Disclaimer: This electronic medical record was generated, in whole or in part, using a voice recognition dictation system. (BRENDA VILLELA APRN) Departure Departure Impression: Primary Impression: Cellulitis of lower extremity Qualified Codes: L03.116 - Cellulitis of left lower limb Disposition: ADMITTED INPT THIS HOSP Admitting Physician: ZORAN (BRENDA VILLELA APRN) Condition: STABLE Referrals: OMAR WADE (PCP) Attending Signature Attending Signature I have reviewed the PA/ETIQUETTE TEACHER's note and plan of care. I was available for consultation as needed during the patient's visit in the emergency department. I agree with the clinical impression, plan, and disposition. (MAURICE PATEL DO) BRENDA VILLELA APRN Apr 23, 2020 12:23 MAURICE PATEL DO Apr 24, 2020 18:52
[2020-04-23] MEDS ORDERED: VANCOMYCIN 2 GM in IV NORMAL SALINE 500ML BAG 500 ML IV ONE (13:00)
--- NOTE | 2020-04-23 13:15 | RAD ---
Examination: Left Lower Extremity Venous Doppler Ultrasound History: Left leg swelling, cellulitis Comparison: None Procedure: Golden scale, color flow 2D and spectal waveform analysis images are obtained with and witho ut compression in the area of the common femoral vein, superficial femoral vein - femoral vein juncti on, main femoral vein (superficial femoral vein) and popliteal vein. Veins of the proximal calf are a lso imaged. Findings: There is normal duplex flow, color flow and compressibility of all visualized vein segments. No evide nce of deep venous thrombus is present. Mild soft tissue edema identified in the lower leg likely lakisha ma. Enlarged inguinal lymph nodes identified in the left inguinal region with the largest measuring 3 cm. Impression: 1.No evidence of DVT in the left lower extremity venous system. 2. Enlarged left inguinal lymph nodes. 3. Left lower extremity soft tissue edema. Electronically signed by: Vincent Bonilla MD (04/23/2020 1:13 PM) [id number]
[2020-04-23 13:19] LABS: BASO % 0 % (0-3); EOS % 0 % (0-3); HEMATOCRIT 40.8 % (36.0-47.0); HEMOGLOBIN 13.9 g/dL (12.0-15.5); LYMPH # 0.8 x10^3/uL (1.0-4.8); LYMPH % 5 % (24-48); MEAN CORPUSCULAR HEMOGLOBIN 34 pg (25-35); MEAN CORPUSCULAR HGB CONC 34 g/dL (31-37); MEAN CORPUSCULAR VOLUME 99 fL (79-100); MONO # 1.4 x10^3/uL (0.0-1.1); MONO % 9 % (0-9); NEUT % 86 % (31-73); PLATELET COUNT 140 x10^3/uL (140-400); RED BLOOD COUNT 4.13 x10^6/uL (3.50-5.40); RED CELL DISTRIBUTION WIDTH 14.7 % (11.5-14.5); WHITE BLOOD COUNT 16.2 x10^3/uL (4.0-11.0)
[2020-04-23 13:40] LABS: GFR 60.2; POTASSIUM 3.7 mmol/L (3.5-5.1)
[2020-04-23 13:45] LABS: ALBUMIN 2.2 g/dL (3.4-5.0); ALBUMIN/GLOBULIN RATIO 0.4 (1.0-1.7); C-REACTIVE PROTEIN 199.8 mg/L (0-3.3); TOTAL BILIRUBIN 0.5 mg/dL (0.2-1.0); TOTAL PROTEIN 8.4 g/dL (6.4-8.2)
[2020-04-23 14:41] LABS: % BANDS 21 % (0-9); % LYMPHS 8 % (24-48); % MONOS 6 % (0-10); % SEGS 65 % (35-66); PLT ESTIMATE ADEQUATE (ADEQUATE)
[2020-04-23 14:42] LABS: TOXIC GRANULATION SLIGHT; TOXIC VACUOLATION SLIGHT
[2020-04-23] MEDS ORDERED: fentaNYL PF VIAL 100 MCG/2 ML VIAL IV PRN (14:45)
[2020-04-23] MEDS ORDERED: ONDANSETRON PF 4 MG/2 ML VIAL. IV PRN (14:45)
[2020-04-23 16:02] VITALS: BP 124/84
[2020-04-23 19:15] VITALS: BP 133/85
--- NOTE | 2020-04-23 19:50 | HP ---
ADMIT DATE: 04/23/2020 CHIEF COMPLAINT: Lower extremity pain. HISTORY OF PRESENT ILLNESS: The patient is a pleasant 44-year-old obese female who has chronic cellulitis, but now the left lower extremity is quite red. It is swollen. It is tender. Rates her pain at 7/10. States it has gotten worse over the past couple of weeks. She normally has some chronic pain, but it is much worse. She is on Bactrim and Diflucan at home, but seems to be failing outpatient antibiotics. She [facility] her chronic venous ulcers on her legs. I discussed the case with the ER physician. We are going to admit the patient and give her IV antibiotics. PAST MEDICAL HISTORY: Chronic wounds, obesity, peripheral vascular disease, arthritis, asthma, bronchitis, GERD, hepatitis, schizophrenia, bradycardia, yeast infection, , tonsillectomy, left toe surgery, tobacco abuse, marijuana use. ALLERGIES: LATEX. FAMILY HISTORY: Diabetes. SOCIAL HISTORY: She smokes marijuana. She smokes cigarettes. I do not think she drinks or takes any high level street drugs. MEDICATIONS: Reviewed, please refer to the MRAD. REVIEW OF SYSTEMS: GENERAL: No history of weight change, weakness or fevers. SKIN: No bruising, hair changes or rashes. EYES: No blurred, double or loss of vision. NOSE AND THROAT: No history of nosebleeds, hoarseness or sore throat. HEART: No history of palpitations, chest pain or shortness of breath on exertion. LUNGS: Denies cough, hemoptysis, wheezing or shortness of breath. GASTROINTESTINAL: Denies changes in appetite, nausea, vomiting, diarrhea or constipation. GENITOURINARY: No history of frequency, urgency, hesitancy or nocturia. NEUROLOGIC: Denies history of numbness, tingling, tremor or weakness. PSYCHIATRIC: No history of panic, anxiety or depression. ENDOCRINE: No history of heat or cold intolerance, polyuria or polydipsia. EXTREMITIES: She complains of left leg pain. PHYSICAL EXAMINATION: VITALS: Within normal limits and are stable. GENERAL: No apparent distress. Alert and oriented. She is obese. HEENT: Normal cephalic atraumatic, external auditory canals are patent. EYES: Extraocular muscles are intact, pupils are equally round and reactive to light and accommodation. MUSCULOSKELETAL: Well developed, well nourished, good range of motion. ENDOCRINE: No thyromegaly was palpated. LYMPHATICS: No cervical chain or axillary nodes were noted. HEMATOPOIETIC: No bruising. NECK: Supple, no JVD, no thyromegaly was noted. LUNGS: Clear to auscultation in all lung [place] without rhonchi or wheezing. HEART: RRR, S1, S2 present. Peripheral pulses intact, no obvious murmurs were noted. ABDOMEN: Soft, nontender. Positive bowel sounds no organomegaly, normal bowel sounds. EXTREMITIES: She has severe cellulitis of the left lower extremity. It is extremely, it is swollen, painful to touch, edematous, please see the pictures. NEUROLOGIC: Normal speech, normal tone. A & O x 3, moves all extremities, no obvious focal deficits. PSYCHIATRIC: She is depressed. SKIN: No ulcerations or rashes, good skin turgor, no jaundice. VASCULAR: Good capillary refill, neurovascular bundle appears to be intact. LABORATORY DATA: White count 16. Sodium is 132. ASSESSMENT AND PLAN: Severe cellulitis, leukocytosis, hyponatremia in a middle-aged female who is morbidly obese and has multiple comorbidities. The patient has been admitted. We will start IV antibiotics, home medications, DVT prophylaxis. Full code. Consult the Wound Care team. Consult Infectious Disease. SCDs if possible, p.r.n. fentanyl, p.r.n. Zofran. We have started IV vancomycin. CARLOS VELARDE DO DR: ANNIE/mary alice JOB#: [id number] / [id number]
[2020-04-23 22:53] VITALS: BP 120/62
[2020-04-24 02:44] VITALS: BP 122/59
[2020-04-24 07:00] VITALS: BP 124/70
[2020-04-24] MEDS ORDERED: VANCOMYCIN 2 GM in IV NORMAL SALINE 500ML BAG 500 ML IV ONE (09:00)
[2020-04-24] MEDS: KETOROLAC 30 MG/ML VIAL. IVP PRN (10:11)
--- NOTE | 2020-04-24 10:45 | CONS ---
DATE OF CONSULTATION: 04/24/2020 REFERRING PHYSICIAN: Dr. Carbajal. REASON FOR CONSULTATION: Left lower extremity cellulitis. HISTORY OF PRESENT ILLNESS: The patient is a 44-year-old female with obesity, chronic wounds, peripheral vascular disease, cirrhosis of the liver, schizophrenia, bipolar disorder, tobaccoism, morbid obesity, presented with complaints of left lower extremity swelling pain, which worsened over the last week. She was seen by [facility] a couple of days ago and was started on Diflucan. She also has chronic venous ulcer on the right lower extremity for which she has been following up with the [facility] once a week for a long time, for which she underwent local care. She was also on Bactrim, but failed. She was referred to ER for further evaluation and treatment. The patient was started on IV vancomycin. ID consultation has been requested for antibiotic management. PAST MEDICAL HISTORY: Chronic venous ulcer, right lower extremity; cirrhosis of the liver, history of hepatitis C, schizophrenia, bipolar disorder, tobaccoism, morbid obesity, GERD, asthma, hypertension, history of urinary tract infection. PAST SURGICAL HISTORY: Tonsillectomy, adenectomy, tooth extraction, section, cyst removed from the left foot. FAMILY HISTORY: As per HPI. SOCIAL HISTORY: Lives at home. On disability. Continues to smoke. History of marijuana use. Drinks a 6-pack about every 2 weeks. ALLERGIES: LATEX, NATURAL RUBBER. CURRENT MEDICATIONS: IV vancomycin, previously was on Diflucan and Bactrim. Other medications reviewed in JUN. REVIEW OF SYSTEMS: Negative except for above in HPI. PHYSICAL EXAMINATION: VITAL SIGNS: Temperature 97.7, pulse 84, respiratory rate 18, blood pressure 124/70, oxygen saturation 98% on room air. GENERAL: Alert, oriented x 3 female, ambulating in the room, in no acute distress. HEENT: Normocephalic, atraumatic, anicteric. No thrush. Oral mucosa moist. NECK: Supple. LUNGS: Clear bilaterally. HEART: S1, S2. ABDOMEN: Soft, obese. Bowel sounds present. EXTREMITIES: Edema present over both the lower extremities, left greater than right. Right lower extremity ulcer with dry scabs, chronic venous stasis changes present. Left lower extremity swollen, erythematous, edematous, painful to touch, going up to the thigh. DERMATOLOGIC: Warm and dry. No generalized rash except for above. Yeast in skin folds, pannus, groin area and the toes. NEUROLOGIC: Alert, oriented x 3, grossly nonfocal, ambulating in the room without difficulty. LABORATORY DATA: WBC 16.0, hemoglobin 13.9, platelets 140. Sodium 132, potassium 3.7, chloride 97, bicarbonate 26, BUN 19, creatinine 1.0, lactate 1.7, AST 98, ALT 88, alkaline phosphatase 198. C-reactive protein 199.8, albumin 2.6. Repeat lactate 0.9. MICROBIOLOGY: Urine culture and blood culture pending. IMAGING: Ultrasound of the left lower extremity shows no evidence of DVT. Enlarged left inguinal lymph nodes. IMPRESSION: 1. Cellulitis, left lower extremity, severe. 2. Chronic venous ulcer, right lower extremity, stable, not infected. 3. Obesity. 4. Yeast in skin folds. 5. Leukocytosis. 6. Cirrhosis of the liver. 7. History of hepatitis C. 8. Schizophrenia and bipolar disorder. 9. Tobaccoism. 10. Morbid obesity. RECOMMENDATIONS: 1. Continue vancomycin. Monitor renal functions closely. 2. Start Zosyn. 3. Start fluconazole. 4. Monitor for antimicrobial toxicities. 5. Continue probiotics. 6. Local wound care as directed. 7. Monitor labs and cultures. 8. Continue supportive care. 9. Elevate left lower extremity. Discussed with nursing staff. Thank you, Dr. Carbajal, for allowing us to participate in this patient's care. If you have any questions, do not hesitate to contact me. RAMÍREZ MERA MD DR: JACQUI/mary alice JOB#: [id number] / [id number] ECSAR
[2020-04-24] MEDS: VANCOMYCIN PER PHARMACY MC PRN (10:49)
--- NOTE | 2020-04-24 10:49 | NUR ---
Pharmacy Vancomycin Dosing Note S:Consulted to monitor and dose vancomycin started 04/23/20. O:PACO TREJO is a 44 year old F with Cellulitis. Height: 5 feet, 3 inches Weight: 145.4 kg [place] Body Weight: 52.40 Adjusted Body Weight: 89.60 Dosing Weight: Actual Other Antibiotics: zosyn 3.375 gm q6hrs fluconazole 100 mg po q24hs LABS: Last BUN: 19 Last Creatinine: 1 Creatinine Clearance: 102 mL/min Last WBC: 16.2 Last Procalcitonin: -- Tmax (past 24 hours): 98 Microbiology: 04/23: blood cx pending I/O: 720 / -- (6 voids) Last dose given 04/24/20 at 1012 Vancomycin Dosing: Loading Dose: 2000 mg x1 Dosing Weight: Actual Target Trough: 10-20 A: Based on: patient's age, weight and renal function. P: 1. Initiate Vancomycin 2000 mg IV q12h. 2. Follow up Trough level on 04/25/20 at 2200. 3. Pharmacy will continue to monitor, follow and adjust therapy as needed. BERNARDO SHERIFF [facility], 04/24/20 [id number]
[2020-04-24 11:00] VITALS: BP 152/79
--- NOTE | 2020-04-24 11:22 | PDOC ---
[employer] PROGRESS NOTE Date of Service DOS: DATE: 04/24/20 TIME: 11:17 Chief Complaint Chief Complaint Severe left lower extremity cellulitis Reactive leukocytosis Acute electrolyte derangementhyponatremia, hypochloremia Elevated liver enzymes suggestive of fatty liver disease Super morbid obesity, BMI 56 Severe protein malnutrition Chronic lower extremity wounds Chronic venous insufficiency Peripheral vascular disease History of marijuana and tobacco abuse Admit to medicine for further management Appreciate ID recommendationscontinue Vanco and start IV Zosyn and follow-up with blood and urine cultures Wound care consult Lovenox for DVT prophylaxis Protonix GI prophylaxis ADA diet Full code Discussed with RN and SW Disposition inpatient management as above Surrogate decision maker is undesignated History of Present Illness History of Present Illness 04/24/2020 No acute events overnight. Patient remains afebrile. Patient seen and examined bedside. Dressings to her right lower extremity and there is redness and venous congestion and venous dramatic changes to her left lower extremity. Patient's chart, labs, images were reviewed and discussed with RN 44-year-old obese female who has chronic cellulitis, but now the left lower extremity is quite red. It is swollen. It is tender. Rates her pain at 7/10. States it has gotten worse over the past couple of weeks. She normally has some chronic pain, but it is much worse. She is on Bactrim and Diflucan at home, but seems to be failing outpatient antibiotics. She goes to [facility] for her chronic venous ulcers on her legs. Vitals/I&O Vitals/I&O: Vital Signs Date Time Temp Pulse Resp B/P (MAP) Pulse Ox O2 Delivery O2 Flow Rate FiO2 04/24/20 11:00 97.8 88 18 152/79 (103) 92 Room Air 97.8 I & O 04/23/20 04/23/20 04/24/20 15:00 23:00 07:00 Intake Total 300 ml 420 ml Balance 300 ml 420 ml Physical Exam General: Alert, Oriented X3, Cooperative Lungs: Clear Abdomen: Normal bowel sounds, Other (Obese) Skin: Other (Right lower extremity dressings clear dry and intact. Left lower extremity with severe cellulitis extending above the knee around the thigh) Labs Labs: Laboratory Tests Test 04/23/20 12:57 04/24/20 01:40 White Blood Count 16.2 x10^3/uL (4.0-11.0) Red Blood Count 4.13 x10^6/uL (3.50-5.40) Hemoglobin 13.9 g/dL (12.0-15.5) Hematocrit 40.8 % (36.0-47.0) Mean Corpuscular Volume 99 fL (79-100) Mean Corpuscular Hemoglobin 34 pg (25-35) Mean Corpuscular Hemoglobin Concent 34 g/dL (31-37) Red Cell Distribution Width 14.7 % (11.5-14.5) Platelet Count 140 x10^3/uL (140-400) Neutrophils (%) (Auto) 86 % (31-73) Lymphocytes (%) (Auto) 5 % (24-48) Monocytes (%) (Auto) 9 % (0-9) Eosinophils (%) (Auto) 0 % (0-3) Basophils (%) (Auto) 0 % (0-3) Neutrophils # (Auto) 14.0 x10^3/uL (1.8-7.7) Lymphocytes # (Auto) 0.8 x10^3/uL (1.0-4.8) Monocytes # (Auto) 1.4 x10^3/uL (0.0-1.1) Eosinophils # (Auto) 0.0 x10^3/uL (0.0-0.7) Basophils # (Auto) 0.0 x10^3/uL (0.0-0.2) Segmented Neutrophils % 65 % (35-66) Band Neutrophils % 21 % (0-9) Lymphocytes % 8 % (24-48) Monocytes % 6 % (0-10) Toxic Granulation Slight Toxic Vacuolation Slight Platelet Estimate Adequate (ADEQUATE) Sodium Level 132 mmol/L (136-145) Potassium Level 3.7 mmol/L (3.5-5.1) Chloride Level 97 mmol/L (98-107) Carbon Dioxide Level 26 mmol/L (21-32) Anion Gap 9 (6-14) Blood Urea Nitrogen 19 mg/dL (7-20) Creatinine 1.0 mg/dL (0.6-1.0) Estimated GFR (Cockcroft-Gault) 60.2 BUN/Creatinine Ratio 19 (6-20) Glucose Level 118 mg/dL (70-99) Lactic Acid Level 1.7 mmol/L (0.4-2.0) 0.9 mmol/L (0.4-2.0) Calcium Level 9.0 mg/dL (8.5-10.1) Total Bilirubin 0.5 mg/dL (0.2-1.0) Aspartate Amino Transf (AST/SGOT) 98 U/L (15-37) Alanine Aminotransferase (ALT/SGPT) 88 U/L (14-59) Alkaline Phosphatase 198 U/L (46-116) C-Reactive Protein, Quantitative 199.8 mg/L (0-3.3) WR-Hbb-V-Type Natriuretic Peptide 79 pg/mL (0-124) Total Protein 8.4 g/dL (6.4-8.2) Albumin 2.2 g/dL (3.4-5.0) Albumin/Globulin Ratio 0.4 (1.0-1.7) Assessment and Plan Assessmemt and Plan Problems Medical Problems: (1) Cellulitis of lower extremity Status: Acute Comment Review of Relevant I have reviewed the following items karl (where applicable) has been applied. Medications: Current Medications Medications (Trade) Dose Ordered Sig/Terrell Route PRN Reason Start Time Stop Time Status Last Admin Dose Admin Fentanyl Citrate (Fentanyl 2ml Vial) 50 mcg 1X ONCE IVP 04/23/20 12:00 04/23/20 12:16 DC 04/23/20 13:09 Vancomycin HCl 2 gm/Sodium Chloride 500 ml @ 250 mls/hr 1X ONCE IV 04/23/20 13:00 04/23/20 14:59 DC 04/23/20 13:10 Ondansetron HCl (Zofran) 4 mg PRN Q8HRS PRN IV NAUSEA/VOMITING 04/23/20 14:45 04/24/20 14:44 04/24/20 10:11 Fentanyl Citrate (Fentanyl 2ml Vial) 50 mcg PRN Q2HR PRN IV PAIN 04/23/20 14:45 04/24/20 14:44 04/24/20 02:25 Vancomycin HCl (Vanco Per Pharmacy) 1 each PRN DAILY PRN MC SEE COMMENTS 04/24/20 08:45 04/24/20 10:49 Ketorolac Tromethamine (Toradol 30mg Vial) 30 mg PRN Q6HRS PRN IVP INFLAMMATION 04/24/20 08:45 04/29/20 08:44 04/24/20 10:11 Vancomycin HCl 2 gm/Sodium Chloride 500 ml @ 250 mls/hr 1X ONCE IV 04/24/20 09:00 04/24/20 10:59 DC 04/24/20 10:12 Justifications for Admission Other Justification ASHLEY CHAOMRRO MD Apr 24, 2020 11:22
[2020-04-24] MEDS: FLUCONAZOLE 100 MG TABLET. PO SCH (12:59)
[2020-04-24] MEDS: PIPERACILLIN/TAZOBACTAM 3.375 GM in IV NORMAL SALINE 50ML 50 ML IV SCH ×2 (12:59→18:00)
--- NOTE | 2020-04-24 13:00 | NUR ---
Per patient request, fluconazole left at bedside. patient stated she wanted to sleep more before taking medication. will come back in 30 minutes to check patient has taken medication.
--- NOTE | 2020-04-24 13:30 | NUR ---
Witnessed patient taking medication.
[2020-04-24 15:00] VITALS: BP 136/72
--- NOTE | 2020-04-24 18:30 | EKG ---
[facility] [address] [place] [address] Test Date: 2020-04-23 Test Time: 12:08:28 Pat Name: PACO TREJO Department: Room: Gender: F [employer]: : 1975 Requested By: BRENDA VILLELA Order Number: [id number] Reading MD: Measurements Intervals [place] Rate: 100 P: 64 OR: 154 QRS: 54 QRSD: 92 T: 64 QT: 320 QTc: 416 Interpretive Statements SINUS RHYTHM LEFT ATRIAL ABNORMALITY ABNORMAL ECG RI6.02 No previous ECG available for comparison
[2020-04-24 19:00] VITALS: BP 128/71
[2020-04-24] MEDS: LACTOBACILLUS RHAMNOSUS GG 1 CAPSULE. PO SCH (21:00)
[2020-04-24] MEDS: VANCOMYCIN 2 GM in IV NORMAL SALINE 500ML BAG 500 ML IV SCH (22:27)
[2020-04-24 23:00] VITALS: BP 122/63
[2020-04-25] MEDS: PIPERACILLIN/TAZOBACTAM 3.375 GM in IV NORMAL SALINE 50ML 50 ML IV SCH ×4 (00:57→17:06)
[2020-04-25 03:02] VITALS: BP 127/63
[2020-04-25 07:00] VITALS: BP 126/70
[2020-04-25 08:13] LABS: BASO # 0.1 x10^3/uL (0.0-0.2); BASO % 0 % (0-3); EOS # 0.1 x10^3/uL (0.0-0.7); EOS % 0 % (0-3); HEMATOCRIT 35.6 % (36.0-47.0); HEMOGLOBIN 12.2 g/dL (12.0-15.5); LYMPH # 1.2 x10^3/uL (1.0-4.8); LYMPH % 8 % (24-48); MEAN CORPUSCULAR HEMOGLOBIN 34 pg (25-35); MEAN CORPUSCULAR HGB CONC 34 g/dL (31-37); MEAN CORPUSCULAR VOLUME 99 fL (79-100); MONO # 1.9 x10^3/uL (0.0-1.1); MONO % 12 % (0-9); NEUT # 12.9 x10^3/uL (1.8-7.7); NEUT % 80 % (31-73); PLATELET COUNT 172 x10^3/uL (140-400); RED BLOOD COUNT 3.58 x10^6/uL (3.50-5.40); RED CELL DISTRIBUTION WIDTH 14.8 % (11.5-14.5); WHITE BLOOD COUNT 16.2 x10^3/uL (4.0-11.0)
[2020-04-25] MEDS: VANCOMYCIN 2 GM in IV NORMAL SALINE 500ML BAG 500 ML IV SCH ×2 (08:26→22:25)
[2020-04-25] MEDS: LACTOBACILLUS RHAMNOSUS GG 1 CAPSULE. PO SCH ×2 (08:27→20:30)
[2020-04-25] MEDS: KETOROLAC 30 MG/ML VIAL. IVP PRN ×2 (08:27→20:30)
[2020-04-25] MEDS: PANTOPRAZOLE 40 MG TABLET.DR. PO SCH (08:27)
[2020-04-25] MEDS: FLUCONAZOLE 100 MG TABLET. PO SCH (08:27)
[2020-04-25 08:49] LABS: ALBUMIN 1.6 g/dL (3.4-5.0); ALBUMIN/GLOBULIN RATIO 0.3 (1.0-1.7); CALCIUM 8.3 mg/dL (8.5-10.1); CREATININE 0.7 mg/dL (0.6-1.0); GFR 90.9; POTASSIUM 3.8 mmol/L (3.5-5.1); TOTAL BILIRUBIN 0.6 mg/dL (0.2-1.0); TOTAL PROTEIN 7.2 g/dL (6.4-8.2)
--- NOTE | 2020-04-25 09:05 | PDOC ---
Infectious Disease Note Subjective: Subjective Patient feels a little better Denies any fever, nausea, vomiting, diarrhea, abdominal pain Lower extremity swelling redness improved slightly Has started weeping Vital Signs: Vital Signs Vital Signs Date Time Temp Pulse Resp B/P (MAP) Pulse Ox O2 Delivery O2 Flow Rate FiO2 04/25/20 07:00 82 18 126/70 (88) 94 Room Air 04/25/20 03:02 98.2 98.2 Physical Exam: PHYSICAL EXAM GENERAL: Alert, oriented x 3 female, ambulating in the room, in no acute distress. HEENT: Normocephalic, atraumatic, anicteric. No thrush. Oral mucosa moist. NECK: Supple. LUNGS: Clear bilaterally. HEART: S1, S2. ABDOMEN: Soft, obese. Bowel sounds present. EXTREMITIES: Edema present over both the lower extremities, left greater than right. Right lower extremity ulcer with dry scabs, chronic venous stasis changes present. Left lower extremity swollen, erythematous, edematous, painful to touch, going up to the thigh. DERMATOLOGIC: Warm and dry. No generalized rash except for above. Yeast in skin folds, pannus, groin area and the toes. NEUROLOGIC: Alert, oriented x 3, grossly nonfocal, ambulating in the room without difficulty. Medications: Inpatient Meds: Current Medications Medications (Trade) Dose Ordered Sig/[facility] Start Time Stop Time Status Last Admin Dose Admin Fentanyl Citrate (Fentanyl 2ml Vial) 50 mcg PRN Q2HR PRN 04/23/20 14:45 04/24/20 14:44 DC 04/24/20 02:25 50 MCG Fluconazole (Diflucan) 100 mg DAILY 04/24/20 11:00 04/25/20 08:27 100 MG Ketorolac Tromethamine (Toradol 30mg Vial) 30 mg PRN Q6HRS PRN 04/24/20 08:45 04/29/20 08:44 04/25/20 08:27 30 MG Lactobacillus Rhamnosus (Culturelle) 1 cap BID 04/24/20 21:00 04/25/20 08:27 1 CAP Ondansetron HCl (Zofran) 4 mg PRN Q8HRS PRN 04/23/20 14:45 04/24/20 14:44 DC 04/24/20 10:11 4 MG Pantoprazole Sodium (Protonix) 40 mg DAILYAC 04/25/20 07:30 04/25/20 08:27 40 MG Piperacillin Sod/ Tazobactam Sod 3.375 gm/Sodium Chloride 50 ml @ 100 mls/hr Q6HRS 04/24/20 12:00 04/25/20 05:55 100 MLS/HR Vancomycin HCl (Vanco Per Pharmacy) 1 each PRN DAILY PRN 04/24/20 08:45 04/24/20 10:49 1 EACH Vancomycin HCl (Vancomycin Trough Level) 1 each 1X ONCE 04/25/20 21:30 04/25/20 21:31 Vancomycin HCl 2 gm/Sodium Chloride 500 ml @ 250 mls/hr Q12H 04/24/20 22:00 04/25/20 08:26 250 MLS/HR Labs: Lab Laboratory Tests Test 04/25/20 07:10 White Blood Count 16.2 x10^3/uL (4.0-11.0) Red Blood Count 3.58 x10^6/uL (3.50-5.40) Hemoglobin 12.2 g/dL (12.0-15.5) Hematocrit 35.6 % (36.0-47.0) Mean Corpuscular Volume 99 fL (79-100) Mean Corpuscular Hemoglobin 34 pg (25-35) Mean Corpuscular Hemoglobin Concent 34 g/dL (31-37) Red Cell Distribution Width 14.8 % (11.5-14.5) Platelet Count 172 x10^3/uL (140-400) Neutrophils (%) (Auto) 80 % (31-73) Lymphocytes (%) (Auto) 8 % (24-48) Monocytes (%) (Auto) 12 % (0-9) Eosinophils (%) (Auto) 0 % (0-3) Basophils (%) (Auto) 0 % (0-3) Neutrophils # (Auto) 12.9 x10^3/uL (1.8-7.7) Lymphocytes # (Auto) 1.2 x10^3/uL (1.0-4.8) Monocytes # (Auto) 1.9 x10^3/uL (0.0-1.1) Eosinophils # (Auto) 0.1 x10^3/uL (0.0-0.7) Basophils # (Auto) 0.1 x10^3/uL (0.0-0.2) Sodium Level 131 mmol/L (136-145) Potassium Level 3.8 mmol/L (3.5-5.1) Chloride Level 98 mmol/L (98-107) Carbon Dioxide Level 22 mmol/L (21-32) Anion Gap 11 (6-14) Blood Urea Nitrogen 11 mg/dL (7-20) Creatinine 0.7 mg/dL (0.6-1.0) Estimated GFR (Cockcroft-Gault) 90.9 BUN/Creatinine Ratio 16 (6-20) Glucose Level 81 mg/dL (70-99) Calcium Level 8.3 mg/dL (8.5-10.1) Total Bilirubin 0.6 mg/dL (0.2-1.0) Aspartate Amino Transf (AST/SGOT) 89 U/L (15-37) Alanine Aminotransferase (ALT/SGPT) 64 U/L (14-59) Alkaline Phosphatase 186 U/L (46-116) Total Protein 7.2 g/dL (6.4-8.2) Albumin 1.6 g/dL (3.4-5.0) Albumin/Globulin Ratio 0.3 (1.0-1.7) Objective: Assessment: 1. Cellulitis, left lower extremity, severe. 2. Chronic venous ulcer, right lower extremity, stable, not infected. 3. Obesity. 4. Yeast in skin folds. 5. Leukocytosis. 6. Cirrhosis of the liver. 7. History of hepatitis C. 8. Schizophrenia and bipolar disorder. 9. Tobaccoism. 10. Morbid obesity. Plan: Plan of Care 1. Continue vancomycin. Monitor renal functions closely. 2. Continue Zosyn. fluconazole. 3. CT left lower extremity without 4. Monitor for antimicrobial toxicities. 5. Continue probiotics. 6. Local wound care as directed. 7. Monitor labs and cultures. 8. Continue supportive care. 9. Elevate left lower extremity. Discussed with nursing staff. RAMÍREZ MERA MD Apr 25, 2020 09:05
--- NOTE | 2020-04-25 09:35 | PDOC ---
[facility] PROGRESS NOTE Date of Service DOS: DATE: 04/25/20 TIME: 09:34 Chief Complaint Chief Complaint Severe left lower extremity cellulitis Reactive leukocytosis Acute electrolyte derangementhyponatremia, hypochloremia Elevated liver enzymes suggestive of fatty liver disease Super morbid obesity, BMI 56 Severe protein malnutrition Chronic lower extremity wounds Chronic venous insufficiency Peripheral vascular disease History of marijuana and tobacco abuse Admit to medicine for further management Appreciate ID recommendationscontinue Vanco and start IV Zosyn and follow-up with blood and urine cultures Wound care consult Lovenox for DVT prophylaxis Protonix GI prophylaxis ADA diet Full code Discussed with RN and SW Disposition inpatient management as above Surrogate decision maker is undesignated History of Present Illness History of Present Illness 04/25/2020 No acute events overnight. Patient remains afebrile. Patient seen and examined bedside. Lying comfortably in bed and using her cell phone. Patient does sleep throughout the day because she thinks it will drown out the voices in her head. Patient's chart, labs, images were reviewed and discussed with RN 04/24/2020 No acute events overnight. Patient remains afebrile. Patient seen and examined bedside. Dressings to her right lower extremity and there is redness and venous congestion and venous dramatic changes to her left lower extremity. Patient's chart, labs, images were reviewed and discussed with RN 44-year-old obese female who has chronic cellulitis, but now the left lower extremity is quite red. It is swollen. It is tender. Rates her pain at 7/10. States it has gotten worse over the past couple of weeks. She normally has some chronic pain, but it is much worse. She is on Bactrim and Diflucan at home, but seems to be failing outpatient antibiotics. [facility] ulcers on her legs. Vitals/I&O Vitals/I&O: Vital Signs Date Time Temp Pulse Resp B/P (MAP) Pulse Ox O2 Delivery O2 Flow Rate FiO2 04/25/20 07:00 82 18 126/70 (88) 94 Room Air 04/25/20 03:02 98.2 98.2 I & O 04/24/20 04/24/20 04/25/20 15:00 23:00 07:00 Intake Total 540 ml 240 ml Output Total 600 ml Balance 540 ml 240 ml -600 ml Physical Exam Physical Exam: GENERAL: Alert, oriented x 3 female, ambulating in the room, in no acute distress. HEENT: Normocephalic, atraumatic, anicteric. No thrush. Oral mucosa moist. NECK: Supple. LUNGS: Clear bilaterally. HEART: S1, S2. ABDOMEN: Soft, obese. Bowel sounds present. EXTREMITIES: Edema present over both the lower extremities, left greater than right. Right lower extremity ulcer with dry scabs, chronic venous stasis changes present. Left lower extremity swollen, erythematous, edematous, painful to touch, going up to the thigh. DERMATOLOGIC: Warm and dry. No generalized rash except for above. Yeast in skin folds, pannus, groin area and the toes. NEUROLOGIC: Alert, oriented x 3, grossly nonfocal, ambulating in the room without difficulty. General: Alert, Oriented X3, Cooperative Lungs: Clear Abdomen: Normal bowel sounds, Other (Obese) Skin: Other (Right lower extremity dressings clear dry and intact. Left lower extremity with severe cellulitis extending above the knee around the thigh) Labs Labs: Laboratory Tests Test 04/25/20 07:10 White Blood Count 16.2 x10^3/uL (4.0-11.0) Red Blood Count 3.58 x10^6/uL (3.50-5.40) Hemoglobin 12.2 g/dL (12.0-15.5) Hematocrit 35.6 % (36.0-47.0) Mean Corpuscular Volume 99 fL (79-100) Mean Corpuscular Hemoglobin 34 pg (25-35) Mean Corpuscular Hemoglobin Concent 34 g/dL (31-37) Red Cell Distribution Width 14.8 % (11.5-14.5) Platelet Count 172 x10^3/uL (140-400) Neutrophils (%) (Auto) 80 % (31-73) Lymphocytes (%) (Auto) 8 % (24-48) Monocytes (%) (Auto) 12 % (0-9) Eosinophils (%) (Auto) 0 % (0-3) Basophils (%) (Auto) 0 % (0-3) Neutrophils # (Auto) 12.9 x10^3/uL (1.8-7.7) Lymphocytes # (Auto) 1.2 x10^3/uL (1.0-4.8) Monocytes # (Auto) 1.9 x10^3/uL (0.0-1.1) Eosinophils # (Auto) 0.1 x10^3/uL (0.0-0.7) Basophils # (Auto) 0.1 x10^3/uL (0.0-0.2) Sodium Level 131 mmol/L (136-145) Potassium Level 3.8 mmol/L (3.5-5.1) Chloride Level 98 mmol/L (98-107) Carbon Dioxide Level 22 mmol/L (21-32) Anion Gap 11 (6-14) Blood Urea Nitrogen 11 mg/dL (7-20) Creatinine 0.7 mg/dL (0.6-1.0) Estimated GFR (Cockcroft-Gault) 90.9 BUN/Creatinine Ratio 16 (6-20) Glucose Level 81 mg/dL (70-99) Calcium Level 8.3 mg/dL (8.5-10.1) Total Bilirubin 0.6 mg/dL (0.2-1.0) Aspartate Amino Transf (AST/SGOT) 89 U/L (15-37) Alanine Aminotransferase (ALT/SGPT) 64 U/L (14-59) Alkaline Phosphatase 186 U/L (46-116) Total Protein 7.2 g/dL (6.4-8.2) Albumin 1.6 g/dL (3.4-5.0) Albumin/Globulin Ratio 0.3 (1.0-1.7) Assessment and Plan Assessmemt and Plan Problems Medical Problems: (1) Cellulitis of lower extremity Status: Acute Comment Review of Relevant I have reviewed the following items karl (where applicable) has been applied. Medications: Current Medications Medications (Trade) Dose Ordered Sig/[facility] Route PRN Reason Start Time Stop Time Status Last Admin Dose Admin Pantoprazole Sodium (Protonix) 40 mg DAILYAC PO 04/25/20 07:30 04/25/20 08:27 Piperacillin Sod/ Tazobactam Sod 3.375 gm/Sodium Chloride 50 ml @ 100 mls/hr Q6HRS IV 04/24/20 12:00 04/25/20 05:55 Fluconazole (Diflucan) 100 mg DAILY PO 04/24/20 11:00 04/25/20 08:27 Vancomycin HCl 2 gm/Sodium Chloride 500 ml @ 250 mls/hr Q12H IV 04/24/20 22:00 04/25/20 08:26 Lactobacillus Rhamnosus (Culturelle) 1 cap BID PO 04/24/20 21:00 04/25/20 08:27 Justifications for Admission Other Justification ASHLEY CHAMORRO MD Apr 25, 2020 09:35
[2020-04-25] MEDS: VANCOMYCIN PER PHARMACY MC PRN ×2 (10:58→23:44)
[2020-04-25 11:00] VITALS: BP 120/64
[2020-04-25 15:00] VITALS: BP 122/68
--- NOTE | 2020-04-25 15:12 | RAD ---
STUDY: CT of the left lower extremity without contrast INDICATION: Severe cellulitis COMPARISON: None. TECHNIQUE: Axial CT imaging of the left lower extremity performed without contrast. Coronal and sagit ha reformats were obtained. One or more of the following individualized dose reduction techniques were utilized for this examinat ion: 1. Automated exposure control 2. Adjustment of the mA and/or kV according to patient size 3. Use of iterative reconstruction technique. FINDINGS: Bones: Mild hip arthrosis on the left. No erosive change across the partially imaged sacroiliac joints. No a cute abnormality of the femur or tibia/fibula. No advanced arthrosis at the knee that there does appe ar to be a component of medial compartment joint space narrowing. Mild midfoot arthrosis. No acute ab normality seen throughout the foot or at the ankle. Soft tissues: Limited assessment for a drainable fluid collection without contrast. Circumferential skin thickening to varying extent throughout the thigh. Generalized subcutaneous fatty reticulation throughout the t high. The most confluent edema-like changes at the thigh are laterally along the distal half. There i s some thickening of the superficial fascia at the lateral aspect of the lower thigh. Edema/ill-defin ed fluid superficial to the biceps femoris muscle such as on image 222 series 3. No appreciable local ized edema or fluid collection within the thigh musculature. No soft tissue gas. Scattered vascular c alcifications. Skin thickening and subcutaneous edema becomes more pronounced below the knee through the ankle and m ainly along the dorsum of the foot. Edema/ill-defined fluid between the medial gastrocnemius and sole us such as on image 308 series 3. No localized muscular edema or appreciable fluid collection. Severa l phleboliths. Unremarkable CT appearance of the major tendons at the ankle. Right adnexal calcification on image 31 series 3. An ovarian dermoid is possible though there is no a djacent fat attenuation. Mildly prominent, likely reactive inguinal lymph nodes the largest on the le ft on image 117 series 3 measuring 2 cm short axis. IMPRESSION: 1. Skin thickening and extensive subcutaneous edema throughout the left lower leg progressing in sev erity below the knee. There are several areas of mild subfascial edema/ill-defined fluid and the supe rficial fascia is mildly thickened at a few locations. No soft tissue gas. Limited assessment for a d rainable fluid collection but no well delineated pocket of fluid attenuation is identified to suggest an abscess. It is difficult to distinguish bland edema from cellulitis but given history at least a component of the soft tissue findings presumably relate to cellulitis. The fascial/subfascial finding s are nonspecific and could be reactive to cellulitis though deep space infection cannot be excluded on this exam. Note is made that muscular attenuation is essentially the same throughout the leg going against active myositis. 2. No acute osseous abnormality. Only mild degenerative changes. 3. Reactive inguinal lymph nodes the largest on the left measuring up to 2 cm. Electronically signed by: ROHIT GU MD (04/25/2020 3:10 PM) [facility] [place]
--- NOTE | 2020-04-25 15:57 | NUR ---
patient is refusing to have wound care and assessment done. Addendum: 04/25/20 at 1558 by JACKY BAIRD RN RN Amended: Links added.
[2020-04-25 19:00] VITALS: BP 140/70
--- NOTE | 2020-04-25 19:40 | NUR ---
Minimal wound care was provided, patient did not want to cooperate much. Pictures taken.
[2020-04-25 23:00] VITALS: BP 139/82
--- NOTE | 2020-04-25 23:45 | NUR ---
Pharmacy Vancomycin Dosing Note S:Consulted to monitor and dose vancomycin started 04/23/20. O:PACO TREJO is a 44 year old F with Cellulitis . Height: 5 feet, 3 inches Weight: 145.4 kg [place] Body Weight: 52.40 Adjusted Body Weight: 89.60 Dosing Weight: Actual Other Antibiotics: zosyn 3.375 gm q6hrs fluconazole 100 mg po q24hs LABS: Last BUN: 11 Last Creatinine: 0.7 Creatinine Clearance: > 100 mL/min Last WBC: 16.2 Last Procalcitonin: -- Tmax (past 24 hours): 99 Microbiology: 04/23: blood cx pending I/O: 780 / 600 (5 voids) Drug Levels: Last Trough level: 8 on 04/25/20 at 2100 Last dose given 04/25/20 at 0826 Vancomycin Dosing: Loading Dose: 2000 mg x1 Dosing Weight: Actual Target Trough: 10-20 A: Based on: TROUGH P: 1. Begin Vancomycin 2000 mg IV q8h 2. Follow up Trough level on 04/26/20 at 2130 3. Pharmacy will continue to monitor, follow and adjust therapy as needed. TONY PRICE RPH, 04/25/205 Signed: 04/25/20 at 2345 by TONY PRICE RPH PHA
[2020-04-26] MEDS: PIPERACILLIN/TAZOBACTAM 3.375 GM in IV NORMAL SALINE 50ML 50 ML IV SCH ×4 (00:48→19:52)
[2020-04-26 03:00] VITALS: BP 136/78
[2020-04-26] MEDS: VANCOMYCIN 2 GM in IV NORMAL SALINE 500ML BAG 500 ML IV SCH (06:19)
[2020-04-26 07:00] VITALS: BP 134/73
[2020-04-26] MEDS: LACTOBACILLUS RHAMNOSUS GG 1 CAPSULE. PO SCH ×2 (08:04→19:51)
[2020-04-26] MEDS: FLUCONAZOLE 100 MG TABLET. PO SCH (08:04)
[2020-04-26] MEDS: PANTOPRAZOLE 40 MG TABLET.DR. PO SCH (08:04)
--- NOTE | 2020-04-26 08:19 | PDOC ---
Infectious Disease Note Subjective: Subjective Patient feels a little better Denies any fever, nausea, vomiting, diarrhea, abdominal pain Lower extremity swelling redness improved slightly Has started weeping Vital Signs: Vital Signs Vital Signs Date Time Temp Pulse Resp B/P (MAP) Pulse Ox O2 Delivery O2 Flow Rate FiO2 04/26/20 07:00 98.6 87 14 134/73 (93) 92 Room Air 98.6 Physical Exam: PHYSICAL EXAM GENERAL: Alert, oriented x 3 female, ambulating in the room, in no acute distress. HEENT: Normocephalic, atraumatic, anicteric. No thrush. Oral mucosa moist. NECK: Supple. LUNGS: Clear bilaterally. HEART: S1, S2. ABDOMEN: Soft, obese. Bowel sounds present. EXTREMITIES: Edema present over both the lower extremities, left greater than right. Right lower extremity ulcer with dry scabs, chronic venous stasis changes present. Left lower extremity swollen, erythematous, edematous, painful to touch, going up to the thigh. DERMATOLOGIC: Warm and dry. No generalized rash except for above. Yeast in skin folds, pannus, groin area and the toes. NEUROLOGIC: Alert, oriented x 3, grossly nonfocal, ambulating in the room without difficulty. Medications: Inpatient Meds: Current Medications Medications (Trade) Dose Ordered Sig/[facility] Start Time Stop Time Status Last Admin Dose Admin Fentanyl Citrate (Fentanyl 2ml Vial) 50 mcg PRN Q2HR PRN 04/23/20 14:45 04/24/20 14:44 DC 04/24/20 02:25 50 MCG Fluconazole (Diflucan) 100 mg DAILY 04/24/20 11:00 04/26/20 08:04 100 MG Ketorolac Tromethamine (Toradol 30mg Vial) 30 mg PRN Q6HRS PRN 04/24/20 08:45 04/29/20 08:44 04/25/20 20:30 30 MG Lactobacillus Rhamnosus (Culturelle) 1 cap BID 04/24/20 21:00 04/26/20 08:04 1 CAP Ondansetron HCl (Zofran) 4 mg PRN Q8HRS PRN 04/23/20 14:45 04/24/20 14:44 DC 04/24/20 10:11 4 MG Pantoprazole Sodium (Protonix) 40 mg DAILYAC 04/25/20 07:30 04/26/20 08:04 40 MG Piperacillin Sod/ Tazobactam Sod 3.375 gm/Sodium Chloride 50 ml @ 100 mls/hr Q6HRS 04/24/20 12:00 04/26/20 05:36 100 MLS/HR Vancomycin HCl (Vanco Per Pharmacy) 1 each PRN DAILY PRN 04/24/20 08:45 04/25/20 23:44 1 EACH Vancomycin HCl (Vancomycin Trough Level) 1 each 1X ONCE 04/26/20 21:30 04/26/20 21:31 Vancomycin HCl 2 gm/Sodium Chloride 500 ml @ 250 mls/hr Q8HRS 04/25/20 22:00 04/26/20 06:19 250 MLS/HR Labs: Lab Laboratory Tests Test 04/25/20 21:00 Vancomycin Level Trough 8.0 mcg/mL (10.0-20.0) Vancomycin Last Dose Date 04/25/2020 Vancomycin Last Dose Time [address] LLE IMPRESSION: 1. Skin thickening and extensive subcutaneous edema throughout the left lower leg progressing in severity below the knee. There are several areas of mild subfascial edema/ill-defined fluid and the superficial fascia is mildly thi ckened at a few locations. No soft tissue gas. Limited assessment for a drainable fluid collection but no well delineated pocket of fluid attenuation is identified to suggest an abscess. It is difficult to distinguish bland edema from cellulitis but given history at least a component of the soft tissue findings presumably relate to cellulitis. The fascial/subfascial findings are no nspecific and could be reactive to cellulitis though deep space infection cannot be excluded on this exam. Note is made that muscular attenuation is essentially the same throughout the leg going against active myositis. 2. No acute osseous abnormality. Only mild degenerative changes. 3. Reactive inguinal lymph nodes the largest on the left measuring up to 2 cm. Objective: Assessment: 1. Cellulitis, left lower extremity, severe. CT negative for abscess 2. Chronic venous ulcer, right lower extremity, stable, not infected. 3. Obesity. 4. Yeast in skin folds. 5. Leukocytosis. 6. Cirrhosis of the liver. 7. History of hepatitis C. 8. Schizophrenia and bipolar disorder. 9. Tobaccoism. 10. Morbid obesity. Plan: Plan of Care DC vancomycin Start daptomycin Continue Zosyn Change fluconazole to micafungin CT left lower extremity without noted Encouraged to elevate left lower extremity Continue local wound care as directed. Monitor labs and cultures. Continue supportive care. Discussed with nursing staff. RAMÍREZ MERA MD Apr 26, 2020 08:19
--- NOTE | 2020-04-26 09:13 | PDOC ---
[employer] PROGRESS NOTE Date of Service DOS: DATE: 04/26/20 TIME: 09:11 Chief Complaint Chief Complaint A/P: Left lower extremity cellulitis - will start empirically on vancomycin and zosyn given her prior improvement on this therapy. Wound care to see. Will consult ID Right groin intertrigo - topical and oral antifungals Cirrhosis of liver - stable Chronic obstructive pulmonary disease - prn albuterol Gastroesophageal reflux disease - PPI Transaminitis - previously noted, will check LFTs and INR Smoker - counseled on cessation Schizophrenia - on monthly depo abilify, given 04/07/2020 Reactive leukocytosis - SIRS with cellulitis, by definition, sepsis POA Acute electrolyte derangementhyponatremia, hypochloremia Super morbid obesity, BMI 56 Severe protein malnutrition Chronic lower extremity wounds Chronic venous insufficiency Peripheral vascular disease History of marijuana and tobacco abuse FEN - General diet PPX - lovenox CODE - FULL Dispo - inpatient for Cellulitis failing outpatient treatment Admit to medicine for further management Appreciate ID recommendationscontinue Vanco and start IV Zosyn and follow-up with blood and urine cultures Wound care consult Lovenox for DVT prophylaxis Protonix GI prophylaxis ADA diet Full code Discussed with RN and SW Disposition inpatient management as above Surrogate decision maker is undesignated History of Present Illness History of Present Illness Ms Grider is a 44 yo F w/ PMHx Hep C, COPD/asthma, gastroesophageal reflux disease, cirrhosis of liver, schizophrenia who presents directly from wound care center with right lower extremity swelling and redness up to her groin as well as multiple RLE ulcers. The patient denied any fever, denied any nausea, vomiting, diarrhea, chest pain, shortness of breath, abdominal pain, urinary sym ptoms or bowel symptoms. Rates her pain at 7/10. States it has gotten worse over the past couple of weeks. She normally has some chronic pain, but it is much worse. She is on Bactrim and Diflucan at home, but seems to be failing outpatient antibiotics. [facility] for her chronic venous ulcers on her legs. She was seen in wound clinic and placed on cipro for 2 rounds, then given diflucan on 09/16. She was on bactrim last month and was admitted to inpatient back in July for cellulitis of her RLE and abdomen. She has failed outpatient therapy. Admitted directly for further treatment with IV antibiotics. 04/24: No acute events overnight. Patient remains afebrile. Patient seen and examined bedside. Dressings to her right lower extremity and there is redness and venous congestion and venous dramatic changes to her left lower extremity. 04/25: No acute events overnight. Patient remains afebrile. Patient seen and examined bedside. Lying comfortably in bed and using her cell phone. Patient does sleep throughout the day because she thinks it will drown out the voices in her head. Afebrile. No overnight events. Leg about the same. No chest pain or shortness of breath. Vitals/I&O Vitals/I&O: Vital Signs Date Time Temp Pulse Resp B/P (MAP) Pulse Ox O2 Delivery O2 Flow Rate FiO2 04/26/20 07:00 98.6 87 14 134/73 (93) 92 Room Air 98.6 I & O 04/25/20 04/25/20 04/26/20 15:00 23:00 07:00 Intake Total 1260 ml 200 ml 250 ml Balance 1260 ml 200 ml 250 ml Physical Exam Physical Exam: GENERAL: Alert, oriented x 3 female, ambulating in the room, in no acute distress. HEENT: Normocephalic, atraumatic, anicteric. No thrush. Oral mucosa moist. NECK: Supple. LUNGS: Clear bilaterally. HEART: S1, S2. ABDOMEN: Soft, obese. Bowel sounds present. EXTREMITIES: Edema present over both the lower extremities, left greater than right. Right lower extremity ulcer with dry scabs, chronic venous stasis changes present. Left lower extremity swollen, erythematous, edematous, painful to touch, going up to the thigh. DERMATOLOGIC: Warm and dry. No generalized rash except for above. Yeast in skin folds, pannus, groin area and the toes. NEUROLOGIC: Alert, oriented x 3, grossly nonfocal, ambulating in the room without difficulty. General: Alert, Oriented X3, Cooperative Lungs: Clear Abdomen: Normal bowel sounds, Other (Obese) Skin: Other (Right lower extremity dressings clear dry and intact. Left lower extremity with severe cellulitis extending above the knee around the thigh) Labs Labs: Laboratory Tests Test 04/25/20 21:00 Vancomycin Level Trough 8.0 mcg/mL (10.0-20.0) Vancomycin Last Dose Date 04/25/2020 Vancomycin Last Dose Time 1000 Assessment and Plan Assessmemt and Plan Problems Medical Problems: (1) Cellulitis of lower extremity Status: Acute Comment Review of Relevant I have reviewed the following items karl (where applicable) has been applied. Medications: Current Medications Medications (Trade) Dose Ordered Sig/Terrell Route PRN Reason Start Time Stop Time Status Last Admin Dose Admin Vancomycin HCl (Vancomycin Trough Level) 1 each 1X ONCE MC 04/25/20 21:30 04/25/20 21:31 DC 04/25/20 21:30 Vancomycin HCl 2 gm/Sodium Chloride 500 ml @ 250 mls/hr Q8HRS IV 04/25/20 22:00 04/26/20 06:19 Justifications for Admission Other Justification JAMEEL HOOKER MD Apr 26, 2020 09:13
[2020-04-26] MEDS: VANCOMYCIN PER PHARMACY MC PRN (09:48)
--- NOTE | 2020-04-26 09:49 | NUR ---
SW following. Discussed with RN, pt from home alone, room air, cardiac diet. Pt follows at the wound clinic. Pt on 3 IV abx. RN advised no SW needs at this time. SW will continue to follow.
[2020-04-26] MEDS ORDERED: DAPTOmycin (GENERIC) IVPB 340 MG in IV NORMAL SALINE 50ML 50 ML IV SCH (10:00)
[2020-04-26 11:00] VITALS: BP 140/81
[2020-04-26] MEDS ORDERED: ALBUTEROL SULFATE 2.5 MG/3 ML NEBU. INH PRN (11:00)
[2020-04-26] MEDS: MICAFUNGIN 100 MG in IV DEXTROSE 5% 100ML 100 ML IV SCH (11:44)
[2020-04-26] MEDS: LOPERAMIDE 2 MG CAPSULE PO SCH ×2 (11:44→19:51)
[2020-04-26] MEDS: CETIRIZINE HCL 10 MG TABLET. PO SCH (12:00)
--- NOTE | 2020-04-26 12:58 | NUR ---
Patient does not have IV access. Unable to administered IV antibiotics. Notified.
[2020-04-26] MEDS ORDERED: LIDOCAINE WITH 8.4% SOD BICARB 3 ML DISP.SYRIN. ONE (14:05)
[2020-04-26] MEDS ORDERED: LIDOCAINE WITH 8.4% SOD BICARB 3 ML DISP.SYRIN. INJ ONE (14:30)
[2020-04-26] MEDS: DAPTOmycin (GENERIC) IVPB 340 MG in IV NORMAL SALINE 50ML 50 ML IV SCH (16:16)
--- NOTE | 2020-04-26 17:03 | NUR ---
Wound/Ostomy Care Wound Type/Assessment: VLU to RLE and cellulitis to left leg. Pt is currently being seen in [facility] by Dr Miles. Left leg is reddened ans swollen from foot to thigh with open and intact blisters. RLE is reddened, brawny with slough. Treatment Recommendations/Plan: Cleansed wounds and applied honey, xeroform, ABD and kerlix to RLE. LLE is ABD and kerlix only. Recommend to change every 2-3 days as needed for drainage. Education provided: POC and PU prevention Offloading surface/device: na Recommended Referrals/Tests: na Discharge Recommendations for dressings: Continue with dressings as above noted. Follow up in [facility] after discharge.
[2020-04-26 19:00] VITALS: BP 151/80
[2020-04-26] MEDS: NYSTATIN TOPICAL POWDER 15GM BOTTLE. TP SCH (19:51)
[2020-04-26] MEDS: PSYLLIUM HUSK (SUGAR FREE) 1 PKT PACKET PO SCH (19:51)
[2020-04-26] MEDS: KETOROLAC 30 MG/ML VIAL. IVP PRN (19:52)
[2020-04-26 22:43] VITALS: BP 154/74
[2020-04-27 02:50] VITALS: BP 138/75
[2020-04-27] MEDS: PIPERACILLIN/TAZOBACTAM 3.375 GM in IV NORMAL SALINE 50ML 50 ML IV SCH ×4 (05:56→17:31)
[2020-04-27 06:25] LABS: BASO % 0 % (0-3); EOS # 0.1 x10^3/uL (0.0-0.7); EOS % 1 % (0-3); HEMATOCRIT 32.5 % (36.0-47.0); HEMOGLOBIN 10.8 g/dL (12.0-15.5); LYMPH # 0.7 x10^3/uL (1.0-4.8); LYMPH % 6 % (24-48); MEAN CORPUSCULAR HEMOGLOBIN 33 pg (25-35); MEAN CORPUSCULAR HGB CONC 33 g/dL (31-37); MEAN CORPUSCULAR VOLUME 100 fL (79-100); MONO # 2.1 x10^3/uL (0.0-1.1); MONO % 17 % (0-9); NEUT # 9.4 x10^3/uL (1.8-7.7); NEUT % 77 % (31-73); PLATELET COUNT 192 x10^3/uL (140-400); RED BLOOD COUNT 3.24 x10^6/uL (3.50-5.40); RED CELL DISTRIBUTION WIDTH 14.9 % (11.5-14.5); WHITE BLOOD COUNT 12.3 x10^3/uL (4.0-11.0)
[2020-04-27 06:38] LABS: ALBUMIN 1.5 g/dL (3.4-5.0); ALBUMIN/GLOBULIN RATIO 0.3 (1.0-1.7); CALCIUM 8.9 mg/dL (8.5-10.1); CREATININE 0.7 mg/dL (0.6-1.0); GFR 90.9; POTASSIUM 4.4 mmol/L (3.5-5.1); TOTAL BILIRUBIN 0.4 mg/dL (0.2-1.0); TOTAL PROTEIN 7.1 g/dL (6.4-8.2)
[2020-04-27 07:00] VITALS: BP 154/67
--- NOTE | 2020-04-27 07:52 | PDOC ---
[employer] [facility] PROGRESS NOTE Date of Service DOS: DATE: 04/27/20 TIME: 07:51 Chief Complaint Chief Complaint A/P: Left lower extremity cellulitis - will start empirically on vancomycin and zosyn given her prior improvement on this therapy. Wound care to see. Will consult ID Right groin intertrigo - topical and oral antifungals Cirrhosis of liver - stable Chronic obstructive pulmonary disease - prn albuterol Gastroesophageal reflux disease - PPI Transaminitis - previously noted, will check LFTs and INR Smoker - counseled on cessation Schizophrenia - on monthly depo abilify, given 04/07/2020 Reactive leukocytosis - SIRS with cellulitis, by definition, sepsis POA Acute electrolyte derangementhyponatremia, hypochloremia Super morbid obesity, BMI 56 Severe protein malnutrition Chronic lower extremity wounds Chronic venous insufficiency Peripheral vascular disease History of marijuana and tobacco abuse FEN - General diet PPX - lovenox CODE - FULL Dispo - inpatient for Cellulitis failing outpatient treatment Admit to medicine for further management Appreciate ID recommendationscontinue Vanco and start IV Zosyn and follow-up with blood and urine cultures Wound care consult Lovenox for DVT prophylaxis Protonix GI prophylaxis ADA diet Full code Discussed with RN and SW Disposition inpatient management as above Surrogate decision maker is undesignated History of Present Illness History of Present Illness Ms Grider is a 44 yo F w/ PMHx Hep C, COPD/asthma, gastroesophageal reflux disease, cirrhosis of liver, schizophrenia who presents directly from wound care center with right lower extremity swelling and redness up to her groin as well as multiple RLE ulcers. The patient denied any fever, denied any nausea, vomiting, diarrhea, chest pain, shortness of breath, abdominal pain, urinary sym ptoms or bowel symptoms. Rates her pain at 7/10. States it has gotten worse over the past couple of weeks. She normally has some chronic pain, but it is much worse. She is on Bactrim and Diflucan at home, but seems to be failing outpatient antibiotics. She [facility] to [facility] for her chronic venous ulcers on her legs. She was seen in wound clinic and placed on cipro for 2 rounds, then given diflucan on 09/16. She was on bactrim last month and was admitted to inpatient back in July for cellulitis of her RLE and abdomen. She has failed outpatient therapy. Admitted directly for further treatment with IV antibiotics. 04/24: No acute events overnight. Patient remains afebrile. Patient seen and examined bedside. Dressings to her right lower extremity and there is redness and venous congestion and venous dramatic changes to her left lower extremity. 04/25: No acute events overnight. Patient remains afebrile. Patient seen and examined bedside. Lying comfortably in bed and using her cell phone. Patient does sleep throughout the day because she thinks it will drown out the voices in her head. 04/26: Afebrile. No overnight events. Leg about the same. No chest pain or shortness of breath. PICC inserted for multiple failed IV attempts. WBC down to 12.3. Rapid COVID-19 negative. Afebrile. LFTs slightly elevated. Denies any fever, nausea, vomiting, diarrhea, abdominal pain. Leg still swollen and painful Vitals/I&O Vitals/I&O: Vital Signs Date Time Temp Pulse Resp B/P (MAP) Pulse Ox O2 Delivery O2 Flow Rate FiO2 04/27/20 07:00 98.1 83 18 154/67 (96) 97 Room Air 98.1 I & O 04/26/20 04/26/20 04/27/20 15:00 23:00 07:00 Intake Total 180 ml 1000 ml 550 ml Output Total 600 ml Balance 180 ml 1000 ml -50 ml Physical Exam Physical Exam: GENERAL: Alert, oriented x 3 female, ambulating in the room, in no acute distress. HEENT: Normocephalic, atraumatic, anicteric. No thrush. Oral mucosa moist. NECK: Supple. LUNGS: Clear bilaterally. HEART: S1, S2. ABDOMEN: Soft, obese. Bowel sounds present. EXTREMITIES: Edema present over both the lower extremities, left greater than right. Right lower extremity ulcer with dry scabs, chronic venous stasis changes present. Left lower extremity swollen, erythematous, edematous, painful to touch, going up to the thigh. DERMATOLOGIC: Warm and dry. No generalized rash except for above. Yeast in skin folds, pannus, groin area and the toes. NEUROLOGIC: Alert, oriented x 3, grossly nonfocal, ambulating in the room without difficulty. General: Alert, Oriented X3, Cooperative Lungs: Clear Abdomen: Normal bowel sounds, Other (Obese) Skin: Other (Right lower extremity dressings clear dry and intact. Left lower extremity with severe cellulitis extending above the knee around the thigh) Labs Labs: Laboratory Tests Test 04/26/20 13:38 04/27/20 05:55 SARS-CoV-2 Antigen (Rapid) Negative (NEGATIVE) White Blood Count 12.3 x10^3/uL (4.0-11.0) Red Blood Count 3.24 x10^6/uL (3.50-5.40) Hemoglobin 10.8 g/dL (12.0-15.5) Hematocrit 32.5 % (36.0-47.0) Mean Corpuscular Volume 100 fL (79-100) Mean Corpuscular Hemoglobin 33 pg (25-35) Mean Corpuscular Hemoglobin Concent 33 g/dL (31-37) Red Cell Distribution Width 14.9 % (11.5-14.5) Platelet Count 192 x10^3/uL (140-400) Neutrophils (%) (Auto) 77 % (31-73) Lymphocytes (%) (Auto) 6 % (24-48) Monocytes (%) (Auto) 17 % (0-9) Eosinophils (%) (Auto) 1 % (0-3) Basophils (%) (Auto) 0 % (0-3) Neutrophils # (Auto) 9.4 x10^3/uL (1.8-7.7) Lymphocytes # (Auto) 0.7 x10^3/uL (1.0-4.8) Monocytes # (Auto) 2.1 x10^3/uL (0.0-1.1) Eosinophils # (Auto) 0.1 x10^3/uL (0.0-0.7) Basophils # (Auto) 0.0 x10^3/uL (0.0-0.2) Sodium Level 135 mmol/L (136-145) Potassium Level 4.4 mmol/L (3.5-5.1) Chloride Level 103 mmol/L (98-107) Carbon Dioxide Level 26 mmol/L (21-32) Anion Gap 6 (6-14) Blood Urea Nitrogen 14 mg/dL (7-20) Creatinine 0.7 mg/dL (0.6-1.0) Estimated GFR (Cockcroft-Gault) 90.9 BUN/Creatinine Ratio 20 (6-20) Glucose Level 104 mg/dL (70-99) Calcium Level 8.9 mg/dL (8.5-10.1) Total Bilirubin 0.4 mg/dL (0.2-1.0) Aspartate Amino Transf (AST/SGOT) 81 U/L (15-37) Alanine Aminotransferase (ALT/SGPT) 60 U/L (14-59) Alkaline Phosphatase 231 U/L (46-116) Creatine Kinase 23 U/L (26-192) Total Protein 7.1 g/dL (6.4-8.2) Albumin 1.5 g/dL (3.4-5.0) Albumin/Globulin Ratio 0.3 (1.0-1.7) Assessment and Plan Assessmemt and Plan Problems Medical Problems: (1) Cellulitis of lower extremity Status: Acute Comment Review of Relevant I have reviewed the following items karl (where applicable) has been applied. Medications: Current Medications Medications (Trade) Dose Ordered Sig/Terrell Route PRN Reason Start Time Stop Time Status Last Admin Dose Admin Micafungin Sodium 100 mg/Dextrose 100 ml @ 100 mls/hr Q24H IV 04/26/20 10:00 04/26/20 11:44 Daptomycin 340 mg/ Sodium Chloride 50 ml @ 100 mls/hr Q24H IV 04/26/20 12:00 04/26/20 16:16 Loperamide HCl (Imodium) 2 mg BID PO 04/26/20 11:00 04/26/20 19:51 Psyllium Hydrophilic Mucilloid (Metamucil Fiber Packet) 1 pkt QHS PO 04/26/20 21:00 04/26/20 19:51 Lidocaine HCl (Buffered Lidocaine 1%) 3 ml 1X ONCE INJ 04/26/20 14:30 04/26/20 14:31 DC 04/26/20 15:00 Nystatin (Nystop) 1 lian BID TP 04/26/20 21:00 04/26/20 19:51 Justifications for Admission Other Justification JAMEEL HOOKER MD Apr 27, 2020 07:52
[2020-04-27] MEDS: CETIRIZINE HCL 10 MG TABLET. PO SCH (08:30)
[2020-04-27] MEDS: LOPERAMIDE 2 MG CAPSULE PO SCH ×2 (08:30→21:09)
[2020-04-27] MEDS: PANTOPRAZOLE 40 MG TABLET.DR. PO SCH (08:30)
[2020-04-27] MEDS: LACTOBACILLUS RHAMNOSUS GG 1 CAPSULE. PO SCH ×2 (08:30→21:09)
[2020-04-27] MEDS: NYSTATIN TOPICAL POWDER 15GM BOTTLE. TP SCH ×2 (08:31→21:00)
[2020-04-27] MEDS: KETOROLAC 30 MG/ML VIAL. IVP PRN (08:31)
--- NOTE | 2020-04-27 09:25 | PDOC ---
Infectious Disease Note Subjective: Subjective Patient cont to have pain and swelling in the LLE Denies any fever, nausea, vomiting, diarrhea, abdominal pain Vital Signs: Vital Signs Vital Signs Date Time Temp Pulse Resp B/P (MAP) Pulse Ox O2 Delivery O2 Flow Rate FiO2 04/27/20 07:35 Room Air 04/27/20 07:00 98.1 83 18 154/67 (96) 97 98.1 Physical Exam: PHYSICAL EXAM GENERAL: Alert, oriented x 3 female, ambulating in the room, in no acute distress. HEENT: Normocephalic, atraumatic, anicteric. No thrush. Oral mucosa moist. NECK: Supple. LUNGS: Clear bilaterally. HEART: S1, S2. ABDOMEN: Soft, obese. Bowel sounds present. EXTREMITIES: Edema present over both the lower extremities, left greater than right. Right lower extremity ulcer with dry scabs, chronic venous stasis changes present. Left lower extremity swollen, erythematous, edematous, painful to touch, going up to the thigh. DERMATOLOGIC: Warm and dry. No generalized rash except for above. Yeast in skin folds, pannus, groin area and the toes. NEUROLOGIC: Alert, oriented x 3, grossly nonfocal, ambulating in the room without difficulty. Medications: Inpatient Meds: Current Medications Medications (Trade) Dose Ordered Sig/[facility] Start Time Stop Time Status Last Admin Dose Admin Albuterol Sulfate (Ventolin Neb Soln) 2.5 mg PRN Q6HRS PRN 04/26/20 11:00 Cetirizine HCl (ZyrTEC) 10 mg DAILY 04/26/20 12:00 04/27/20 08:30 10 MG Daptomycin 340 mg/ Sodium Chloride 50 ml @ 100 mls/hr Q24H 04/26/20 12:00 04/26/20 16:16 100 MLS/HR Fentanyl Citrate (Fentanyl 2ml Vial) 50 mcg PRN Q2HR PRN 04/23/20 14:45 04/24/20 14:44 DC 04/24/20 02:25 50 MCG Fluconazole (Diflucan) 100 mg DAILY 04/24/20 11:00 04/26/20 09:53 DC 04/26/20 08:04 100 MG Ketorolac Tromethamine (Toradol 30mg Vial) 30 mg PRN Q6HRS PRN 04/24/20 08:45 04/29/20 08:44 04/27/20 08:31 30 MG Lactobacillus Rhamnosus (Culturelle) 1 cap BID 04/24/20 21:00 04/27/20 08:30 1 CAP Lidocaine HCl (Buffered Lidocaine 1%) 3 ml 1X ONCE 04/26/20 14:30 04/26/20 14:31 DC 04/26/20 15:00 5 ML Loperamide HCl (Imodium) 2 mg BID 04/26/20 11:00 04/27/20 08:30 2 MG Micafungin Sodium 100 mg/Dextrose 100 ml @ 100 mls/hr Q24H 04/26/20 10:00 04/26/20 11:44 100 MLS/HR Nystatin (Nystop) 1 lian BID 04/26/20 21:00 04/27/20 08:31 1 LIAN Olanzapine (ZyPREXA ZYDIS) 5 mg PRN BID PRN 04/26/20 11:00 Ondansetron HCl (Zofran) 4 mg PRN Q8HRS PRN 04/23/20 14:45 04/24/20 14:44 DC 04/24/20 10:11 4 MG Pantoprazole Sodium (Protonix) 40 mg DAILYAC 04/25/20 07:30 04/27/20 08:30 40 MG Piperacillin Sod/ Tazobactam Sod 3.375 gm/Sodium Chloride 50 ml @ 100 mls/hr Q6HRS 04/24/20 12:00 04/27/20 05:56 100 MLS/HR Psyllium Hydrophilic Mucilloid (Metamucil Fiber Packet) 1 pkt QHS 04/26/20 21:00 04/26/20 19:51 1 PKT Vancomycin HCl (Vanco Per Pharmacy) 1 each PRN DAILY PRN 04/24/20 08:45 04/26/20 09:55 DC 04/26/20 09:48 1 EACH Vancomycin HCl (Vancomycin Trough Level) 1 each 1X ONCE 04/26/20 21:30 04/26/20 21:31 Cancel Vancomycin HCl 2 gm/Sodium Chloride 500 ml @ 250 mls/hr Q8HRS 04/25/20 22:00 04/26/20 09:53 DC 04/26/20 06:19 250 MLS/HR Labs: Lab Laboratory Tests Test 04/26/20 13:38 04/27/20 05:55 SARS-CoV-2 Antigen (Rapid) Negative (NEGATIVE) White Blood Count 12.3 x10^3/uL (4.0-11.0) Red Blood Count 3.24 x10^6/uL (3.50-5.40) Hemoglobin 10.8 g/dL (12.0-15.5) Hematocrit 32.5 % (36.0-47.0) Mean Corpuscular Volume 100 fL (79-100) Mean Corpuscular Hemoglobin 33 pg (25-35) Mean Corpuscular Hemoglobin Concent 33 g/dL (31-37) Red Cell Distribution Width 14.9 % (11.5-14.5) Platelet Count 192 x10^3/uL (140-400) Neutrophils (%) (Auto) 77 % (31-73) Lymphocytes (%) (Auto) 6 % (24-48) Monocytes (%) (Auto) 17 % (0-9) Eosinophils (%) (Auto) 1 % (0-3) Basophils (%) (Auto) 0 % (0-3) Neutrophils # (Auto) 9.4 x10^3/uL (1.8-7.7) Lymphocytes # (Auto) 0.7 x10^3/uL (1.0-4.8) Monocytes # (Auto) 2.1 x10^3/uL (0.0-1.1) Eosinophils # (Auto) 0.1 x10^3/uL (0.0-0.7) Basophils # (Auto) 0.0 x10^3/uL (0.0-0.2) Sodium Level 135 mmol/L (136-145) Potassium Level 4.4 mmol/L (3.5-5.1) Chloride Level 103 mmol/L (98-107) Carbon Dioxide Level 26 mmol/L (21-32) Anion Gap 6 (6-14) Blood Urea Nitrogen 14 mg/dL (7-20) Creatinine 0.7 mg/dL (0.6-1.0) Estimated GFR (Cockcroft-Gault) 90.9 BUN/Creatinine Ratio 20 (6-20) Glucose Level 104 mg/dL (70-99) Calcium Level 8.9 mg/dL (8.5-10.1) Total Bilirubin 0.4 mg/dL (0.2-1.0) Aspartate Amino Transf (AST/SGOT) 81 U/L (15-37) Alanine Aminotransferase (ALT/SGPT) 60 U/L (14-59) Alkaline Phosphatase 231 U/L (46-116) Creatine Kinase 23 U/L (26-192) Total Protein 7.1 g/dL (6.4-8.2) Albumin 1.5 g/dL (3.4-5.0) Albumin/Globulin Ratio 0.3 (1.0-1.7) Micro CT LLE IMPRESSION: 1. Skin thickening and extensive subcutaneous edema throughout the left lower leg progressing in severity below the knee. There are several areas of mild subfascial edema/ill-defined fluid and the superficial fascia is mildly thickened at a few locations. No soft tissue gas. Limited assessment for a drainable fluid collection but no well delineated pocket of fluid attenuation is identified to suggest an abscess. It is difficult to distinguish bland edema from cellulitis but given history at least a component of the soft tissue findings presumably relate to cellulitis. The fascial/subfascial findings are nonspecific and could be reactive to cellulitis though deep space infection cannot be excluded on this exam. Note is made that muscular attenuation is essentially the same throughout the leg going against active myositis. 2. No acute osseous abnormality. Only mild degenerative changes. 3. Reactive inguinal lymph nodes the largest on the left measuring up to 2 cm. Objective: Assessment: 1. Cellulitis, left lower extremity, severe. CT negative for abscess 2. Chronic venous ulcer, right lower extremity, stable, not infected. 3. Obesity. 4. Yeast in skin folds. 5. Leukocytosis. 6. Cirrhosis of the liver. 7. History of hepatitis C. 8. Schizophrenia and bipolar disorder. 9. Tobaccoism. 10. Morbid obesity. Plan: Plan of Care Cont daptomycin,Zosyn, micafungin Encouraged to elevate left lower extremity;pt does not comply Continue local wound care as directed. Monitor labs and cultures. Continue supportive care. Discussed with nursing staff. RAMÍREZ MERA MD Apr 27, 2020 09:25
--- NOTE | 2020-04-27 09:36 | NUR ---
SW following. Discussed with RN, pt from home alone, room air, cardiac diet, rapid COVID-19 negative. Pt on IV abx, having wound care. Pt not ready for discharge. SW will continue to follow.
[2020-04-27] MEDS: MICAFUNGIN 100 MG in IV DEXTROSE 5% 100ML 100 ML IV SCH (09:41)
[2020-04-27 11:00] VITALS: BP 146/73
[2020-04-27] MEDS: DAPTOmycin (GENERIC) IVPB 340 MG in IV NORMAL SALINE 50ML 50 ML IV SCH (11:44)
[2020-04-27] MEDS ORDERED: LIDOCAINE 2% VISCOUS 15 ML SOLUTION. SWSW ONE (11:45)
--- NOTE | 2020-04-27 12:03 | NUR ---
Noon dose of Lovenox held due to bedside LE wound derbridement.
--- NOTE | 2020-04-27 12:30 | NUR ---
Wound/Ostomy Care Wound Type/Assessment: VLU to RLE and cellulitis with blistering to left foot, ankle and leg. Pt is currently being seen in [facility] by Dr Miles on a weekly basis, but Dr. Rueda is at bedside to assess wounds. Left leg is reddened and swollen from foot to thigh with open and intact blisters. RLE is reddened, with brawny induration, hemosidirin staining, with significant slough in the wound beds. Treatment Recommendations/Plan: Cleansed R leg wounds, topical viscous lidocaine applied prior to Dr. Rueda debriding, see his separate dictation. Pt tolerated procedure well, after recleaning and photographing R leg, applied Medihoney, Xeroform, ABD and kerlix to RLE. LLE blisters and devitalized tissue removed by Dr. Rueda, redressed with ABDs and kerlix to absorb drainage, Medigrip Size G applied to L leg and Size E to R. Left upper thigh area reddened and weeping, area cleaned and dressed with ABD and MARCELLA wrap, instructed pt to remove and have RN rewrap daily and if MARCELLA rolls or tightens, pt v/u. Recommend to change daily or every other day, as needed for drainage management. Education provided: WC POC, leg elevation, dietary, and PU prevention Offloading surface/device: pt is currently on a P500 bed Recommended Referrals/Tests: na Discharge Recommendations for dressings: Continue with dressings as above noted. Will continue to follow inpatient, and pt to follow up in [facility] after discharge.
--- NOTE | 2020-04-27 12:51 | RAD ---
Exam: Fluoroscopic and ultrasound guided right percutaneous inserted central venous catheter placement 04/27/2020 10:47 AM .Indication: terminal operator antibiotics/TRANSPORT CALLED @ 1422 Technique: Informed oral and written consent were obtained. The right upper extremity was prepped and draped using sterile barrier technique. All elements of maximal sterile barrier technique including the use of a cap, mask, sterile gown, sterile gloves, large sterile sheet, appropriate hand hygiene, and 2% chlorhexidine for cutaneous antisepsis (or acceptable alternative antiseptic per current guidelines) were followed for this procedure.. Real-time ultrasound demonstrated a patent right basilic vein which was prepped and draped in usual sterile fashion. 1% lidocaine used for local anesthesia. Using real-time ultrasound guidance the access needle percutaneously punctured the selected right basilic vein. Reference ultrasound images were saved to the medical record. A guidewire was advanced through the needle to the cavoatrial junction, and a peel-away sheath placed. The catheter was cut to length and inserted through the peel-away sheath such that its tip is at the cavoatrial junction. The wire and sheath were removed, and the catheter secured in place, and a sterile dressing was applied. Catheter was found to flush and aspirate normally. No immediate complications are identified. FLUORO TIME: 0.4 DOSE AREA PRODUCT: 2 Gycm2 Impression: Ultrasound and fluoroscopically guided placement of a right upper extremity PICC line.
--- NOTE | 2020-04-27 13:04 | PDOC ---
Date of Service: DATE: 04/27/20 TIME: 12:53 Progress Note: Patient well-known to the wound care center is seen in weekly follow-up as inpatient for lower extremity cellulitis. Wound care center provides lower extremity venous insufficiency ulceration care complicated by lymphedema and comorbidities of morbid obesity and protein malnutrition. Patient recently admitted for left lower extremity cellulitis she reports doing much better at this time with improved pain, redness and reports no concurrent fever or chills. She reports significant, copious drainage particularly on the left. She is currently receiving IV antibiotic therapy. She is demonstrating no distress and appears comfortable in supine positioning. Bilateral lower extremity wounds are reviewed and gross measurements detailed at 12 cm x 25 cm x .2 cm on the left and 7.5 cm x 13.5 cm with deepest portion of 0.5 cm on the right. Extensive slough is identified in 50% of the left lower extremity ulcerations and on 100% of the right lower extremity ulcerations. Prominent serosanguineous drainage is evident particularly on the left. We note she has already soiled yesterday's dressings. Both sites will require debridement and reapplication of dressings. Procedure note following informed consent by the patient and utilizing topical lidocaine for anesthesia, 50% of the area of the left lower extremity was debrided of slough and nonviable tissue and 100% of the right lower extremity ulcerative sites were debrided of slough and nonviable tissue. No significant bleeding occurred. No viable tissue was intentionally removed. This was reremoval of nonviable tissue, selective debridement utilizing scalpel forceps and scissors and was well-tolerated by the patient. Total area debrided was calculated at 251.25 cm. Following debridement reapplication of noncontact dressing and ABDs was reapplied. Slip on compression utilized on the left. We will follow along with continued dressing reapplication as needed. Justifications for Admission Other Justification RENATA PERES DO Apr 27, 2020 13:04
[2020-04-27 15:00] VITALS: BP 114/81
[2020-04-27 19:00] VITALS: BP 138/71
[2020-04-27] MEDS: PSYLLIUM HUSK (SUGAR FREE) 1 PKT PACKET PO SCH (21:10)
[2020-04-27 22:39] VITALS: BP 135/68
[2020-04-28] MEDS: PIPERACILLIN/TAZOBACTAM 3.375 GM in IV NORMAL SALINE 50ML 50 ML IV SCH ×5 (00:22→23:06)
[2020-04-28 02:41] VITALS: BP 148/74
[2020-04-28 07:00] VITALS: BP 133/74
--- NOTE | 2020-04-28 07:51 | PDOC ---
[facility] PROGRESS NOTE Date of Service DOS: DATE: 04/28/20 TIME: 07:50 Chief Complaint Chief Complaint A/P: Left lower extremity cellulitis - will start empirically on vancomycin and zosyn given her prior improvement on this therapy. Wound care to see. Will consult ID SIRS with cellulitis, by definition, sepsis POA Right groin intertrigo - topical and oral antifungals Cirrhosis of liver - stable Chronic obstructive pulmonary disease - prn albuterol Gastroesophageal reflux disease - PPI Transaminitis - previously noted, will check LFTs and INR Smoker - counseled on cessation Schizophrenia - on monthly depo abilify, given 04/07/2020 Acute electrolyte derangementhyponatremia, hypochloremia Super morbid obesity, BMI 56 Severe protein malnutrition Chronic lower extremity wounds Chronic venous insufficiency Peripheral vascular disease History of marijuana and tobacco abuse FEN - General diet PPX - lovenox CODE - FULL Dispo - inpatient for Cellulitis failing outpatient treatment Admit to medicine for further management Appreciate ID recommendationscontinue Vanco and start IV Zosyn and follow-up with blood and urine cultures Wound care consult Lovenox for DVT prophylaxis Protonix GI prophylaxis ADA diet Full code Discussed with RN and SW Disposition inpatient management as above Surrogate decision maker is undesignated History of Present Illness History of Present Illness Ms Grider is a 44 yo F w/ PMHx Hep C, COPD/asthma, gastroesophageal reflux disease, cirrhosis of liver, schizophrenia who presents directly from wound care center with right lower extremity swelling and redness up to her groin as well as multiple RLE ulcers. The patient denied any fever, denied any nausea, vomiting, diarrhea, chest pain, shortness of breath, abdominal pain, urinary symptoms or bowel symptoms. Rates her pain at 7/10. States it has gotten worse over the past couple of weeks. She normally has some chronic pain, but it is much worse. She is on Bactrim and Diflucan at home, but seems to be failing outpatient antibiotics. She [facility] for her chronic venous ulcers on her legs. She was seen in wound clinic and placed on cipro for 2 rounds, then given diflucan on 09/16. She was on bactrim last month and was admitted to inpatient back in July for cellulitis of her RLE and abdomen. She has failed outpatient therapy. Admitted directly for further treatment with IV antibiotics. 04/24: No acute events overnight. Patient remains afebrile. Patient seen and examined bedside. Dressings to her right lower extremity and there is redness and venous congestion and venous dramatic changes to her left lower extremity. 04/25: No acute events overnight. Patient remains afebrile. Patient seen and examined bedside. Lying comfortably in bed and using her cell phone. Patient does sleep throughout the day because she thinks it will drown out the voices in her head. 04/26: Afebrile. No overnight events. Leg about the same. No chest pain or shortness of breath. PICC inserted for multiple failed IV attempts. 04/27: WBC down to 12.3. Rapid COVID-19 negative. Afebrile. LFTs slightly elevated. Denies any fever, nausea, vomiting, diarrhea, abdominal pain. Leg still swollen and painful Afebrile. Leg still swollen pain is better controlled. No fever nausea vomiting or diarrhea or abdominal pain. No shortness of breath or chest pain. She is very weak and deconditioned. Vitals/I&O Vitals/I&O: Vital Signs Date Time Temp Pulse Resp B/P (MAP) Pulse Ox O2 Delivery O2 Flow Rate FiO2 04/28/20 02:41 97.7 96 19 148/74 (98) 91 Room Air 97.7 I & O 04/27/20 04/27/20 04/28/20 15:00 23:00 07:00 Intake Total 1400 ml Output Total 1 ml 200 ml Balance -1 ml 1200 ml Physical Exam Physical Exam: GENERAL: Alert, oriented x 3 female, ambulating in the room, in no acute distress. HEENT: Normocephalic, atraumatic, anicteric. No thrush. Oral mucosa moist. NECK: Supple. LUNGS: Clear bilaterally. HEART: S1, S2. ABDOMEN: Soft, obese. Bowel sounds present. EXTREMITIES: Edema present over both the lower extremities, left greater than right. Right lower extremity ulcer with dry scabs, chronic venous stasis changes present. Left lower extremity swollen, erythematous, edematous, painful to touch, going up to the thigh. DERMATOLOGIC: Warm and dry. No generalized rash except for above. Yeast in skin folds, pannus, groin area and the toes. NEUROLOGIC: Alert, oriented x 3, grossly nonfocal, ambulating in the room without difficulty. General: Alert, Oriented X3, Cooperative Lungs: Clear Abdomen: Normal bowel sounds, Other (Obese) Skin: Other (Right lower extremity dressings clear dry and intact. Left lower extremity with severe cellulitis extending above the knee around the thigh) Assessment and Plan Assessmemt and Plan Problems Medical Problems: (1) Cellulitis of lower extremity Status: Acute Comment Review of Relevant I have reviewed the following items karl (where applicable) has been applied. Medications: Current Medications Medications (Trade) Dose Ordered Sig/Trerell Route PRN Reason Start Time Stop Time Status Last Admin Dose Admin Enoxaparin Sodium (Lovenox 60mg Syringe) 60 mg Q12HR SQ 04/27/20 12:00 04/27/20 21:13 Lidocaine HCl (Viscous Lidocaine) 15 ml 1X ONCE SWSW 04/27/20 11:45 04/27/20 11:46 DC 04/27/20 12:02 Justifications for Admission Other Justification JAMEEL HOOKER MD Apr 28, 2020 07:51
[2020-04-28] MEDS: LACTOBACILLUS RHAMNOSUS GG 1 CAPSULE. PO SCH ×2 (08:19→19:37)
[2020-04-28] MEDS: LOPERAMIDE 2 MG CAPSULE PO SCH ×2 (08:19→19:37)
[2020-04-28] MEDS: PANTOPRAZOLE 40 MG TABLET.DR. PO SCH (08:19)
[2020-04-28] MEDS: CETIRIZINE HCL 10 MG TABLET. PO SCH (08:19)
[2020-04-28] MEDS: KETOROLAC 30 MG/ML VIAL. IVP PRN (08:20)
[2020-04-28] MEDS: NYSTATIN TOPICAL POWDER 15GM BOTTLE. TP SCH ×2 (08:27→19:38)
[2020-04-28] MEDS: MICAFUNGIN 100 MG in IV DEXTROSE 5% 100ML 100 ML IV SCH (09:37)
--- NOTE | 2020-04-28 10:00 | NUR ---
SW following. Discussed with RN, pt from home alone, room air, cardiac diet, COVID-19 negative. Pt being seen by wound care. IV abx. PT/OT to be ordered once wounds are a little better, per Dr. Rivas. STEFFANY will continue to follow.
[2020-04-28 11:00] VITALS: BP 138/80
--- NOTE | 2020-04-28 11:02 | PDOC ---
Infectious Disease Note Subjective: Subjective Patient feels a little better Cont to have swelling and pain in the LLE Denies any fever, nausea, vomiting, diarrhea, abdominal pain Vital Signs: Vital Signs Vital Signs Date Time Temp Pulse Resp B/P (MAP) Pulse Ox O2 Delivery O2 Flow Rate FiO2 04/28/20 08:00 Room Air 04/28/20 07:00 98.8 78 18 133/74 (93) 94 98.8 Physical Exam: PHYSICAL EXAM GENERAL: Alert, oriented x 3 female, ambulating in the room, in no acute distress. HEENT: Normocephalic, atraumatic, anicteric. No thrush. Oral mucosa moist. NECK: Supple. LUNGS: Clear bilaterally. HEART: S1, S2. ABDOMEN: Soft, obese. Bowel sounds present. EXTREMITIES: Edema present over both the lower extremities, left greater than right. Right lower extremity ulcer with dry scabs, chronic venous stasis changes present. Left lower extremity swollen, erythematous, edematous, painful to touch, going up to the thigh. DERMATOLOGIC: Warm and dry. No generalized rash except for above. Yeast in skin folds, pannus, groin area and the toes. NEUROLOGIC: Alert, oriented x 3, grossly nonfocal, ambulating in the room without difficulty. Medications: Inpatient Meds: Current Medications Medications (Trade) Dose Ordered Sig/[facility] Start Time Stop Time Status Last Admin Dose Admin Albuterol Sulfate (Ventolin Neb Soln) 2.5 mg PRN Q6HRS PRN 04/26/20 11:00 Cetirizine HCl (ZyrTEC) 10 mg DAILY 04/26/20 12:00 04/28/20 08:19 10 MG Daptomycin 340 mg/ Sodium Chloride 50 ml @ 100 mls/hr Q24H 04/26/20 12:00 04/27/20 11:44 100 MLS/HR Enoxaparin Sodium (Lovenox 60mg Syringe) 60 mg Q12HR 04/27/20 12:00 04/27/20 21:13 60 MG Fentanyl Citrate (Fentanyl 2ml Vial) 50 mcg PRN Q2HR PRN 04/23/20 14:45 04/24/20 14:44 DC 04/24/20 02:25 50 MCG Fluconazole (Diflucan) 100 mg DAILY 04/24/20 11:00 04/26/20 09:53 DC 04/26/20 08:04 100 MG Ketorolac Tromethamine (Toradol 30mg Vial) 30 mg PRN Q6HRS PRN 04/24/20 08:45 04/29/20 08:44 04/28/20 08:20 30 MG Lactobacillus Rhamnosus (Culturelle) 1 cap BID 04/24/20 21:00 04/28/20 08:19 1 CAP Lidocaine HCl (Buffered Lidocaine 1%) 3 ml 1X ONCE 04/26/20 14:30 04/26/20 14:31 DC 04/26/20 15:00 5 ML Lidocaine HCl (Viscous Lidocaine) 15 ml 1X ONCE 04/27/20 11:45 04/27/20 11:46 DC 04/27/20 12:02 15 ML Loperamide HCl (Imodium) 2 mg BID 04/26/20 11:00 04/28/20 08:19 2 MG Micafungin Sodium 100 mg/Dextrose 100 ml @ 100 mls/hr Q24H 04/26/20 10:00 04/28/20 09:37 100 MLS/HR Nystatin (Nystop) 1 lian BID 04/26/20 21:00 04/28/20 08:27 1 LIAN Olanzapine (ZyPREXA ZYDIS) 5 mg PRN BID PRN 04/26/20 11:00 Ondansetron HCl (Zofran) 4 mg PRN Q8HRS PRN 04/23/20 14:45 04/24/20 14:44 DC 04/24/20 10:11 4 MG Pantoprazole Sodium (Protonix) 40 mg DAILYAC 04/25/20 07:30 04/28/20 08:19 40 MG Piperacillin Sod/ Tazobactam Sod 3.375 gm/Sodium Chloride 50 ml @ 100 mls/hr Q6HRS 04/24/20 12:00 04/28/20 05:57 100 MLS/HR Psyllium Hydrophilic Mucilloid (Metamucil Fiber Packet) 1 pkt QHS 04/26/20 21:00 04/27/20 21:10 1 PKT Vancomycin HCl (Vanco Per Pharmacy) 1 each PRN DAILY PRN 04/24/20 08:45 04/26/20 09:55 DC 04/26/20 09:48 1 EACH Vancomycin HCl (Vancomycin Trough Level) 1 each 1X ONCE 04/26/20 21:30 04/26/20 21:31 Cancel Vancomycin HCl 2 gm/Sodium Chloride 500 ml @ 250 mls/hr Q8HRS 04/25/20 22:00 04/26/20 09:53 DC 04/26/20 06:19 250 MLS/HR Labs: Micro CT LLE IMPRESSION: 1. Skin thickening and extensive subcutaneous edema throughout the left lower leg progressing in severity below the knee. There are several areas of mild subfascial edema/ill-defined fluid and the superficial fascia is mildly thickened at a few locations. No soft tissue gas. Limited assessment for a drainable fluid collection but no well delineated pocket of fluid attenuation is identified to suggest an abscess. It is difficult to distinguish bland edema from cellulitis but given history at least a component of the soft tissue findings presumably relate to cellulitis. The fascial/subfascial findings are nonspecific and could be reactive to cellulitis though deep space infection cannot be excluded on this exam. Note is made that muscular attenuation is essentially the same throughout the leg going against active myositis. 2. No acute osseous abnormality. Only mild degenerative changes. 3. Reactive inguinal lymph nodes the largest on the left measuring up to 2 cm. Objective: Assessment: 1. Cellulitis, left lower extremity, severe. CT negative for abscess 2. Chronic venous ulcer, right lower extremity, stable, not infected. 3. Obesity. 4. Yeast in skin folds. 5. Leukocytosis. 6. Cirrhosis of the liver. 7. History of hepatitis C. 8. Schizophrenia and bipolar disorder. 9. Tobaccoism. 10. Morbid obesity. Plan: Plan of Care Cont daptomycin,Zosyn, micafungin Encouraged to elevate left lower extremity;pt does not comply Continue local wound care as directed. Monitor labs and cultures. Continue supportive care. Discussed with nursing staff. RAMÍREZ MERA MD Apr 28, 2020 11:02
[2020-04-28] MEDS: DAPTOmycin (GENERIC) IVPB 340 MG in IV NORMAL SALINE 50ML 50 ML IV SCH (12:22)
[2020-04-28 15:00] VITALS: BP 128/83
[2020-04-28 19:00] VITALS: BP 115/85
[2020-04-28] MEDS: PSYLLIUM HUSK (SUGAR FREE) 1 PKT PACKET PO SCH (19:37)
--- NOTE | 2020-04-28 20:24 | NUR ---
completed 1999, typekamran wrong time Addendum: 04/28/20 at 2024 by JACKY BAIRD RN RN Amended: Links added.
--- NOTE | 2020-04-28 20:24 | NUR ---
completed 1999, entered time wrong Addendum: 04/28/20 at 2024 by JACKY BAIRD RN RN Amended: Links added.
[2020-04-28 23:00] VITALS: BP 136/78
[2020-04-29] MEDS: KETOROLAC 30 MG/ML VIAL. IVP PRN (02:44)
[2020-04-29 03:00] VITALS: BP 139/69
[2020-04-29 03:09] LABS: CALCIUM 8.7 mg/dL (8.5-10.1); CREATININE 0.8 mg/dL (0.6-1.0); GFR 77.9; POTASSIUM 4.5 mmol/L (3.5-5.1)
[2020-04-29 03:22] LABS: BASO % 0 % (0-3); EOS # 0.1 x10^3/uL (0.0-0.7); EOS % 1 % (0-3); HEMATOCRIT 35.5 % (36.0-47.0); HEMOGLOBIN 12.1 g/dL (12.0-15.5); LYMPH # 1.5 x10^3/uL (1.0-4.8); LYMPH % 15 % (24-48); MEAN CORPUSCULAR HEMOGLOBIN 34 pg (25-35); MEAN CORPUSCULAR HGB CONC 34 g/dL (31-37); MEAN CORPUSCULAR VOLUME 101 fL (79-100); MONO % 19 % (0-9); NEUT # 6.8 x10^3/uL (1.8-7.7); NEUT % 65 % (31-73); PLATELET COUNT 222 x10^3/uL (140-400); RED BLOOD COUNT 3.53 x10^6/uL (3.50-5.40); RED CELL DISTRIBUTION WIDTH 14.8 % (11.5-14.5); WHITE BLOOD COUNT 10.5 x10^3/uL (4.0-11.0)
--- NOTE | 2020-04-29 05:21 | NUR ---
This RN resumed care at 0415.
[2020-04-29] MEDS: PANTOPRAZOLE 40 MG TABLET.DR. PO SCH (06:16)
[2020-04-29] MEDS: PIPERACILLIN/TAZOBACTAM 3.375 GM in IV NORMAL SALINE 50ML 50 ML IV SCH ×3 (06:16→17:41)
[2020-04-29 07:00] VITALS: BP 128/75
--- NOTE | 2020-04-29 08:21 | PDOC ---
Infectious Disease Note Subjective: Subjective Patient feels a little better Vital Signs: Vital Signs Vital Signs Date Time Temp Pulse Resp B/P (MAP) Pulse Ox O2 Delivery O2 Flow Rate FiO2 04/29/20 07:00 97.9 88 18 128/75 (92) 96 Room Air 97.9 Physical Exam: PHYSICAL EXAM GENERAL: Alert, oriented x 3 female, ambulating in the room, in no acute distress. HEENT: Normocephalic, atraumatic, anicteric. No thrush. Oral mucosa moist. NECK: Supple. LUNGS: Clear bilaterally. HEART: S1, S2. ABDOMEN: Soft, obese. Bowel sounds present. EXTREMITIES: Edema present over both the lower extremities, left greater than right. Right lower extremity ulcer with dry scabs, chronic venous stasis changes present. Left lower extremity swollen, erythematous, edematous, painful to touch, going up to the thigh. DERMATOLOGIC: Warm and dry. No generalized rash except for above. Yeast in skin folds, pannus, groin area and the toes. NEUROLOGIC: Alert, oriented x 3, grossly nonfocal, ambulating in the room without difficulty. Medications: Inpatient Meds: Current Medications Medications (Trade) Dose Ordered Sig/Terrell Start Time Stop Time Status Last Admin Dose Admin Albuterol Sulfate (Ventolin Neb Soln) 2.5 mg PRN Q6HRS PRN 04/26/20 11:00 Cetirizine HCl (ZyrTEC) 10 mg DAILY 04/26/20 12:00 04/28/20 08:19 10 MG Daptomycin 340 mg/ Sodium Chloride 50 ml @ 100 mls/hr Q24H 04/26/20 12:00 04/28/20 12:22 100 MLS/HR Enoxaparin Sodium (Lovenox 60mg Syringe) 60 mg Q12HR 04/27/20 12:00 04/28/20 19:37 60 MG Fentanyl Citrate (Fentanyl 2ml Vial) 50 mcg PRN Q2HR PRN 04/23/20 14:45 04/24/20 14:44 DC 04/24/20 02:25 50 MCG Fluconazole (Diflucan) 100 mg DAILY 04/24/20 11:00 04/26/20 09:53 DC 04/26/20 08:04 100 MG Ketorolac Tromethamine (Toradol 30mg Vial) 30 mg PRN Q6HRS PRN 1/16/21 08:45 04/29/20 08:44 04/29/20 02:44 30 MG Lactobacillus Rhamnosus (Culturelle) 1 cap BID 04/24/20 21:00 04/28/20 19:37 1 CAP Lidocaine HCl (Buffered Lidocaine 1%) 3 ml 1X ONCE 04/26/20 14:30 04/26/20 14:31 DC 04/26/20 15:00 5 ML Lidocaine HCl (Viscous Lidocaine) 15 ml 1X ONCE 04/27/20 11:45 04/27/20 11:46 DC 04/27/20 12:02 15 ML Loperamide HCl (Imodium) 2 mg BID 04/26/20 11:00 04/28/20 19:37 2 MG Micafungin Sodium 100 mg/Dextrose 100 ml @ 100 mls/hr Q24H 04/26/20 10:00 04/28/20 09:37 100 MLS/HR Nystatin (Nystop) 1 lian BID 04/26/20 21:00 04/28/20 19:38 1 LIAN Olanzapine (ZyPREXA ZYDIS) 5 mg PRN BID PRN 04/26/20 11:00 04/28/20 19:37 5 MG Ondansetron HCl (Zofran) 4 mg PRN Q8HRS PRN 04/23/20 14:45 04/24/20 14:44 DC 04/24/20 10:11 4 MG Pantoprazole Sodium (Protonix) 40 mg DAILYAC 04/25/20 07:30 04/29/20 06:16 40 MG Piperacillin Sod/ Tazobactam Sod 3.375 gm/Sodium Chloride 50 ml @ 100 mls/hr Q6HRS 04/24/20 12:00 04/29/20 06:16 100 MLS/HR Psyllium Hydrophilic Mucilloid (Metamucil Fiber Packet) 1 pkt QHS 04/26/20 21:00 04/28/20 19:37 1 PKT Vancomycin HCl (Vanco Per Pharmacy) 1 each PRN DAILY PRN 04/24/20 08:45 04/26/20 09:55 DC 04/26/20 09:48 1 EACH Vancomycin HCl (Vancomycin Trough Level) 1 each 1X ONCE 04/26/20 21:30 04/26/20 21:31 Cancel Vancomycin HCl 2 gm/Sodium Chloride 500 ml @ 250 mls/hr Q8HRS 04/25/20 22:00 04/26/20 09:53 DC 04/26/20 06:19 250 MLS/HR Labs: Lab Laboratory Tests Test 04/29/20 02:50 White Blood Count 10.5 x10^3/uL (4.0-11.0) Red Blood Count 3.53 x10^6/uL (3.50-5.40) Hemoglobin 12.1 g/dL (12.0-15.5) Hematocrit 35.5 % (36.0-47.0) Mean Corpuscular Volume 101 fL (79-100) Mean Corpuscular Hemoglobin 34 pg (25-35) Mean Corpuscular Hemoglobin Concent 34 g/dL (31-37) Red Cell Distribution Width 14.8 % (11.5-14.5) Platelet Count 222 x10^3/uL (140-400) Neutrophils (%) (Auto) 65 % (31-73) Lymphocytes (%) (Auto) 15 % (24-48) Monocytes (%) (Auto) 19 % (0-9) Eosinophils (%) (Auto) 1 % (0-3) Basophils (%) (Auto) 0 % (0-3) Neutrophils # (Auto) 6.8 x10^3/uL (1.8-7.7) Lymphocytes # (Auto) 1.5 x10^3/uL (1.0-4.8) Monocytes # (Auto) 2.0 x10^3/uL (0.0-1.1) Eosinophils # (Auto) 0.1 x10^3/uL (0.0-0.7) Basophils # (Auto) 0.0 x10^3/uL (0.0-0.2) Sodium Level 130 mmol/L (136-145) Potassium Level 4.5 mmol/L (3.5-5.1) Chloride Level 98 mmol/L (98-107) Carbon Dioxide Level 27 mmol/L (21-32) Anion Gap 5 (6-14) Blood Urea Nitrogen 13 mg/dL (7-20) Creatinine 0.8 mg/dL (0.6-1.0) Estimated GFR (Cockcroft-Gault) 77.9 Glucose Level 81 mg/dL (70-99) Calcium Level 8.7 mg/dL (8.5-10.1) Micro CT LLE IMPRESSION: 1. Skin thickening and extensive subcutaneous edema throughout the left lower leg progressing in severity below the knee. There are several areas of mild subfascial edema/ill-defined fluid and the superficial fascia is mildly thickened at a few locations. No soft tissue gas. Limited assessment for a drainable fluid collection but no well delineated pocket of fluid attenuation is identified to suggest an abscess. It is difficult to distinguish bland edema from cellulitis but given history at least a component of the soft tissue findings presumably relate to cellulitis. The fascial/subfascial findings are nonspecific and could be reactive to cellulitis though deep space infection cannot be excluded on this exam. Note is made that muscular attenuation is essentially the same throughout the leg going against active myositis. 2. No acute osseous abnormality. Only mild degenerative changes. 3. Reactive inguinal lymph nodes the largest on the left measuring up to 2 cm. Objective: Assessment: 1. Cellulitis, left lower extremity, severe. CT negative for abscess 2. Chronic venous ulcer, right lower extremity, stable, not infected. 3. Obesity. 4. Yeast in skin folds. 5. Leukocytosis. 6. Cirrhosis of the liver. 7. History of hepatitis C. 8. Schizophrenia and bipolar disorder. 9. Tobaccoism. 10. Morbid obesity. Plan: Plan of Care Cont daptomycin,Zosyn, micafungin Continue elevate left lower extremity Continue local wound care as directed. Monitor labs and cultures. Continue supportive care. Discussed with nursing staff. RAMÍREZ MERA MD Apr 29, 2020 08:21
[2020-04-29] MEDS: NYSTATIN TOPICAL POWDER 15GM BOTTLE. TP SCH ×2 (08:47→21:00)
[2020-04-29] MEDS: LOPERAMIDE 2 MG CAPSULE PO SCH ×2 (08:47→21:28)
[2020-04-29] MEDS: LACTOBACILLUS RHAMNOSUS GG 1 CAPSULE. PO SCH ×2 (08:47→21:27)
[2020-04-29] MEDS: CETIRIZINE HCL 10 MG TABLET. PO SCH (08:47)
--- NOTE | 2020-04-29 08:48 | PDOC ---
Date of Service: DATE: 04/29/20 TIME: 08:43 Progress Note: Patient reports mild discomfort left lateral thigh area. Vital signs are stable, afebrile with appropriate oxygen saturation Patient comfortable and examined in supine position. Respirations nondistressed. Lower extremities without cyanosis. Marked volume improvement noted in the lower extremities. No significant pretibial edema particularly on the left. Negative Homans. Scant serosanguineous drainage identified. Erythema markedly improved as well. Impression: Markedly improved lower extremity venous insufficiency ulcerations, drainage and evidence of improved cellulitis below the knee. Nonadherent dressings reapplied. We will follow along in wound clinic post discharge. RENATA PERES DO Apr 29, 2020 08:48
--- NOTE | 2020-04-29 09:36 | NUR ---
SW following. Discussed with RN, pt from home, room air, cardiac diet, COVID-19 negative. Pt still on IV micafungin, IV daptomycin and IV Zosyn. PT/OT recommending home. Pt will follow at the wound clinic upon discharge. SW will continue to follow.
[2020-04-29] MEDS ORDERED: ONDANSETRON PF 4 MG/2 ML VIAL. IV PRN (10:00)
--- NOTE | 2020-04-29 10:37 | PDOC ---
[employer] PROGRESS NOTE Date of Service DOS: DATE: 04/29/20 TIME: 10:36 Chief Complaint Chief Complaint A/P: Left lower extremity cellulitis - will start empirically on vancomycin and zosyn given her prior improvement on this therapy. Wound care to see. Will consult ID SIRS with cellulitis, by definition, sepsis POA Right groin intertrigo - topical and oral antifungals Cirrhosis of liver - stable Chronic obstructive pulmonary disease - prn albuterol Gastroesophageal reflux disease - PPI Transaminitis - previously noted, will check LFTs and INR Smoker - counseled on cessation Schizophrenia - on monthly depo abilify, given 04/07/2020 Acute electrolyte derangementhyponatremia, hypochloremia Super morbid obesity, BMI 56 Severe protein malnutrition Chronic lower extremity wounds Chronic venous insufficiency Peripheral vascular disease History of marijuana and tobacco abuse FEN - General diet PPX - lovenox CODE - FULL Dispo - inpatient for Cellulitis failing outpatient treatment Admit to medicine for further management Appreciate ID recommendationscontinue Vanco and start IV Zosyn and follow-up with blood and urine cultures Wound care consult Lovenox for DVT prophylaxis Protonix GI prophylaxis ADA diet Full code Discussed with RN and SW Disposition inpatient management as above Surrogate decision maker is undesignated History of Present Illness History of Present Illness Ms Grider is a 44 yo F w/ PMHx Hep C, COPD/asthma, gastroesophageal reflux disease, cirrhosis of liver, schizophrenia who presents directly from wound care center with right lower extremity swelling and redness up to her groin as well as multiple RLE ulcers. The patient denied any fever, denied any nausea, vomiting, diarrhea, chest pain, shortness of breath, abdominal pain, urinary symptoms or bowel symptoms. Rates her pain at 7/10. States it has gotten worse over the past couple of weeks. She normally has some chronic pain, but it is much worse. She is on Bactrim and Diflucan at home, but seems to be failing outpatient antibiotics. [facility] for her chronic venous ulcers on her legs. She was seen in wound clinic and placed on cipro for 2 rounds, then given diflucan on 09/16. She was on bactrim last month and was admitted to inpatient back in July for cellulitis of her RLE and abdomen. She has failed outpatient therapy. Admitted directly for further treatment with IV antibiotics. 04/24: No acute events overnight. Patient remains afebrile. Patient seen and examined bedside. Dressings to her right lower extremity and there is redness and venous congestion and venous dramatic changes to her left lower extremity. 04/25: No acute events overnight. Patient remains afebrile. Patient seen and examined bedside. Lying comfortably in bed and using her cell phone. Patient does sleep throughout the day because she thinks it will drown out the voices in her head. 04/26: Afebrile. No overnight events. Leg about the same. No chest pain or shortness of breath. PICC inserted for multiple failed IV attempts. 04/27: WBC down to 12.3. Rapid COVID-19 negative. Afebrile. LFTs slightly elevated. Denies any fever, nausea, vomiting, diarrhea, abdominal pain. Leg still swollen and painful 04/28: Afebrile. Leg still swollen pain is better controlled. No fever nausea vomiting or diarrhea or abdominal pain. No shortness of breath or chest pain. She is very weak and deconditioned. WBC normalized. Still swollen pain is better controlled. Not able to bear weight on her leg. Sodium down to 130. She is not eating Vitals/I&O Vitals/I&O: Vital Signs Date Time Temp Pulse Resp B/P (MAP) Pulse Ox O2 Delivery O2 Flow Rate FiO2 04/29/20 07:00 97.9 88 18 128/75 (92) 96 Room Air 97.9 I & O 04/28/20 04/28/20 04/29/20 15:00 23:00 07:00 Intake Total 1180 ml 680 ml 300 ml Balance 1180 ml 680 ml 300 ml Physical Exam Physical Exam: GENERAL: Alert, oriented x 3 female, ambulating in the room, in no acute distress. HEENT: Normocephalic, atraumatic, anicteric. No thrush. Oral mucosa moist. NECK: Supple. LUNGS: Clear bilaterally. HEART: S1, S2. ABDOMEN: Soft, obese. Bowel sounds present. EXTREMITIES: Edema present over both the lower extremities, left greater than right. Right lower extremity ulcer with dry scabs, chronic venous stasis changes present. Left lower extremity swollen, erythematous, edematous, painful to touch, going up to the thigh. DERMATOLOGIC: Warm and dry. No generalized rash except for above. Yeast in skin folds, pannus, groin area and the toes. NEUROLOGIC: Alert, oriented x 3, grossly nonfocal, ambulating in the room without difficulty. General: Alert, Oriented X3, Cooperative Lungs: Clear Abdomen: Normal bowel sounds, Other (Obese) Skin: Other (Right lower extremity dressings clear dry and intact. Left lower extremity with severe cellulitis extending above the knee around the thigh) Labs Labs: Laboratory Tests Test 04/29/20 02:50 White Blood Count 10.5 x10^3/uL (4.0-11.0) Red Blood Count 3.53 x10^6/uL (3.50-5.40) Hemoglobin 12.1 g/dL (12.0-15.5) Hematocrit 35.5 % (36.0-47.0) Mean Corpuscular Volume 101 fL (79-100) Mean Corpuscular Hemoglobin 34 pg (25-35) Mean Corpuscular Hemoglobin Concent 34 g/dL (31-37) Red Cell Distribution Width 14.8 % (11.5-14.5) Platelet Count 222 x10^3/uL (140-400) Neutrophils (%) (Auto) 65 % (31-73) Lymphocytes (%) (Auto) 15 % (24-48) Monocytes (%) (Auto) 19 % (0-9) Eosinophils (%) (Auto) 1 % (0-3) Basophils (%) (Auto) 0 % (0-3) Neutrophils # (Auto) 6.8 x10^3/uL (1.8-7.7) Lymphocytes # (Auto) 1.5 x10^3/uL (1.0-4.8) Monocytes # (Auto) 2.0 x10^3/uL (0.0-1.1) Eosinophils # (Auto) 0.1 x10^3/uL (0.0-0.7) Basophils # (Auto) 0.0 x10^3/uL (0.0-0.2) Sodium Level 130 mmol/L (136-145) Potassium Level 4.5 mmol/L (3.5-5.1) Chloride Level 98 mmol/L (98-107) Carbon Dioxide Level 27 mmol/L (21-32) Anion Gap 5 (6-14) Blood Urea Nitrogen 13 mg/dL (7-20) Creatinine 0.8 mg/dL (0.6-1.0) Estimated GFR (Cockcroft-Gault) 77.9 Glucose Level 81 mg/dL (70-99) Calcium Level 8.7 mg/dL (8.5-10.1) Vitamin B12 Level 1062 pg/mL (247-911) Assessment and Plan Assessmemt and Plan Problems Medical Problems: (1) Cellulitis of lower extremity Status: Acute Comment Review of Relevant I have reviewed the following items karl (where applicable) has been applied. Justifications for Admission Other Justification JAMEEL HOOKER MD Apr 29, 2020 10:37
[2020-04-29] MEDS: MICAFUNGIN 100 MG in IV DEXTROSE 5% 100ML 100 ML IV SCH (10:44)
[2020-04-29] MEDS ORDERED: CYANOCOBALAMIN (VITAMIN B-12) 1,000 MCG/ML VIAL. IM ONE (10:45)
[2020-04-29 11:00] VITALS: BP 130/72
[2020-04-29] MEDS: AMINO AC 3%/ELECTROLYTE/GLYCER 1,000 ML IV SCH (11:41)
[2020-04-29] MEDS: DAPTOmycin (GENERIC) IVPB 340 MG in IV NORMAL SALINE 50ML 50 ML IV SCH (13:17)
[2020-04-29 15:00] VITALS: BP 138/79
--- NOTE | 2020-04-29 15:10 | NUR ---
Wound/Ostomy Care Wound Type/Assessment: VLU to RLE and cellulitis with blistering to left foot, ankle and leg. Pt is currently being seen in [facility] by Dr Miles on a weekly basis, but Dr. Rueda is at bedside to assess wounds. Left leg is reddened and swollen from foot to thigh with open and intact blisters. RLE is reddened, with brawny induration, hemosidirin staining, with significant slough in the wound beds. Treatment Recommendations/Plan: Cleansed R leg wounds, applied Medihoney, Xeroform, ABD and kerlix to RLE. LLE blisters redressed with ABDs and kerlix to absorb drainage, Medigrip Size G applied to L leg and Size E to R. Left upper thigh area reddened and weeping, area cleaned and dressed with ABD and MARCELLA wrap, instructed pt to remove and have RN rewrap daily and if MARCELLA rolls or tightens, pt v/u. Recommend to change daily or every other day, as needed for drainage management. Education provided: POC, leg elevation, dietary, and PU prevention Offloading surface/device: pt is currently on a P500 bed Recommended Referrals/Tests: na Discharge Recommendations for dressings: Continue with dressings as above noted. Will continue to follow inpatient, and pt to follow up in [facility] after discharge.
[2020-04-29 19:00] VITALS: BP 136/78
[2020-04-29] MEDS: PSYLLIUM HUSK (SUGAR FREE) 1 PKT PACKET PO SCH (21:00)
[2020-04-29] MEDS: IBUPROFEN 200 MG TABLET. PO PRN (21:28)
[2020-04-29] MEDS: ACETAMINOPHEN 325 MG TABLET. PO PRN (21:28)
[2020-04-29 23:00] VITALS: BP 136/61
[2020-04-30] MEDS: PIPERACILLIN/TAZOBACTAM 3.375 GM in IV NORMAL SALINE 50ML 50 ML IV SCH ×4 (00:27→18:17)
[2020-04-30 03:06] VITALS: BP 137/82
[2020-04-30] MEDS: AMINO AC 3%/ELECTROLYTE/GLYCER 1,000 ML IV SCH ×3 (04:16→18:21)
[2020-04-30 07:00] VITALS: BP 152/87
[2020-04-30] MEDS: PANTOPRAZOLE 40 MG TABLET.DR. PO SCH (08:12)
[2020-04-30] MEDS: LACTOBACILLUS RHAMNOSUS GG 1 CAPSULE. PO SCH ×2 (08:12→21:24)
[2020-04-30] MEDS: LOPERAMIDE 2 MG CAPSULE PO SCH ×2 (08:12→21:24)
[2020-04-30] MEDS: CETIRIZINE HCL 10 MG TABLET. PO SCH (08:12)
[2020-04-30] MEDS: NYSTATIN TOPICAL POWDER 15GM BOTTLE. TP SCH ×2 (08:13→21:00)
[2020-04-30] MEDS: IBUPROFEN 200 MG TABLET. PO PRN (08:19)
--- NOTE | 2020-04-30 09:00 | PDOC ---
Infectious Disease Note Subjective: Subjective Patient feels a little better Still unable to walk due to swelling and pain in the left lower extremity Denies fever, nausea, vomiting, diarrhea, abdominal pain Vital Signs: Vital Signs Vital Signs Date Time Temp Pulse Resp B/P (MAP) Pulse Ox O2 Delivery O2 Flow Rate FiO2 04/30/20 07:10 Room Air 04/30/20 07:00 98.2 81 16 152/87 (108) 97 98.2 Physical Exam: PHYSICAL EXAM GENERAL: Alert, oriented x 3 female, ambulating in the room, in no acute distress. HEENT: Normocephalic, atraumatic, anicteric. No thrush. Oral mucosa moist. NECK: Supple. LUNGS: Clear bilaterally. HEART: S1, S2. ABDOMEN: Soft, obese. Bowel sounds present. EXTREMITIES: Edema present over both the lower extremities, left greater than right. Right lower extremity ulcer with dry scabs, chronic venous stasis changes present. Left lower extremity swollen, erythematous, edematous, painful to touch, going up to the thigh. DERMATOLOGIC: Warm and dry. No generalized rash except for above. Yeast in skin folds, pannus, groin area and the toes. NEUROLOGIC: Alert, oriented x 3, grossly nonfocal, ambulating in the room without difficulty. Medications: Inpatient Meds: Current Medications Medications (Trade) Dose Ordered Sig/Terrell Start Time Stop Time Status Last Admin Dose Admin Acetaminophen (Tylenol) 650 mg PRN Q4HRS PRN 04/29/20 10:00 04/29/20 21:28 650 MG Albuterol Sulfate (Ventolin Neb Soln) 2.5 mg PRN Q6HRS PRN 04/26/20 11:00 Amino Acids/ Glycerin/ Electrolytes 1,000 ml @ 80 mls/hr [id number] 04/29/20 10:45 04/30/20 04:16 80 MLS/HR Cetirizine HCl (ZyrTEC) 10 mg DAILY 04/26/20 12:00 04/30/20 08:12 10 MG Cyanocobalamin (Vitamin B-12) 1,000 mcg 1X ONCE 04/29/20 10:45 04/29/20 10:46 DC Daptomycin 340 mg/ Sodium Chloride 50 ml @ 100 mls/hr Q24H 04/26/20 12:00 04/29/20 13:17 100 MLS/HR Enoxaparin Sodium (Lovenox 60mg Syringe) 60 mg Q12HR 04/27/20 12:00 04/30/20 08:12 60 MG Fentanyl Citrate (Fentanyl 2ml Vial) 50 mcg PRN Q2HR PRN 04/23/20 14:45 04/24/20 14:44 DC 04/24/20 02:25 50 MCG Fluconazole (Diflucan) 100 mg DAILY 04/24/20 11:00 04/26/20 09:53 DC 04/26/20 08:04 100 MG Ibuprofen (Motrin) 600 mg PRN Q6HRS PRN 04/29/20 10:00 04/30/20 08:19 600 MG Ketorolac Tromethamine (Toradol 30mg Vial) 30 mg PRN Q6HRS PRN 04/24/20 08:45 04/29/20 08:44 DC 04/29/20 02:44 30 MG Lactobacillus Rhamnosus (Culturelle) 1 cap BID 04/24/20 21:00 04/30/20 08:12 1 CAP Lidocaine HCl (Buffered Lidocaine 1%) 3 ml 1X ONCE 04/26/20 14:30 04/26/20 14:31 DC 04/26/20 15:00 5 ML Lidocaine HCl (Viscous Lidocaine) 15 ml 1X ONCE 04/27/20 11:45 04/27/20 11:46 DC 04/27/20 12:02 15 ML Loperamide HCl (Imodium) 2 mg BID 04/26/20 11:00 04/30/20 08:12 2 MG Micafungin Sodium 100 mg/Dextrose 100 ml @ 100 mls/hr Q24H 04/26/20 10:00 04/29/20 10:44 100 MLS/HR Nystatin (Nystop) 1 lian BID 04/26/20 21:00 04/30/20 08:13 1 LIAN Olanzapine (ZyPREXA ZYDIS) 5 mg PRN BID PRN 04/26/20 11:00 04/28/20 19:37 5 MG Ondansetron HCl (Zofran) 4 mg PRN Q4HRS PRN 04/29/20 10:00 Pantoprazole Sodium (Protonix) 40 mg DAILYAC 04/25/20 07:30 04/30/20 08:12 40 MG Piperacillin Sod/ Tazobactam Sod 3.375 gm/Sodium Chloride 50 ml @ 100 mls/hr Q6HRS 04/24/20 12:00 04/30/20 06:00 100 MLS/HR Psyllium Hydrophilic Mucilloid (Metamucil Fiber Packet) 1 pkt QHS 04/26/20 21:00 04/28/20 19:37 1 PKT Vancomycin HCl (Vanco Per Pharmacy) 1 each PRN DAILY PRN 04/24/20 08:45 04/26/20 09:55 DC 04/26/20 09:48 1 EACH Vancomycin HCl (Vancomycin Trough Level) 1 each 1X ONCE 04/26/20 21:30 04/26/20 21:31 Cancel Vancomycin HCl 2 gm/Sodium Chloride 500 ml @ 250 mls/hr Q8HRS 04/25/20 22:00 04/26/20 09:53 DC 04/26/20 06:19 250 MLS/HR Labs: Micro CT LLE IMPRESSION: 1. Skin thickening and extensive subcutaneous edema throughout the left lower leg progressing in severity below the knee. There are several areas of mild subfascial edema/ill-defined fluid and the superficial fascia is mildly thickened at a few locations. No soft tissue gas. Limited assessment for a drainable fluid collection but no well delineated pocket of fluid attenuation is identified to suggest an abscess. It is difficult to distinguish bland edema from cellulitis but given history at least a component of the soft tissue findings presumably relate to cellulitis. The fascial/subfascial findings are nonspecific and could be reactive to cellulitis though deep space infection cannot be excluded on this exam. Note is made that muscular attenuation is essentially the same throughout the leg going against active myositis. 2. No acute osseous abnormality. Only mild degenerative changes. 3. Reactive inguinal lymph nodes the largest on the left measuring up to 2 cm. Objective: Assessment: 1. Cellulitis, left lower extremity, severe. CT negative for abscess 2. Chronic venous ulcer, right lower extremity, stable, not infected. 3. Obesity. 4. Yeast in skin folds. 5. Leukocytosis. 6. Cirrhosis of the liver. 7. History of hepatitis C. 8. Schizophrenia and bipolar disorder. 9. Tobaccoism. 10. Morbid obesity. Plan: Plan of Care Cont daptomycin,Zosyn, micafungin Continue elevate left lower extremity, she does not comply as directed Continue local wound care as directed. Monitor labs and cultures. Continue supportive care. Discussed with nursing staff. RAMÍREZ MERA MD Apr 30, 2020 09:00
[2020-04-30] MEDS: MICAFUNGIN 100 MG in IV DEXTROSE 5% 100ML 100 ML IV SCH (10:37)
--- NOTE | 2020-04-30 10:38 | NUR ---
SW following. Discussed with RN, pt from home, room air, cardiac diet. Pt on 3 IV abx, has wound care. Dr. Artis and Dr. Rivas discussing referral to LTAC. SW met with pt (no isolation precautions at the time), pt does not want to go anywhere but home as she is trying to get her kids back from [employer] custody by July, and needs to do various things, as well as drug testing. Pt reported she would be okay with doing IV abx at home, and could have her kids dad help if need be. Pt requesting to have her hair washed today. RN notified. Dr. Rivas notified of pt declining LTAC. Pt follows at the wound clinic for wound care. SW will continue to follow.
[2020-04-30 11:00] VITALS: BP 100/79
[2020-04-30] MEDS: DAPTOmycin (GENERIC) IVPB 340 MG in IV NORMAL SALINE 50ML 50 ML IV SCH (11:37)
--- NOTE | 2020-04-30 12:27 | PDOC ---
[employer] PROGRESS NOTE Date of Service DOS: DATE: 04/30/20 TIME: 12:25 Chief Complaint Chief Complaint A/P: Left lower extremity cellulitis - will start empirically on vancomycin and zosyn given her prior improvement on this therapy. Wound care to see. Will consult ID SIRS with cellulitis, by definition, sepsis POA Right groin intertrigo - topical and oral antifungals Cirrhosis of liver - stable Chronic obstructive pulmonary disease - prn albuterol Gastroesophageal reflux disease - PPI Transaminitis - previously noted, will check LFTs and INR Smoker - counseled on cessation Schizophrenia - on monthly depo abilify, given 04/07/2020 Acute electrolyte derangementhyponatremia, hypochloremia Super morbid obesity, BMI 56 Severe protein malnutrition Chronic lower extremity wounds Chronic venous insufficiency Peripheral vascular disease History of marijuana and tobacco abuse FEN - General diet PPX - lovenox CODE - FULL Dispo - inpatient for Cellulitis failing outpatient treatment Admit to medicine for further management Appreciate ID recommendationscontinue Vanco and start IV Zosyn and follow-up with blood and urine cultures Wound care consult Lovenox for DVT prophylaxis Protonix GI prophylaxis ADA diet Full code Discussed with RN and SW Disposition inpatient management as above Surrogate decision maker is undesignated History of Present Illness History of Present Illness Ms Grider is a 44 yo F w/ PMHx Hep C, COPD/asthma, gastroesophageal reflux disease, cirrhosis of liver, schizophrenia who presents directly from wound care center with right lower extremity swelling and redness up to her groin as well as multiple RLE ulcers. The patient denied any fever, denied any nausea, vomiting, diarrhea, chest pain, shortness of breath, abdominal pain, urinary symptoms or bowel symptoms. Rates her pain at 7/10. States it has gotten worse over the past couple of weeks. She normally has some chronic pain, but it is much worse. She is on Bactrim and Diflucan at home, but seems to be failing outpatient antibiotics. She [facility] for her chronic venous ulcers on her legs. She was seen in wound clinic and placed on cipro for 2 rounds, then given diflucan on 09/16. She was on bactrim last month and was admitted to inpatient back in July for cellulitis of her RLE and abdomen. She has failed outpatient therapy. Admitted directly for further treatment with IV antibiotics. 04/24: No acute events overnight. Patient remains afebrile. Patient seen and examined bedside. Dressings to her right lower extremity and there is redness and venous congestion and venous dramatic changes to her left lower extremity. 04/25: No acute events overnight. Patient remains afebrile. Patient seen and examined bedside. Lying comfortably in bed and using her cell phone. Patient does sleep throughout the day because she thinks it will drown out the voices in her head. 04/26: Afebrile. No overnight events. Leg about the same. No chest pain or shortness of breath. PICC inserted for multiple failed IV attempts. 04/27: WBC down to 12.3. Rapid COVID-19 negative. Afebrile. LFTs slightly elevated. Denies any fever, nausea, vomiting, diarrhea, abdominal pain. Leg still swollen and painful 04/28: Afebrile. Leg still swollen pain is better controlled. No fever nausea vomiting or diarrhea or abdominal pain. No shortness of breath or chest pain. She is very weak and deconditioned. 04/29: WBC normalized. Still swollen pain is better controlled. Not able to bear weight on her leg. Sodium down to 130. She is not eating Still unable to walk due to swelling and pain in the left lower extremity. Wound does appear somewhat improved. No CP or SOB. She is distraught about losing her children to D[employer] and wants to be healthy enough to see them in July. Vitals/I&O Vitals/I&O: Vital Signs Date Time Temp Pulse Resp B/P (MAP) Pulse Ox O2 Delivery O2 Flow Rate FiO2 04/30/20 11:00 98.2 84 16 100/79 (86) 97 Room Air 98.2 I & O 04/29/20 04/29/20 04/30/20 15:00 23:00 07:00 Intake Total 240 ml 300 ml 2400 ml Output Total 600 ml Balance 240 ml 300 ml 1800 ml Physical Exam Physical Exam: GENERAL: Alert, oriented x 3 female, ambulating in the room, in no acute distress. HEENT: Normocephalic, atraumatic, anicteric. No thrush. Oral mucosa moist. NECK: Supple. LUNGS: Clear bilaterally. HEART: S1, S2. ABDOMEN: Soft, obese. Bowel sounds present. EXTREMITIES: Edema present over both the lower extremities, left greater than right. Right lower extremity ulcer with dry scabs, chronic venous stasis changes present. Left lower extremity swollen, erythematous, edematous, painful to touch, going up to the thigh. DERMATOLOGIC: Warm and dry. No generalized rash except for above. Yeast in skin folds, pannus, groin area and the toes. NEUROLOGIC: Alert, oriented x 3, grossly nonfocal, ambulating in the room without difficulty. General: Alert, Oriented X3, Cooperative Lungs: Clear Abdomen: Normal bowel sounds, Other (Obese) Skin: Other (Right lower extremity dressings clear dry and intact. Left lower extremity with severe cellulitis extending above the knee around the thigh) Assessment and Plan Assessmemt and Plan Problems Medical Problems: (1) Cellulitis of lower extremity Status: Acute Comment Review of Relevant I have reviewed the following items karl (where applicable) has been applied. Justifications for Admission Other Justification JAMEEL HOOKER MD Apr 30, 2020 12:26
[2020-04-30 15:00] VITALS: BP 127/69
[2020-04-30 19:00] VITALS: BP 131/77
[2020-04-30] MEDS: PSYLLIUM HUSK (SUGAR FREE) 1 PKT PACKET PO SCH (21:00)
[2020-04-30 23:08] VITALS: BP 146/81
[2020-05-01] MEDS: PIPERACILLIN/TAZOBACTAM 3.375 GM in IV NORMAL SALINE 50ML 50 ML IV SCH ×2 (00:02→05:48)
[2020-05-01 03:00] VITALS: BP 138/85
[2020-05-01] MEDS: IBUPROFEN 200 MG TABLET. PO PRN ×2 (05:46→12:22)
[2020-05-01 07:00] VITALS: BP 132/74
--- NOTE | 2020-05-01 08:17 | PDOC ---
[employer] PROGRESS NOTE Date of Service DOS: DATE: 05/01/20 TIME: 08:17 Chief Complaint Chief Complaint A/P: Left lower extremity cellulitis - will start empirically on vancomycin and zosyn given her prior improvement on this therapy. Wound care to see. Will consult ID SIRS with cellulitis, by definition, sepsis POA Right groin intertrigo - topical and oral antifungals Cirrhosis of liver - stable Chronic obstructive pulmonary disease - prn albuterol Gastroesophageal reflux disease - PPI Transaminitis - previously noted, will check LFTs and INR Smoker - counseled on cessation Schizophrenia - on monthly depo abilify, given 04/07/2020 Acute electrolyte derangementhyponatremia, hypochloremia Super morbid obesity, BMI 56 Severe protein malnutrition Chronic lower extremity wounds Chronic venous insufficiency Peripheral vascular disease History of marijuana and tobacco abuse FEN - General diet PPX - lovenox CODE - FULL Dispo - inpatient for Cellulitis failing outpatient treatment Admit to medicine for further management Appreciate ID recommendationscontinue Vanco and start IV Zosyn and follow-up with blood and urine cultures Wound care consult Lovenox for DVT prophylaxis Protonix GI prophylaxis ADA diet Full code Discussed with RN and SW Disposition inpatient management as above Surrogate decision maker is undesignated History of Present Illness History of Present Illness Ms Grider is a 44 yo F w/ PMHx Hep C, COPD/asthma, gastroesophageal reflux disease, cirrhosis of liver, schizophrenia who presents directly from wound care center with right lower extremity swelling and redness up to her groin as well as multiple RLE ulcers. The patient denied any fever, denied any nausea, vomiting, diarrhea, chest pain, shortness of breath, abdominal pain, urinary symptoms or bowel symptoms. Rates her pain at 7/10. States it has gotten worse over the past couple of weeks. She normally has some chronic pain, but it is much worse. She is on Bactrim and Diflucan at home, but seems to be failing outpatient antibiotics. [facility] her chronic venous ulcers on her legs. She was seen in wound clinic and placed on cipro for 2 rounds, then given diflucan on 09/16. She was on bactrim last month and was admitted to inpatient back in July for cellulitis of her RLE and abdomen. She has failed outpatient therapy. Admitted directly for further treatment with IV antibiotics. 04/24: No acute events overnight. Patient remains afebrile. Patient seen and examined bedside. Dressings to her right lower extremity and there is redness and venous congestion and venous dramatic changes to her left lower extremity. 04/25: No acute events overnight. Patient remains afebrile. Patient seen and examined bedside. Lying comfortably in bed and using her cell phone. Patient does sleep throughout the day because she thinks it will drown out the voices in her head. 04/26: Afebrile. No overnight events. Leg about the same. No chest pain or shortness of breath. PICC inserted for multiple failed IV attempts. 04/27: WBC down to 12.3. Rapid COVID-19 negative. Afebrile. LFTs slightly elevated. Denies any fever, nausea, vomiting, diarrhea, abdominal pain. Leg still swollen and painful 04/28: Afebrile. Leg still swollen pain is better controlled. No fever nausea vomiting or diarrhea or abdominal pain. No shortness of breath or chest pain. She is very weak and deconditioned. 04/29: WBC normalized. Still swollen pain is better controlled. Not able to bear weight on her leg. Sodium down to 130. She is not eating 04/30: Still having pain with walking due to swelling and pain in the left lower extremity. Wound does appear somewhat improved. No CP or SOB. She is distraught about losing her children to [facility] and wants to be healthy enough to see them in July. Afebrile. Urinated on herself in the bed was able to get up with minimal assistance chair. Complaining of 9-10 pain in her leg. She is eating and appears comfortable. Counseled on keeping her leg elevated while she is in bed. Vitals/I&O Vitals/I&O: Vital Signs Date Time Temp Pulse Resp B/P (MAP) Pulse Ox O2 Delivery O2 Flow Rate FiO2 05/01/20 07:00 98.4 81 16 132/74 (93) 94 Room Air 98.4 I & O 04/30/20 04/30/20 05/01/20 15:00 23:00 07:00 Intake Total 450 ml 1760 ml Output Total 80 ml 400 ml Balance 370 ml 1360 ml Physical Exam Physical Exam: GENERAL: Alert, oriented x 3 female, ambulating in the room, in no acute distress. HEENT: Normocephalic, atraumatic, anicteric. No thrush. Oral mucosa moist. NECK: Supple. LUNGS: Clear bilaterally. HEART: S1, S2. ABDOMEN: Soft, obese. Bowel sounds present. EXTREMITIES: Edema present over both the lower extremities, left greater than right. Right lower extremity ulcer with dry scabs, chronic venous stasis changes present. Left lower extremity swollen, erythematous, edematous, painful to touch, going up to the thigh. DERMATOLOGIC: Warm and dry. No generalized rash except for above. Yeast in skin folds, pannus, groin area and the toes. NEUROLOGIC: Alert, oriented x 3, grossly nonfocal, ambulating in the room without difficulty. General: Alert, Oriented X3, Cooperative Lungs: Clear Abdomen: Normal bowel sounds, Other (Obese) Skin: Other (Right lower extremity dressings clear dry and intact. Left lower extremity with severe cellulitis extending above the knee around the thigh) Assessment and Plan Assessmemt and Plan Problems Medical Problems: (1) Cellulitis of lower extremity Status: Acute Comment Review of Relevant I have reviewed the following items karl (where applicable) has been applied. Justifications for Admission Other Justification JAMEEL HOOKER MD May 01, 2020 08:17
[2020-05-01] MEDS: AMINO AC 3%/ELECTROLYTE/GLYCER 1,000 ML IV SCH ×2 (08:31→22:42)
[2020-05-01] MEDS: MICAFUNGIN 100 MG in IV DEXTROSE 5% 100ML 100 ML IV SCH (08:31)
[2020-05-01] MEDS: PANTOPRAZOLE 40 MG TABLET.DR. PO SCH (08:32)
[2020-05-01] MEDS: LACTOBACILLUS RHAMNOSUS GG 1 CAPSULE. PO SCH ×2 (08:32→22:01)
[2020-05-01] MEDS: LOPERAMIDE 2 MG CAPSULE PO SCH ×2 (08:32→22:01)
[2020-05-01] MEDS: CETIRIZINE HCL 10 MG TABLET. PO SCH (08:32)
[2020-05-01] MEDS: NYSTATIN TOPICAL POWDER 15GM BOTTLE. TP SCH ×2 (08:32→22:54)
--- NOTE | 2020-05-01 08:53 | PDOC ---
Infectious Disease Note Subjective: Subjective Patient feels a little better though continues to have swelling and pain over the left lower extremity Denies fever, nausea, vomiting, diarrhea, abdominal pain Vital Signs: Vital Signs Vital Signs Date Time Temp Pulse Resp B/P (MAP) Pulse Ox O2 Delivery O2 Flow Rate FiO2 05/01/20 08:00 Room Air 05/01/20 07:00 98.4 81 16 132/74 (93) 94 98.4 Physical Exam: PHYSICAL EXAM GENERAL: Alert, oriented x 3 female, ambulating in the room, in no acute distress. HEENT: Normocephalic, atraumatic, anicteric. No thrush. Oral mucosa moist. NECK: Supple. LUNGS: Clear bilaterally. HEART: S1, S2. ABDOMEN: Soft, obese. Bowel sounds present. EXTREMITIES: Edema present over both the lower extremities, left greater than right. Right lower extremity ulcer with dry scabs, chronic venous stasis changes present. Left lower extremity swollen, erythematous, edematous, painful to touch, going up to the thigh. DERMATOLOGIC: Warm and dry. No generalized rash except for above. Yeast in skin folds, pannus, groin area and the toes. NEUROLOGIC: Alert, oriented x 3, grossly nonfocal, ambulating in the room without difficulty. Medications: Inpatient Meds: Current Medications Medications (Trade) Dose Ordered Sig/[facility] Start Time Stop Time Status Last Admin Dose Admin Acetaminophen (Tylenol) 650 mg PRN Q4HRS PRN 04/29/20 10:00 04/29/20 21:28 650 MG Albuterol Sulfate (Ventolin Neb Soln) 2.5 mg PRN Q6HRS PRN 04/26/20 11:00 Amino Acids/ Glycerin/ Electrolytes 1,000 ml @ 80 mls/hr [id number] 04/29/20 10:45 05/01/20 08:31 80 MLS/HR Cetirizine HCl (ZyrTEC) 10 mg DAILY 04/26/20 12:00 05/01/20 08:32 10 MG Cyanocobalamin (Vitamin B-12) 1,000 mcg 1X ONCE 04/29/20 10:45 04/29/20 10:46 DC Daptomycin 340 mg/ Sodium Chloride 50 ml @ 100 mls/hr Q24H 04/26/20 12:00 04/30/20 11:37 100 MLS/HR Enoxaparin Sodium (Lovenox 60mg Syringe) 60 mg Q12HR 04/27/20 12:00 05/01/20 08:32 60 MG Fentanyl Citrate (Fentanyl 2ml Vial) 50 mcg PRN Q2HR PRN 04/23/20 14:45 04/24/20 14:44 DC 04/24/20 02:25 50 MCG Fluconazole (Diflucan) 100 mg DAILY 04/24/20 11:00 04/26/20 09:53 DC 04/26/20 08:04 100 MG Ibuprofen (Motrin) 600 mg PRN Q6HRS PRN 04/29/20 10:00 05/01/20 05:46 600 MG Ketorolac Tromethamine (Toradol 30mg Vial) 30 mg PRN Q6HRS PRN 04/24/20 08:45 04/29/20 08:44 DC 04/29/20 02:44 30 MG Lactobacillus Rhamnosus (Culturelle) 1 cap BID 04/24/20 21:00 05/01/20 08:32 1 CAP Lidocaine HCl (Buffered Lidocaine 1%) 3 ml 1X ONCE 04/26/20 14:30 04/26/20 14:31 DC 04/26/20 15:00 5 ML Lidocaine HCl (Viscous Lidocaine) 15 ml 1X ONCE 04/27/20 11:45 04/27/20 11:46 DC 04/27/20 12:02 15 ML Loperamide HCl (Imodium) 2 mg BID 04/26/20 11:00 05/01/20 08:32 2 MG Micafungin Sodium 100 mg/Dextrose 100 ml @ 100 mls/hr Q24H 04/26/20 10:00 05/01/20 08:31 100 MLS/HR Nystatin (Nystop) 1 lian BID 04/26/20 21:00 05/01/20 08:32 1 LIAN Olanzapine (ZyPREXA ZYDIS) 5 mg PRN BID PRN 04/26/20 11:00 04/28/20 19:37 5 MG Ondansetron HCl (Zofran) 4 mg PRN Q4HRS PRN 04/29/20 10:00 Pantoprazole Sodium (Protonix) 40 mg DAILYAC 04/25/20 07:30 05/01/20 08:32 40 MG Piperacillin Sod/ Tazobactam Sod 3.375 gm/Sodium Chloride 50 ml @ 100 mls/hr Q6HRS 04/24/20 12:00 05/01/20 05:48 100 MLS/HR Psyllium Hydrophilic Mucilloid (Metamucil Fiber Packet) 1 pkt QHS 04/26/20 21:00 04/28/20 19:37 1 PKT Vancomycin HCl (Vanco Per Pharmacy) 1 each PRN DAILY PRN 04/24/20 08:45 04/26/20 09:55 DC 04/26/20 09:48 1 EACH Vancomycin HCl (Vancomycin Trough Level) 1 each 1X ONCE 04/26/20 21:30 04/26/20 21:31 Cancel Vancomycin HCl 2 gm/Sodium Chloride 500 ml @ 250 mls/hr Q8HRS 04/25/20 22:00 04/26/20 09:53 DC 04/26/20 06:19 250 MLS/HR Labs: Micro CT LLE IMPRESSION: 1. Skin thickening and extensive subcutaneous edema throughout the left lower leg progressing in severity below the knee. There are several areas of mild subfascial edema/ill-defined fluid and the superficial fascia is mildly thickened at a few locations. No soft tissue gas. Limited assessment for a drainable fluid collection but no well delineated pocket of fluid attenuation is identified to suggest an abscess. It is difficult to distinguish bland edema from cellulitis but given history at least a component of the soft tissue findings presumably relate to cellulitis. The fascial/subfascial findings are nonspecific and could be reactive to cellulitis though deep space infection cannot be excluded on this exam. Note is made that muscular attenuation is essentially the same throughout the leg going against active myositis. 2. No acute osseous abnormality. Only mild degenerative changes. 3. Reactive inguinal lymph nodes the largest on the left measuring up to 2 cm. Objective: Assessment: 1. Cellulitis, left lower extremity, severe. CT negative for abscess 2. Chronic venous ulcer, right lower extremity, stable, not infected. 3. Obesity. 4. Yeast in skin folds. 5. Leukocytosis. 6. Cirrhosis of the liver. 7. History of hepatitis C. 8. Schizophrenia and bipolar disorder. 9. Tobaccoism. 10. Morbid obesity. Plan: Plan of Care Cont daptomycin, micafungin Change Zosyn to ceftriaxone Continue elevate left lower extremity, she does not comply as directed Continue local wound care as directed. Monitor labs and cultures. Continue supportive care. P T and OT as tolerated Discussed with nursing staff. RAMÍREZ MERA MD May 01, 2020 08:53
[2020-05-01 11:00] VITALS: BP 137/77
[2020-05-01] MEDS: cefTRIAXone IV Push 2 GM VIAL. IVP SCH (12:23)
[2020-05-01] MEDS: DAPTOmycin (GENERIC) IVPB 340 MG in IV NORMAL SALINE 50ML 50 ML IV SCH (12:23)
[2020-05-01 15:00] VITALS: BP 132/78
[2020-05-01 19:14] VITALS: BP 142/80
[2020-05-01] MEDS: PSYLLIUM HUSK (SUGAR FREE) 1 PKT PACKET PO SCH (22:02)
[2020-05-01] MEDS: KETOROLAC 30 MG/ML VIAL. IVP PRN (22:49)
[2020-05-01 22:51] VITALS: BP 144/92
[2020-05-02] MEDS: IBUPROFEN 200 MG TABLET. PO PRN ×2 (01:19→21:57)
[2020-05-02 02:53] VITALS: BP 144/68
[2020-05-02 07:00] VITALS: BP 141/80
--- NOTE | 2020-05-02 08:03 | PDOC ---
Infectious Disease Note Subjective: Subjective Patient feels a little better though continues to have swelling and pain over the left lower extremity Denies fever, nausea, vomiting, diarrhea, abdominal pain Vital Signs: Vital Signs Vital Signs Date Time Temp Pulse Resp B/P (MAP) Pulse Ox O2 Delivery O2 Flow Rate FiO2 05/02/20 07:00 98.3 93 19 141/80 (100) 95 Room Air 98.3 Physical Exam: PHYSICAL EXAM GENERAL: Alert, oriented x 3 female, ambulating in the room, in no acute distress. HEENT: Normocephalic, atraumatic, anicteric. No thrush. Oral mucosa moist. NECK: Supple. LUNGS: Clear bilaterally. HEART: S1, S2. ABDOMEN: Soft, obese. Bowel sounds present. EXTREMITIES: Edema present over both the lower extremities, left greater than right. Right lower extremity ulcer with dry scabs, chronic venous stasis changes present. Left lower extremity swollen, erythematous, edematous, painful to touch, going up to the thigh. DERMATOLOGIC: Warm and dry. No generalized rash except for above. Yeast in skin folds, pannus, groin area and the toes. NEUROLOGIC: Alert, oriented x 3, grossly nonfocal, ambulating in the room without difficulty. Medications: Inpatient Meds: Current Medications Medications (Trade) Dose Ordered Sig/[facility] Start Time Stop Time Status Last Admin Dose Admin Acetaminophen (Tylenol) 650 mg PRN Q4HRS PRN 04/29/20 10:00 04/29/20 21:28 650 MG Albuterol Sulfate (Ventolin Neb Soln) 2.5 mg PRN Q6HRS PRN 04/26/20 11:00 Amino Acids/ Glycerin/ Electrolytes 1,000 ml @ 80 mls/hr [id number] 04/29/20 10:45 05/01/20 22:42 80 MLS/HR Ceftriaxone Sodium (Rocephin) 2 gm Q24H 05/01/20 10:00 05/01/20 12:23 2 GM Cetirizine HCl (ZyrTEC) 10 mg DAILY 04/26/20 12:00 05/01/20 08:32 10 MG Cyanocobalamin (Vitamin B-12) 1,000 mcg 1X ONCE 04/29/20 10:45 04/29/20 10:46 DC Daptomycin 340 mg/ Sodium Chloride 50 ml @ 100 mls/hr Q24H 04/26/20 12:00 05/01/20 12:23 100 MLS/HR Enoxaparin Sodium (Lovenox 60mg Syringe) 60 mg Q12HR 04/27/20 12:00 05/01/20 22:01 60 MG Fentanyl Citrate (Fentanyl 2ml Vial) 50 mcg PRN Q2HR PRN 04/23/20 14:45 04/24/20 14:44 DC 04/24/20 02:25 50 MCG Fluconazole (Diflucan) 100 mg DAILY 04/24/20 11:00 04/26/20 09:53 DC 04/26/20 08:04 100 MG Ibuprofen (Motrin) 600 mg PRN Q6HRS PRN 04/29/20 10:00 05/02/20 01:19 600 MG Ketorolac Tromethamine (Toradol 30mg Vial) 30 mg PRN Q6HRS PRN 05/01/20 12:30 05/01/20 22:49 30 MG Lactobacillus Rhamnosus (Culturelle) 1 cap BID 04/24/20 21:00 05/01/20 22:01 1 CAP Lidocaine HCl (Buffered Lidocaine 1%) 3 ml 1X ONCE 04/26/20 14:30 04/26/20 14:31 DC 04/26/20 15:00 5 ML Lidocaine HCl (Viscous Lidocaine) 15 ml 1X ONCE 04/27/20 11:45 04/27/20 11:46 DC 04/27/20 12:02 15 ML Loperamide HCl (Imodium) 2 mg BID 04/26/20 11:00 05/01/20 22:01 2 MG Micafungin Sodium 100 mg/Dextrose 100 ml @ 100 mls/hr Q24H 04/26/20 10:00 05/01/20 08:31 100 MLS/HR Nystatin (Nystop) 1 lian BID 04/26/20 21:00 05/01/20 22:54 1 LIAN Olanzapine (ZyPREXA ZYDIS) 5 mg PRN BID PRN 04/26/20 11:00 04/28/20 19:37 5 MG Ondansetron HCl (Zofran) 4 mg PRN Q4HRS PRN 04/29/20 10:00 Pantoprazole Sodium (Protonix) 40 mg DAILYAC 04/25/20 07:30 05/01/20 08:32 40 MG Piperacillin Sod/ Tazobactam Sod 3.375 gm/Sodium Chloride 50 ml @ 100 mls/hr Q6HRS 04/24/20 12:00 05/01/20 09:48 DC 05/01/20 05:48 100 MLS/HR Psyllium Hydrophilic Mucilloid (Metamucil Fiber Packet) 1 pkt QHS 04/26/20 21:00 05/01/20 22:02 1 PKT Vancomycin HCl (Vanco Per Pharmacy) 1 each PRN DAILY PRN 04/24/20 08:45 04/26/20 09:55 DC 04/26/20 09:48 1 EACH Vancomycin HCl (Vancomycin Trough Level) 1 each 1X ONCE 04/26/20 21:30 04/26/20 21:31 Cancel Vancomycin HCl 2 gm/Sodium Chloride 500 ml @ 250 mls/hr Q8HRS 04/25/20 22:00 04/26/20 09:53 DC 04/26/20 06:19 250 MLS/HR Labs: Lab Laboratory Tests Test 05/02/20 07:15 White Blood Count 8.6 x10^3/uL (4.0-11.0) Red Blood Count 2.85 x10^6/uL (3.50-5.40) Hemoglobin 9.7 g/dL (12.0-15.5) Hematocrit 30.2 % (36.0-47.0) Mean Corpuscular Volume 106 fL (79-100) Mean Corpuscular Hemoglobin 34 pg (25-35) Mean Corpuscular Hemoglobin Concent 32 g/dL (31-37) Red Cell Distribution Width 15.8 % (11.5-14.5) Platelet Count 188 x10^3/uL (140-400) Neutrophils (%) (Auto) 69 % (31-73) Lymphocytes (%) (Auto) 16 % (24-48) Monocytes (%) (Auto) 13 % (0-9) Eosinophils (%) (Auto) 1 % (0-3) Basophils (%) (Auto) 1 % (0-3) Neutrophils # (Auto) 5.9 x10^3/uL (1.8-7.7) Lymphocytes # (Auto) 1.4 x10^3/uL (1.0-4.8) Monocytes # (Auto) 1.1 x10^3/uL (0.0-1.1) Eosinophils # (Auto) 0.1 x10^3/uL (0.0-0.7) Basophils # (Auto) 0.1 x10^3/uL (0.0-0.2) Sodium Level 120 mmol/L (136-145) Potassium Level 8.0 mmol/L (3.5-5.1) Chloride Level 94 mmol/L (98-107) Carbon Dioxide Level 24 mmol/L (21-32) Anion Gap 2 (6-14) Blood Urea Nitrogen 14 mg/dL (7-20) Creatinine 0.5 mg/dL (0.6-1.0) Estimated GFR (Cockcroft-Gault) 134.0 BUN/Creatinine Ratio 28 (6-20) Glucose Level 112 mg/dL (70-99) Calcium Level 8.3 mg/dL (8.5-10.1) Total Bilirubin 0.2 mg/dL (0.2-1.0) Aspartate Amino Transf (AST/SGOT) 81 U/L (15-37) Alanine Aminotransferase (ALT/SGPT) 53 U/L (14-59) Alkaline Phosphatase 131 U/L (46-116) Creatine Kinase 22 U/L (26-192) Total Protein 6.6 g/dL (6.4-8.2) Albumin 1.2 g/dL (3.4-5.0) Albumin/Globulin Ratio 0.2 (1.0-1.7) Micro CT LLE IMPRESSION: 1. Skin thickening and extensive subcutaneous edema throughout the left lower leg progressing in severity below the knee. There are several areas of mild subfascial edema/ill-defined fluid and the superficial fascia is mildly thickened at a few locations. No soft tissue gas. Limited assessment for a drainable fluid collection but no well delineated pocket of fluid attenuation is identified to suggest an abscess. It is difficult to distinguish bland edema from cellulitis but given history at least a component of the soft tissue findings presumably relate to cellulitis. The fascial/subfascial findings are nonspecific and could be reactive to cellulitis though deep space infection cannot be excluded on this exam. Note is made that muscular attenuation is essentially the same throughout the leg going against active myositis. 2. No acute osseous abnormality. Only mild degenerative changes. 3. Reactive inguinal lymph nodes the largest on the left measuring up to 2 cm. Objective: Assessment: 1. Cellulitis, left lower extremity, severe. CT negative for abscess 2. Chronic venous ulcer, right lower extremity, stable, not infected. 3. Obesity. 4. Yeast in skin folds. 5. Leukocytosis. 6. Cirrhosis of the liver. Lft improved 7. History of hepatitis C. 8. Schizophrenia and bipolar disorder. 9. Tobaccoism. 10. Morbid obesity. 11. Hyponatremia ,hyperkalemia ? lab error Plan: Plan of Care Cont daptomycin, micafungin, ceftriaxone Continue elevate left lower extremity, she does not comply as directed Continue local wound care as directed. Monitor labs and cultures. Continue supportive care. P T and OT as tolerated Discussed with nursing staff. RAMÍREZ MERA MD May 02, 2020 08:03
[2020-05-02 08:26] LABS: BASO # 0.1 x10^3/uL (0.0-0.2); BASO % 1 % (0-3); EOS # 0.1 x10^3/uL (0.0-0.7); EOS % 1 % (0-3); HEMOGLOBIN 10.4 g/dL (12.0-15.5); LYMPH # 1.7 x10^3/uL (1.0-4.8); LYMPH % 19 % (24-48); MEAN CORPUSCULAR HEMOGLOBIN 34 pg (25-35); MEAN CORPUSCULAR HGB CONC 33 g/dL (31-37); MEAN CORPUSCULAR VOLUME 102 fL (79-100); MONO # 1.1 x10^3/uL (0.0-1.1); MONO % 12 % (0-9); NEUT # 6.1 x10^3/uL (1.8-7.7); NEUT % 67 % (31-73); PLATELET COUNT 209 x10^3/uL (140-400); RED BLOOD COUNT 3.03 x10^6/uL (3.50-5.40); WHITE BLOOD COUNT 9.2 x10^3/uL (4.0-11.0)
[2020-05-02 08:29] LABS: CALCIUM 8.6 mg/dL (8.5-10.1); CREATININE 0.6 mg/dL (0.6-1.0); GFR 108.6; POTASSIUM 4.7 mmol/L (3.5-5.1)
[2020-05-02 08:35] LABS: ALBUMIN 1.5 g/dL (3.4-5.0); ALBUMIN/GLOBULIN RATIO 0.2 (1.0-1.7); TOTAL BILIRUBIN 0.2 mg/dL (0.2-1.0); TOTAL PROTEIN 7.8 g/dL (6.4-8.2)
--- NOTE | 2020-05-02 08:50 | PDOC ---
[facility] PROGRESS NOTE Date of Service DOS: DATE: 05/02/20 TIME: 08:49 Chief Complaint Chief Complaint A/P: Left lower extremity cellulitis - will start empirically on vancomycin and zosyn given her prior improvement on this therapy. Wound care to see. Will consult ID SIRS with cellulitis, by definition, sepsis POA Right groin intertrigo - topical and oral antifungals Cirrhosis of liver - stable Chronic obstructive pulmonary disease - prn albuterol Gastroesophageal reflux disease - PPI Transaminitis - previously noted, will check LFTs and INR Smoker - counseled on cessation Schizophrenia - on monthly depo abilify, given 04/07/2020 Acute electrolyte derangementhyponatremia, hypochloremia Super morbid obesity, BMI 56 Severe protein malnutrition Chronic lower extremity wounds Chronic venous insufficiency Peripheral vascular disease History of marijuana and tobacco abuse FEN - General diet PPX - lovenox CODE - FULL Dispo - inpatient for Cellulitis failing outpatient treatment Admit to medicine for further management Appreciate ID recommendationscontinue Vanco and start IV Zosyn and follow-up with blood and urine cultures Wound care consult Lovenox for DVT prophylaxis Protonix GI prophylaxis ADA diet Full code Discussed with RN and SW Disposition inpatient management as above Surrogate decision maker is undesignated History of Present Illness History of Present Illness Ms Grider is a 44 yo F w/ PMHx Hep C, COPD/asthma, gastroesophageal reflux disease, cirrhosis of liver, schizophrenia who presents directly from wound care center with right lower extremity swelling and redness up to her groin as well as multiple RLE ulcers. The patient denied any fever, denied any nausea, vomiting, diarrhea, chest pain, shortness of breath, abdominal pain, urinary symptoms or bowel symptoms. Rates her pain at 7/10. States it has gotten worse over the past couple of weeks. She normally has some chronic pain, but it is much worse. She is on Bactrim and Diflucan at home, but seems to be failing outpatient antibiotics. [facility] her chronic venous ulcers on her legs. She was seen in wound clinic and placed on cipro for 2 rounds, then given diflucan on 09/16. She was on bactrim last month and was admitted to inpatient back in July for cellulitis of her RLE and abdomen. She has failed outpatient therapy. Admitted directly for further treatment with IV antibiotics. 04/24: No acute events overnight. Patient remains afebrile. Patient seen and examined bedside. Dressings to her right lower extremity and there is redness and venous congestion and venous dramatic changes to her left lower extremity. 04/25: No acute events overnight. Patient remains afebrile. Patient seen and examined bedside. Lying comfortably in bed and using her cell phone. Patient does sleep throughout the day because she thinks it will drown out the voices in her head. 04/26: Afebrile. No overnight events. Leg about the same. No chest pain or shortness of breath. PICC inserted for multiple failed IV attempts. 04/27: WBC down to 12.3. Rapid COVID-19 negative. Afebrile. LFTs slightly elevated. Denies any fever, nausea, vomiting, diarrhea, abdominal pain. Leg still swollen and painful 04/28: Afebrile. Leg still swollen pain is better controlled. No fever nausea vomiting or diarrhea or abdominal pain. No shortness of breath or chest pain. She is very weak and deconditioned. 04/29: WBC normalized. Still swollen pain is better controlled. Not able to bear weight on her leg. Sodium down to 130. She is not eating 04/30: Still having pain with walking due to swelling and pain in the left lower extremity. Wound does appear somewhat improved. No CP or SOB. She is distraught about losing her children to [facility] and wants to be healthy enough to see them in July. 05/01: Afebrile. Urinated on herself in the bed was able to get up with minimal assistance chair. Complaining of 9-10 pain in her leg. She is eating and appears comfortable. Counseled on keeping her leg elevated while she is in bed. Afebrile. Still with pain, relieved with ibuprofen. Eating well. Tolerating antibiotics well. Vitals/I&O Vitals/I&O: Vital Signs Date Time Temp Pulse Resp B/P (MAP) Pulse Ox O2 Delivery O2 Flow Rate FiO2 05/02/20 07:00 98.3 93 19 141/80 (100) 95 Room Air 98.3 I & O 05/01/20 05/01/20 05/02/20 15:00 23:00 07:00 Intake Total 1570 ml 540 ml 0 ml Output Total 550 ml Balance 1570 ml -10 ml 0 ml Physical Exam Physical Exam: GENERAL: Alert, oriented x 3 female, ambulating in the room, in no acute distress. HEENT: Normocephalic, atraumatic, anicteric. No thrush. Oral mucosa moist. NECK: Supple. LUNGS: Clear bilaterally. HEART: S1, S2. ABDOMEN: Soft, obese. Bowel sounds present. EXTREMITIES: Edema present over both the lower extremities, left greater than right. Right lower extremity ulcer with dry scabs, chronic venous stasis changes present. Left lower extremity swollen, erythematous, edematous, painful to touch, going up to the thigh. DERMATOLOGIC: Warm and dry. No generalized rash except for above. Yeast in skin folds, pannus, groin area and the toes. NEUROLOGIC: Alert, oriented x 3, grossly nonfocal, ambulating in the room without difficulty. General: Alert, Oriented X3, Cooperative Lungs: Clear Abdomen: Normal bowel sounds, Other (Obese) Skin: Other (Right lower extremity dressings clear dry and intact. Left lower extremity with severe cellulitis extending above the knee around the thigh) Labs Labs: Laboratory Tests Test 05/02/20 08:05 White Blood Count 9.2 x10^3/uL (4.0-11.0) Red Blood Count 3.03 x10^6/uL (3.50-5.40) Hemoglobin 10.4 g/dL (12.0-15.5) Hematocrit 31.0 % (36.0-47.0) Mean Corpuscular Volume 102 fL (79-100) Mean Corpuscular Hemoglobin 34 pg (25-35) Mean Corpuscular Hemoglobin Concent 33 g/dL (31-37) Red Cell Distribution Width 15.0 % (11.5-14.5) Platelet Count 209 x10^3/uL (140-400) Neutrophils (%) (Auto) 67 % (31-73) Lymphocytes (%) (Auto) 19 % (24-48) Monocytes (%) (Auto) 12 % (0-9) Eosinophils (%) (Auto) 1 % (0-3) Basophils (%) (Auto) 1 % (0-3) Neutrophils # (Auto) 6.1 x10^3/uL (1.8-7.7) Lymphocytes # (Auto) 1.7 x10^3/uL (1.0-4.8) Monocytes # (Auto) 1.1 x10^3/uL (0.0-1.1) Eosinophils # (Auto) 0.1 x10^3/uL (0.0-0.7) Basophils # (Auto) 0.1 x10^3/uL (0.0-0.2) Sodium Level 136 mmol/L (136-145) Potassium Level 4.7 mmol/L (3.5-5.1) Chloride Level 102 mmol/L (98-107) Carbon Dioxide Level 28 mmol/L (21-32) Anion Gap 6 (6-14) Blood Urea Nitrogen 16 mg/dL (7-20) Creatinine 0.6 mg/dL (0.6-1.0) Estimated GFR (Cockcroft-Gault) 108.6 BUN/Creatinine Ratio 27 (6-20) Glucose Level 142 mg/dL (70-99) Calcium Level 8.6 mg/dL (8.5-10.1) Total Bilirubin 0.2 mg/dL (0.2-1.0) Aspartate Amino Transf (AST/SGOT) 88 U/L (15-37) Alanine Aminotransferase (ALT/SGPT) 65 U/L (14-59) Alkaline Phosphatase 159 U/L (46-116) Creatine Kinase 26 U/L (26-192) Total Protein 7.8 g/dL (6.4-8.2) Albumin 1.5 g/dL (3.4-5.0) Albumin/Globulin Ratio 0.2 (1.0-1.7) Assessment and Plan Assessmemt and Plan Problems Medical Problems: (1) Cellulitis of lower extremity Status: Acute Comment Review of Relevant I have reviewed the following items karl (where applicable) has been applied. Medications: Current Medications Medications (Trade) Dose Ordered Sig/Terrell Route PRN Reason Start Time Stop Time Status Last Admin Dose Admin Ceftriaxone Sodium (Rocephin) 2 gm Q24H IVP 05/01/20 10:00 05/01/20 12:23 Ketorolac Tromethamine (Toradol 30mg Vial) 30 mg PRN Q6HRS PRN IVP INFLAMMATION 05/01/20 12:30 05/01/20 22:49 Justifications for Admission Other Justification JAMEEL HOOKER MD May 02, 2020 08:50
[2020-05-02] MEDS: LOPERAMIDE 2 MG CAPSULE PO SCH ×2 (09:06→21:54)
[2020-05-02] MEDS: LACTOBACILLUS RHAMNOSUS GG 1 CAPSULE. PO SCH ×2 (09:06→21:54)
[2020-05-02] MEDS: CETIRIZINE HCL 10 MG TABLET. PO SCH (09:06)
[2020-05-02] MEDS: PANTOPRAZOLE 40 MG TABLET.DR. PO SCH (09:06)
[2020-05-02] MEDS: cefTRIAXone IV Push 2 GM VIAL. IVP SCH (09:07)
[2020-05-02] MEDS: KETOROLAC 30 MG/ML VIAL. IVP PRN (09:07)
[2020-05-02] MEDS: NYSTATIN TOPICAL POWDER 15GM BOTTLE. TP SCH ×2 (09:07→23:24)
[2020-05-02] MEDS: MICAFUNGIN 100 MG in IV DEXTROSE 5% 100ML 100 ML IV SCH (09:12)
[2020-05-02 11:00] VITALS: BP 127/88
[2020-05-02] MEDS: DAPTOmycin (GENERIC) IVPB 340 MG in IV NORMAL SALINE 50ML 50 ML IV SCH (11:37)
[2020-05-02] MEDS: AMINO AC 3%/ELECTROLYTE/GLYCER 1,000 ML IV SCH (11:37)
[2020-05-02 15:00] VITALS: BP 133/68
[2020-05-02] MEDS: ACETAMINOPHEN 325 MG TABLET. PO PRN (17:27)
[2020-05-02 19:30] VITALS: BP 123/70
[2020-05-02] MEDS: PSYLLIUM HUSK (SUGAR FREE) 1 PKT PACKET PO SCH (21:54)
[2020-05-02 23:49] VITALS: BP 141/75
[2020-05-03] MEDS: AMINO AC 3%/ELECTROLYTE/GLYCER 1,000 ML IV SCH ×2 (00:15→14:19)
[2020-05-03 03:29] VITALS: BP 97/58
[2020-05-03 07:00] VITALS: BP 120/69
[2020-05-03] MEDS: PANTOPRAZOLE 40 MG TABLET.DR. PO SCH (07:32)
[2020-05-03] MEDS: KETOROLAC 30 MG/ML VIAL. IVP PRN (07:32)
[2020-05-03] MEDS: CETIRIZINE HCL 10 MG TABLET. PO SCH (08:29)
[2020-05-03] MEDS: LACTOBACILLUS RHAMNOSUS GG 1 CAPSULE. PO SCH ×2 (08:30→21:16)
[2020-05-03] MEDS: LOPERAMIDE 2 MG CAPSULE PO SCH ×2 (08:30→21:16)
[2020-05-03] MEDS: NYSTATIN TOPICAL POWDER 15GM BOTTLE. TP SCH ×2 (08:30→21:00)
--- NOTE | 2020-05-03 09:24 | PDOC ---
Infectious Disease Note Subjective Subjective Patient feels a little better though continues to have swelling and pain over the left lower extremity Denies fever, nausea, vomiting, diarrhea, abdominal pain ROS ROS as above Vital Sign Vital Signs Vital Signs Date Time Temp Pulse Resp B/P (MAP) Pulse Ox O2 Delivery O2 Flow Rate FiO2 05/03/20 07:00 98.3 88 18 120/69 (86) 92 Room Air 98.3 Physical Exam PHYSICAL EXAM GENERAL: Alert, oriented x 3 female, ambulating in the room, in no acute distress. HEENT: Normocephalic, atraumatic, anicteric. No thrush. Oral mucosa moist. NECK: Supple. LUNGS: Clear bilaterally. HEART: S1, S2. ABDOMEN: Soft, obese. Bowel sounds present. EXTREMITIES: Edema present over both the lower extremities, left greater than right. Right lower extremity ulcer with dry scabs, chronic venous stasis changes present. Left lower extremity swollen, erythematous, edematous, painful to touch, going up to the thigh. DERMATOLOGIC: Warm and dry. No generalized rash except for above. Yeast in skin folds, pannus, groin area and the toes. NEUROLOGIC: Alert, oriented x 3, grossly nonfocal, ambulating in the room without difficulty. Labs Micro Microbiology 04/24/20 Blood Culture - Final, Complete NO GROWTH AFTER 5 DAYS Objective Assessment 1. Cellulitis, left lower extremity, severe. CT negative for abscess 2. Chronic venous ulcer, right lower extremity, stable, not infected. 3. Obesity. 4. Yeast in skin folds. 5. Leukocytosis. 6. Cirrhosis of the liver. Lft improved 7. History of hepatitis C. 8. Schizophrenia and bipolar disorder. 9. Tobaccoism. 10. Morbid obesity. 11. Hyponatremia ,hyperkalemia ? lab error Plan Plan of Care change antibiotics to po Continue elevate left lower extremity, she does not comply as directed Continue local wound care as directed. Monitor labs and cultures. Continue supportive care. P T and OT as tolerated Discussed with nursing staff. pt need fluid restriction, wt loss, albumin diuresis and more walking JEANCARLOS MERA MD May 03, 2020 09:24
--- NOTE | 2020-05-03 09:40 | NUR ---
SW following. Discussed with RN, pt from home, room air, cardiac diet. PT/OT recommending home. IV abx have been switched to PO. Anticipate discharge in the next day or two. SW will continue to follow.
[2020-05-03 10:30] VITALS: BP 127/76
--- NOTE | 2020-05-03 11:07 | PDOC ---
[facility] PROGRESS NOTE Date of Service DOS: DATE: 05/03/20 TIME: 10:57 Chief Complaint Chief Complaint Left lower extremity cellulitis SIRS with cellulitis, by definition, sepsis POA Right groin intertrigo Cirrhosis of liver Chronic obstructive pulmonary disease Gastroesophageal reflux disease Transaminitis Smoker Schizophrenia Acute electrolyte derangementhyponatremia, hypochloremia Super morbid obesity, BMI 56 Severe protein malnutrition Chronic lower extremity wounds Chronic venous insufficiency Peripheral vascular disease History of marijuana and tobacco abuse History of Present Illness History of Present Illness Ms Grider is a 44 yo F w/ PMHx Hep C, COPD/asthma, gastroesophageal reflux disease, cirrhosis of liver, schizophrenia who presents directly from wound care center with right lower extremity swelling and redness up to her groin as well as multiple RLE ulcers. The patient denied any fever, denied any nausea, vomiting, diarrhea, chest pain, shortness of breath, abdominal pain, urinary sym ptoms or bowel symptoms. Rates her pain at 7/10. States it has gotten worse over the past couple of weeks. She normally has some chronic pain, but it is much worse. She is on Bactrim and Diflucan at home, but seems to be failing outpatient antibiotics. She [facility] for her chronic venous ulcers on her legs. She was seen in wound clinic and placed on cipro for 2 rounds, then given diflucan on 09/16. She was on bactrim last month and was admitted to inpatient back in July for cellulitis of her RLE and abdomen. She has failed outpatient therapy. Admitted directly for further treatment with IV antibiotics. 04/24: No acute events overnight. Patient remains afebrile. Patient seen and examined bedside. Dressings to her right lower extremity and there is redness and venous congestion and venous dramatic changes to her left lower extremity. 04/25: No acute events overnight. Patient remains afebrile. Patient seen and examined bedside. Lying comfortably in bed and using her cell phone. Patient does sleep throughout the day because she thinks it will drown out the voices in her head. 04/26: Afebrile. No overnight events. Leg about the same. No chest pain or shortness of breath. PICC inserted for multiple failed IV attempts. 04/27: WBC down to 12.3. Rapid COVID-19 negative. Afebrile. LFTs slightly elevated. Denies any fever, nausea, vomiting, diarrhea, abdominal pain. Leg still swollen and painful 04/28: Afebrile. Leg still swollen pain is better controlled. No fever nausea vomiting or diarrhea or abdominal pain. No shortness of breath or chest pain. She is very weak and deconditioned. 04/29: WBC normalized. Still swollen pain is better controlled. Not able to bear weight on her leg. Sodium down to 130. She is not eating 04/30: Still having pain with walking due to swelling and pain in the left lower extremity. Wound does appear somewhat improved. No CP or SOB. She is distraught about losing her children to [facility] and wants to be healthy enough to see them in July. 05/01: Afebrile. Urinated on herself in the bed was able to get up with minimal assistance chair. Complaining of 9-10 pain in her leg. She is eating and appears comfortable. Counseled on keeping her leg elevated while she is in bed. Afebrile. Still with pain, relieved with ibuprofen. Eating well. Tolerating antibiotics well. 05/03/2020: -Patient seen and evaluated. -Patient was on the commode with urine on floor. -Deo director case. Deo RN. -Patient wants to go home once d/c'd, not to a SNU. -Chart reviewed. Vitals/I&O Vitals/I&O: Vital Signs Date Time Temp Pulse Resp B/P (MAP) Pulse Ox O2 Delivery O2 Flow Rate FiO2 05/03/20 10:30 98.4 91 18 127/76 (93) 95 Room Air 98.4 I & O 05/02/20 05/02/20 05/03/20 15:00 23:00 07:00 Intake Total 350 ml 780 ml Output Total 200 ml Balance 150 ml 780 ml Physical Exam Physical Exam: GENERAL: Alert, oriented x 3 female, ambulating in the room, in no acute distress. HEENT: Normocephalic, atraumatic, anicteric. No thrush. Oral mucosa moist. NECK: Supple. LUNGS: Clear bilaterally. HEART: S1, S2. ABDOMEN: Soft, obese. Bowel sounds present. EXTREMITIES: Edema present over both the lower extremities, left greater than right. Right lower extremity ulcer with dry scabs, chronic venous stasis changes present. Left lower extremity swollen, erythematous, edematous, painful to touch, going up to the thigh. DERMATOLOGIC: Warm and dry. No generalized rash except for above. Yeast in skin folds, pannus, groin area and the toes. NEUROLOGIC: Alert, oriented x 3, grossly nonfocal, ambulating in the room without difficulty. General: Alert, Oriented X3, Cooperative Heart: Regular rate, No murmurs Lungs: Clear Abdomen: Normal bowel sounds, Other (Obese) Skin: Other (Right lower extremity dressings clear dry and intact. Left lower extremity with severe cellulitis extending above the knee around the thigh) Review of Systems Review of Systems: Denies headache. Denies CP. Assessment and Plan Assessmemt and Plan Problems Medical Problems: (1) Cellulitis of lower extremity Status: Acute Left lower extremity cellulitis SIRS with cellulitis, by definition, sepsis POA Right groin intertrigo Cirrhosis of liver Chronic obstructive pulmonary disease Gastroesophageal reflux disease Transaminitis Smoker Schizophrenia Acute electrolyte derangementhyponatremia, hypochloremia Super morbid obesity, BMI 56 Severe protein malnutrition Chronic lower extremity wounds Chronic venous insufficiency Peripheral vascular disease History of marijuana and tobacco abuse 05/03/2020: Plan 1. Appreciate ID input 2. Continue PO abx - ID stopped IV daptomycin, micafungin, ceftriaxone 3. IV ProcalAmine 4. PT/OT 5. DVT prophylaxis 6. Trend labs 7. Full code 8. Home meds Comment Review of Relevant I have reviewed the following items karl (where applicable) has been applied. Justifications for Admission Other Justification CARLOS VELARDE III DO May 03, 2020 11:07
[2020-05-03 14:39] VITALS: BP 136/74
[2020-05-03 19:38] VITALS: BP 147/77
[2020-05-03] MEDS: PSYLLIUM HUSK (SUGAR FREE) 1 PKT PACKET PO SCH (21:00)
[2020-05-03] MEDS: AMOXICILLIN/K CLAV 875/125MG TABLET. PO SCH (21:16)
[2020-05-03 23:15] VITALS: BP 137/71
[2020-05-04] MEDS: AMINO AC 3%/ELECTROLYTE/GLYCER 1,000 ML IV SCH ×2 (02:29→15:45)
[2020-05-04 03:05] VITALS: BP 133/76
[2020-05-04 06:32] LABS: BASO # 0.1 x10^3/uL (0.0-0.2); BASO % 1 % (0-3); EOS # 0.1 x10^3/uL (0.0-0.7); EOS % 1 % (0-3); HEMATOCRIT 30.3 % (36.0-47.0); HEMOGLOBIN 10.3 g/dL (12.0-15.5); LYMPH # 1.8 x10^3/uL (1.0-4.8); LYMPH % 20 % (24-48); MEAN CORPUSCULAR HEMOGLOBIN 35 pg (25-35); MEAN CORPUSCULAR HGB CONC 34 g/dL (31-37); MEAN CORPUSCULAR VOLUME 102 fL (79-100); MONO # 0.8 x10^3/uL (0.0-1.1); MONO % 9 % (0-9); NEUT # 6.1 x10^3/uL (1.8-7.7); NEUT % 69 % (31-73); PLATELET COUNT 209 x10^3/uL (140-400); RED BLOOD COUNT 2.98 x10^6/uL (3.50-5.40); RED CELL DISTRIBUTION WIDTH 15.6 % (11.5-14.5); WHITE BLOOD COUNT 8.8 x10^3/uL (4.0-11.0)
[2020-05-04 06:38] LABS: CALCIUM 8.6 mg/dL (8.5-10.1); CREATININE 0.6 mg/dL (0.6-1.0); GFR 108.6; POTASSIUM 4.4 mmol/L (3.5-5.1)
[2020-05-04 07:15] VITALS: BP 161/78
[2020-05-04] MEDS: PANTOPRAZOLE 40 MG TABLET.DR. PO SCH (08:27)
[2020-05-04] MEDS: LOPERAMIDE 2 MG CAPSULE PO SCH (08:27)
[2020-05-04] MEDS: AMOXICILLIN/K CLAV 875/125MG TABLET. PO SCH (08:27)
[2020-05-04] MEDS: LACTOBACILLUS RHAMNOSUS GG 1 CAPSULE. PO SCH (08:27)
[2020-05-04] MEDS: CETIRIZINE HCL 10 MG TABLET. PO SCH (08:27)
--- NOTE | 2020-05-04 08:50 | NUR ---
Wound/Ostomy Care Wound Type/Assessment: VLU to RLE and cellulitis with blistering to left upper thigh. Pt is currently being seen in [facility] by Dr Miles on a weekly basis, but Dr. Rueda is at bedside to assess wounds. Left lower leg is much improved with new skin covering previously blistered areas, with some thick peeling skin on foot and leg. Left lateral upper thigh bright and dark red, with peeling and open blisters. RLE is reddened, with brawny induration, hemosidirin staining, with significant slough in the wound beds. Pt is also complaining of left medial upper thigh pain. Area reddened, hot and indurated, pt screams out in pain if legs brush against each other. Treatment Recommendations/Plan: Cleansed R leg wounds, topical viscous lidocaine applied prior to Dr. Rueda debriding, see his separate dictation. Pt tolerated procedure well, after recleaning and photographing R leg, applied Medihoney, Xeroform, ABD and kerlix to RLE. Lotion applied to LLE, Medigrip Size G applied to L leg and Size D to R. Left upper thigh area dark reddened and weeping, area cleaned and dressed with Gentamicin ointment, ABD and MARCELLA wrap, instructed pt to remove and have RN rewrap daily and if MARCELLA rolls or tightens, pt v/u. Recommend to change daily or every other day, as needed for drainage management. Education provided: [facility], leg elevation, dietary, and PU prevention Offloading surface/device: pt is currently on a P500 bed Recommended Referrals/Tests: Spoke with Dr. Monico Artis re: L upper thigh redness and pain, Dr. Artis to assess and possibly order U/S. Discharge Recommendations for dressings: Continue with dressings as above noted. Will continue to follow inpatient, and pt to follow up in [facility] after discharge.
--- NOTE | 2020-05-04 08:53 | PDOC ---
Infectious Disease Note Subjective Subjective Patient feels a little better though continues to have swelling and pain over the left lower extremity Denies fever, nausea, vomiting, diarrhea, abdominal pain ROS ROS as above Vital Sign Vital Signs Vital Signs Date Time Temp Pulse Resp B/P (MAP) Pulse Ox O2 Delivery O2 Flow Rate FiO2 05/04/20 07:15 97.9 100 22 161/78 (105) 95 Room Air 97.9 Physical Exam PHYSICAL EXAM GENERAL: Alert, oriented x 3 female, ambulating in the room, in no acute distress. HEENT: Normocephalic, atraumatic, anicteric. No thrush. Oral mucosa moist. NECK: Supple. LUNGS: Clear bilaterally. HEART: S1, S2. ABDOMEN: Soft, obese. Bowel sounds present. EXTREMITIES: Edema present over both the lower extremities, left greater than right. Right lower extremity ulcer with dry scabs, chronic venous stasis changes present. Left lower extremity swollen, erythematous, edematous, painful to touch, going up to the thigh. DERMATOLOGIC: Warm and dry. No generalized rash except for above. Yeast in skin folds, pannus, groin area and the toes. NEUROLOGIC: Alert, oriented x 3, grossly nonfocal, ambulating in the room without difficulty. Labs Lab Laboratory Tests Test 05/04/20 06:15 White Blood Count 8.8 x10^3/uL (4.0-11.0) Red Blood Count 2.98 x10^6/uL (3.50-5.40) Hemoglobin 10.3 g/dL (12.0-15.5) Hematocrit 30.3 % (36.0-47.0) Mean Corpuscular Volume 102 fL (79-100) Mean Corpuscular Hemoglobin 35 pg (25-35) Mean Corpuscular Hemoglobin Concent 34 g/dL (31-37) Red Cell Distribution Width 15.6 % (11.5-14.5) Platelet Count 209 x10^3/uL (140-400) Neutrophils (%) (Auto) 69 % (31-73) Lymphocytes (%) (Auto) 20 % (24-48) Monocytes (%) (Auto) 9 % (0-9) Eosinophils (%) (Auto) 1 % (0-3) Basophils (%) (Auto) 1 % (0-3) Neutrophils # (Auto) 6.1 x10^3/uL (1.8-7.7) Lymphocytes # (Auto) 1.8 x10^3/uL (1.0-4.8) Monocytes # (Auto) 0.8 x10^3/uL (0.0-1.1) Eosinophils # (Auto) 0.1 x10^3/uL (0.0-0.7) Basophils # (Auto) 0.1 x10^3/uL (0.0-0.2) Sodium Level 129 mmol/L (136-145) Potassium Level 4.4 mmol/L (3.5-5.1) Chloride Level 97 mmol/L (98-107) Carbon Dioxide Level 28 mmol/L (21-32) Anion Gap 4 (6-14) Blood Urea Nitrogen 12 mg/dL (7-20) Creatinine 0.6 mg/dL (0.6-1.0) Estimated GFR (Cockcroft-Gault) 108.6 Glucose Level 147 mg/dL (70-99) Calcium Level 8.6 mg/dL (8.5-10.1) Micro Microbiology 04/24/20 Blood Culture - Final, Complete NO GROWTH AFTER 5 DAYS Objective Assessment 1. Cellulitis, left lower extremity, severe. CT negative for abscess 2. Chronic venous ulcer, right lower extremity, stable, not infected. 3. Obesity. 4. Yeast in skin folds. 5. Leukocytosis. 6. Cirrhosis of the liver. Lft improved 7. History of hepatitis C. 8. Schizophrenia and bipolar disorder. 9. Tobaccoism. 10. Morbid obesity. 11. Hyponatremia ,hyperkalemia ? lab error Plan Plan of Care Continue elevate left lower extremity, she does not comply as directed Continue local wound care as directed. Monitor labs and cultures. Continue supportive care. P T and OT as tolerated Discussed with nursing staff. left lower ext ultrasound and ct abd and pelvis pt need fluid restriction, wt loss, albumin diuresis and more walking JEANCARLOS MERA MD May 04, 2020 08:53
[2020-05-04] MEDS: NYSTATIN TOPICAL POWDER 15GM BOTTLE. TP SCH (09:00)
[2020-05-04] MEDS: GENTAMICIN 0.1% TOPICAL OINTMENT 15GM TUBE. TP SCH ×2 (09:00→14:00)
--- NOTE | 2020-05-04 09:09 | PDOC ---
Date of Service: DATE: 05/04/20 TIME: 09:03 Progress Note: Patient seen for reevaluation of bilateral lower extremity venous insufficiency ulcerations complicated by cellulitis. Cellulitic component is markedly improved. Patient is also demonstrating marked improvement in lower leg volume. She is transition to oral antibiotic therapy at this point. She continues to be aware of lower leg and thigh discomfort particularly to the left lateral thigh. She is examined at the bedside in the supine position. She is comfortable and nondistressed. Vital signs are stable and patient is afebrile. Respirations are clear anteriorly. Wounds today demonstrate scant serosanguineous drainage. On the right leg they continue to be heavily sloughed. Left lower leg wound area measures 8 cm x 7 cm. There is an area of reddened induration to the left thigh. This finding will be relayed to infectious disease. Right lower leg measurement continues to cover a square surface area of 7.1 cm x 12.6 cm x 0.3 cm. Debridement note: Following informed patient consent and utilizing topical lidocaine for anesthesia, the right lower leg underwent debridement of slough and nonviable tissue over the entire area. Total area debrided was a 89.46 cm. This was well-tolerated by the patient with less than 3 cc of bleeding noted. This was a selective debridement utilizing scalpel. Following debridement wounds were dressed. See orders above. Arrangements for follow-up in the wound care clinic completed. Justifications for Admission Other Justification RENATA PERES DO May 04, 2020 09:09
[2020-05-04] MEDS ORDERED: LIDOCAINE 2% VISCOUS 15 ML SOLUTION. SWSW ONE (10:00)
[2020-05-04] MEDS: KETOROLAC 30 MG/ML VIAL. IVP PRN (10:00)
[2020-05-04] MEDS ORDERED: LIDOCAINE 2% TOPICAL JELLY 5GM TUBE. TP ONE (10:00)
--- NOTE | 2020-05-04 10:06 | NUR ---
SW following. Discussed with RN, pt from home, room air, cardiac diet. PT/OT recommending home. Left lower extremity ultrasound and CT abd and pelvis ordered for today. Pt has been switched to oral abx. Dr. Carbajal plans to discharge pt home today if imaging okay. Pt follows with the wound clinic, and wants to continue to do so. SW will continue to follow.
--- NOTE | 2020-05-04 10:06 | RAD ---
EXAM: Left lower extremity venous Doppler. HISTORY: Left lower extremity pain/swelling. COMPARISON: None. FINDINGS: Grayscale and Doppler analysis of the left lower extremity deep venous system was performed with graded compression and augmentation. The common femoral, greater saphenous, superficial femoral , popliteal and calf veins were assessed. Sensitivity was limited by patient intolerance to compressi on. There is no evidence of deep venous thrombosis. The peroneal and mid superficial femoral veins could not be visualized. IMPRESSION: 1. Limited sensitivity given patient intolerance to compression. Segments of the superficial femoral and calf veins could not be visualized. No direct evidence of deep venous thrombosis. Electronically signed by: Tammy Montalvo MD (05/04/2020 10:04 AM) [id number]
[2020-05-04 10:56] VITALS: BP 129/65
--- NOTE | 2020-05-04 11:04 | PDOC ---
[employer] PROGRESS NOTE Date of Service DOS: DATE: 05/04/20 TIME: 11:00 Chief Complaint Chief Complaint Left lower extremity cellulitis SIRS with cellulitis, by definition, sepsis POA Right groin intertrigo Cirrhosis of liver Chronic obstructive pulmonary disease Gastroesophageal reflux disease Transaminitis Smoker Schizophrenia Acute electrolyte derangementhyponatremia, hypochloremia Super morbid obesity, BMI 56 Severe protein malnutrition Chronic lower extremity wounds Chronic venous insufficiency Peripheral vascular disease History of marijuana and tobacco abuse History of Present Illness History of Present Illness Ms Grider is a 44 yo F w/ PMHx Hep C, COPD/asthma, gastroesophageal reflux disease, cirrhosis of liver, schizophrenia who presents directly from wound care center with right lower extremity swelling and redness up to her groin as well as multiple RLE ulcers. The patient denied any fever, denied any nausea, vomiting, diarrhea, chest pain, shortness of breath, abdominal pain, urinary sym ptoms or bowel symptoms. Rates her pain at 7/10. States it has gotten worse over the past couple of weeks. She normally has some chronic pain, but it is much worse. She is on Bactrim and Diflucan at home, but seems to be failing outpatient antibiotics. She [facility] for her chronic venous ulcers on her legs. She was seen in wound clinic and placed on cipro for 2 rounds, then given diflucan on 09/16. She was on bactrim last month and was admitted to inpatient back in July for cellulitis of her RLE and abdomen. She has failed outpatient therapy. Admitted directly for further treatment with IV antibiotics. 04/24: No acute events overnight. Patient remains afebrile. Patient seen and examined bedside. Dressings to her right lower extremity and there is redness and venous congestion and venous dramatic changes to her left lower extremity. 04/25: No acute events overnight. Patient remains afebrile. Patient seen and examined bedside. Lying comfortably in bed and using her cell phone. Patient does sleep throughout the day because she thinks it will drown out the voices in her head. 04/26: Afebrile. No overnight events. Leg about the same. No chest pain or shortness of breath. PICC inserted for multiple failed IV attempts. 04/27: WBC down to 12.3. Rapid COVID-19 negative. Afebrile. LFTs slightly elevated. Denies any fever, nausea, vomiting, diarrhea, abdominal pain. Leg still swollen and painful 04/28: Afebrile. Leg still swollen pain is better controlled. No fever nausea vomiting or diarrhea or abdominal pain. No shortness of breath or chest pain. She is very weak and deconditioned. 04/29: WBC normalized. Still swollen pain is better controlled. Not able to bear weight on her leg. Sodium down to 130. She is not eating 04/30: Still having pain with walking due to swelling and pain in the left lower extremity. Wound does appear somewhat improved. No CP or SOB. She is distraught about losing her children to [facility] and wants to be healthy enough to see them in July. 05/01: Afebrile. Urinated on herself in the bed was able to get up with minimal assistance chair. Complaining of 9-10 pain in her leg. She is eating and appears comfortable. Counseled on keeping her leg elevated while she is in bed. Afebrile. Still with pain, relieved with ibuprofen. Eating well. Tolerating antibiotics well. 05/03/2020: -Patient seen and evaluated. -Patient was on the commode with urine on floor. -Deo case finishing machine adjuster. Deo RN. -Patient wants to go home once d/c'd, not to a SNU. -Chart reviewed. 05/04/2020 -Patient seen and examined -Patient with hot induration to left inner thigh. Wound care saw the patient this morning, -Deo RN. Deo case finishing machine adjuster. -PT/OT says pt is fine to go home when d/c'd -Chart reviewed. Vitals/I&O Vitals/I&O: Vital Signs Date Time Temp Pulse Resp B/P (MAP) Pulse Ox O2 Delivery O2 Flow Rate FiO2 05/04/20 10:56 97.9 99 20 129/65 (86) 95 Room Air 97.9 I & O 05/03/20 05/03/20 05/04/20 15:00 23:00 07:00 Intake Total 2740 ml Output Total 700 ml Balance 2040 ml Physical Exam Physical Exam: GENERAL: Alert, oriented x 3 female, ambulating in the room, in no acute distress. HEENT: Normocephalic, atraumatic, anicteric. No thrush. Oral mucosa moist. NECK: Supple. LUNGS: Clear bilaterally. HEART: S1, S2. ABDOMEN: Soft, obese. Bowel sounds present. EXTREMITIES: Edema present over both the lower extremities, left greater than right. Right lower extremity ulcer with dry scabs, chronic venous stasis changes present. Left lower extremity swollen, erythematous, edematous, painful to touch, going up to the thigh. DERMATOLOGIC: Warm and dry. No generalized rash except for above. Yeast in skin folds, pannus, groin area and the toes. NEUROLOGIC: Alert, oriented x 3, grossly nonfocal, ambulating in the room without difficulty. General: Alert, Oriented X3, Cooperative Heart: Regular rate, No murmurs Lungs: Clear Abdomen: Normal bowel sounds, Other (Obese) Skin: Other (Right lower extremity dressings clear dry and intact. Left lower extremity with severe cellulitis extending above the knee around the thigh) Labs Labs: Laboratory Tests Test 05/04/20 06:15 White Blood Count 8.8 x10^3/uL (4.0-11.0) Red Blood Count 2.98 x10^6/uL (3.50-5.40) Hemoglobin 10.3 g/dL (12.0-15.5) Hematocrit 30.3 % (36.0-47.0) Mean Corpuscular Volume 102 fL (79-100) Mean Corpuscular Hemoglobin 35 pg (25-35) Mean Corpuscular Hemoglobin Concent 34 g/dL (31-37) Red Cell Distribution Width 15.6 % (11.5-14.5) Platelet Count 209 x10^3/uL (140-400) Neutrophils (%) (Auto) 69 % (31-73) Lymphocytes (%) (Auto) 20 % (24-48) Monocytes (%) (Auto) 9 % (0-9) Eosinophils (%) (Auto) 1 % (0-3) Basophils (%) (Auto) 1 % (0-3) Neutrophils # (Auto) 6.1 x10^3/uL (1.8-7.7) Lymphocytes # (Auto) 1.8 x10^3/uL (1.0-4.8) Monocytes # (Auto) 0.8 x10^3/uL (0.0-1.1) Eosinophils # (Auto) 0.1 x10^3/uL (0.0-0.7) Basophils # (Auto) 0.1 x10^3/uL (0.0-0.2) Sodium Level 129 mmol/L (136-145) Potassium Level 4.4 mmol/L (3.5-5.1) Chloride Level 97 mmol/L (98-107) Carbon Dioxide Level 28 mmol/L (21-32) Anion Gap 4 (6-14) Blood Urea Nitrogen 12 mg/dL (7-20) Creatinine 0.6 mg/dL (0.6-1.0) Estimated GFR (Cockcroft-Gault) 108.6 Glucose Level 147 mg/dL (70-99) Calcium Level 8.6 mg/dL (8.5-10.1) Review of Systems Review of Systems: Denies SOB. Denies headache. Assessment and Plan Assessmemt and Plan Problems Medical Problems: (1) Cellulitis of lower extremity Status: Acute Left lower extremity cellulitis SIRS with cellulitis, by definition, sepsis POA Right groin intertrigo Cirrhosis of liver Chronic obstructive pulmonary disease Gastroesophageal reflux disease Transaminitis Smoker Schizophrenia Acute electrolyte derangementhyponatremia, hypochloremia Super morbid obesity, BMI 56 Severe protein malnutrition Chronic lower extremity wounds Chronic venous insufficiency Peripheral vascular disease History of marijuana and tobacco abuse 05/04/2020: Plan 1. Wound care 2. DVT prophylaxis 3. Gave patient script for Augmentin 4. Full code 5. Home meds 6. PT/OT 7. Probable d/c to home today Comment Review of Relevant I have reviewed the following items karl (where applicable) has been applied. Medications: Current Medications Medications (Trade) Dose Ordered Sig/Terrell Route PRN Reason Start Time Stop Time Status Last Admin Dose Admin Amoxicillin/ Clavulanate Potassium (Augmentin 875/ 125mg) 1 tab BID PO 05/03/20 21:00 05/04/20 08:27 Justifications for Admission Other Justification CARLOS VELARDE III DO May 04, 2020 11:04
--- NOTE | 2020-05-04 11:13 | SNU/HH DC ---
DISCHARGE WITH HOME HEALTH DISCHARGE INFORMATION: Final Diagnosis: Problems Medical Problems: (1) Cellulitis of lower extremity Status: Acute Condition on Discharge: Stable CODE STATUS: Code Status: Full HOME HEALTH: Face to Face: I certify this patient is under my care and that I, or a nurse practitioner or physician's election assistant working with me, had a face to face encounter that meets the physician face to face encounter requirements with this patient on []. Medical Complications: Other (Overweight with recent cellulitis incontinence w eakness) Correction For: Assess & Educate Safety RN For Eval/Treatment: Yes Physical Therapy For: Evalulation/Treatment Occupational Therapy For: Evaluation/Treatment Home Health Aide For: Self-care WET MACHINE TENDER For: Community Resources Pt Meets Homebound Status: Poor coordination w/ amb. POST DISCHARGE ORDERS: Activity Instructions for Disc: Activity as tolerated Weight Bearing Status after Di: Full weight bearing DIET AFTER DISCHARGE: ADA Wound/Incision Care: Change dressing CHECKS AFTER DISCHARGE: Checks after discharge: Check blood press - daily, Check your Temp as needed TREATMENT/EQUIPMENT ORDERS: Adaptive Equipment Issued: None CERTIFICATION STATEMENT: Certification Statement: Certification Statement: Based on the above finding, I certify that this patient is confined to the home and needs intermittent prison care, physical therapy and/or speech therapy, or continues to need occupational therapy.~ This patient is under my care, and I have initiated the establishment of the plan of care.~ This patient will be followed by myself or a community physician who will periodically review the plan of care. Home Meds Active Scripts Fluconazole (DIFLUCAN) 150 Mg Tablet, 150 MG PO DAILY, #7 TAB Prov:MERY ALVARENGA MD 12/12/18 Albuterol Sulfate (PROAIR HFA INHALER) 8.5 Gm Hfa.aer.ad, 2 PUFF INH PRN Q6HRS PRN for SHORTNESS OF BREATH, #1 INHALER 0 Refills Prov:MERY ALVARENGA MD 09/24/18 Reported Medications Ibuprofen (Ibu) 800 Mg Tablet, 1 TAB PO PRN Q6HRS PRN for PAIN for 7 Days, TAB 0 Refills 10/01/19 Torsemide (TORSEMIDE) 20 Mg Tablet, 20 MG PO DAILY for swelling for 30 Days, #30 10/01/19 Cetirizine Hcl (CETIRIZINE HCL) 10 Mg Tablet, 10 MG PO DAILY for Allergies for 3 0 Days, #30 08/03/18 Loperamide Hcl (LOPERAMIDE) 2 Mg Capsule, 2 MG PO BID 11/27/17 CARLOS VELARDE III DO May 04, 2020 11:13
[2020-05-04] MEDS ORDERED: CONTRAST GIVEN. MC PRN (11:30)
[2020-05-04] MEDS ORDERED: IOHEXOL 300 MG/ML 100ML VIAL. IV ONE (11:30)
[2020-05-04] MEDS ORDERED: IOHEXOL 240 MG/ML 50ML VIAL. PO ONE (11:30)
--- NOTE | 2020-05-04 12:27 | DS ---
DATE OF DISCHARGE: 05/04/2020 ADMISSION DIAGNOSES: 1. Left lower extremity cellulitis. 2. Obesity (she weighs around 330 pounds). 3. Sepsis. 4. Cirrhosis. 5. Chronic obstructive pulmonary disease. 6. Gastroesophageal reflux disease. 7. Transaminitis. 8. Tobacco abuse. 9. Schizophrenia. 10. Electrolyte disturbance. 11. Severe protein malnutrition. 12. Chronic lower extremity venous insufficiency with chronic wounds. 13. Peripheral vascular disease. 14. History of marijuana use. DISCHARGE DIAGNOSIS: Resolving cellulitis. CONSULTS: Infectious Disease. PROCEDURES: None. HOSPITAL COURSE: The patient is a pleasant middle-aged female who is basically overweight, has multiple comorbidities. She had some cellulitis on the left leg. We admitted her. We gave her IV antibiotics. We did some wound care, home meds, DVT prophylaxis. We did some physical therapy and occupational therapy. Basically, today she is at her baseline. I saw and examined her, she was up walking. We plan to discharge home with home health. I left a prescription for Augmentin. DISPOSITION: Home with home health. ACTIVITY: As tolerated. DIET: Low sodium. MEDICATIONS: Please see the MRAD. TOTAL TIME: 34 minutes. CARLOS VELARDE DO DR: ANNIE/mary alice JOB#: [id number] / [id number]
[2020-05-04 14:52] VITALS: BP 145/75
--- NOTE | 2020-05-04 15:43 | RAD ---
PQRS Compliance Statement: One or more of the following individualized dose reduction techniques were utilized for this examinat ion: 1. Automated exposure control 2. Adjustment of the mA and/or kV according to patient size 3. Use of iterative reconstruction technique Exam performed: CT abdomen and pelvis with oral contrast HISTORY: Bilateral lower extremity edema. Evaluation of possible pelvic mass. DATE OF SERVICE: 05/04/2020. COMPARISON: Complete abdominal ultrasound from 07/04/2019. TECHNIQUE: Contiguous helical acquisitions are obtained through the abdomen and pelvis without IV con trast. Oral contrast was given. Sagittal and coronal reformatted images are obtained and reviewed. FINDINGS: Study is very limited due to patient's large body habitus. Patient's abdomen touches the gantry causi ng streak artifacts Bibasilar linear atelectasis seen. The visualized heart is normal. Lack of IV contrast limits evaluation of abdominal viscera, however the liver, spleen and pancreas ap pear normal. Gallbladder is contracted. Both adrenal glands and bilateral kidneys are symmetric. Aort a is normal in caliber without aneurysm. No retroperitoneal or mesenteric lymphadenopathy seen. Small bowel loops are nondilated and unremarkable. There is scattered stool in the colon. The urinary blad tayler is partially decompressed. Uterus is anteverted. No adnexal masses seen. There are spondylotic ch anges involving the thoracolumbar spine. IMPRESSION: No acute intra-abdominal or pelvic process detected. Specifically no pelvic masses identified. Bibasilar atelectasis. Electronically signed by: Carmen Calzada MD (05/04/2020 3:41 PM) [facility]
--- NOTE | 2020-05-04 16:42 | NUR ---
Patient refusing to have home health. Patient states that she has family/friends that come help her as she needs it. Patient states she will continue to follow up with wound care for wounds.
--- NOTE | 2020-05-04 18:18 | NUR ---
Patient discharged home. Patient transported via wheelchair to private vehicle, picked up by family. No questions at this time.
[2020-07-09] MEDS ORDERED: LINE600T12 PO (09:48)
[2020-07-09] MEDS ORDERED: AMOX1TAB61 PO (09:48)
== END 2020-05-04 18:23 | disposition home or self-care (01) | DRG 871 ==
LOC: ER 10:49 → 4 NORTH 14:20
PROVIDERS: ADMIT Internal Medicine; ATTEND Internal Medicine
PROC: B5181ZA Fluoroscopy of Superior Vena Cava using Low Osmolar Contrast, Guidance (ICD-10-PCS; principal; 2020-04-26)
PROC: 02HV33Z Insertion of Infusion Device into Superior Vena Cava, Percutaneous Approach (ICD-10-PCS; 2020-04-26)
PROC: B548ZZA Ultrasonography of Superior Vena Cava, Guidance (ICD-10-PCS; 2020-04-26)
DX: A41.9 Sepsis, unspecified organism (principal); E43 Unspecified severe protein-calorie malnutrition; E87.1 Hypo-osmolality and hyponatremia; L03.116 Cellulitis of left lower limb; Z68.43 Body mass index [BMI] 50.0-59.9, adult; Z20.822 Contact with and (suspected) exposure to COVID-19; Z91.040 Latex allergy status; Z91.048 Other nonmedicinal substance allergy status; B37.2 Candidiasis of skin and nail; E66.01 Morbid (severe) obesity due to excess calories; E87.8 Other disorders of electrolyte and fluid balance, not elsewhere classified; G89.29 Other chronic pain; J44.9 Chronic obstructive pulmonary disease, unspecified; I73.9 Peripheral vascular disease, unspecified; I87.2 Venous insufficiency (chronic) (peripheral); K21.9 Gastro-esophageal reflux disease without esophagitis; F17.210 Nicotine dependence, cigarettes, uncomplicated; F20.9 Schizophrenia, unspecified; F31.9 Bipolar disorder, unspecified; I10 Essential (primary) hypertension; L30.4 Erythema intertrigo; K74.60 Unspecified cirrhosis of liver; Z98.891 History of uterine scar from previous surgery; Z87.440 Personal history of urinary (tract) infections; Z83.3 Family history of diabetes mellitus; L97.519 Non-pressure chronic ulcer of other part of right foot with unspecified severity; M19.90 Unspecified osteoarthritis, unspecified site; F12.90 Cannabis use, unspecified, uncomplicated
CPT/HCPCS: 36415; 36573; 73700; 74177; 77001; 80048; 80053; 80202; 82550; 82607; 83605; 83880; 85007; 85025; 86140; 87040; 87426; 93005; 93971; 96365; 96375; 99285; C1751; C1892; J0696; J0878; J1650; J1885; J2248; J2405; J2543; J3010; J3370; J3490; J7040; J7060; Q9966; Q9967; U0003; 97110-GP; 97530-GO; 97530-GP; 97535-GO; G0378

== ENCOUNTER 2020-06-04 14:15 | Inpatient (IN) | payer OTHER ==
[~2020-06-04] VITALS: Ht 160 cm; Wt 148.8 kg
--- NOTE | 2020-06-04 15:14 | NUR ---
Patient admitted to room 444.
--- NOTE | 2020-06-04 16:32 | PDOC1 ---
History and Physical Date of Admission Date of Admission DATE: 06/04/20 TIME: 16:31 Identification/Chief Complaint Chief Complaint BILATERAL LOWER LEG WOUNDS History of Present Illness History of Present Illness HISTORY OF PRESENT ILLNESS: pleasant 44-year-old obese female who has chronic cellulitis, but now the left lower extremity is red. with open areas It is swollen. It is tender. Rates her pain at 7/10. worse over the past week. She normally has some chronic pain, but it is much worse. seems to be failing outpatient antibiotics. She goes to [facility] for her chronic venous ulcers on her legs. they called today requesting direct admit Past Medical History Past Medical History PAST MEDICAL HISTORY: Chronic wounds, obesity, peripheral vascular disease, arthritis, asthma, bronchitis, GERD, hepatitis, schizophrenia, bradycardia, yeast infection, , tonsillectomy, left toe surgery, tobacco abuse, marijuana use. ALLERGIES: LATEX. FAMILY HISTORY: Diabetes. SOCIAL HISTORY: She smokes marijuana. She smokes cigarettes. no street drugs. MEDICATIONS: Reviewed, please refer to the MRAD. Cardiovascular: HTN Psych: Anxiety, Bipolar, Depression, Other Musculoskeletal: low back pain Rheumatologic: No pertinent hx Infectious disease: No pertinent hx Past Surgical History Past Surgical History: No pertinent history Family History Family History: No Significant, Hypertension, Obesity Social History Smoke: <1 pack per day ALCOHOL: occassional Drugs: Marijuana Current Medications Current Medications Active Scripts Active Diflucan (Fluconazole) 150 Mg Tablet 150 Mg PO DAILY Proair Hfa Inhaler (Albuterol Sulfate) 8.5 Gm Hfa.aer.ad 2 Puff INH PRN Q6HRS PRN Reported Ibu (Ibuprofen) 800 Mg Tablet 1 Tab PO PRN Q6HRS PRN 7 Days Torsemide 20 Mg Tablet 20 Mg PO DAILY 30 Days Cetirizine Hcl 10 Mg Tablet 10 Mg PO DAILY 30 Days Loperamide (Loperamide Hcl) 2 Mg Capsule 2 Mg PO BID Allergies Allergies: Coded Allergies: Latex, Natural Rubber (Verified Allergy, Intermediate, 04/25/20) Physical Exam Physical Exam GENERAL: No apparent distress. Alert and oriented. obese. HEENT: Normal cephalic atraumatic, external auditory canals are patent. EYES: Extraocular muscles are intact, pupils are equally round and reactive to light and accommodation. MUSCULOSKELETAL: Well developed, well nourished, good range of motion. ENDOCRINE: No thyromegaly was palpated. LYMPHATICS: No cervical chain or axillary nodes were noted. HEMATOPOIETIC: No bruising. NECK: Supple, no JVD, no thyromegaly was noted. LUNGS: Clear to auscultation in all lung [place] without rhonchi or wheezing. HEART: RRR, S1, S2 present. Peripheral pulses intact, no obvious murmurs were noted. ABDOMEN: Soft, nontender. Positive bowel sounds no organomegaly, normal bowel sounds. EXTREMITIES: She has severe cellulitis of the left lower extremity. It is extremely, it is swollen, painful to touch, edematous, right ankle wounds noted NEUROLOGIC: Normal speech, normal tone. A & O x 3, moves all extremities, no obvious focal deficits. SKIN: good skin turgor, no jaundice. VASCULAR: Good capillary refill, neurovascular bundle appears to be intact. General: Alert, Oriented X3, Cooperative, No acute distress HEENT: Atraumatic, EOMI, Mucous membr. moist/pink Lungs: Clear to auscultation, Normal air movement Heart: RRR, no thrills Breasts: Not examined Abdomen: Normal bowel sounds, Soft Rectal Exam: not examined Extremities: No cyanosis Neuro: Normal speech, Cranial nerves 3-12 NL Psych/Mental Status: Mental status NL, Mood NL Images Images STUDY: CT of the left lower extremity without contrast INDICATION: Severe cellulitis COMPARISON: None. TECHNIQUE: Axial CT imaging of the left lower extremity performed without contrast. Coronal and sagittal reformats were obtained. One or more of the following individualized dose reduction techniques were utilized for this examination: 1. Automated exposure control 2. Adjustment of the mA and/or kV according to patient size 3. Use of iterative reconstruction technique. FINDINGS: Bones: Mild hip arthrosis on the left. No erosive change across the partially imaged sacroiliac joints. No acute abnormality of the femur or tibia/fibula. No advanced arthrosis at the knee that there does appear to be a component of medial compartment joint space narrowing. Mild midfoot arthrosis. No acute abnormality seen throughout the foot or at the ankle. Soft tissues: Limited assessment for a drainable fluid collection without contrast. Circumferential skin thickening to varying extent throughout the thigh. Generalized subcutaneous fatty reticulation throughout the thigh. The most confluent edema-like changes at the thigh are laterally along the distal half. There is some thickening of the superficial fascia at the lateral aspect of the lower thigh. Edema/ill-defined fluid superficial to the biceps femoris muscle such as on image 222 series 3. No appreciable localized edema or fluid collection within the thigh musculature. No soft tissue gas. Scattered vascular calcifications. Skin thickening and subcutaneous edema becomes more pronounced below the knee through the ankle and mainly along the dorsum of the foot. Edema/ill-defined fluid between the medial gastrocnemius and soleus such as on image 308 series 3. No localized muscular edema or appreciable fluid collection. Several phleboliths. Unremarkable CT appearance of the major tendons at the ankle. Right adnexal calcification on image 31 series 3. An ovarian dermoid is possible though there is no adjacent fat attenuation. Mildly prominent, likely reactive inguinal lymph nodes the largest on the left on image 117 series 3 measuring 2 cm short axis. IMPRESSION: 1. Skin thickening and extensive subcutaneous edema throughout the left lower leg progressing in severity below the knee. There are several areas of mild subfascial edema/ill-defined fluid and the superficial fascia is mildly thickened at a few locations. No soft tissue gas. Limited assessment for a drainable fluid collection but no well delineated pocket of fluid attenuation is identified to suggest an abscess. It is difficult to distinguish bland edema from cellulitis but given history at least a component of the soft tissue findings presumably relate to cellulitis. The fascial/subfascial findings are nonspecific and could be reactive to cellulitis though deep space infection cannot be excluded on this exam. Note is made that muscular attenuation is essentially the same throughout the leg going against active myositis. 2. No acute osseous abnormality. Only mild degenerative changes. 3. Reactive inguinal lymph nodes the largest on the left measuring up to 2 cm. Electronically signed by: ROHIT GU MD (04/25/2020 3:10 PM) [facility] DICTATED and SIGNED BY: ROHIT GU MD DATE: 04/25/20 [id number] VTE Prophylaxis Ordered VTE Prophylaxis Devices: Contraindicated VTE Pharmacological Prophylaxi: Yes Assessment/Plan Assessment/Plan impression 1. Left lower extremity cellulitis., failed out patient rx 2. Obesity extreme, morbid 3. RIGHT ANKLE CELLULITIS 4. Cirrhosis. 5. Chronic obstructive pulmonary disease. 6. Gastroesophageal reflux disease. 7. Transaminitis. 8. Tobacco abuse. 9. Schizophrenia. 10. HX Electrolyte disturbance. 11. Severe protein malnutrition. 12. Chronic lower extremity venous insufficiency with chronic wounds. 13. Peripheral vascular disease. 14. History of marijuana use. 15 GERD, hepatitis, HX yeast infection, , tonsillectomy, left toe surgery, tobacco abuse, PLAN ADMIT > 72 HRS LIKELY CONSULTS: Infectious Disease., wound care nurse team, admit IV ANTIBIOTICS BLOOD CULTURE vancomycin. Monitor renal functions IV Zosyn. IV fluconazole. Monitor for antimicrobial toxicities. Continue probiotics. Local wound care as directed. Justifications for Admission Other Justification GWYN WHITMORE MD Jun 04, 2020 16:32
--- NOTE | 2020-06-04 16:43 | NUR ---
Wound/Ostomy Care Wound Type/Assessment: Pt was seen today in the wound clinic for multiple wounds. Pt is well known to us from the wound clinic. During her last visit to the wound care clinic this patient was advised to go to the ER for the new abscess that was on the left proximal lower leg, Pt did not go to the ER and returned to the clinic today with another abscess on left lower leg. Pt also has cellulits to left medial thigh, VLU to the right lower leg, and abscess to the right medial ankle. All wounds cleansed, assessed, measured, and pictured today in the clinic. KVNG Fong saw patient today and also advised her to be admitted. Treatment Recommendations/Plan: Pt admitted to hospital. Wounds dressed with Aquacel Ag, ABD pads, and kerlix. Wound care will follow up with patient. Education provided: Pt educated on admission, wound care, abscess treatment and care Offloading surface/device: N/A Recommended Referrals/Tests: KVNG Fong will place orders regarding POC. Discharge Recommendations for dressings: Pt admitted to room 444, wound care will see patient inpatient and follow up with current POC. Pt agreeable to POC as well.
[2020-06-04] MEDS ORDERED: ACETAMINOPHEN 325 MG TABLET. PO PRN (17:00)
[2020-06-04] MEDS ORDERED: DOCUSATE SODIUM 100 MG CAPSULE. PO PRN (17:00)
[2020-06-04] MEDS ORDERED: ALBUTEROL SULFATE 2.5 MG/3 ML NEBU. NEB PRN (17:00)
[2020-06-04] MEDS ORDERED: 0.9 % SODIUM CHLORIDE 10 ML DISP.SYRIN. IV PRN (17:00)
[2020-06-04] MEDS ORDERED: MAG HYDROX/ALUMINUM HYD/SIMETH 30 ML ORAL.SUSP PO PRN (17:00)
[2020-06-04] MEDS ORDERED: ONDANSETRON PF 4 MG/2 ML VIAL. IV PRN (17:00)
[2020-06-04] MEDS ORDERED: guaiFENesin ORAL 200 MG/10 ML LIQUID. PO PRN (17:00)
[2020-06-04] MEDS ORDERED: cloNIDine HCL 0.1 MG TABLET PO PRN (17:00)
[2020-06-04] MEDS ORDERED: SODIUM PHOSPHATES 19/7GM 133 ML ENEMA. PR PRN (17:00)
[2020-06-04] MEDS ORDERED: PIP/TAZO PER PHARMACY MC PRN (17:15)
[2020-06-04] MEDS ORDERED: VANCOMYCIN PER PHARMACY MC PRN (17:15)
[2020-06-04] MEDS ORDERED: ALBUTEROL SULFATE 2.5 MG/3 ML NEBU. INH PRN (17:30)
[2020-06-04] MEDS: PIPERACILLIN/TAZOBACTAM 3.375 GM in IV NORMAL SALINE 50ML 50 ML IV SCH (18:00)
[2020-06-04 19:00] VITALS: BP 122/58
[2020-06-04] MEDS ORDERED: VANCOMYCIN 2 GM in IV NORMAL SALINE 500ML BAG 500 ML IV ONE (20:00)
[2020-06-04] MEDS: FLUCONAZOLE 200MG/100ML PREMIX 100 ML IV SCH (20:48)
[2020-06-04] MEDS: LOPERAMIDE 2 MG CAPSULE PO SCH (20:51)
[2020-06-04 21:24] LABS: BASO # 0.1 x10^3/uL (0.0-0.2); BASO % 1 % (0-3); EOS # 0.2 x10^3/uL (0.0-0.7); EOS % 3 % (0-3); HEMATOCRIT 32.5 % (36.0-47.0); HEMOGLOBIN 10.9 g/dL (12.0-15.5); LYMPH # 2.4 x10^3/uL (1.0-4.8); LYMPH % 34 % (24-48); MEAN CORPUSCULAR HEMOGLOBIN 32 pg (25-35); MEAN CORPUSCULAR HGB CONC 34 g/dL (31-37); MEAN CORPUSCULAR VOLUME 96 fL (79-100); MONO # 1.2 x10^3/uL (0.0-1.1); MONO % 17 % (0-9); NEUT # 3.1 x10^3/uL (1.8-7.7); NEUT % 45 % (31-73); PLATELET COUNT 171 x10^3/uL (140-400)
[2020-06-04 21:36] LABS: ALBUMIN 2.3 g/dL (3.4-5.0); ALBUMIN/GLOBULIN RATIO 0.4 (1.0-1.7); CALCIUM 8.4 mg/dL (8.5-10.1); CREATININE 0.7 mg/dL (0.6-1.0); GFR 90.9; POTASSIUM 4.2 mmol/L (3.5-5.1); TOTAL BILIRUBIN 0.3 mg/dL (0.2-1.0); TOTAL PROTEIN 7.9 g/dL (6.4-8.2)
[2020-06-04 23:00] VITALS: BP 113/42
[2020-06-05] MEDS: PIPERACILLIN/TAZOBACTAM 3.375 GM in IV NORMAL SALINE 50ML 50 ML IV SCH ×4 (01:02→17:44)
--- NOTE | 2020-06-05 02:24 | NUR ---
Pharmacy Vancomycin Dosing Note S:Consulted to monitor and dose vancomycin started 06/04/20. O:PACO TREJO is a 44 year old F with Cellulitis . Height: 5 feet, 3 inches Weight: 145.42315 kg [place] Body Weight: 52.40 Adjusted Body Weight: 89.52 Dosing Weight: Actual Other Antibiotics: ZOSYN LABS: Last BUN: 14 Last Creatinine: 0.7 Creatinine Clearance: 145 mL/min Last WBC: 7 Last Procalcitonin: Tmax (past 24 hours): Microbiology: I/O: Drug Levels: Last level: on at Last dose given 06/04/20 at 2100 Vancomycin Dosing: Loading Dose: 2000 mg x1 Dosing Weight: Actual Target Trough: 10-20 A: Based on: WT AND CRCL, MAX DOSE P: 1. Begin Vancomycin 1500 mg IV q8h 2. Follow up Trough level on 06/05/20 at 2030 3. Pharmacy will continue to monitor, follow and adjust therapy as needed. TONY PRICE RPH, 06/05/20223 Signed: 06/05/20 at 223 by TONY PRICE RPH PHA
[2020-06-05 03:00] VITALS: BP 157/80
[2020-06-05] MEDS ORDERED: VANCOMYCIN 1.5 GM in IV NORMAL SALINE 500ML BAG 500 ML IV SCH (05:00)
[2020-06-05 07:00] VITALS: BP 132/78
[2020-06-05] MEDS: TORSEMIDE 20 MG TABLET. PO SCH (09:14)
[2020-06-05] MEDS: CETIRIZINE HCL 10 MG TABLET. PO SCH (09:15)
[2020-06-05] MEDS: LOPERAMIDE 2 MG CAPSULE PO SCH ×2 (09:15→22:35)
--- NOTE | 2020-06-05 10:55 | PDOC2 ---
CONSULT Date of Consult Date of Consult DATE: 06/05/20 TIME: 10:50 History of Present Illness Reason for Visit: 44 year old female who was admitted due to left leg cellulitis. She has wound of the left leg which were being treated at the wound care center. Surgery was consulted out of concern regarding possible abscesses. Past Medical History Cardiovascular: HTN Psych: Anxiety, Bipolar, Depression, Other Musculoskeletal: low back pain Rheumatologic: No pertinent hx Infectious disease: No pertinent hx Past Surgical History Past Surgical History Csection, tonsillectomy Past Surgical History: No pertinent history Family History Family History: No Significant, Hypertension, Obesity Social History <1 pack per day ALCOHOL: occassional Drugs: Marijuana Current Medications Current Medications Current Medications Sodium Chloride (Normal Saline Flush) 3 ml QSHIFT PRN IV AFTER MEDS AND BLOOD DRAWS; Start 06/04/20 at 17:00 Ondansetron HCl (Zofran) 4 mg PRN Q4HRS PRN IV NAUSEA/VOMITING; Start 06/04/20 at 17:00 Acetaminophen (Tylenol) 650 mg PRN Q4HRS PRN PO TEMP OVER 100.4F OR MILD PAIN Last administered on 06/05/20at 09:15; Start 06/04/20 at 17:00 Al Hydroxide/Mg Hydroxide (Mylanta Plus Xs) 30 ml PRN DAILY PRN PO HEARTBURN / GAS; Start 06/04/20 at 17:00 Clonidine HCl (Catapres) 0.1 mg PRN Q6HRS PRN PO SBP>160 OR DBP>90; Start 06/04/20 at 17:00 Sodium Monofluorophosphate (Fleet Adult) 133 ml PRN DAILY PRN [place] CONSTIPATION; Start 06/04/20 at 17:00 Docusate Sodium (Colace) 100 mg PRN BID PRN PO HARD STOOLS; Start 06/04/20 at 17:00 Albuterol Sulfate (Ventolin Neb Soln) 2.5 mg PRN Q4HRS PRN NEB SHORTNESS OF BREATH; Start 06/04/20 at 17:00; Stop 06/04/20 at 17:49; Status DC Guaifenesin (Robitussin) 200 mg PRN Q4HRS PRN PO COUGH; Start 06/04/20 at 17:00 Enoxaparin Sodium (Lovenox 60mg Syringe) 60 mg Q12HR SQ ; Start 06/04/20 at 21:00 Vancomycin HCl (Vanco Per Pharmacy) 1 each PRN DAILY PRN MC SEE COMMENTS Last administered on 06/05/20at 02:23; Start 06/04/20 at 17:15; Stop 06/05/20 at 10:16; Status DC Piperacillin Sod/ Tazobactam Sod (Zosyn Per Pharmacy) 1 each PRN DAILY PRN MC SEE COMMENTS; Start 06/04/20 at 17:15 Fluconazole/ Sodium Chloride 100 ml @ 100 mls/hr Q24H IV Last administered on 06/04/20at 20:48; Start 06/04/20 at 19:00 Piperacillin Sod/ Tazobactam Sod 3.375 gm/Sodium Chloride 50 ml @ 100 mls/hr Q6HRS IV Last administered on 06/05/20at 05:33; Start 06/04/20 at 18:00 Albuterol Sulfate (Ventolin Neb Soln) 2.5 mg PRN Q6HRS PRN INH SHORTNESS OF BREATH; Start 06/04/20 at 17:30 Cetirizine HCl (ZyrTEC) 10 mg DAILY PO Last administered on 06/05/20at 09:15; Start 06/05/20 at 09:00 Loperamide HCl (Imodium) 2 mg BID PO Last administered on 06/05/20at 09:15; Start 06/04/20 at 21:00 Torsemide (Demadex) 20 mg DAILY PO Last administered on 06/05/20at 09:14; Start 06/05/20 at 09:00 Vancomycin HCl 2 gm/Sodium Chloride 500 ml @ 250 mls/hr 1X ONCE IV Last administered on 06/04/20at 20:50; Start 06/04/20 at 20:00; Stop 06/04/20 at 21:59; Status DC Vancomycin HCl 1.5 gm/Sodium Chloride 500 ml @ 250 mls/hr Q8H IV Last administered on 06/05/20at 05:33; Start 06/05/20 at 05:00; Stop 06/05/20 at 10:12; Status DC Vancomycin HCl (Vancomycin Trough Level) 1 each 1X ONCE MC ; Start 06/05/20 at 20:30; Stop 06/05/20 at 20:31; Status Cancel Linezolid (Zyvox) 600 mg BID PO ; Start 06/05/20 at 21:00 Active Scripts Active Diflucan (Fluconazole) 150 Mg Tablet 150 Mg PO DAILY Proair Hfa Inhaler (Albuterol Sulfate) 8.5 Gm Hfa.aer.ad 2 Puff INH PRN Q6HRS PRN Reported Ibu (Ibuprofen) 800 Mg Tablet 1 Tab PO PRN Q6HRS PRN 7 Days Torsemide 20 Mg Tablet 20 Mg PO DAILY 30 Days Cetirizine Hcl 10 Mg Tablet 10 Mg PO DAILY 30 Days Loperamide (Loperamide Hcl) 2 Mg Capsule 2 Mg PO BID Allergies Allergies: Coded Allergies: Latex, Natural Rubber (Verified Allergy, Intermediate, 04/25/20) ROS General: No: Chills, Night Sweats, Fatigue, Malaise, Appetite, Other PSYCHOLOGICAL ROS: YES: Anxiety Eyes: No Blurry vision, No Decreased vision, No Double vision, No Dry eyes, No Excessive tearing, No Eye Pain, No Itchy Eyes, No Loss of vision, No Photophobia, No Scotomata, No Uses contacts, No Uses glasses, No Other Cardiovascular: No Chest Pain, No Palpitations, No Orthopnea, No Paroxysmal Noc. Dyspnea, No Edema, No Lt Headedness, No Other Gastrointestinal: No Nausea, No Vomiting, No Abdominal Pain, No Diarrhea, No Constipation, No Melena, No Hematochezia, No Other Musculoskeletal: Yes Pain In: (left leg) Physical Exam General: Alert, Oriented X3 HEENT: Atraumatic Lungs: Clear to auscultation Abdomen: Soft (morbidly obese) Extremities: Other (left leg with medial thigh wound, open with minimal drainage, base appears clean with shallow exudate; lower leg lateral wound with small amount drainage ?abscess, tender with palpation) Psych/Mental Status: Other (juvenile affect) Vitals VITALS Vital Signs Date Time Temp Pulse Resp B/P (MAP) Pulse Ox O2 Delivery O2 Flow Rate FiO2 06/05/20 08:00 Room Air 06/05/20 07:00 98.4 81 16 132/78 (96) 92 98.4 Labs Labs Laboratory Tests Test 06/04/20 21:15 White Blood Count 7.0 x10^3/uL (4.0-11.0) Red Blood Count 3.40 x10^6/uL (3.50-5.40) Hemoglobin 10.9 g/dL (12.0-15.5) Hematocrit 32.5 % (36.0-47.0) Mean Corpuscular Volume 96 fL (79-100) Mean Corpuscular Hemoglobin 32 pg (25-35) Mean Corpuscular Hemoglobin Concent 34 g/dL (31-37) Red Cell Distribution Width 16.0 % (11.5-14.5) Platelet Count 171 x10^3/uL (140-400) Neutrophils (%) (Auto) 45 % (31-73) Lymphocytes (%) (Auto) 34 % (24-48) Monocytes (%) (Auto) 17 % (0-9) Eosinophils (%) (Auto) 3 % (0-3) Basophils (%) (Auto) 1 % (0-3) Neutrophils # (Auto) 3.1 x10^3/uL (1.8-7.7) Lymphocytes # (Auto) 2.4 x10^3/uL (1.0-4.8) Monocytes # (Auto) 1.2 x10^3/uL (0.0-1.1) Eosinophils # (Auto) 0.2 x10^3/uL (0.0-0.7) Basophils # (Auto) 0.1 x10^3/uL (0.0-0.2) Sodium Level 135 mmol/L (136-145) Potassium Level 4.2 mmol/L (3.5-5.1) Chloride Level 103 mmol/L (98-107) Carbon Dioxide Level 28 mmol/L (21-32) Anion Gap 4 (6-14) Blood Urea Nitrogen 14 mg/dL (7-20) Creatinine 0.7 mg/dL (0.6-1.0) Estimated GFR (Cockcroft-Gault) 90.9 BUN/Creatinine Ratio 20 (6-20) Glucose Level 110 mg/dL (70-99) Calcium Level 8.4 mg/dL (8.5-10.1) Total Bilirubin 0.3 mg/dL (0.2-1.0) Aspartate Amino Transf (AST/SGOT) 179 U/L (15-37) Alanine Aminotransferase (ALT/SGPT) 147 U/L (14-59) Alkaline Phosphatase 148 U/L (46-116) Total Protein 7.9 g/dL (6.4-8.2) Albumin 2.3 g/dL (3.4-5.0) Albumin/Globulin Ratio 0.4 (1.0-1.7) Laboratory Tests Test 06/04/20 21:15 White Blood Count 7.0 x10^3/uL (4.0-11.0) Red Blood Count 3.40 x10^6/uL (3.50-5.40) Hemoglobin 10.9 g/dL (12.0-15.5) Hematocrit 32.5 % (36.0-47.0) Mean Corpuscular Volume 96 fL (79-100) Mean Corpuscular Hemoglobin 32 pg (25-35) Mean Corpuscular Hemoglobin Concent 34 g/dL (31-37) Red Cell Distribution Width 16.0 % (11.5-14.5) Platelet Count 171 x10^3/uL (140-400) Neutrophils (%) (Auto) 45 % (31-73) Lymphocytes (%) (Auto) 34 % (24-48) Monocytes (%) (Auto) 17 % (0-9) Eosinophils (%) (Auto) 3 % (0-3) Basophils (%) (Auto) 1 % (0-3) Neutrophils # (Auto) 3.1 x10^3/uL (1.8-7.7) Lymphocytes # (Auto) 2.4 x10^3/uL (1.0-4.8) Monocytes # (Auto) 1.2 x10^3/uL (0.0-1.1) Eosinophils # (Auto) 0.2 x10^3/uL (0.0-0.7) Basophils # (Auto) 0.1 x10^3/uL (0.0-0.2) Sodium Level 135 mmol/L (136-145) Potassium Level 4.2 mmol/L (3.5-5.1) Chloride Level 103 mmol/L (98-107) Carbon Dioxide Level 28 mmol/L (21-32) Anion Gap 4 (6-14) Blood Urea Nitrogen 14 mg/dL (7-20) Creatinine 0.7 mg/dL (0.6-1.0) Estimated GFR (Cockcroft-Gault) 90.9 BUN/Creatinine Ratio 20 (6-20) Glucose Level 110 mg/dL (70-99) Calcium Level 8.4 mg/dL (8.5-10.1) Total Bilirubin 0.3 mg/dL (0.2-1.0) Aspartate Amino Transf (AST/SGOT) 179 U/L (15-37) Alanine Aminotransferase (ALT/SGPT) 147 U/L (14-59) Alkaline Phosphatase 148 U/L (46-116) Total Protein 7.9 g/dL (6.4-8.2) Albumin 2.3 g/dL (3.4-5.0) Albumin/Globulin Ratio 0.4 (1.0-1.7) Assessment/Plan Assessment/Plan 44 year old female, super morbidly obese, LLE cellulitis, wound, possible abscess lower leg. Plan for IV abx, wound care, will monitor response over the weekend. I and D a possibility depending on response to treatment. Will follow SUN CAPPS MD Jun 05, 2020 10:55
[2020-06-05 11:00] VITALS: BP 142/86
--- NOTE | 2020-06-05 12:30 | CONS ---
DATE OF CONSULTATION: 06/05/2020 REFERRING PHYSICIAN: Dr. Beauchamp. REASON FOR CONSULTATION: Left lower extremity cellulitis. HISTORY OF PRESENT ILLNESS: A 44-year-old female with history of obesity, chronic wounds, peripheral vascular disease, cirrhosis of the liver, schizophrenia, bipolar disorder, tobaccoism, morbid obesity, presented with complaints of left lower extremity swelling, redness, two open areas with worsening swelling. She failed outpatient clindamycin. She usually follows up with [facility]. [facility] for her chronic venous ulcers. The advice her for direct admit. The patient was started on IV vancomycin, Zosyn, and fluconazole. ID consultation has been requested for antibiotic management. PAST MEDICAL HISTORY: Chronic venous ulcers, chronic lower extremity wounds, cirrhosis of the liver, history of hepatitis C, schizophrenia, bipolar disorder, tobaccoism, morbid obesity, GERD, asthma, hypertension, history of recurrent urinary tract infection. PAST SURGICAL HISTORY: Tonsillectomy and adenoidectomy, tooth extraction, , cyst removed from the left foot. FAMILY HISTORY: As per HPI. SOCIAL HISTORY: Lives at home. On disability. Continues to smoke. Positive for alcohol. History of marijuana use. ALLERGIES: LATEX AND NATURAL RUBBER. CURRENT MEDICATIONS: IV vancomycin, Zosyn and Diflucan, was on clindamycin. Other medications reviewed in medication list. REVIEW OF SYSTEMS: Negative except for above in HPI. PHYSICAL EXAMINATION: VITAL SIGNS: Temperature 98.4, pulse 81, respirations 16, blood pressure 138/78, oxygen saturation 92% on room air. GENERAL: Alert, oriented x 3 female, ambulating in room, in no acute distress. HEENT: Normocephalic, atraumatic, anicteric. No thrush. NECK: Supple, no JVD. LUNGS: Clear. HEART: S1, S2. ABDOMEN: Soft, obese. Bowel sounds present. EXTREMITIES: Edema present over both the lower extremities, left greater than right. Left lower extremity dressing intact, not taken down per patient's request. Wound pictures noted. Right lower extremity ulcer healed with dry scabs. Left lower extremity 4 x 5 x 0.1 cm abscess on the lateral and anterior aspect, left lateral ankle area has 1 x 1 x 0.3 cm abscess. There is also lesion present over the medial aspect of the left thigh superficial ulceration with induration. CENTRAL NERVOUS SYSTEM: Alert and oriented x 3, grossly nonfocal. PSYCHIATRIC: Cooperative, appropriate mood and affect. LABORATORY DATA: WBC 11.0, hemoglobin 10.9, hematocrit 32.5, platelets 171. Sodium 135, potassium 4.2, chloride 103, bicarbonate 28, BUN 14, creatinine 0.7, glucose 110, calcium 8.4, AST 179, ALT 148, alkaline phosphatase 148, albumin 2.3. IMAGING: None. IMPRESSION: 1. Left lower extremity cellulitis/abscesses. 2. Chronic venous stasis. 3. Chronic venous ulcer, right lower extremity, stable, not infected. 4. Cirrhosis of the liver. 5. History of hepatitis C. 6. Abnormal liver function tests. 7. Schizophrenia and bipolar disorder. 8. Tobaccoism. 9. Morbid obesity. RECOMMENDATIONS: 1. Start Zyvox. Discontinue IV vancomycin as she is requiring high doses to avoid renal toxicity. 2. Continue Zosyn. 3. Continue fluconazole. 4. Consult General Surgery for evaluation of left lower extremity abscesses. 5. Send fluid for cultures. 6. Follow up labs and cultures. 7. Continue supportive care. 8. Continue local wound care as directed. . Discussed with nursing staff. Thank you for allowing me to participate in this patient's care. If you have any questions, do not hesitate to contact me. RAMÍREZ MERA MD DR: JACQUI/mary alice JOB#: [id number] / [id number] CESAR
--- NOTE | 2020-06-05 12:44 | PDOC ---
[employer] PROGRESS NOTE Date of Service DOS: DATE: 06/05/20 TIME: 12:23 Chief Complaint Chief Complaint 1. Left lower extremity cellulitis., failed out patient rx 2. Obesity extreme, morbid 3. RIGHT ANKLE CELLULITIS 4. Cirrhosis. 5. Chronic obstructive pulmonary disease. 6. Gastroesophageal reflux disease. 7. Transaminitis. 8. Tobacco abuse. 9. Schizophrenia. 10. HX Electrolyte disturbance. 11. Severe protein malnutrition. 12. Chronic lower extremity venous insufficiency with chronic wounds. 13. Peripheral vascular disease. 14. History of marijuana use. 15 GERD, hepatitis, HX yeast infection, , tonsillectomy, left toe surgery, tobacco abuse, PLAN ADMIT > 72 HRS LIKELY CONSULTS: Infectious Disease., wound care nurse team, admit IV ANTIBIOTICS BLOOD CULTURE vancomycin. Monitor renal functions IV Zosyn. IV fluconazole. Monitor for antimicrobial toxicities. Continue probiotics. Local wound care as directed. History of Present Illness History of Present Illness 06/05/2020 No acute events overnight. Patient resting comfortably in the bed. Seen and examined bedside. Afebrile. Restarted tramadol as needed. Patient's chart, labs, images were reviewed and discussed with RN 44-year-old obese female who has chronic cellulitis, but now the left lower extremity is red. with open areas It is swollen. It is tender. Rates her pain at 7/10. worse over the past week. She normally has some chronic pain, but it is much worse. seems to be failing outpatient antibiotics. She goes to [facility] for her chronic venous ulcers on her legs. they called today requesting direct admit Vitals/I&O Vitals/I&O: Vital Signs Date Time Temp Pulse Resp B/P (MAP) Pulse Ox O2 Delivery O2 Flow Rate FiO2 06/05/20 11:00 97.9 78 18 142/86 (104) 92 Room Air 97.9 I & O 06/04/20 06/04/20 06/05/20 15:00 23:00 07:00 Intake Total 200 ml 500 ml Balance 200 ml 500 ml Physical Exam General: Alert, Oriented X3 Lungs: Clear Abdomen: Soft (morbidly obese) Extremities: Other (left leg with medial thigh wound, open with minimal drainage, base appears clean with shallow exudate; lower leg lateral wound with small amount drainage ?abscess, tender with palpation) Labs Labs: Laboratory Tests Test 06/04/20 21:15 White Blood Count 7.0 x10^3/uL (4.0-11.0) Red Blood Count 3.40 x10^6/uL (3.50-5.40) Hemoglobin 10.9 g/dL (12.0-15.5) Hematocrit 32.5 % (36.0-47.0) Mean Corpuscular Volume 96 fL (79-100) Mean Corpuscular Hemoglobin 32 pg (25-35) Mean Corpuscular Hemoglobin Concent 34 g/dL (31-37) Red Cell Distribution Width 16.0 % (11.5-14.5) Platelet Count 171 x10^3/uL (140-400) Neutrophils (%) (Auto) 45 % (31-73) Lymphocytes (%) (Auto) 34 % (24-48) Monocytes (%) (Auto) 17 % (0-9) Eosinophils (%) (Auto) 3 % (0-3) Basophils (%) (Auto) 1 % (0-3) Neutrophils # (Auto) 3.1 x10^3/uL (1.8-7.7) Lymphocytes # (Auto) 2.4 x10^3/uL (1.0-4.8) Monocytes # (Auto) 1.2 x10^3/uL (0.0-1.1) Eosinophils # (Auto) 0.2 x10^3/uL (0.0-0.7) Basophils # (Auto) 0.1 x10^3/uL (0.0-0.2) Sodium Level 135 mmol/L (136-145) Potassium Level 4.2 mmol/L (3.5-5.1) Chloride Level 103 mmol/L (98-107) Carbon Dioxide Level 28 mmol/L (21-32) Anion Gap 4 (6-14) Blood Urea Nitrogen 14 mg/dL (7-20) Creatinine 0.7 mg/dL (0.6-1.0) Estimated GFR (Cockcroft-Gault) 90.9 BUN/Creatinine Ratio 20 (6-20) Glucose Level 110 mg/dL (70-99) Calcium Level 8.4 mg/dL (8.5-10.1) Total Bilirubin 0.3 mg/dL (0.2-1.0) Aspartate Amino Transf (AST/SGOT) 179 U/L (15-37) Alanine Aminotransferase (ALT/SGPT) 147 U/L (14-59) Alkaline Phosphatase 148 U/L (46-116) Total Protein 7.9 g/dL (6.4-8.2) Albumin 2.3 g/dL (3.4-5.0) Albumin/Globulin Ratio 0.4 (1.0-1.7) Comment Review of Relevant I have reviewed the following items karl (where applicable) has been applied. Medications: Current Medications Medications (Trade) Dose Ordered Sig/Terrell Route PRN Reason Start Time Stop Time Status Last Admin Dose Admin Acetaminophen (Tylenol) 650 mg PRN Q4HRS PRN PO TEMP OVER 100.4F OR MILD PAIN 06/04/20 17:00 06/05/20 09:15 Vancomycin HCl (Vanco Per Pharmacy) 1 each PRN DAILY PRN MC SEE COMMENTS 06/04/20 17:15 06/05/20 10:16 DC 06/05/20 02:23 Fluconazole/ Sodium Chloride 100 ml @ 100 mls/hr Q24H IV 06/04/20 19:00 06/04/20 20:48 Piperacillin Sod/ Tazobactam Sod 3.375 gm/Sodium Chloride 50 ml @ 100 mls/hr Q6HRS IV 06/04/20 18:00 06/05/20 05:33 Cetirizine HCl (ZyrTEC) 10 mg DAILY PO 06/05/20 09:00 06/05/20 09:15 Loperamide HCl (Imodium) 2 mg BID PO 06/04/20 21:00 06/05/20 09:15 Torsemide (Demadex) 20 mg DAILY PO 06/05/20 09:00 06/05/20 09:14 Vancomycin HCl 2 gm/Sodium Chloride 500 ml @ 250 mls/hr 1X ONCE IV 06/04/20 20:00 06/04/20 21:59 DC 06/04/20 20:50 Vancomycin HCl 1.5 gm/Sodium Chloride 500 ml @ 250 mls/hr Q8H IV 06/05/20 05:00 06/05/20 10:12 DC 06/05/20 05:33 Justifications for Admission Other Justification cellulitis both lower legs ASHLEY CHAMORRO MD Jun 05, 2020 12:44
[2020-06-05 15:00] VITALS: BP 109/62
[2020-06-05] MEDS: FLUCONAZOLE 200MG/100ML PREMIX 100 ML IV SCH (18:55)
[2020-06-05 19:00] VITALS: BP 144/78
[2020-06-05] MEDS: LINEZOLID 600 MG TABLET PO SCH (22:35)
[2020-06-05] MEDS: LACTOBACILLUS RHAMNOSUS GG 1 CAPSULE. PO SCH (22:35)
[2020-06-05 23:00] VITALS: BP 129/72
[2020-06-06] MEDS: PIPERACILLIN/TAZOBACTAM 3.375 GM in IV NORMAL SALINE 50ML 50 ML IV SCH ×4 (00:25→17:01)
[2020-06-06 03:00] VITALS: BP 130/71
[2020-06-06 07:00] VITALS: BP 131/76
--- NOTE | 2020-06-06 07:43 | PDOC ---
PROGRESS NOTES Date of Service DATE: 06/06/20 TIME: 07:40 Subjective Subjective feels "much better", wants to go home Objective Objective Vital Signs Date Time Temp Pulse Resp B/P (MAP) Pulse Ox O2 Delivery O2 Flow Rate FiO2 06/06/20 03:00 98.0 84 18 130/71 (90) 89 Room Air 98.0 Intake and Output 06/06/20 07:00 Intake Total 1500 ml Balance 1500 ml Intake Oral 1500 ml # Voids 5 Physical Exam Abdomen: Soft, No tenderness Heart: Regular rate Extremities: Other (L thigh wound open, clean base; lower leg with focal abscess, some drainage present) HEENT: Atraumatic, PERRLA Lungs: Clear to auscultation Neck: Supple Neuro: Normal speech Assessment Assessment L leg infection Plan Plan of Care Some drainage at L lower leg wound, but no clear if completely drained; will make NPO after midnight, reeval in AM (poss I and D if doesn't appear improved) Comment Review of Relevant I have reviewed the following items karl (where applicable) has been applied. Labs Laboratory Tests Test 06/04/20 21:15 White Blood Count 7.0 x10^3/uL (4.0-11.0) Red Blood Count 3.40 x10^6/uL (3.50-5.40) Hemoglobin 10.9 g/dL (12.0-15.5) Hematocrit 32.5 % (36.0-47.0) Mean Corpuscular Volume 96 fL (79-100) Mean Corpuscular Hemoglobin 32 pg (25-35) Mean Corpuscular Hemoglobin Concent 34 g/dL (31-37) Red Cell Distribution Width 16.0 % (11.5-14.5) Platelet Count 171 x10^3/uL (140-400) Neutrophils (%) (Auto) 45 % (31-73) Lymphocytes (%) (Auto) 34 % (24-48) Monocytes (%) (Auto) 17 % (0-9) Eosinophils (%) (Auto) 3 % (0-3) Basophils (%) (Auto) 1 % (0-3) Neutrophils # (Auto) 3.1 x10^3/uL (1.8-7.7) Lymphocytes # (Auto) 2.4 x10^3/uL (1.0-4.8) Monocytes # (Auto) 1.2 x10^3/uL (0.0-1.1) Eosinophils # (Auto) 0.2 x10^3/uL (0.0-0.7) Basophils # (Auto) 0.1 x10^3/uL (0.0-0.2) Sodium Level 135 mmol/L (136-145) Potassium Level 4.2 mmol/L (3.5-5.1) Chloride Level 103 mmol/L (98-107) Carbon Dioxide Level 28 mmol/L (21-32) Anion Gap 4 (6-14) Blood Urea Nitrogen 14 mg/dL (7-20) Creatinine 0.7 mg/dL (0.6-1.0) Estimated GFR (Cockcroft-Gault) 90.9 BUN/Creatinine Ratio 20 (6-20) Glucose Level 110 mg/dL (70-99) Calcium Level 8.4 mg/dL (8.5-10.1) Total Bilirubin 0.3 mg/dL (0.2-1.0) Aspartate Amino Transf (AST/SGOT) 179 U/L (15-37) Alanine Aminotransferase (ALT/SGPT) 147 U/L (14-59) Alkaline Phosphatase 148 U/L (46-116) Total Protein 7.9 g/dL (6.4-8.2) Albumin 2.3 g/dL (3.4-5.0) Albumin/Globulin Ratio 0.4 (1.0-1.7) Microbiology 06/05/20 Gram Stain - Final, Resulted 06/05/20 Aerobic and Anaerobic Culture, Resulted Pending 06/05/20 Blood Culture - Preliminary, Resulted NO GROWTH AFTER 1 DAY Medications Current Medications Sodium Chloride (Normal Saline Flush) 3 ml QSHIFT PRN IV AFTER MEDS AND BLOOD DRAWS; Start 06/04/20 at 17:00 Ondansetron HCl (Zofran) 4 mg PRN Q4HRS PRN IV NAUSEA/VOMITING; Start 06/04/20 at 17:00 Acetaminophen (Tylenol) 650 mg PRN Q4HRS PRN PO TEMP OVER 100.4F OR MILD PAIN Last administered on 06/05/20at 09:15; Start 06/04/20 at 17:00 Al Hydroxide/Mg Hydroxide (Mylanta Plus Xs) 30 ml PRN DAILY PRN PO HEARTBURN / GAS; Start 06/04/20 at 17:00 Clonidine HCl (Catapres) 0.1 mg PRN Q6HRS PRN PO SBP>160 OR DBP>90; Start 06/04/20 at 17:00 Sodium Monofluorophosphate (Fleet Adult) 133 ml PRN DAILY PRN [place] CONSTIPATION; Start 06/04/20 at 17:00 Docusate Sodium (Colace) 100 mg PRN BID PRN PO HARD STOOLS; Start 06/04/20 at 17:00 Albuterol Sulfate (Ventolin Neb Soln) 2.5 mg PRN Q4HRS PRN NEB SHORTNESS OF BREATH; Start 06/04/20 at 17:00; Stop 06/04/20 at 17:49; Status DC Guaifenesin (Robitussin) 200 mg PRN Q4HRS PRN PO COUGH; Start 06/04/20 at 17:00 Enoxaparin Sodium (Lovenox 60mg Syringe) 60 mg Q12HR SQ ; Start 06/04/20 at 21:00 Vancomycin HCl (Vanco Per Pharmacy) 1 each PRN DAILY PRN MC SEE COMMENTS Last administered on 06/05/20at 02:23; Start 06/04/20 at 17:15; Stop 06/05/20 at 10:16; Status DC Piperacillin Sod/ Tazobactam Sod (Zosyn Per Pharmacy) 1 each PRN DAILY PRN MC SEE COMMENTS; Start 06/04/20 at 17:15 Fluconazole/ Sodium Chloride 100 ml @ 100 mls/hr Q24H IV Last administered on 06/05/20at 18:55; Start 06/04/20 at 19:00 Piperacillin Sod/ Tazobactam Sod 3.375 gm/Sodium Chloride 50 ml @ 100 mls/hr Q6HRS IV Last administered on 06/06/20at 06:18; Start 06/04/20 at 18:00 Albuterol Sulfate (Ventolin Neb Soln) 2.5 mg PRN Q6HRS PRN INH SHORTNESS OF BREATH; Start 06/04/20 at 17:30 Cetirizine HCl (ZyrTEC) 10 mg DAILY PO Last administered on 06/05/20at 09:15; Start 06/05/20 at 09:00 Loperamide HCl (Imodium) 2 mg BID PO Last administered on 06/05/20at 22:35; Start 06/04/20 at 21:00 Torsemide (Demadex) 20 mg DAILY PO Last administered on 06/05/20at 09:14; Start 06/05/20 at 09:00 Vancomycin HCl 2 gm/Sodium Chloride 500 ml @ 250 mls/hr 1X ONCE IV Last administered on 06/04/20at 20:50; Start 06/04/20 at 20:00; Stop 06/04/20 at 21:59; Status DC Vancomycin HCl 1.5 gm/Sodium Chloride 500 ml @ 250 mls/hr Q8H IV Last administered on 06/05/20at 05:33; Start 06/05/20 at 05:00; Stop 06/05/20 at 10:12; Status DC Vancomycin HCl (Vancomycin Trough Level) 1 each 1X ONCE MC ; Start 06/05/20 at 20:30; Stop 06/05/20 at 20:31; Status Cancel Linezolid (Zyvox) 600 mg BID PO Last administered on 06/05/20at 22:35; Start 06/05/20 at 21:00 Tramadol HCl (Ultram) 50 mg PRN Q4HRS PRN PO MODERATE-SEVERE PAIN; Start 06/05/20 at 12:30 Lactobacillus Rhamnosus (Culturelle) 1 cap BID PO Last administered on 06/05/20at 22:35; Start 06/05/20 at 21:00 Active Scripts Active Diflucan (Fluconazole) 150 Mg Tablet 150 Mg PO DAILY Proair Hfa Inhaler (Albuterol Sulfate) 8.5 Gm Hfa.aer.ad 2 Puff INH PRN Q6HRS PRN Reported Ibu (Ibuprofen) 800 Mg Tablet 1 Tab PO PRN Q6HRS PRN 7 Days Torsemide 20 Mg Tablet 20 Mg PO DAILY 30 Days Cetirizine Hcl 10 Mg Tablet 10 Mg PO DAILY 30 Days Loperamide (Loperamide Hcl) 2 Mg Capsule 2 Mg PO BID Vitals/I & O Vital Sign - Last 24 Hours 06/05/20 06/05/20 06/05/20 06/05/20 08:00 11:00 15:00 19:00 Temp 97.9 95.9 98.2 97.9 95.9 98.2 Pulse 78 75 85 Resp 18 18 18 B/P (MAP) 142/86 (104) 109/62 (78) 144/78 (100) Pulse Ox 92 92 85 O2 Delivery Room Air Room Air Room Air Room Air 06/05/20 06/05/20 06/06/20 20:15 23:00 03:00 Temp 98.0 98.0 98.0 98.0 Pulse 68 84 Resp 18 18 B/P (MAP) 129/72 (91) 130/71 (90) Pulse Ox 97 89 O2 Delivery Room Air Room Air Room Air Intake and Output 06/05/20 06/05/20 06/06/20 15:00 23:00 07:00 Intake Total 600 ml 900 ml Balance 600 ml 900 ml Justifications for Admission Other Justification cellulitis both lower legs SUN CAPPS MD Jun 06, 2020 07:42
[2020-06-06] MEDS: traMADol 50 MG TABLET PO PRN (08:56)
[2020-06-06] MEDS: LOPERAMIDE 2 MG CAPSULE PO SCH ×2 (08:56→22:04)
[2020-06-06] MEDS: LACTOBACILLUS RHAMNOSUS GG 1 CAPSULE. PO SCH ×2 (08:56→22:04)
[2020-06-06] MEDS: LINEZOLID 600 MG TABLET PO SCH ×2 (08:56→22:04)
[2020-06-06] MEDS: TORSEMIDE 20 MG TABLET. PO SCH (08:56)
[2020-06-06] MEDS: CETIRIZINE HCL 10 MG TABLET. PO SCH (08:56)
--- NOTE | 2020-06-06 09:34 | PDOC ---
Infectious Disease Note Subjective: Subjective Patient scratched left lower extremity lesion as she did not want any I&D.... Now spontaneously draining Does not keep left lower extremity elevated Denies any fever, chills, nausea, vomiting, diarrhea, abdominal pain Vital Signs: Vital Signs Vital Signs Date Time Temp Pulse Resp B/P (MAP) Pulse Ox O2 Delivery O2 Flow Rate FiO2 06/06/20 08:56 Room Air 06/06/20 03:00 98.0 84 18 130/71 (90) 89 98.0 Physical Exam: PHYSICAL EXAM GENERAL: Alert, oriented x 3 female, in no acute distress. HEENT: Normocephalic, atraumatic, anicteric. No thrush. NECK: Supple, no JVD. LUNGS: Clear. HEART: S1, S2. ABDOMEN: Soft, obese. Bowel sounds present. EXTREMITIES: Edema present over both the lower extremities, left greater than right. Left lower extremity dressing intact, not taken down per patient's request. Wound pictures noted. Right lower extremity ulcer healed with dry scabs. Left lower extremity 4 x 5 x 0.1 cm abscess on the lateral and anterior aspect, left lateral ankle area has 1 x 1 x 0.3 cm abscess. There is also lesion present over the medial aspect of the left thigh superficial ulceration with induration. CENTRAL NERVOUS SYSTEM: Alert and oriented x 3, grossly nonfocal. PSYCHIATRIC: Cooperative, appropriate mood and affect. Medications: Inpatient Meds: Medications reviewed. Objective: Assessment: 1. Left lower extremity cellulitis/abscesses. 2. Chronic venous stasis. 3. Chronic venous ulcer, right lower extremity, stable, not infected. 4. Cirrhosis of the liver. 5. History of hepatitis C. 6. Abnormal liver function tests. 7. Schizophrenia and bipolar disorder. 8. Tobaccoism. 9. Morbid obesity. Plan: Plan of Care Continue Zyvox Zosyn for chronic Zyvox. Surgery consulted Continue local wound care as directed Avoid picking on lesions Continue supportive care. Elevate left lower extremity discussed with nursing staff. RAMÍREZ MERA MD Jun 06, 2020 09:34
[2020-06-06 11:00] VITALS: BP 110/65
--- NOTE | 2020-06-06 11:14 | PDOC ---
[facility] PROGRESS NOTE Date of Service DOS: DATE: 06/06/20 TIME: 10:57 Chief Complaint Chief Complaint Left lower extremity cellulitis., failed out patient rx Obesity extreme, morbid Right ankle cellulitis Cirrhosis Chronic obstructive pulmonary disease. Gastroesophageal reflux disease. Transaminitis. Tobacco abuse. Schizophrenia. HX Electrolyte disturbance. Severe protein malnutrition. Chronic lower extremity venous insufficiency with chronic wounds. Peripheral vascular disease. History of marijuana use. GERD hepatitis HX yeast infection tonsillectomy left toe surgery History of Present Illness History of Present Illness 06/06/20 Patient seen and examined at bedside Pt was upright in chair watching tv, legs were not elevated, appears comfortable and not in distress Pt states she feels better Discussed need for elevation of legs DWRN, states patient has been fine, but struggling with compliance (elevating legs, walking around as needed) RN states pt'a main motivation to improve health is for return of her kids by state, she must prove she is medically stable. Charts reviewed 06/05/2020 No acute events overnight. Patient resting comfortably in the bed. Seen and examined bedside. Afebrile. Restarted tramadol as needed. Patient's chart, labs, images were reviewed and discussed with RN 44-year-old obese female who has chronic cellulitis, but now the left lower extremity is red. with open areas It is swollen. It is tender. Rates her pain at 7/10. worse over the past week. She normally has some chronic pain, but it is much worse. seems to be failing outpatient antibiotics. [facility] her chronic venous ulcers on her legs. they called today requesting direct admit Vitals/I&O Vitals/I&O: Vital Signs Date Time Temp Pulse Resp B/P (MAP) Pulse Ox O2 Delivery O2 Flow Rate FiO2 06/06/20 08:56 Room Air 06/06/20 07:00 98.1 93 18 131/76 (94) 93 98.1 I & O 06/05/20 06/05/20 06/06/20 15:00 23:00 07:00 Intake Total 600 ml 900 ml Balance 600 ml 900 ml Physical Exam Physical Exam: GENERAL: Alert, oriented x 3 female, in no acute distress. HEENT: Normocephalic, atraumatic, anicteric. No thrush. NECK: Supple, no JVD. LUNGS: Clear. HEART: S1, S2. ABDOMEN: Soft, obese. Bowel sounds present. EXTREMITIES: Edema present over both the lower extremities, left greater than right. Left lower extremity dressing intact, not taken down per patient's request. Wound pictures noted. Right lower extremity ulcer healed with dry scabs. Left lower extremity 4 x 5 x 0.1 cm abscess on the lateral and anterior aspect, left lateral ankle area has 1 x 1 x 0.3 cm abscess. There is also lesion present over the medial aspect of the left thigh superficial ulceration with induration. CENTRAL NERVOUS SYSTEM: Alert and oriented x 3, grossly nonfocal. PSYCHIATRIC: Cooperative, appropriate mood and affect. General: Alert, Oriented X3 Heart: Regular rate, Normal S1 Lungs: Clear Abdomen: Soft, No tenderness, Other (obese) Extremities: Other (L thigh wound open, clean base; lower leg with focal abscess, some drainage present) Skin: No rashes, Other ( Edema present over both the lower extremities, left moreso) Review of Systems Review of Systems: Pt denies chest pain Pt denies fever, LEONARD Assessment and Plan Assessmemt and Plan Left lower extremity cellulitis., failed out patient rx Obesity extreme, morbid Right ankle cellulitis Cirrhosis Chronic obstructive pulmonary disease. Gastroesophageal reflux disease. Transaminitis. Tobacco abuse. Schizophrenia. HX Electrolyte disturbance. Severe protein malnutrition. Chronic lower extremity venous insufficiency with chronic wounds. Peripheral vascular disease. History of marijuana use. GERD hepatitis HX yeast infection tonsillectomy left toe surgery Continue IV antibiotics per, ID -Continue IV Zosyn. -Continue IV fluconazole. Monitor renal functions Monitor for antimicrobial toxicities. Continue probiotics. Local wound care as directed Continue supportive care Emphasize need for elevation of Lower Extremities DVT Prophylaxis Comment Review of Relevant I have reviewed the following items karl (where applicable) has been applied. Medications: Current Medications Medications (Trade) Dose Ordered Sig/Terrell Route PRN Reason Start Time Stop Time Status Last Admin Dose Admin Linezolid (Zyvox) 600 mg BID PO 06/05/20 21:00 06/06/20 08:56 Tramadol HCl (Ultram) 50 mg PRN Q4HRS PRN PO MODERATE-SEVERE PAIN 06/05/20 12:30 06/06/20 08:56 Lactobacillus Rhamnosus (Culturelle) 1 cap BID PO 06/05/20 21:00 06/06/20 08:56 Justifications for Admission Other Justification cellulitis both lower legs CARLOS VELARDE III DO Jun 06, 2020 11:14
[2020-06-06 15:00] VITALS: BP 112/66
--- NOTE | 2020-06-06 16:33 | NUR ---
Patient asked for dressings and photos to be completed after family visit. Family is still in room.
[2020-06-06] MEDS: FLUCONAZOLE 200MG/100ML PREMIX 100 ML IV SCH (18:08)
[2020-06-06 19:00] VITALS: BP 112/65
[2020-06-06 23:00] VITALS: BP 115/65
[2020-06-07] MEDS: PIPERACILLIN/TAZOBACTAM 3.375 GM in IV NORMAL SALINE 50ML 50 ML IV SCH ×4 (00:38→18:32)
[2020-06-07 03:00] VITALS: BP 118/66
[2020-06-07 07:00] VITALS: BP 129/75
[2020-06-07] MEDS ORDERED: MORPHINE SULFATE 2 MG/ML VIAL. IVP PRN (08:45)
[2020-06-07] MEDS ORDERED: HYDROmorphone 2 MG/ML VIAL IVP PRN (08:45)
[2020-06-07] MEDS ORDERED: IV RINGERS,LACTATED 1000ML 1,000 ML IV SCH (08:45)
[2020-06-07] MEDS ORDERED: PROCHLORPERAZINE 10 MG/2 ML VIAL. IVP PRN (08:45)
[2020-06-07] MEDS ORDERED: fentaNYL PF VIAL 100 MCG/2 ML VIAL IVP PRN ×2 (08:45)
[2020-06-07] MEDS: LINEZOLID 600 MG TABLET PO SCH ×2 (08:46→20:53)
--- NOTE | 2020-06-07 08:57 | PDOC ---
[facility] [facility] PROGRESS NOTE Date of Service DOS: DATE: 06/07/20 TIME: 08:55 Chief Complaint Chief Complaint Left lower extremity cellulitis., failed out patient rx Obesity extreme, morbid Right ankle cellulitis Cirrhosis Chronic obstructive pulmonary disease. Gastroesophageal reflux disease. Transaminitis. Tobacco abuse. Schizophrenia. HX Electrolyte disturbance. Severe protein malnutrition. Chronic lower extremity venous insufficiency with chronic wounds. Peripheral vascular disease. History of marijuana use. GERD hepatitis HX yeast infection tonsillectomy left toe surgery History of Present Illness History of Present Illness 06/07/2020 Patient seen and examined at bedside. Afebrile. Charts, labs, imaging reviewed. She was NPO for I&D, but this will most likely happen tomorrow due to emergent cases. Continue antibiotics, per ID. 06/06/20 Patient seen and examined at bedside Pt was upright in chair watching tv, legs were not elevated, appears comfortable and not in distress Pt states she feels better Discussed need for elevation of legs DWRN, states patient has been fine, but struggling with compliance (elevating legs, walking around as needed) RN states pt'a main motivation to improve health is for return of her kids by state, she must prove she is medically stable. Charts reviewed 06/05/2020 No acute events overnight. Patient resting comfortably in the bed. Seen and examined bedside. Afebrile. Restarted tramadol as needed. Patient's chart, labs, images were reviewed and discussed with RN 44-year-old obese female who has chronic cellulitis, but now the left lower extremity is red. with open areas It is swollen. It is tender. Rates her pain at 7/10. worse over the past week. She normally has some chronic pain, but it is much worse. seems to be failing outpatient antibiotics. She [facility] her chronic venous ulcers on her legs. they called today requesting direct admit Vitals/I&O Vitals/I&O: Vital Signs Date Time Temp Pulse Resp B/P (MAP) Pulse Ox O2 Delivery O2 Flow Rate FiO2 06/07/20 07:00 98.5 74 20 129/75 (93) 93 Room Air 98.5 I & O 06/06/20 06/06/20 06/07/20 14:59 22:59 06:59 Intake Total 1000 ml 200 ml Balance 1000 ml 200 ml Physical Exam Physical Exam: GENERAL: Alert, oriented x 3 female, in no acute distress. HEENT: Normocephalic, atraumatic, anicteric. No thrush. NECK: Supple, no JVD. LUNGS: Clear. HEART: S1, S2. ABDOMEN: Soft, obese. Bowel sounds present. EXTREMITIES: Edema present over both the lower extremities, left greater than right. Left lower extremity dressing intact, not taken down per patient's request. Wound pictures noted. Right lower extremity ulcer healed with dry scabs. Left lower extremity 4 x 5 x 0.1 cm abscess on the lateral and anterior aspect, left lateral ankle area has 1 x 1 x 0.3 cm abscess. There is also lesion present over the medial aspect of the left thigh superficial ulceration with induration. CENTRAL NERVOUS SYSTEM: Alert and oriented x 3, grossly nonfocal. PSYCHIATRIC: Cooperative, appropriate mood and affect. General: Alert, Oriented X3 Heart: Regular rate, Normal S1 Lungs: Clear Abdomen: Soft, No tenderness, Other (obese) Extremities: Other (L thigh wound open, clean base; lower leg with focal abscess, some drainage present) Skin: No rashes, Other ( Edema present over both the lower extremities, left moreso) Comment Review of Relevant I have reviewed the following items karl (where applicable) has been applied. Justifications for Admission Other Justification cellulitis both lower legs ZABRINA GUERRERO MD Jun 07, 2020 08:57
[2020-06-07 10:14] LABS: U PREG PATIENT NEGATIVE (NEG)
--- NOTE | 2020-06-07 10:32 | PDOC ---
Infectious Disease Note Subjective Subjective pt is feeling ok, surgery today ROS ROS no n/v/d/sob Vital Sign Vital Signs Vital Signs Date Time Temp Pulse Resp B/P (MAP) Pulse Ox O2 Delivery O2 Flow Rate FiO2 06/07/20 07:00 98.5 74 20 129/75 (93) 93 Room Air 98.5 Physical Exam PHYSICAL EXAM GENERAL: Alert, oriented x 3 female, in no acute distress. HEENT: Normocephalic, atraumatic, anicteric. No thrush. NECK: Supple, no JVD. LUNGS: Clear. HEART: S1, S2. ABDOMEN: Soft, obese. Bowel sounds present. EXTREMITIES: Edema present over both the lower extremities, left greater than right. Left lower extremity dressing intact, not taken down per patient's request. Wound pictures noted. Right lower extremity ulcer healed with dry scabs. Left lower extremity 4 x 5 x 0.1 cm abscess on the lateral and anterior aspect, left lateral ankle area has 1 x 1 x 0.3 cm abscess. There is also lesion present over the medial aspect of the left thigh superficial ulceration with induration. CENTRAL NERVOUS SYSTEM: Alert and oriented x 3, grossly nonfocal. PSYCHIATRIC: Cooperative, appropriate mood and affect. Labs Lab Laboratory Tests Test 06/07/20 09:05 06/07/20 09:45 SARS-CoV-2 Antigen (Rapid) Negative (NEGATIVE) Urine Test Negative (NEG) Micro GRAM STAIN Final Final GRAM NEGATIVE RODS:RARE SQUAMOUS EPI CELL:FEW PMN (WBCs):RARE Unless otherwise specified, Testing Performed by: [address] [address] For Inquires, the Physician may contact the Microbiology department at [phone] ANAEROBIC-AEROBIC CULTURE Preliminary Preliminary MODERATE GRAM NEGATIVE RODS on 06/06/20 at 0972 FINAL ID= [PROTEUS MIRABILIS] PROTEUS MIRABILIS ANTIMICROBIAL SUSCEPTIBILITY Preliminary Comment NEG [place] 56 PROTEUS MIRABILIS ANTIBIOTIC RESULT INTERPRETATION AMPICILLIN/SULBACTAM <=4/2 S AMIKACIN <=16 S AMPICILLIN <=8 S AMOXICILLIN/K CLAVULANATE <=8/4 S AZTREONAM <=4 S CEFTRIAXONE <=1 S CEFTAZIDIME <=1 S CEFOTAXIME <=2 S CEFOXITIN <=8 S CEFAZOLIN 4 S CIPROFLOXACIN >2 R CEFEPIME <=2 S CEFUROXIME <=4 S CEFTAZIDIME/AVIBACTAM <=4 S RUN DATE: 06/07/20 [facility] *LIVE* PAGE 2 RUN TIME: 1014 Specimen Inquiry SPEC: [id number] PATIENT: PACO TREJO [id number] (Continued) Procedure Result CONTINUED ON NEXT PAGE ----- ------- RUN DATE: 06/07/20 [facility] *LIVE* PAGE 3 RUN TIME: 1014 Specimen Inquiry SPEC: [id number] PATIENT: PACO TREJO [id number] (Continued) Procedure Result ANTIMICROBIAL SUSCEPTIBILITY Preliminary (continued) ERTAPENEM <=0.5 S GENTAMICIN <=2 S LEVOFLOXACIN 4 I MEROPENEM <=1 S PIPERACILLIN/TAZOBACTAM <=8 S TRIMETHOPRIM/SULFAMETHOXAZOLE <=0.5/9.5 S TETRACYCLINE >8 R TOBRAMYCIN <=2 S Unless otherwise specified, Testing Performed by: [facility] [address] [place] [address] For Inquires, the Physician may contact the Microbiology department at [phone] ------- ----- Objective Assessment 1. Left lower extremity cellulitis/abscesses. 2. Chronic venous stasis. 3. Chronic venous ulcer, right lower extremity, stable, not infected. 4. Cirrhosis of the liver. 5. History of hepatitis C. 6. Abnormal liver function tests. 7. Schizophrenia and bipolar disorder. 8. Tobaccoism. 9. Morbid obesity. Plan Plan of Care Continue Zyvox Zosyn for chronic Zyvox. Surgery today Continue local wound care as directed Avoid picking on lesions Continue supportive care. Elevate left lower extremity discussed with nursing staff. JEANCARLOS MERA MD Jun 07, 2020 10:32
[2020-06-07 11:00] VITALS: BP 118/61
--- NOTE | 2020-06-07 12:41 | PDOC ---
PROGRESS NOTES Date of Service DATE: 06/07/20 TIME: 12:39 Subjective Subjective feels "fine" Objective Objective Vital Signs Date Time Temp Pulse Resp B/P (MAP) Pulse Ox O2 Delivery O2 Flow Rate FiO2 06/07/20 11:00 98.1 71 18 118/61 (80) 96 Room Air 98.1 Intake and Output 06/07/20 07:00 Intake Total 1200 ml Balance 1200 ml Intake Oral 1200 ml # Voids 3 Physical Exam Physical Exam LLE with similar wounds as before, mild purulent drainage lateral lower leg Plan Plan of Care Initial plan to go to OR today, however will change to tomorrow due to other emergent cases Comment Review of Relevant I have reviewed the following items karl (where applicable) has been applied. Labs Laboratory Tests Test 06/07/20 09:05 06/07/20 09:45 SARS-CoV-2 Antigen (Rapid) Negative (NEGATIVE) Urine Test Negative (NEG) Laboratory Tests Test 06/07/20 09:05 06/07/20 09:45 SARS-CoV-2 Antigen (Rapid) Negative (NEGATIVE) Urine Test Negative (NEG) Microbiology 06/05/20 Gram Stain - Final, Resulted 06/05/20 Aerobic and Anaerobic Culture - Preliminary, Resulted 06/05/20 Antimicrobic Susceptibility - Preliminary, Resulted 06/05/20 Blood Culture - Preliminary, Resulted NO GROWTH AFTER 2 DAYS Medications Current Medications Sodium Chloride (Normal Saline Flush) 3 ml QSHIFT PRN IV AFTER MEDS AND BLOOD DRAWS; Start 06/04/20 at 17:00 Ondansetron HCl (Zofran) 4 mg PRN Q4HRS PRN IV NAUSEA/VOMITING; Start 06/04/20 at 17:00 Acetaminophen (Tylenol) 650 mg PRN Q4HRS PRN PO TEMP OVER 100.4F OR MILD PAIN Last administered on 06/05/20at 09:15; Start 06/04/20 at 17:00 Al Hydroxide/Mg Hydroxide (Mylanta Plus Xs) 30 ml PRN DAILY PRN PO HEARTBURN / GAS; Start 06/04/20 at 17:00 Clonidine HCl (Catapres) 0.1 mg PRN Q6HRS PRN PO SBP>160 OR DBP>90; Start 06/04/20 at 17:00 Sodium Monofluorophosphate (Fleet Adult) 133 ml PRN DAILY PRN NM CONSTIPATION; Start 06/04/20 at 17:00 Docusate Sodium (Colace) 100 mg PRN BID PRN PO HARD STOOLS; Start 06/04/20 at 17:00 Albuterol Sulfate (Ventolin Neb Soln) 2.5 mg PRN Q4HRS PRN NEB SHORTNESS OF BREATH; Start 06/04/20 at 17:00; Stop 06/04/20 at 17:49; Status DC Guaifenesin (Robitussin) 200 mg PRN Q4HRS PRN PO COUGH; Start 06/04/20 at 17:00 Enoxaparin Sodium (Lovenox 60mg Syringe) 60 mg Q12HR SQ ; Start 06/04/20 at 21:00 Vancomycin HCl (Vanco Per Pharmacy) 1 each PRN DAILY PRN MC SEE COMMENTS Last administered on 06/05/20at 02:23; Start 06/04/20 at 17:15; Stop 06/05/20 at 10:16; Status DC Piperacillin Sod/ Tazobactam Sod (Zosyn Per Pharmacy) 1 each PRN DAILY PRN MC SEE COMMENTS; Start 06/04/20 at 17:15 Fluconazole/ Sodium Chloride 100 ml @ 100 mls/hr Q24H IV Last administered on 06/06/20at 18:08; Start 06/04/20 at 19:00 Piperacillin Sod/ Tazobactam Sod 3.375 gm/Sodium Chloride 50 ml @ 100 mls/hr Q6HRS IV Last administered on 06/07/20at 06:01; Start 06/04/20 at 18:00 Albuterol Sulfate (Ventolin Neb Soln) 2.5 mg PRN Q6HRS PRN INH SHORTNESS OF BREATH; Start 06/04/20 at 17:30 Cetirizine HCl (ZyrTEC) 10 mg DAILY PO Last administered on 06/06/20at 08:56; Start 06/05/20 at 09:00 Loperamide HCl (Imodium) 2 mg BID PO Last administered on 06/06/20at 22:04; Start 06/04/20 at 21:00 Torsemide (Demadex) 20 mg DAILY PO Last administered on 06/06/20at 08:56; Start 06/05/20 at 09:00 Vancomycin HCl 2 gm/Sodium Chloride 500 ml @ 250 mls/hr 1X ONCE IV Last administered on 06/04/20at 20:50; Start 06/04/20 at 20:00; Stop 06/04/20 at 21:59; Status DC Vancomycin HCl 1.5 gm/Sodium Chloride 500 ml @ 250 mls/hr Q8H IV Last administered on 06/05/20at 05:33; Start 06/05/20 at 05:00; Stop 06/05/20 at 10:12; Status DC Vancomycin HCl (Vancomycin Trough Level) 1 each 1X ONCE MC ; Start 06/05/20 at 20:30; Stop 06/05/20 at 20:31; Status Cancel Linezolid (Zyvox) 600 mg BID PO Last administered on 06/07/20at 08:46; Start 06/05/20 at 21:00 Tramadol HCl (Ultram) 50 mg PRN Q4HRS PRN PO MODERATE-SEVERE PAIN Last administered on 06/06/20at 08:56; Start 06/05/20 at 12:30 Lactobacillus Rhamnosus (Culturelle) 1 cap BID PO Last administered on 06/06/20at 22:04; Start 06/05/20 at 21:00 Fentanyl Citrate (Fentanyl 2ml Vial) 25 mcg PRN Q5MIN PRN IVP MILD PAIN 1-3; Start 06/07/20 at 08:45; Stop 06/08/20 at 08:44 Fentanyl Citrate (Fentanyl 2ml Vial) 50 mcg PRN Q5MIN PRN IVP MODERATE PAIN 4- 6; Start 06/07/20 at 08:45; Stop 06/08/20 at 08:44 Morphine Sulfate (Morphine Sulfate) 1 mg PRN Q10MIN PRN IVP SEVERE PAIN 7-10; Start 06/07/20 at 08:45; Stop 06/08/20 at 08:44 Ringer's Solution 1,000 ml @ 30 mls/hr Q24H IV ; Start 06/07/20 at 08:45; Stop 06/07/20 at 20:44 Hydromorphone HCl (Dilaudid) 0.5 mg PRN Q10MIN PRN IVP SEVERE PAIN 7-10, 2nd CHOICE; Start 06/07/20 at 08:45; Stop 06/08/20 at 08:44 Prochlorperazine Edisylate (Compazine) 5 mg PACU PRN PRN IVP NAUSEA, MRX1; St art 06/07/20 at 08:45; Stop 06/08/20 at 08:44 Active Scripts Active Diflucan (Fluconazole) 150 Mg Tablet 150 Mg PO DAILY Proair Hfa Inhaler (Albuterol Sulfate) 8.5 Gm Hfa.aer.ad 2 Puff INH PRN Q6HRS PRN Reported Ibu (Ibuprofen) 800 Mg Tablet 1 Tab PO PRN Q6HRS PRN 7 Days Torsemide 20 Mg Tablet 20 Mg PO DAILY 30 Days Cetirizine Hcl 10 Mg Tablet 10 Mg PO DAILY 30 Days Loperamide (Loperamide Hcl) 2 Mg Capsule 2 Mg PO BID Vitals/I & O Vital Sign - Last 24 Hours 06/06/20 06/06/20 06/06/20 06/06/20 15:00 19:00 20:15 23:00 Temp 98.3 98.2 97.8 98.3 98.2 97.8 Pulse 74 75 70 Resp 18 18 18 B/P (MAP) 112/66 (81) 112/65 (81) 115/65 (82) Pulse Ox 93 89 90 O2 Delivery Room Air Room Air Room Air Room Air 06/07/20 06/07/20 06/07/20 03:00 07:00 11:00 Temp 97.6 98.5 98.1 97.6 98.5 98.1 Pulse 82 74 71 Resp 18 20 18 B/P (MAP) 118/66 (83) 129/75 (93) 118/61 (80) Pulse Ox 87 93 96 O2 Delivery Room Air Room Air Room Air Intake and Output 06/06/20 06/06/20 06/07/20 15:00 23:00 07:00 Intake Total 1000 ml 200 ml Balance 1000 ml 200 ml Justifications for Admission Other Justification cellulitis both lower legs SUN CAPPS MD Jun 07, 2020 12:41
[2020-06-07 15:00] VITALS: BP 113/68
[2020-06-07] MEDS: LACTOBACILLUS RHAMNOSUS GG 1 CAPSULE. PO SCH ×2 (15:09→20:53)
[2020-06-07] MEDS: CETIRIZINE HCL 10 MG TABLET. PO SCH (15:11)
[2020-06-07] MEDS: traMADol 50 MG TABLET PO PRN (15:13)
[2020-06-07] MEDS: TORSEMIDE 20 MG TABLET. PO SCH (15:13)
[2020-06-07] MEDS: LOPERAMIDE 2 MG CAPSULE PO SCH ×2 (15:16→20:53)
[2020-06-07 19:00] VITALS: BP 122/67
[2020-06-07] MEDS: FLUCONAZOLE 200MG/100ML PREMIX 100 ML IV SCH (19:00)
[2020-06-07 23:00] VITALS: BP 126/75
[2020-06-08] VITALS (10 sets, daily range): BP systolic 119–151; BP diastolic 67–100
[2020-06-08] MEDS: PIPERACILLIN/TAZOBACTAM 3.375 GM in IV NORMAL SALINE 50ML 50 ML IV SCH ×4 (00:02→17:29)
[2020-06-08] MEDS ORDERED: HYDROmorphone 2 MG/ML VIAL IVP PRN (06:00)
[2020-06-08] MEDS ORDERED: PROCHLORPERAZINE 10 MG/2 ML VIAL. IVP PRN (06:00)
[2020-06-08] MEDS ORDERED: MORPHINE SULFATE 2 MG/ML VIAL. IVP PRN (06:00)
[2020-06-08] MEDS ORDERED: IV RINGERS,LACTATED 1000ML 1,000 ML IV SCH (06:00)
--- NOTE | 2020-06-08 09:21 | PDOC ---
Infectious Disease Note Subjective Subjective pt is feeling ok, surgery today ROS ROS no n/v/d/ Vital Sign Vital Signs Vital Signs Date Time Temp Pulse Resp B/P (MAP) Pulse Ox O2 Delivery O2 Flow Rate FiO2 06/08/20 07:00 98.4 85 16 122/93 (103) 96 Room Air 98.4 Physical Exam PHYSICAL EXAM GENERAL: Alert, oriented x 3 female, in no acute distress. HEENT: Normocephalic, atraumatic, anicteric. No thrush. NECK: Supple, no JVD. LUNGS: Clear. HEART: S1, S2. ABDOMEN: Soft, obese. Bowel sounds present. EXTREMITIES: Edema present over both the lower extremities, left greater than right. Left lower extremity dressing intact, not taken down per patient's request. Wound pictures noted. Right lower extremity ulcer healed with dry scabs. Left lower extremity 4 x 5 x 0.1 cm abscess on the lateral and anterior aspect, left lateral ankle area has 1 x 1 x 0.3 cm abscess. There is also lesion present over the medial aspect of the left thigh superficial ulceration with induration. CENTRAL NERVOUS SYSTEM: Alert and oriented x 3, grossly nonfocal. PSYCHIATRIC: Cooperative, appropriate mood and affect. Labs Lab Laboratory Tests Test 06/07/20 09:45 Urine Test Negative (NEG) Micro GRAM STAIN Final Final GRAM NEGATIVE RODS:RARE SQUAMOUS EPI CELL:FEW PMN (WBCs):RARE Unless otherwise specified, Testing Performed by: [address] [address] For Inquires, the Physician may contact the Microbiology department at [phone] ANAEROBIC-AEROBIC CULTURE Preliminary Preliminary MODERATE GRAM NEGATIVE RODS on 06/06/20 at 0932 FINAL ID= [PROTEUS [email or web address]] PROTEUS MIRABILIS ANTIMICROBIAL SUSCEPTIBILITY Preliminary Comment NEG [place] 56 PROTEUS MIRABILIS ANTIBIOTIC RESULT INTERPRETATION AMPICILLIN/SULBACTAM <=4/2 S AMIKACIN <=16 S AMPICILLIN <=8 S AMOXICILLIN/K CLAVULANATE <=8/4 S AZTREONAM <=4 S CEFTRIAXONE <=1 S CEFTAZIDIME <=1 S CEFOTAXIME <=2 S CEFOXITIN <=8 S CEFAZOLIN 4 S CIPROFLOXACIN >2 R CEFEPIME <=2 S CEFUROXIME <=4 S CEFTAZIDIME/AVIBACTAM <=4 S RUN DATE: 06/07/20 [facility] *LIVE* PAGE 2 RUN TIME: 1014 Specimen Inquiry SPEC: [id number] PATIENT: PACO TREJO [id number] (Continued) Procedure Result CONTINUED ON NEXT PAGE RUN DATE: 06/07/20 [facility] *LIVE* PAGE 3 RUN TIME: 1014 Specimen Inquiry SPEC: [id number] PATIENT: PACO TREJO [id number] (Continued) -------- ---- Procedure Result ANTIMICROBIAL SUSCEPTIBILITY Preliminary (continued) ERTAPENEM <=0.5 S GENTAMICIN <=2 S LEVOFLOXACIN 4 I MEROPENEM <=1 S PIPERACILLIN/TAZOBACTAM <=8 S TRIMETHOPRIM/SULFAMETHOXAZOLE <=0.5/9.5 S TETRACYCLINE >8 R TOBRAMYCIN <=2 S Unless otherwise specified, Testing Performed by: [address] [address] For Inquires, the Physician may contact the Microbiology department at [phone] Objective Assessment 1. Left lower extremity cellulitis/abscesses. 2. Chronic venous stasis. 3. Chronic venous ulcer, right lower extremity, stable, not infected. 4. Cirrhosis of the liver. 5. History of hepatitis C. 6. Abnormal liver function tests. 7. Schizophrenia and bipolar disorder. 8. Tobaccoism. 9. Morbid obesity. Plan Plan of Care Continue Zyvox Zosyn for chronic Zyvox. Surgery today Continue local wound care as directed Avoid picking on lesions Continue supportive care. Elevate left lower extremity discussed with nursing staff. JEANCARLOS MERA MD Jun 08, 2020 09:21
--- NOTE | 2020-06-08 09:23 | NUR ---
Pt to surgery by bed.
[2020-06-08] MEDS ORDERED: LIDOCAINE 2% PF 5 ML VIAL. ONE (10:33)
[2020-06-08] MEDS ORDERED: PROPOFOL 10 MG/ML (20ML) VIAL. IV ONE ×2 (10:33→11:32)
[2020-06-08] MEDS ORDERED: BUPIVACAINE-EPI 0.25% 30 ML VIAL KIT. ONE (10:35)
[2020-06-08] MEDS ORDERED: LIDOCAINE 1% PF 30 ML VIAL. ONE (10:35)
--- NOTE | 2020-06-08 10:35 | PDOC ---
[employer] PROGRESS NOTE Date of Service DOS: DATE: 06/08/20 TIME: 10:34 Chief Complaint Chief Complaint Left lower extremity cellulitis., failed out patient rx Obesity extreme, morbid Right ankle cellulitis Cirrhosis Chronic obstructive pulmonary disease. Gastroesophageal reflux disease. Transaminitis. Tobacco abuse. Schizophrenia. HX Electrolyte disturbance. Severe protein malnutrition. Chronic lower extremity venous insufficiency with chronic wounds. Peripheral vascular disease. History of marijuana use. GERD hepatitis HX yeast infection tonsillectomy left toe surgery History of Present Illness History of Present Illness 06/08/2020 No acute events overnight. I&D planned for today. Continue antibiotics per ID. 06/07/2020 Patient seen and examined at bedside. Afebrile. Charts, labs, imaging reviewed. She was NPO for I&D, but this will most likely happen tomorrow due to emergent cases. Continue antibiotics, per ID. 06/06/20 Patient seen and examined at bedside Pt was upright in chair watching tv, legs were not elevated, appears comfortable and not in distress Pt states she feels better Discussed need for elevation of legs DWRN, states patient has been fine, but struggling with compliance (elevating legs, walking around as needed) RN states pt'a main motivation to improve health is for return of her kids by state, she must prove she is medically stable. Charts reviewed 06/05/2020 No acute events overnight. Patient resting comfortably in the bed. Seen and examined bedside. Afebrile. Restarted tramadol as needed. Patient's chart, labs, images were reviewed and discussed with RN 44-year-old obese female who has chronic cellulitis, but now the left lower extremity is red. with open areas It is swollen. It is tender. Rates her pain at 7/10. worse over the past week. She normally has some chronic pain, but it is much worse. seems to be failing outpatient antibiotics. [facility] her chronic venous ulcers on her legs. they called today requesting direct admit Vitals/I&O Vitals/I&O: Vital Signs Date Time Temp Pulse Resp B/P (MAP) Pulse Ox O2 Delivery O2 Flow Rate FiO2 06/08/20 09:31 97.7 73 22 121/69 92 Room Air 97.7 I & O 06/07/20 06/07/20 06/08/20 15:00 23:00 07:00 Intake Total 70 ml 70 ml Output Total 0 ml Balance 70 ml 70 ml Physical Exam Physical Exam: General: Alert, Oriented X3 Heart: Regular rate, Normal S1 Lungs: Clear Abdomen: Soft, No tenderness, Other (obese) Extremities: Other (L thigh wound open, clean base; lower leg with focal abscess, some drainage present) Skin: No rashes, Other ( Edema present over both the lower extremities, left moreso) Comment Review of Relevant I have reviewed the following items karl (where applicable) has been applied. Justifications for Admission Other Justification cellulitis both lower legs ZABRINA GUERRERO MD Jun 08, 2020 10:35
[2020-06-08] MEDS ORDERED: fentaNYL PF VIAL 100 MCG/2 ML VIAL ONE ×2 (11:22→11:49)
[2020-06-08] MEDS ORDERED: ONDANSETRON PF 4 MG/2 ML VIAL. ONE (11:30)
[2020-06-08] MEDS ORDERED: SEVOFLURANE 16 TO 30 MINUTES. IH ONE (11:30)
--- NOTE | 2020-06-08 12:30 | NUR ---
Arrived to unit by bed from PACU. Alert and oriented X's 4. No c/o at this time. Dressing on right leg and left leg d/i. Pedal pulses + bilaterally and warm touch. IVF's intact and infusing. O2 at 2l per n/c. Side rails up x's 2 with call light in reach. Cont. monitor.
[2020-06-08] MEDS: LOPERAMIDE 2 MG CAPSULE PO SCH ×2 (13:06→20:44)
[2020-06-08] MEDS: CETIRIZINE HCL 10 MG TABLET. PO SCH (13:06)
[2020-06-08] MEDS: LACTOBACILLUS RHAMNOSUS GG 1 CAPSULE. PO SCH ×2 (13:06→20:44)
[2020-06-08] MEDS: TORSEMIDE 20 MG TABLET. PO SCH (13:06)
[2020-06-08] MEDS: LINEZOLID 600 MG TABLET PO SCH ×2 (13:06→20:44)
[2020-06-08] MEDS: traMADol 50 MG TABLET PO PRN (13:11)
--- NOTE | 2020-06-08 13:14 | PDOC4 ---
Operative Note Operative Note Operative Note: Preoperative Diagnosis: Left lower extremity cellulitis with open wounds Postoperative Diagnosis: Same Procedure: Debridement left lower extremity, 28 cm2, extending to muscle fascia Surgeon: Butch Installment Loan Collector: Abdoul ALBRECHT Anesthesia: General EBL: 20 mL Specimen: None Drains: None Complications: None Indication: The patient is a 44-year-old female who was admitted with left lower extremity cellulitis and open wounds. In particular there is a left medial thigh and a left lower leg lateral wound that will require debridement. The details and risks of surgery were discussed with the patient. The risks include bleeding, infection, pain, scar tissue, anesthetic risk, potential need for additional surgery procedure. She understands and would like to proceed. Description: The patient was taken the operating room and placed supine on the operating table. General anesthesia was performed. The left leg was prepped with Betadine and draped in a standard surgical manner. We started on the lateral aspect of the lower leg. There was a wound present that had been draining purulent material. With a scalpel an elliptical incision was made around the involved skin. We began debriding some of the devitalized subcutaneous tissue. The dissection was carried down to the level of the muscle fascia which appeared intact. The wound was then irrigated with sterile saline and packed with gauze. We then directed our attention to the left medial thigh. There was a larger ulcerated patch of devitalized skin and subcutaneous tissue. With a scalpel an elliptical incision was made around the edges of the involved tissue. With sharp dissection we debrided much of the involved subcutaneous tissue. The total area of debridement was 7 x 4 cm., and the debridement extended to the deep subcutaneous tissue near the fascia. The remaining tissue appeared viable and bled easily. Hemostasis was achieved with cautery. The wound was then irrigated and packed with sterile gauze. A dressing was then applied. The patient tolerated the procedure well and was sent to the covering room in stable condition. At the end the case all counts were correct. SUN CAPPS MD Jun 08, 2020 13:14
[2020-06-08] MEDS: FLUCONAZOLE 200MG/100ML PREMIX 100 ML IV SCH (19:24)
[2020-06-09] MEDS: PIPERACILLIN/TAZOBACTAM 3.375 GM in IV NORMAL SALINE 50ML 50 ML IV SCH ×3 (00:13→11:47)
[2020-06-09 03:14] VITALS: BP 129/63
[2020-06-09 06:13] LABS: CALCIUM 9.1 mg/dL (8.5-10.1); GFR 60.2; POTASSIUM 4.2 mmol/L (3.5-5.1)
[2020-06-09 06:25] LABS: BASO % 1 % (0-3); EOS # 0.2 x10^3/uL (0.0-0.7); EOS % 3 % (0-3); HEMATOCRIT 36.1 % (36.0-47.0); HEMOGLOBIN 11.6 g/dL (12.0-15.5); LYMPH # 2.7 x10^3/uL (1.0-4.8); LYMPH % 38 % (24-48); MEAN CORPUSCULAR HEMOGLOBIN 31 pg (25-35); MEAN CORPUSCULAR HGB CONC 32 g/dL (31-37); MEAN CORPUSCULAR VOLUME 97 fL (79-100); MONO # 1.3 x10^3/uL (0.0-1.1); MONO % 18 % (0-9); NEUT # 2.9 x10^3/uL (1.8-7.7); NEUT % 41 % (31-73); PLATELET COUNT 205 x10^3/uL (140-400); RED BLOOD COUNT 3.74 x10^6/uL (3.50-5.40); RED CELL DISTRIBUTION WIDTH 15.9 % (11.5-14.5); WHITE BLOOD COUNT 7.2 x10^3/uL (4.0-11.0)
[2020-06-09 07:00] VITALS: BP 112/69
[2020-06-09] MEDS: LOPERAMIDE 2 MG CAPSULE PO SCH (09:21)
[2020-06-09] MEDS: CETIRIZINE HCL 10 MG TABLET. PO SCH (09:21)
[2020-06-09] MEDS: TORSEMIDE 20 MG TABLET. PO SCH (09:22)
[2020-06-09] MEDS: LINEZOLID 600 MG TABLET PO SCH (09:22)
[2020-06-09] MEDS: LACTOBACILLUS RHAMNOSUS GG 1 CAPSULE. PO SCH (09:22)
[2020-06-09] MEDS ORDERED: LOPERAMIDE 2 MG CAPSULE PO ONE (09:30)
--- NOTE | 2020-06-09 09:42 | PDOC ---
Infectious Disease Note Subjective Subjective pt is feeling good, had I and D yesterday ROS ROS no n/v/d/ wants to go home Vital Sign Vital Signs Vital Signs Date Time Temp Pulse Resp B/P (MAP) Pulse Ox O2 Delivery O2 Flow Rate FiO2 06/09/20 07:00 97.9 72 18 112/69 (83) 91 Room Air 97.9 06/08/20 13:11 2.0 Physical Exam PHYSICAL EXAM GENERAL: Alert, oriented x 3 female, in no acute distress. HEENT: Normocephalic, atraumatic, anicteric. No thrush. NECK: Supple, no JVD. LUNGS: Clear. HEART: S1, S2. ABDOMEN: Soft, obese. Bowel sounds present. EXTREMITIES: Edema present over both the lower extremities, left greater than right. Left lower extremity dressing intact, not taken down per patient's request. Wound pictures noted. Right lower extremity ulcer healed with dry scabs. Left lower extremity 4 x 5 x 0.1 cm abscess on the lateral and anterior aspect, left lateral ankle area has 1 x 1 x 0.3 cm abscess. There is also lesion present over the medial aspect of the left thigh superficial ulceration with induration. CENTRAL NERVOUS SYSTEM: Alert and oriented x 3, grossly nonfocal. PSYCHIATRIC: Cooperative, appropriate mood and affect. Labs Lab Laboratory Tests Test 06/08/20 12:04 06/09/20 04:40 Glucose (Fingerstick) 85 mg/dL (70-99) White Blood Count 7.2 x10^3/uL (4.0-11.0) Red Blood Count 3.74 x10^6/uL (3.50-5.40) Hemoglobin 11.6 g/dL (12.0-15.5) Hematocrit 36.1 % (36.0-47.0) Mean Corpuscular Volume 97 fL (79-100) Mean Corpuscular Hemoglobin 31 pg (25-35) Mean Corpuscular Hemoglobin Concent 32 g/dL (31-37) Red Cell Distribution Width 15.9 % (11.5-14.5) Platelet Count 205 x10^3/uL (140-400) Neutrophils (%) (Auto) 41 % (31-73) Lymphocytes (%) (Auto) 38 % (24-48) Monocytes (%) (Auto) 18 % (0-9) Eosinophils (%) (Auto) 3 % (0-3) Basophils (%) (Auto) 1 % (0-3) Neutrophils # (Auto) 2.9 x10^3/uL (1.8-7.7) Lymphocytes # (Auto) 2.7 x10^3/uL (1.0-4.8) Monocytes # (Auto) 1.3 x10^3/uL (0.0-1.1) Eosinophils # (Auto) 0.2 x10^3/uL (0.0-0.7) Basophils # (Auto) 0.0 x10^3/uL (0.0-0.2) Sodium Level 136 mmol/L (136-145) Potassium Level 4.2 mmol/L (3.5-5.1) Chloride Level 99 mmol/L (98-107) Carbon Dioxide Level 30 mmol/L (21-32) Anion Gap 7 (6-14) Blood Urea Nitrogen 21 mg/dL (7-20) Creatinine 1.0 mg/dL (0.6-1.0) Estimated GFR (Cockcroft-Gault) 60.2 Glucose Level 97 mg/dL (70-99) Calcium Level 9.1 mg/dL (8.5-10.1) Micro GRAM STAIN Final Final GRAM NEGATIVE RODS:RARE SQUAMOUS EPI CELL:FEW PMN (WBCs):RARE Unless otherwise specified, Testing Performed by: [address] [id number] For Inquires, the Physician may contact the Microbiology department at [phone] ANAEROBIC-AEROBIC CULTURE Preliminary Preliminary MODERATE GRAM NEGATIVE RODS on 06/06/20 at 0925 FINAL ID= [PROTEUS MIRABILIS] MANY GRAM POSITIVE RODS on 06/07/20 at 1244 FINAL ID= [CORYNEBACTERIUM STRIATUM GRP] PROTEUS MIRABILIS CORYNEBACTERIUM STRIATUM GRP CORYNEBACTERIUM STRIATUM GRP ANTIMICROBIAL SUSCEPTIBILITY Preliminary Comment NEG [place] 56 PROTEUS MIRABILIS ANTIBIOTIC RESULT INTERPRETATION AMPICILLIN/SULBACTAM <=4/2 S AMIKACIN <=16 S AMPICILLIN <=8 S AMOXICILLIN/K CLAVULANATE <=8/4 S AZTREONAM <=4 S CEFTRIAXONE <=1 S CEFTAZIDIME <=1 S CEFOTAXIME <=2 S CEFOXITIN <=8 S CEFAZOLIN 4 S RUN DATE: 06/07/20 [facility] *LIVE* PAGE 2 RUN TIME: 1248 Specimen Inquiry SPEC: [id number] PATIENT: MAYAPACO [id number] (Continued) Procedure Result - CONTINUED ON NEXT PAGE RUN DATE: 06/07/20 [facility] *LIVE* PAGE 3 RUN TIME: 1248 Specimen Inquiry SPEC: [id number] PATIENT: PACO TREJO [id number] (Continued) Procedure Result ANTIMICROBIAL SUSCEPTIBILITY Preliminary (continued) CIPROFLOXACIN >2 R CEFEPIME <=2 S CEFUROXIME <=4 S CEFTAZIDIME/AVIBACTAM <=4 S ERTAPENEM <=0.5 S GENTAMICIN <=2 S LEVOFLOXACIN 4 I MEROPENEM <=1 S PIPERACILLIN/TAZOBACTAM <=8 S TRIMETHOPRIM/SULFAMETHOXAZOLE <=0.5/9.5 S TETRACYCLINE >8 R TOBRAMYCIN <=2 S Unless otherwise specified, Testing Performed by: [address] [id number] For Inquires, the Physician may contact the Microbiology department at [phone] Objective Assessment 1. Left lower extremity cellulitis/abscesses. s/p I and D 2. Chronic venous stasis. 3. Chronic venous ulcer, right lower extremity, stable, not infected. 4. Cirrhosis of the liver. 5. History of hepatitis C. 6. Abnormal liver function tests. 7. Schizophrenia and bipolar disorder. 8. Tobaccoism. 9. Morbid obesity. Plan Plan of Care change antibiotics to po augmentin ok to d/c Continue local wound care as directed discussed with nursing staff. JEANCARLOS MERA MD Jun 09, 2020 09:41
[2020-06-09] MEDS ORDERED: AMOX1TAB61 PO (09:49)
[2020-06-09] MEDS ORDERED: TRAM50TA PO (09:49)
--- NOTE | 2020-06-09 10:32 | PDOC3 ---
Discharge Summary Visit Information Date of Admission: Jun 04, 2020 Date of Discharge: Jun 09, 2020 Final Diagnosis Left lower extremity cellulitis., failed out patient rx Obesity extreme, morbid Right ankle cellulitis Cirrhosis Chronic obstructive pulmonary disease. Gastroesophageal reflux disease. Transaminitis. Tobacco abuse. Schizophrenia. HX Electrolyte disturbance. Severe protein malnutrition. Chronic lower extremity venous insufficiency with chronic wounds. Peripheral vascular disease. History of marijuana use. GERD hepatitis HX yeast infection tonsillectomy left toe surgery Brief Hospital Course Allergies Allergies Coded Allergies Type Severity Reaction Last Updated Verified Latex, Natural Rubber Allergy Intermediate 04/25/20 Yes Vital Signs Vital Signs Date Time Temp Pulse Resp B/P (MAP) Pulse Ox O2 Delivery O2 Flow Rate FiO2 06/09/20 07:00 97.9 72 18 112/69 (83) 91 Room Air 97.9 06/08/20 13:11 2.0 Lab Results Laboratory Tests Test 06/08/20 12:04 06/09/20 04:40 Glucose (Fingerstick) 85 mg/dL (70-99) White Blood Count 7.2 x10^3/uL (4.0-11.0) Red Blood Count 3.74 x10^6/uL (3.50-5.40) Hemoglobin 11.6 g/dL (12.0-15.5) Hematocrit 36.1 % (36.0-47.0) Mean Corpuscular Volume 97 fL (79-100) Mean Corpuscular Hemoglobin 31 pg (25-35) Mean Corpuscular Hemoglobin Concent 32 g/dL (31-37) Red Cell Distribution Width 15.9 % (11.5-14.5) Platelet Count 205 x10^3/uL (140-400) Neutrophils (%) (Auto) 41 % (31-73) Lymphocytes (%) (Auto) 38 % (24-48) Monocytes (%) (Auto) 18 % (0-9) Eosinophils (%) (Auto) 3 % (0-3) Basophils (%) (Auto) 1 % (0-3) Neutrophils # (Auto) 2.9 x10^3/uL (1.8-7.7) Lymphocytes # (Auto) 2.7 x10^3/uL (1.0-4.8) Monocytes # (Auto) 1.3 x10^3/uL (0.0-1.1) Eosinophils # (Auto) 0.2 x10^3/uL (0.0-0.7) Basophils # (Auto) 0.0 x10^3/uL (0.0-0.2) Sodium Level 136 mmol/L (136-145) Potassium Level 4.2 mmol/L (3.5-5.1) Chloride Level 99 mmol/L (98-107) Carbon Dioxide Level 30 mmol/L (21-32) Anion Gap 7 (6-14) Blood Urea Nitrogen 21 mg/dL (7-20) Creatinine 1.0 mg/dL (0.6-1.0) Estimated GFR (Cockcroft-Gault) 60.2 Glucose Level 97 mg/dL (70-99) Calcium Level 9.1 mg/dL (8.5-10.1) Laboratory Tests Test 06/08/20 12:04 06/09/20 04:40 Glucose (Fingerstick) 85 mg/dL (70-99) White Blood Count 7.2 x10^3/uL (4.0-11.0) Red Blood Count 3.74 x10^6/uL (3.50-5.40) Hemoglobin 11.6 g/dL (12.0-15.5) Hematocrit 36.1 % (36.0-47.0) Mean Corpuscular Volume 97 fL (79-100) Mean Corpuscular Hemoglobin 31 pg (25-35) Mean Corpuscular Hemoglobin Concent 32 g/dL (31-37) Red Cell Distribution Width 15.9 % (11.5-14.5) Platelet Count 205 x10^3/uL (140-400) Neutrophils (%) (Auto) 41 % (31-73) Lymphocytes (%) (Auto) 38 % (24-48) Monocytes (%) (Auto) 18 % (0-9) Eosinophils (%) (Auto) 3 % (0-3) Basophils (%) (Auto) 1 % (0-3) Neutrophils # (Auto) 2.9 x10^3/uL (1.8-7.7) Lymphocytes # (Auto) 2.7 x10^3/uL (1.0-4.8) Monocytes # (Auto) 1.3 x10^3/uL (0.0-1.1) Eosinophils # (Auto) 0.2 x10^3/uL (0.0-0.7) Basophils # (Auto) 0.0 x10^3/uL (0.0-0.2) Sodium Level 136 mmol/L (136-145) Potassium Level 4.2 mmol/L (3.5-5.1) Chloride Level 99 mmol/L (98-107) Carbon Dioxide Level 30 mmol/L (21-32) Anion Gap 7 (6-14) Blood Urea Nitrogen 21 mg/dL (7-20) Creatinine 1.0 mg/dL (0.6-1.0) Estimated GFR (Cockcroft-Gault) 60.2 Glucose Level 97 mg/dL (70-99) Calcium Level 9.1 mg/dL (8.5-10.1) Brief Hospital Course Ms. Grider is a 44 old female, admit with leg wounds, cellulitis, failed outpatient wound care and abx,. abx, wound care Dr. Rae took her to the OR 32, Debridement left lower extremity, 28 cm2, extending to muscle fascia pain better, felt well, wanted DC home ID consult followed, zyvox and zosyn here, OK to DC on augmentin Pain OK Discharge Information Condition at Discharge: Improved Follow Up: Weeks Disposition/Orders: D/C to Home Scheduled Amoxicillin/Potassium Clav (Augmentin 875-125 Tablet) 1 Each Tablet, 1 TAB PO BID for cellulitis for 10 Days, #20 Ref 0 Prescribed by: ANITHA LIMON on 06/09/20 0949 Cetirizine Hcl (Cetirizine Hcl) 10 Mg Tablet, 10 MG PO DAILY for Allergies for 3 0 Days, #30 (Reported) Entered as Reported by: LUCINA SHUKLA RN on 08/03/182201 Last Action: Continued on 06/04/201719 by GWYN WHITMORE MD Loperamide Hcl (Loperamide) 2 Mg Capsule, 2 MG PO BID, (Reported) Entered as Reported by: MARIXA COVINGTON on 11/27/17 1051 Last Action: Continued on 06/04/201719 by GWYN WHITMORE MD Torsemide (Torsemide) 20 Mg Tablet, 20 MG PO DAILY for swelling for 30 Days, #30 (Reported) Entered as Reported by: JAMEEL HOOKER MD on 10/01/19 0322 Last Action: Continued on 06/04/201719 by GWYN WHITMORE MD Scheduled PRN Albuterol Sulfate (Proair Hfa Inhaler) 8.5 Gm Hfa.aer.ad, 2 PUFF INH PRN Q6HRS PRN for SHORTNESS OF BREATH, #1 Ref 0 Prescribed by: MERY ALVARENGA MD on 09/24/18 1259 Last Action: Continued on 06/04/201719 by GWYN WHITMORE MD Ibuprofen (Ibu) 800 Mg Tablet, 1 TAB PO PRN Q6HRS PRN for PAIN for 7 Days, Ref 0 (Reported) Entered as Reported by: TULIO SANDERS on 10/01/19 1659 Last Action: HELD on 06/04/201719 by GWYN WHITMORE MD Tramadol Hcl (Tramadol Hcl) 50 Mg Tablet, 50 MG PO PRN Q8HRS PRN for MODERATE- SEVERE PAIN, #15 Prescribed by: ANITHA LIMON on 06/09/20 0950 Discontinued Medications Fluconazole (Diflucan) 150 Mg Tablet, 150 MG PO DAILY, #7 Prescribed by: MERY ALVARENGA MD on 12/12/18 1134 Last Action: HELD on 06/04/201719 by GWYN WHITMORE MD Patient Instructions Patient Instructions time > 30 min face to face discussion Justicifation of Admission Dx: Justifications for Admission: Justification of Admission Dx: Yes Cellulitis: Cellulitis ANITHA LIMON MD Jun 09, 2020 10:32
[2020-06-09 11:00] VITALS: BP 120/76
[2020-06-09] MEDS: traMADol 50 MG TABLET PO PRN (14:18)
[2020-06-09 15:00] VITALS: BP 126/74
--- NOTE | 2020-06-09 15:56 | NUR ---
Wound/Ostomy Care Wound Type/Assessment: Pt seen per wound care consult. See wound assessment. Pt is well known to us from the wound clinic as she has been coming to us twice weekly for quite some time. Pt has multiple abscess wounds to the left lower extremity. Pt is s/p I&D to the left medial thigh and left lower leg on 06/08/20. Pt is scheduled to discharge today. All wounds cleansed, assessed, measured, and pictured. The left anterior lateral lower leg and left medial thigh abscess both have tendon and fat exposed. Treatment Recommendations/Plan: left thigh: xeroform gauze over the tendon and adipose, covered with Aquacel ag, ABD pad, and tape. left lower leg and left lateral lower leg: Xeroform gauze, Aquacel Ag, ABD pad, and kerlix. left medial ankle: packed with Iodoform gauze packing, cover with Aquacel Ag, ABD pads, and kerlix. All dressings applied and pt tolerated well. Bilateral medi-customer support advisor applied. Education provided: Pt educated on dressing changes and importance for keeping wound clean and dry and covered. Offloading surface/device: N/A Recommended Referrals/Tests: Pt will follow up with us in the wound clinic on Sunday. Discharge Recommendations for dressings: Pt will follow up with us in the wound clinic on 06/11/20. No other wounds noted. Pt sent with extra supplies in case dressing should come off or become saturated before Sunday.
--- NOTE | 2020-06-09 16:39 | NUR ---
Discharge Note: PACO TREJO [address] Discharge instructions and discharge home medications reviewed with Patient and a copy given. All questions have been answered and understanding verbalized. The following instructions and handouts were given: Patient given education regarding new medications and follow ups. Discontinued lines and drains: Iv removed per protocol. Patient discharged home, picked up by ex .
== END 2020-06-09 16:41 | disposition home or self-care (01) | DRG 570 ==
LOC: 4 NORTH 14:15
PROVIDERS: ADMIT Family Medicine; ATTEND Family Medicine
PROC: 0JBM0ZZ Excision of Left Upper Leg Subcutaneous Tissue and Fascia, Open Approach (ICD-10-PCS; 2020-06-08)
PROC: 0JBP0ZZ Excision of Left Lower Leg Subcutaneous Tissue and Fascia, Open Approach (ICD-10-PCS; principal; 2020-06-08 10:15)
DX: L03.116 Cellulitis of left lower limb (principal); E43 Unspecified severe protein-calorie malnutrition; Z68.43 Body mass index [BMI] 50.0-59.9, adult; L03.115 Cellulitis of right lower limb; M60.9 Myositis, unspecified; K75.9 Inflammatory liver disease, unspecified; K74.60 Unspecified cirrhosis of liver; K21.9 Gastro-esophageal reflux disease without esophagitis; J44.9 Chronic obstructive pulmonary disease, unspecified; I87.8 Other specified disorders of veins; I73.9 Peripheral vascular disease, unspecified; I10 Essential (primary) hypertension; F31.9 Bipolar disorder, unspecified; F20.9 Schizophrenia, unspecified; F17.210 Nicotine dependence, cigarettes, uncomplicated; E66.01 Morbid (severe) obesity due to excess calories; G89.29 Other chronic pain; L02.416 Cutaneous abscess of left lower limb; F41.9 Anxiety disorder, unspecified; M19.90 Unspecified osteoarthritis, unspecified site; R23.4 Changes in skin texture; R94.5 Abnormal results of liver function studies; Z20.822 Contact with and (suspected) exposure to COVID-19; I87.2 Venous insufficiency (chronic) (peripheral); Z87.440 Personal history of urinary (tract) infections; Z83.3 Family history of diabetes mellitus; Z98.891 History of uterine scar from previous surgery; Z79.899 Other long term (current) drug therapy; Z91.040 Latex allergy status; Z91.048 Other nonmedicinal substance allergy status
CPT/HCPCS: 36415; 80048; 80053; 81025; 82962; 85025; 87040; 87071; 87075; 87076; 87077; 87186; 87426; J1450; J1650; J2405; J2543; J2704; J3010; J3370; J3490; J7040; J7120; U0003; A4461; G0378

== ENCOUNTER → 2020-07-07 | Outpatient (CLI) | payer OTHER ==
[2020-06-09 15:00] VITALS: BP 126/74
[~2020-07-07] MED LIST changes: +GADOTERATE 7.5 MMOL/15ML VIAL. IVP ONE; +LINE600T12 PO
--- NOTE | 2020-07-07 14:10 | RAD ---
EXAM: MRI left foot, attention to hindfoot-midfoot with and without IV contrast DATE: 07/07/2020 11:06 AM CLINICAL HISTORY: Reason: EXPOSED BONE, GAS FORMATION COMPARISON: 07/01/2020 TECHNIQUE: Multiplanar, multisequence MR imaging of the left foot including the hindfoot and midfoot was performed before and after the administration of IV contrast. FINDINGS: Marked soft tissue swelling and irregularity at the plantar aspect of the left foot as well as overly ing the medial hindfoot and lower leg with associated enhancement and edema, which may be seen with c ellulitis. Small soft tissue defects are seen, extending in close proximity to the medial malleolus. T1 marrow signal is preserved throughout the visualized marrow without evidence for T1 marrow replace ment. Visualized flexor and extensor tendons are grossly intact. Increased signal and thickening of the per oneus longus and brevis likely tendinosis. Trace tenosynovial fluid about the posterior tibialis like ly reactive. Grossly normal muscle signal and bulk. IMPRESSION: 1. T1 marrow signal is grossly preserved without MRI evidence for osteomyelitis. 2. Diffuse edema and enhancement about the soft tissues may be seen with cellulitis. Electronically signed by: Renny Willis MD (07/07/2020 2:07 PM) [id number]
== END ==
LOC: MRI 10:37
PROVIDERS: ATTEND Preventive Medicine Undersea and Hyperbaric Medicine
DX: M86.8X8 Other osteomyelitis, other site (principal)
CPT/HCPCS: 73723; A9575